=== PATIENT | male | born 1965 | race Caucasian/White ===

== ENCOUNTER → 2016-08-10 | Outpatient (CLI) | payer OTHER ==
[2016-08-10 09:57] LABS: BASO % 0.4 %; BASO ABS # 0.03 K/uL (0-0.2); COMPLETE YES; EOS % 0.5 %; HEMATOCRIT 41.9 % (42-52); IG% 0.3 %; LYMPH % 34.1 %; LYMPH ABS # 2.63 K/uL (1.2-3.4); MEAN CELL VOLUME 90.3 fL (80-100); MEAN CORPUSCULAR HEMOGLOBIN 32.5 pg (25-34); MEAN PLATELET VOLUME 8.5 fL (7.4-10.4); MONO % 6.6 %; NEUT % 58.1 %; PLATELET COUNT 180 K/uL (130-400); RED BLOOD COUNT 4.64 M/uL (4.7-6.1); WHITE BLOOD COUNT 7.72 K/uL (4.8-10.8)
[2016-08-10 10:35] LABS: ALT/SGPT 55 U/L (12-78); AST/SGOT 24 U/L (15-37); BLOOD UREA NITROGEN 14 mg/dl (7-18); BUN/CREATININE RATIO 14.7 (10-20); CALCIUM 8.6 mg/dl (8.5-10.1); CARBON DIOXIDE 30 mmol/L (21-32); CHLORIDE 104 mmol/L (98-107); CREATININE 0.95 mg/dl (0.60-1.40); GLUCOSE 89 mg/dl (70-99); SODIUM 139 mmol/L (136-145)
[2016-08-10 10:41] LABS: ALB/GLOB RATIO 1.3 (0.9-2); ALKALINE PHOSPHATASE 87 U/L (45-117); CHOLESTEROL 224 mg/dl (0-200); CHOLESTEROL/HDL RATIO 5.1; FERRITIN 184.6 ng/ml (8.0-388.0); HDL CHOLESTEROL 44 mg/dl; LDL CHOLESTEROL CALCULATED 142 mg/dl; PROSTATE SPECIFIC ANTIGEN 0.825 ng/ml (0.000-4.000); TRIGLYCERIDES 190 mg/dl (0-150); VERY LOW DENSITY LIPOPROT CALC 38 mg/dl
== END | disposition home or self-care (01) ==
LOC: C.LAB 09:30
PROVIDERS: ATTEND Family Medicine
DX: Z11.59 Encounter for screening for other viral diseases (principal); E78.00 Pure hypercholesterolemia, unspecified; Z86.2 Personal history of diseases of the blood and blood-forming organs and certain disorders involving the immune mechanism; Z12.5 Encounter for screening for malignant neoplasm of prostate

== ENCOUNTER → 2017-02-10 | Outpatient (CLI) | payer OTHER ==
[2017-02-10 10:48] LABS: BLOOD UREA NITROGEN 13 mg/dl (7-18); BUN/CREATININE RATIO 13.1 (10-20); CARBON DIOXIDE 29 mmol/L (21-32); CHLORIDE 101 mmol/L (98-107); CREATININE 0.96 mg/dl (0.60-1.40); GLUCOSE 87 mg/dl (70-99); POTASSIUM 4.2 mmol/L (3.5-5.1); SODIUM 137 mmol/L (136-145)
[2017-02-10 10:49] LABS: ALT/SGPT 143 U/L (12-78); AST/SGOT 69 U/L (15-37); CALCIUM 9.2 mg/dl (8.5-10.1); CHOLESTEROL 227 mg/dl (0-200); TRIGLYCERIDES 173 mg/dl (0-150); VERY LOW DENSITY LIPOPROT CALC 35 mg/dl
[2017-02-10 10:52] LABS: ALB/GLOB RATIO 1.1 (0.9-2); ALKALINE PHOSPHATASE 110 U/L (45-117); CHOLESTEROL/HDL RATIO 4.5; HDL CHOLESTEROL 50 mg/dl; LDL CHOLESTEROL CALCULATED 142 mg/dl
== END | disposition home or self-care (01) ==
LOC: C.LAB 09:52
PROVIDERS: ATTEND Family Medicine
DX: E78.00 Pure hypercholesterolemia, unspecified (principal)

== ENCOUNTER 2022-02-13 01:59 | Observation (INO) ==
[2022-02-13] MEDS ORDERED: OPTIRAY 350 100ml IV ONE (03:09)
[2022-02-13 03:12] LABS: Basophils # (auto) 0.03 K/uL (0-0.2); Basophils % (auto) 0.4 %; Eosinophils # (auto) 0.01 K/uL (0-0.50); Eosinophils % (auto) 0.1 %; Hematocrit (blood only) 40.8 % (40.1-51.0); Hemoglobin 14.8 g/dl (14.0-18.0); Immature Granulocytes # (auto) 0.11 K/uL (0.00-0.02); Immature Granulocytes % (auto) 1.3 %; Lymphocytes # (auto) 1.68 K/uL (1.2-3.4); Lymphocytes % (auto) 20.2 %; Mean Corpuscular Hemoglobin 32.7 pg (25.0-34.0); Mean Corpuscular Hgb Conc 36.3 g/dL (32.0-36.0); Mean Corpuscular Volume 90.3 fL (80.0-100.0); Mean Platelet Volume 8.7 fL (9.4-12.4); Monocytes # (auto) 0.33 K/uL (0.24-0.82); Neutrophils # (auto) 6.17 K/uL (1.4-6.5); Platelet Count 197 K/uL (130-400); RDW Coefficient of Variation 11.6 % (11.5-14.5); RDW Standard Deviation 38.3 fL (36.4-46.3); Red Blood Count 4.52 M/uL (4.63-6.08); White Blood Count 8.33 K/ul (4.8-10.8)
[2022-02-13 03:15] LABS: Appearance Urine Clear (Clear); Bacteria Urine Automated Negative (Negative); Bilirubin Urine Negative (Negative); Blood Urine Negative (Negative); Color Urine Yellow; Glucose Urine UA Negative (Negative); Ketones Urine Trace (Negative); Leukocyte Esterase Urine Negative (Negative); Nitrite Urine Negative (Negative); RBC Urine Automated 0-4 /hpf (0-4); Specific Gravity Urine 1.019 (1.000-1.030); Urobilinogen Urine Negative (Negative); pH Urine 7.5 (4.5-7.5)
[2022-02-13] MEDS ORDERED: SODIUM CHLORIDE 0.9% 1000ML 1,000 ML IV SCH (03:15)
[2022-02-13 03:16] LABS: Protein Urine Trace (Negative)
[2022-02-13 03:26] LABS: Albumin Globulin Ratio 1.7 (0.9-2); Albumin Level 4.8 gm/dl (3.4-5.0); Bilirubin,Total 0.8 mg/dl (0.2-1.0); Calcium 8.6 mg/dl (8.5-10.1); Creatinine Clr Calc Pharmacy 96.4 ml/min; Est GFR (African American) 109.2 ml/min; Est GFR (Non-African American) 94.3 ml/min; Globulin 2.9 gm/dl (2.5-4.0); Magnesium 1.9 mg/dl (1.7-2.4); Potassium 3.6 mmol/L (3.5-5.1); Total Protein 7.7 gm/dl (6.0-8.3)
[2022-02-13 03:28] LABS: Troponin I High Sensitivity 6.1 pg/ml (0-20)
[2022-02-13 03:30] LABS: Amphetamines+Metham, Urine Neg (Neg); Barbiturates, Urine Neg (Neg); Benzodiazepine, Urine Neg (Neg); Cocaine, Urine Neg (Neg); MDMA (Ecstacy), Urine Neg (Neg); Methadone, Urine Neg (Neg); Opiate, Urine Neg (Neg); Phencyclidine, Urine Neg (Neg)
[2022-02-13 03:31] LABS: Acetaminophen < 3 ug/ml (10-30); Salicylate < 3.0 mg/dl (3.0-30)
[2022-02-13 03:52] LABS: Lyme Ab IgG w/WB Rflx Negative (Negative); Lyme Ab IgM w/WB Rflx Negative (Negative)
[2022-02-13 03:53] LABS: Thyroid Stimulating Hormone 7.528 uIu/ml (0.300-4.500)
--- NOTE | 2022-02-13 04:00 | Emergency Department Note ---
History of Present Illness General Chief complaint: Altered Mental Status Stated complaint: ALTERED MENTAL STATUS, TOES & FINGERS TINGLING, Time Seen by Provider: 02/13/22 02:36 Source: patient and family Mode of arrival: ambulatory Limitations: patient cooperation History of Present Illness Provider complaint: Altered mental status This is a 56-year-old male who presents due to agitation and confusion with at bedside. states yesterday patient seemed hyper when he got home from work and was discussing a very busy and stressful day. She states he felt well 2 days ago in the morning before work, and seemed to feel well yesterday morning when he got up to go to work. She states when he returned home he again seemed hyperverbal, but more agitated, then seem to be spiraling and blaming her for not being empathetic enough, and then began stating bizarre things according to the and finally stated that she should take him to the emergency room as he was concerned he was having a heart attack or stroke. Patient here defers to the to speak and states he cannot speak because it will make him very anxious again. The states he has no history of any mental health disorder. He does take Celexa which she has been on for a while since experiencing increased stress from his father's . She states more than a month ago they had increased it from 20 mg to 40 mg. He had not noticed any significant improvement with this. He states he has been taking it as prescribed. No recen t fevers, chills, or URI symptoms. No recent trauma or change in activity. Home Medications Medication Instructions Recorded Confirmed Type citalopram 40 mg tablet 40 mg PO DAILY 02/13/22 02/13/22 History rosuvastatin 5 mg tablet 5 mg PO DAILY 02/13/22 02/13/22 History Allergies Allergy/AdvReac Type Severity Reaction Status Date / Time No Known Allergies Allergy Unverified 09/04/18 01:38 Past Med/Surg History Medical History (Updated 02/13/22 @ 07:53 by Eriberto Marie MD) Hx of hemorrhoids Hx of shigellosis Family History Other Family history non-contributory Social History Smoking Status: Never smoker Hx Alcohol Use: No Hx Substance Use: No Preferred Language: Malay Communication Ability: Effective 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 current occupational status: employed Other Information That Helps Us Care for You: No Feels Safe at Home: Yes Safety Concerns: Feels Safe At This Time Assistive Devices: None Review of Systems A total of 10 systems reviewed and were otherwise negative All systems reviewed & are unremarkable except as noted in HPI & below Physical Exam Vital Signs Vital Signs - 24 hr 02/13/22 06:00 02/13/22 04:24 02/13/22 04:30 Pulse Rate 76 Pulse Rate [Apical] 85 Pulse Rate from SpO2 Sensor 76 Respiratory Rate 16 25 H Blood Pressure 175/92 H Blood Pressure [Right Arm] 150/87 H Blood Pressure Mean 119 Blood Pressure Mean [Right Arm] 108 Pulse Oximetry 99 98 Oxygen Delivery Method 02/13/22 04:30 02/13/22 04:40 02/13/22 04:50 Pulse Rate 81 84 80 Pulse Rate [Apical] Pulse Rate from SpO2 Sensor Respiratory Rate 22 23 18 Blood Pressure Blood Pressure [Right Arm] Blood Pressure Mean Blood Pressure Mean [Right Arm] Pulse Oximetry Oxygen Delivery Method 02/13/22 05:00 02/13/22 05:01 02/13/22 05:01 Pulse Rate 76 82 Pulse Rate [Apical] Pulse Rate from SpO2 Sensor Respiratory Rate 16 21 Blood Pressure 170/84 H Blood Pressure [Right Arm] Blood Pressure Mean 112 Blood Pressure Mean [Right Arm] Pulse Oximetry Oxygen Delivery Method 02/13/22 05:10 02/13/22 05:20 02/13/22 05:30 Pulse Rate 83 80 Pulse Rate [Apical] Pulse Rate from SpO2 Sensor Respiratory Rate 20 Blood Pressure 169/88 H Blood Pressure [Right Arm] Blood Pressure Mean 115 Blood Pressure Mean [Right Arm] Pulse Oximetry Oxygen Delivery Method 02/13/22 05:30 02/13/22 05:40 02/13/22 05:50 Pulse Rate 79 83 79 Pulse Rate [Apical] Pulse Rate from SpO2 Sensor Respiratory Rate 22 10 L 22 Blood Pressure Blood Pressure [Right Arm] Blood Pressure Mean Blood Pressure Mean [Right Arm] Pulse Oximetry Oxygen Delivery Method 02/13/22 06:00 02/13/22 06:00 02/13/22 06:18 Pulse Rate 75 79 Pulse Rate [Apical] Pulse Rate from SpO2 Sensor Respiratory Rate 21 18 Blood Pressure 164/77 H Blood Pressure [Right Arm] Blood Pressure Mean 106 Blood Pressure Mean [Right Arm] Pulse Oximetry Oxygen Delivery Method 02/13/22 06:20 02/13/22 06:30 02/13/22 06:30 Pulse Rate 80 79 Pulse Rate [Apical] Pulse Rate from SpO2 Sensor 79 82 Respiratory Rate 22 21 Blood Pressure 150/87 H Blood Pressure [Right Arm] Blood Pressure Mean 108 Blood Pressure Mean [Right Arm] Pulse Oximetry 98 99 Oxygen Delivery Method 02/13/22 06:40 02/13/22 06:50 02/13/22 07:00 Pulse Rate 87 91 H Pulse Rate [Apical] Pulse Rate from SpO2 Sensor 89 Respiratory Rate 22 21 Blood Pressure 159/89 H Blood Pressure [Right Arm] Blood Pressure Mean 112 Blood Pressure Mean [Right Arm] Pulse Oximetry 97 Oxygen Delivery Method 02/13/22 07:00 02/13/22 07:10 02/13/22 07:20 Pulse Rate 90 83 85 Pulse Rate [Apical] Pulse Rate from SpO2 Sensor 89 83 86 Respiratory Rate 21 24 18 Blood Pressure Blood Pressure [Right Arm] Blood Pressure Mean Blood Pressure Mean [Right Arm] Pulse Oximetry 98 100 98 Oxygen Delivery Method 02/13/22 07:24 02/13/22 07:24 02/13/22 07:27 Pulse Rate 82 Pulse Rate [Apical] Pulse Rate from SpO2 Sensor 86 Respiratory Rate 24 Blood Pressure 134/80 154/87 H Blood Pressure [Right Arm] Blood Pressure Mean 98 109 Blood Pressure Mean [Right Arm] Pulse Oximetry 98 Oxygen Delivery Method Room Air 02/13/22 07:27 02/13/22 07:30 02/13/22 07:30 Pulse Rate 86 81 Pulse Rate [Apical] Pulse Rate from SpO2 Sensor 87 85 Respiratory Rate 24 22 Blood Pressure 140/76 Blood Pressure [Right Arm] Blood Pressure Mean 97 Blood Pressure Mean [Right Arm] Pulse Oximetry 98 98 Oxygen Delivery Method Room Air Room Air Room Air GENERAL: alert, agitated and anxious appearing, well nourished, no distress, non-toxic EYE EXAM: normal conjunctiva, PERRL and EOM's grossly intact OROPHARYNX: no exudate, no erythema, lips, buccal mucosa, and tongue normal and mucous membranes are moist NECK: supple, no nuchal rigidity, no adenopathy, non-tender LUNGS: Clear to auscultation. Normal chest wall mechanics, no w/r/r HEART: no murmurs, S1 normal and S2 normal ABDOMEN: abdomen soft, non-tender, normo-active bowel sounds, no masses, no rebound or guarding. BACK: Back is symmetrical on inspection and there is no deformity, no midline tenderness, no CVA tenderness. SKIN: no rashes and no bruising UPPER EXTREMITIES: upper extremities are grossly normal. FROM, nml pulses b/l. LOWER EXTREMITIES: No pitting edema. FROM, nml pulses b/l. NEURO EXAM: Agitated, oriented to place, time, and person, cranial nerves II-XII grossly intact, normal but slightly pressured speech, no facial droop, no gross weakness of arms, no gross weakness of legs. Gross sensation intact. No ataxia. Patient moving all extremities and would not otherwise cooperate for additional neuro testing. Course Administered Medications Enoxaparin Sodium (Enoxaparin Inj 40 Mg/0.4 Ml Syr) [facility]: 03/15/22 11:16 Last Admin: 02/13/22 12:59 Dose: 40 mg Documented By: [id number] Olanzapine (Olanzapine 2.5 Mg Tab) 2.5 mg PO BID [facility] Stop: 03/15/22 12:59 Last Admin: 02/13/22 20:43 Dose: 2.5 mg Documented By: Admin: 02/13/22 13:48 Dose: 2.5 mg Documented By: [id number] Rosuvastatin Calcium (Rosuvastatin Calcium 5 Mg Tab) 2.5 [facility] Stop: 03/15/22 11:29 Last Admin: 02/13/22 13:00 Dose: 2.5 mg Documented By: [id number] Discontinued Medications Citalopram Hydrobromide (Citalopram 40 Mg Tab) [facility] Stop: 03/15/22 10:59 Last Admin: 02/13/22 12:59 Dose: Not Given Documented By: [id number] Sodium Chloride (Nss 1000ml) 1,000 mls @ 250 mls/hr IV .Q4H [facility] Stop: 03/15/22 03:14 Last Infusion: 02/13/22 08:05 Dose: 0 mls/hr Documented By: Admin: 02/13/22 03:15 Dose: 250 mls/hr Documented By: ROMELIA Sodium Chloride (Nss 1000ml) 1,000 mls @ 100 mls/hr IV .Q10H ONE Stop: 02/13/22 16:39 Last Infusion: 02/13/22 14:37 Dose: 0 mls/hr Documented By: [id number] Infusion: 02/13/22 12:59 Dose: 0 mls/hr Documented By: [id number] Admin: 02/13/22 07:30 Dose: 100 mls/hr Documented By: RACHEL Ioversol (Optiray 350 100ml) 100 ml IV ONCE ONE Stop: 02/13/22 03:10 Last Admin: 02/13/22 03:10 Dose: 85 ml Documented By: DIPAK Lisinopril (Lisinopril 5 Mg Tab) 2.5 mg PO ONE STA Stop: 02/13/22 06:39 Last Admin: 02/13/22 07:30 Dose: 2.5 mg Documented By: RACHEL Lorazepam (Lorazepam 1 Mg/1 Ml Syr) 1 mg IV NOW PRN; Protocol PRN Reason: Agitation Stop: 03/15/22 04:06 Last Admin: 02/13/22 06:44 Dose: 1 mg Documented By: ROMELIA Potassium Chloride (Potassium Chloride Crtab 20 Meq Tabcr) 40 meq PO NOW STA Stop: 02/13/22 07:30 Last Admin: 02/13/22 10:03 Dose: Not Given Documented By: FREDI Potassium Chloride (Potassium Chloride 10 Meq Tabcr) Confirm Administered Dose 40 meq PO .STK-MED ONE Stop: 02/13/22 10:02 Last Admin: 02/13/22 10:02 Dose: 40 meq Documented By: FREDI Medical Decision Making Differential Diagnosis Differential diagnoses includes but is not limited to toxic, metabolic, in fectious, traumatic, cardiac, neurologic, hematologic, psychiatric and inflammatory etiologies. Medical Records Attestation: I reviewed the patient's medical records. Home Medications Current Medication List: was personally reviewed by me Laboratory Data Attestation: I reviewed the patient's lab results. Result diagrams: 02/13/22 02:39 02/13/22 02:39 Lab Results 02/13/22 02/13/22 02/13/22 Range/Units 02:39 02:39 02:39 WBC 8.33 (4.8-10.8) K/ul RBC 4.52 L (4.63-6.08) M/uL Hgb 14.8 (14.0-18.0) g/dl Hct 40.8 (40.1-51.0) % MCV 90.3 (80.0-100.0) fL MCH 32.7 (25.0-34.0) pg MCHC 36.3 H (32.0-36.0) g/dL RDW Std Deviation 38.3 (36.4-46.3) fL RDW Coeff of [place] 11.6 (11.5-14.5) % Plt Count 197 (130-400) K/uL MPV 8.7 L (9.4-12.4) fL Immature Gran % (Auto) 1.3 % Neut % (Auto) 74.0 % Lymph % (Auto) 20.2 % [place] % (Auto) 4.0 % Eos % (Auto) 0.1 % Baso % (Auto) 0.4 % Neut # (Auto) 6.17 (1.4-6.5) K/uL Lymph # (Auto) 1.68 (1.2-3.4) K/uL [place] # (Auto) 0.33 (0.24-0.82) K/uL Eos # (Auto) 0.01 (0-0.50) K/uL Baso # (Auto) 0.03 (0-0.2) K/uL Immature Gran # (Auto) 0.11 H (0.00-0.02) K/uL Sodium 133 L (136-145) mmol/L Potassium 3.6 (3.5-5.1) mmol/L Chloride 98 (98-107) mmol/L Carbon Dioxide 28 (21-32) mmol/L Anion Gap 7 (3-11) BUN 16 (6-23) mg/dl Creatinine 0.89 (0.6-1.4) mg/dl Est Cr Clr Drug Dosing 96.4 ml/min Est GFR ( Amer) 109.2 ml/min Est GFR (Non-Af Amer) 94.3 ml/min BUN/Creatinine Ratio 18.0 (10-20) Glucose 141 H (70-99(Fasting)) mg/dl Estimat Average Glucose mg/dl Hemoglobin A1c (4.5-5.6) % Calcium 8.6 (8.5-10.1) mg/dl Magnesium 1.9 (1.7-2.4) mg/dl Total Bilirubin 0.8 (0.2-1.0) mg/dl AST 24 (13-39) U/L ALT 28 (7-52) U/L Alkaline Phosphatase 83 (34-104) U/L Troponin I High Sens 6.1 (0-20) pg/ml Total Protein 7.7 (6.0-8.3) gm/dl Albumin 4.8 (3.4-5.0) gm/dl Globulin 2.9 (2.5-4.0) gm/dl Albumin/Globulin Ratio 1.7 (0.9-2) Lipase 19 (11-82) U/L TSH 7.528 H (0.300-4.500) uIu/ml Free T4 0.79 (0.61-1.60) ng/dl Urine Color Urine Appearance (Clear) Urine pH (4.5-7.5) Ur Specific [place] (1.000-1.030) Urine Protein (Negative) Urine Glucose (UA) (Negative) Urine Ketones (Negative) Urine Blood (Negative) Urine Nitrite (Negative) Urine Bilirubin (Negative) Urine Urobilinogen (Negative) Ur Leukocyte Esterase (Negative) Urine WBC (Auto) (0-5) /hpf Urine RBC (Auto) (0-4) /hpf U Hyaline Cast (Auto) (0-5) /lpf U Epithel Cells (Auto) (0-5) /lpf Urine Bacteria (Auto) (Negative) Salicylates (3.0-30) mg/dl Urine Opiates Screen (Neg) Ur Methadone, Qual (Neg) Acetaminophen (10-30) ug/ml Urine Barbiturates (Neg) Ur Phencyclidine (PCP) (Neg) U Amphetamin/Meth Scrn (Neg) MDMA (Ecstasy) Screen (Neg) U Benzodiazepines Scrn (Neg) Ur Cocaine Metabolite (Neg) U Marijuana (THC) Screen (Neg) Ethyl Alcohol mg/dL (<10.0) mg/dl Lyme Disease IgG Ab (Negative) Lyme Disease IgM Ab (Negative) 02/13/22 02/13/22 02/13/22 Range/Units 02:39 02:39 02:39 WBC (4.8-10.8) K/ul RBC (4.63-6.08) M/uL Hgb (14.0-18.0) g/dl Hct (40.1-51.0) % MCV (80.0-100.0) fL MCH (25.0-34.0) pg MCHC (32.0-36.0) g/dL RDW Std Deviation (36.4-46.3) fL RDW Coeff of [place] (11.5-14.5) % Plt Count (130-400) K/uL MPV (9.4-12.4) fL Immature Gran % (Auto) % Neut % (Auto) % Lymph % (Auto) % [place] % (Auto) % Eos % (Auto) % Baso % (Auto) % Neut # (Auto) (1.4-6.5) K/uL Lymph # (Auto) (1.2-3.4) K/uL [place] # (Auto) (0.24-0.82) K/uL Eos # (Auto) (0-0.50) K/uL Baso # (Auto) (0-0.2) K/uL Immature Gran # (Auto) (0.00-0.02) K/uL Sodium (136-145) mmol/L Potassium (3.5-5.1) mmol/L Chloride (98-107) mmol/L Carbon Dioxide (21-32) mmol/L Anion Gap (3-11) BUN (6-23) mg/dl Creatinine (0.6-1.4) mg/dl Est Cr Clr Drug Dosing ml/min Est GFR ( Amer) ml/min Est GFR (Non-Af Amer) ml/min BUN/Creatinine Ratio (10-20) Glucose (70-99(Fasting)) mg/dl Estimat Average Glucose mg/dl Hemoglobin A1c (4.5-5.6) % Calcium (8.5-10.1) mg/dl Magnesium (1.7-2.4) mg/dl Total Bilirubin (0.2-1.0) mg/dl AST (13-39) U/L ALT (7-52) U/L Alkaline Phosphatase (34-104) U/L Troponin I High Sens (0-20) pg/ml Total Protein (6.0-8.3) gm/dl Albumin (3.4-5.0) gm/dl Globulin (2.5-4.0) gm/dl Albumin/Globulin Ratio (0.9-2) Lipase (11-82) U/L TSH (0.300-4.500) uIu/ml Free T4 (0.61-1.60) ng/dl Urine Color Urine Appearance (Clear) Urine pH (4.5-7.5) Ur Specific [place] (1.000-1.030) Urine Protein (Negative) Urine Glucose (UA) (Negative) Urine Ketones (Negative) Urine Blood (Negative) Urine Nitrite (Negative) Urine Bilirubin (Negative) Urine Urobilinogen (Negative) Ur Leukocyte Esterase (Negative) Urine WBC (Auto) (0-5) /hpf Urine RBC (Auto) (0-4) /hpf U Hyaline Cast (Auto) (0-5) /lpf U Epithel Cells (Auto) (0-5) /lpf Urine Bacteria (Auto) (Negative) Salicylates < 3.0 L (3.0-30) mg/dl Urine Opiates Screen (Neg) Ur Methadone, Qual (Neg) Acetaminophen < 3 L (10-30) ug/ml Urine Barbiturates (Neg) Ur Phencyclidine (PCP) (Neg) U Amphetamin/Meth Scrn (Neg) MDMA (Ecstasy) Screen (Neg) U Benzodiazepines Scrn (Neg) Ur Cocaine Metabolite (Neg) U Marijuana (THC) Screen (Neg) Ethyl Alcohol mg/dL < 10.0 (<10.0) mg/dl Lyme Disease IgG Ab Negative (Negative) Lyme Disease IgM Ab Negative (Negative) 02/13/22 02/13/22 02/13/22 Range/Units 02:39 02:39 02:39 WBC (4.8-10.8) K/ul RBC (4.63-6.08) M/uL Hgb (14.0-18.0) g/dl Hct (40.1-51.0) % MCV (80.0-100.0) fL MCH (25.0-34.0) pg MCHC (32.0-36.0) g/dL RDW Std Deviation (36.4-46.3) fL RDW Coeff of [place] (11.5-14.5) % Plt Count (130-400) K/uL MPV (9.4-12.4) fL Immature Gran % (Auto) % Neut % (Auto) % Lymph % (Auto) % [place] % (Auto) % Eos % (Auto) % Baso % (Auto) % Neut # (Auto) (1.4-6.5) K/uL Lymph # (Auto) (1.2-3.4) K/uL [place] # (Auto) (0.24-0.82) K/uL Eos # (Auto) (0-0.50) K/uL Baso # (Auto) (0-0.2) K/uL Immature Gran # (Auto) (0.00-0.02) K/uL Sodium (136-145) mmol/L Potassium (3.5-5.1) mmol/L Chloride (98-107) mmol/L Carbon Dioxide (21-32) mmol/L Anion Gap (3-11) BUN (6-23) mg/dl Creatinine (0.6-1.4) mg/dl Est Cr Clr Drug Dosing ml/min Est GFR ( Amer) ml/min Est GFR (Non-Af Amer) ml/min BUN/Creatinine Ratio (10-20) Glucose (70-99(Fasting)) mg/dl Estimat Average Glucose 97 mg/dl Hemoglobin A1c 5.0 (4.5-5.6) % Calcium (8.5-10.1) mg/dl Magnesium (1.7-2.4) mg/dl Total Bilirubin (0.2-1.0) mg/dl AST (13-39) U/L ALT (7-52) U/L Alkaline Phosphatase (34-104) U/L Troponin I High Sens (0-20) pg/ml Total Protein (6.0-8.3) gm/dl Albumin (3.4-5.0) gm/dl Globulin (2.5-4.0) gm/dl Albumin/Globulin Ratio (0.9-2) Lipase (11-82) U/L TSH (0.300-4.500) uIu/ml Free T4 (0.61-1.60) ng/dl Urine Color Yellow Urine Appearance Clear (Clear) Urine pH 7.5 (4.5-7.5) Ur Specific [place] 1.019 (1.000-1.030) Urine Protein Trace H (Negative) Urine Glucose (UA) Negative (Negative) Urine Ketones Trace H (Negative) Urine Blood Negative (Negative) Urine Nitrite Negative (Negative) Urine Bilirubin Negative (Negative) Urine Urobilinogen Negative (Negative) Ur Leukocyte Esterase Negative (Negative) Urine WBC (Auto) 1-5 (0-5) /hpf Urine RBC (Auto) 0-4 (0-4) /hpf U Hyaline Cast (Auto) 1-5 (0-5) /lpf U Epithel Cells (Auto) 10-20 H (0-5) /lpf Urine Bacteria (Auto) Negative (Negative) Salicylates (3.0-30) mg/dl Urine Opiates Screen Neg (Neg) Ur Methadone, Qual Neg (Neg) Acetaminophen (10-30) ug/ml Urine Barbiturates Neg (Neg) Ur Phencyclidine (PCP) Neg (Neg) U Amphetamin/Meth Scrn Neg (Neg) MDMA (Ecstasy) Screen Neg (Neg) U Benzodiazepines Scrn Neg (Neg) Ur Cocaine Metabolite Neg (Neg) U Marijuana (THC) Screen Neg (Neg) Ethyl Alcohol mg/dL (<10.0) mg/dl Lyme Disease IgG Ab (Negative) Lyme Disease IgM Ab (Negative) Imaging Data My Impression: X-ray: I interpreted the following studies. Chest: A single view study of the chest was reviewed and was negative for cardiomegaly, focal infiltrate, effusion, pulmonary edema, or wide mediastinum. Radiologist's Impression: Head CT 02/13/22 03:[address] DOSE: HISTORY: Altered mental status. TECHNIQUE: Multiaxial CT images of the head were performed without the use of intravenous contrast. Automated exposure control was utilized for this study. A dose lowering technique was utilized adhering to the principles of ALARA. Comparison: None. Findings: The paranasal sinuses and mastoid air cells are clear. The calvarium and skull base are intact. The ventricles and sulci are within normal limits. There is no mass, hematoma, midline shift, or acute infarct. Impression: No acute intracranial abnormality. ACT 112: Negative or not required by law. Electronically signed by: Shimon Díaz M.D. 02/13/2022 7:[address] head: No acute intracranial abnormality. No hemorrhage. No visible infarct or mass. Osseous structures are intact. Radiologist: Singh Cobb MD CTA head: The anterior and posterior arterial circulations are patent. No stenosis or occlusion dissection or aneurysm. Dural sinuses are patent as well without evidence of thrombus. Radiologist: Singh Cobb MD CTA neck: The cervical, carotid arteries, the bifurcations, the cervical internal carotid arteries and the bilateral cervical vertebral arteries are patent without stenosis dissection aneurysm or occlusion. Radiologist: Singh Cobb MD ECG Data Attestation: I personally reviewed and interpreted this ECG as follows: Indication: + altered mental status Rate (beats per minute): 65 Rhythm: + normal sinus ECG Intervals/blocks: + Normal QRS and + Normal QT ECG [place]: + Normal ECG ST segments: + Nonspecific ST abnormalities MDM Narrative An order was placed for continuous cardiac monitoring. The monitor shows a rate of _82_ with _normal sinus_ rhythm. This is a 56-year-old male presents emergency department due to altered mentation with at bedside. Patient was afebrile and hemodynamically stable. He would not cooperate for full neuro exam but was moving all extremities spontaneously without any difficulty and had no obvious focal neurodeficits. Patient provided minimal additional history and is primary historian. No obvious cause of the confusion based on any recent events. No recent infection and no recent trauma. Labs drawn and sent, patient sent for CT/CTA and chest x-ray. Urine collected, EKG performed. These were all reassuring. No obvious evidence of infectious etiology. Bio fire added and was negative also. No evidence of obvious neurologic pathology. Case discussed with hospitalist for additional evaluation and management given unclear etiology of symptoms. No prior history of mental health disorder. Although in discussion with patient was started on Celexa for increased stress/anxiety when his father . Impression & Plan Altered mental status Discharge Plan Visit Data Chief Complaint: Altered Mental Status Stated Complaint: ALTERED MENTAL STATUS, TOES & FINGERS TINGLING, ED Provider: Nicole Archuleta Discharge Problem: Altered mental status Patient Disposition: Admitted As Inpatient Discharge Instructions Interventions: ED Discharge Assessment Last Done: 02/13/22 10:38
[2022-02-13] MEDS ORDERED: LORazepam 1 MG/1 ML SYR IV PRN (04:07)
[2022-02-13 04:27] LABS: T4 Free Thyroxine 0.79 ng/dl (0.61-1.60)
--- NOTE | 2022-02-13 06:34 | History & Physical Report ---
Date of Service February 13, 2022 Assessment & Plan (1) Encephalopathy: Plan: Acute behavioral change Multifactorial : Uncontrolled hypertension, probable chronic BP elevation given LVH on EKG Work stress with lack of sleep Mild clinical dehydration given ketonuria Anxiety disorder, stable on Celexa prior to acute episode as per patient/ Hyperlipidemia on statin Rx Hyperglycemia rule out DM OBS Medical telemetry given BP elevation Initiate lisinopril IVF Ativan as needed anxiety Psych consult re: acute behavioral change Check hemoglobin A1c DVT prophylaxis. Lovenox subcu Full code Patient requesting updates from providers. Ms. Suzi Harrell, contact #[phone]. Text document was generated using [employer] voice recognition software. It may contain grammatical or spelling errors. Kindly contact undersigned for clarification of any documentation item in question. History of Present Illness Chief Complaint: Agitation Primary Care Provider: Craig Otero History obtained from patient, family, and records. Medical history significant for anxiety disorder, hyperlipidemia, anaplasmosis status post doxycycline Rx. Patient noted to be agitated by the last 2 days. 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 Patient did not sleep well yesterday night. Patient increasingly agitated and anxious after getting home from work yesterday. Pacing [id number]. Patient denies headache, chest pain, shortness of breath. Some leg cramps. Thinks he was eating/drinking enough at work. No new medications. No exposure to new chemicals. Patient having trouble focusing and answering questions as per . Patient verbalized to sense of impending doom. Patient denies suicidality. No prior episodes as per . SBP 180s upon arrival at the ER. Patient called more with improved mentation after IV Ativan administration at the ER as per . 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 Allergies Allergy/AdvReac Type Severity Reaction Status Date / Time No Known Allergies Allergy Unverified 09/04/18 01:38 Home Medications Medication Instructions Recorded Confirmed Type citalopram 40 mg tablet 40 mg PO DAILY 02/13/22 02/13/22 History rosuvastatin 5 mg tablet 5 mg PO DAILY 02/13/22 02/13/22 History Past Med/Surg History Medical History (Updated 02/13/22 @ 07:53 by Eriberto Marie MD) Hx of hemorrhoids Hx of shigellosis Family History Other Family history non-contributory Social History Smoking Status: Never smoker Preferred Language: Austrian marital status: Current Living Situation: Spouse current occupational status: employed Feels Safe at Home: Yes Review of Systems Review of Systems: As per HPI, all other systems reviewed and negative Physical Exam Physical Exam: GENERAL: Comfortable, pleasant, no respiratory distress SKIN: Normal color, warm HEENT: [place] palpebral conjunctivae, no ptosis, dry buccal mucosa NECK : Supple, no tenderness CHEST : CTA, no tenderness HEART : RRR, no obvious murmurs ABDOMEN: Some distention, nontender EXTREMITIES : No LE swelling/tenderness, no other conspicuous deformities noted NEUROLOGIC : Coherent, no facial asymmetry, no other gross focality Results & Data Results & Data ([facility]) Vital Signs (Past 12 Hours) Vital Signs Temp Pulse Pulse Resp BP BP Pulse Ox 02/13/22 04:00 80 16 173/86 H 98 02/13/22 03:46 73 16 173/87 H 99 02/13/22 02:00 69 22 98 02/13/22 02:02 36.4 C L 71 18 180/96 H 97 O2 Del Method 02/13/22 04:00 Room Air 02/13/22 03:46 Room Air 02/13/22 02:00 Room Air 02/13/22 02:02 Room Air Laboratory Results Laboratory Results WBC 8.33 K/ul (4.8-10.8) 02/13/22 02:39 RBC 4.52 M/uL (4.63-6.08) L 02/13/22 02:39 Hgb 14.8 g/dl (14.0-18.0) 02/13/22 02:39 Hct 40.8 % (40.1-51.0) 02/13/22 02:39 MCV 90.3 fL (80.0-100.0) 02/13/22 02:39 MCH 32.7 pg (25.0-34.0) 02/13/22 02:39 MCHC 36.3 g/dL (32.0-36.0) H 02/13/22 02:39 RDW Std Deviation 38.3 fL (36.4-46.3) 02/13/22 02:39 RDW Coeff of Toño 11.6 % (11.5-14.5) 02/13/22 02:39 Plt Count 197 K/uL (130-400) 02/13/22 02:39 MPV 8.7 fL (9.4-12.4) L 02/13/22 02:39 Immature Gran % (Auto) 1.3 % 02/13/22 02:39 Neut % (Auto) 74.0 % 02/13/22 02:39 Lymph % (Auto) 20.2 % 02/13/22 02:39 [place] % (Auto) 4.0 % 02/13/22 02:39 Eos % (Auto) 0.1 % 02/13/22 02:39 Baso % (Auto) 0.4 % 02/13/22 02:39 Neut # (Auto) 6.17 K/uL (1.4-6.5) 02/13/22 02:39 Lymph # (Auto) 1.68 K/uL (1.2-3.4) 02/13/22 02:39 [place] # (Auto) 0.33 K/uL (0.24-0.82) 02/13/22 02:39 Eos # (Auto) 0.01 K/uL (0-0.50) 02/13/22 02:39 Baso # (Auto) 0.03 K/uL (0-0.2) 02/13/22 02:39 Immature Gran # (Auto) 0.11 K/uL (0.00-0.02) H 02/13/22 02:39 Sodium 133 mmol/L (136-145) L 02/13/22 02:39 Potassium 3.6 mmol/L (3.5-5.1) 02/13/22 02:39 Chloride 98 mmol/L (98-107) 02/13/22 02:39 Carbon Dioxide 28 mmol/L (21-32) 02/13/22 02:39 Anion Gap 7 (3-11) 02/13/22 02:39 BUN 16 mg/dl (6-23) 02/13/22 02:39 Creatinine 0.89 mg/dl (0.6-1.4) 02/13/22 02:39 Est Cr Clr Drug Dosing 96.4 ml/min 02/13/22 02:39 Est GFR ( Amer) 109.2 ml/min 02/13/22 02:39 Est GFR (Non-Af Amer) 94.3 ml/min 02/13/22 02:39 BUN/Creatinine Ratio 18.0 (10-20) 02/13/22 02:39 Glucose 141 mg/dl (70-99(Fasting)) H 02/13/22 02:39 Calcium 8.6 mg/dl (8.5-10.1) 02/13/22 02:39 Magnesium 1.9 mg/dl (1.7-2.4) 02/13/22 02:39 Total Bilirubin 0.8 mg/dl (0.2-1.0) 02/13/22 02:39 AST 24 U/L (13-39) 02/13/22 02:39 ALT 28 U/L (7-52) 02/13/22 02:39 Alkaline Phosphatase 83 U/L (34-104) 02/13/22 02:39 Troponin I High Sens 6.1 pg/ml (0-20) 02/13/22 02:39 Total Protein 7.7 gm/dl (6.0-8.3) 02/13/22 02:39 Albumin 4.8 gm/dl (3.4-5.0) 02/13/22 02:39 Globulin 2.9 gm/dl (2.5-4.0) 02/13/22 02:39 Albumin/Globulin Ratio 1.7 (0.9-2) 02/13/22 02:39 Lipase 19 U/L (11-82) 02/13/22 02:39 TSH 7.528 uIu/ml (0.300-4.500) H 02/13/22 02:39 Free T4 0.79 ng/dl (0.61-1.60) 02/13/22 02:39 Urine Color Yellow 02/13/22 02:39 Urine Appearance Clear (Clear) 02/13/22 02:39 Urine pH 7.5 (4.5-7.5) 02/13/22 02:39 Ur Specific [place] 1.019 (1.000-1.030) 02/13/22 02:39 Urine Protein Trace (Negative) H 02/13/22 02:39 Urine Glucose (UA) Negative (Negative) 02/13/22 02:39 Urine Ketones Trace (Negative) H 02/13/22 02:39 Urine Blood Negative (Negative) 02/13/22 02:39 Urine Nitrite Negative (Negative) 02/13/22 02:39 Urine Bilirubin Negative (Negative) 02/13/22 02:39 Urine Urobilinogen Negative (Negative) 02/13/22 02:39 Ur Leukocyte Esterase Negative (Negative) 02/13/22 02:39 Urine WBC (Auto) 1-5 /hpf (0-5) 02/13/22 02:39 Urine RBC (Auto) 0-4 /hpf (0-4) 02/13/22 02:39 U Hyaline Cast (Auto) 1-5 /lpf (0-5) 02/13/22 02:39 U Epithel Cells (Auto) 10-20 /lpf (0-5) H 02/13/22 02:39 Urine Bacteria (Auto) Negative (Negative) 02/13/22 02:39 Salicylates < 3.0 mg/dl (3.0-30) L 02/13/22 02:39 Urine Opiates Screen Neg (Neg) 02/13/22 02:39 Ur Methadone, Qual Neg (Neg) 02/13/22 02:39 Acetaminophen < 3 ug/ml (10-30) L 02/13/22 02:39 Urine Barbiturates Neg (Neg) 02/13/22 02:39 Ur Phencyclidine (PCP) Neg (Neg) 02/13/22 02:39 U Amphetamin/Meth Scrn Neg (Neg) 02/13/22 02:39 MDMA (Ecstasy) Screen Neg (Neg) 02/13/22 02:39 U Benzodiazepines Scrn Neg (Neg) 02/13/22 02:39 Ur Cocaine Metabolite Neg (Neg) 02/13/22 02:39 U Marijuana (THC) Screen Neg (Neg) 02/13/22 02:39 Ethyl Alcohol mg/dL < 10.0 mg/dl (<10.0) 02/13/22 02:39 Lyme Disease IgG Ab Negative (Negative) 02/13/22 02:39 Lyme Disease IgM Ab Negative (Negative) 02/13/22 02:[address] head initial read: No acute intracranial abnormality. No hemorrhage. No visible infarct or mass. Osseous structures are intact CT angio head initial read: The anterior and posterior arterial circulations are patent. No stenosis or occlusion dissection or aneurysm. Dural sinuses are patent aswell without evidence of thrombus. CT angio neck initial read: The cervical common carotid arteries, the bifurcations, the cervical internal carotid arteries and the bilateral cervical vertebral arteries are patent without stenosis dissection aneurysmor occlusion. Chest x-ray as per my interpretation atelectasis, no infiltrate EKG as per my interpretation : Rate 65, NSR, normal axis, LVH, no ischemia
[2022-02-13] MEDS ORDERED: lisinopril 5 MG TAB PO STA (06:38)
[2022-02-13] MEDS ORDERED: SODIUM CHLORIDE 0.9% 1000ML 1,000 ML IV ONE (06:40)
--- NOTE | 2022-02-13 07:08 | CT Scan Report ---
HEAD CT NONCONTRAST CT DOSE: HISTORY: Altered mental status. TECHNIQUE: Multiaxial CT images of the head were performed without the use of intravenous contrast. A utomated exposure control was utilized for this study. A dose lowering technique was utilized adheri ng to the principles of ALARA. Comparison: None. Findings: The paranasal sinuses and mastoid air cells are clear. The calvarium and skull base are int act. The ventricles and sulci are within normal limits. There is no mass, hematoma, midline shift, or acute infarct. Impression: No acute intracranial abnormality. ACT 112: Negative or not required by law. Electronically signed by: Shimon Díaz M.D. 02/13/2022 7:07 AM
[2022-02-13] MEDS ORDERED: POTASSIUM CHLORIDE CRTAB 20 MEQ TABCR PO STA (07:29)
--- NOTE | 2022-02-13 07:30 | CT Scan Report ---
CT angio neck with con, CT angio head w con CLINICAL HISTORY: ams TECHNIQUE: Contiguous axial CT images of the head were acquired from the base of the skull to the guille letitia without intravenous contrast administration. CT angiography of the head and neck was performed f ollowing intravenous administration of iodinated contrast. Coronal and sagittal MIPS were obtained fr om the axial data set and were submitted for review. Automated dose lowering techniques and/or adjus tment according to patient size were utilized for this examination. All measurements were calculated based on NASCET criteria. CT DOSE: 1269.55 mGy.cm Comparison: None available at the time of this dictation. FINDINGS: CT head: There is no acute intracranial hemorrhage or evidence of acute territorial infarction. No sh ift of the midline structures, mass effect, or extra-axial abnormalities are shown. Lungs and soft tissues are unremarkable. CTA Neck: A 3 vessel aortic arch is shown. There is no significant atherosclerotic plaque in the aor tic arch or the origins of the innominate, left common carotid, and left subclavian arteries. The c ommon carotid, external carotid, cervical segments of the internal carotid arteries, and the cervical segments of the vertebral arteries are patent without hemodynamically significant stenosis. The righ t vertebral artery is dominant. CTA Head: The anterior and posterior cerebral circulations are patent. No hemodynamically significan t stenosis, aneurysm, dissection, or arteriovenous malformation is shown. IMPRESSION: 1. No acute intracranial hemorrhage, evidence of acute territorial infarction, or other acute intrac ranial disease process. 2. No occlusion, hemodynamically significant stenosis, or dissection in the major cervical arteries. 3. No occlusion, hemodynamically significant stenosis, aneurysm, dissection, or arteriovenous malfor mation in the major intracranial arteries. Assessment of stenosis of the internal carotid arteries is based on NASCET criteria. ACT 112: Negative or not required by law. Electronically signed by: Solomon Lynch M.D. 02/13/2022 7:29 AM
[2022-02-13] MEDS ORDERED: LORazepam 0.5 MG in SYRINGE 0 ML IV PRN (07:34)
--- NOTE | 2022-02-13 07:40 | XRay Report ---
XR chest 1V portable CLINICAL HISTORY: ams TECHNIQUE: Single frontal radiograph of the chest was obtained. Comparison: None available at the time of this dictation. FINDINGS: No lines and tubes are seen. The cardiomediastinal silhouette is normal. The lungs are clear. No evid ence of pleural effusion or pneumothorax. IMPRESSION: No acute chest disease. ACT 112: Negative or not required by law. Electronically signed by: Solomon Lynch M.D. 02/13/2022 7:38 AM
[2022-02-13 07:51] LABS: Adenovirus PCR Not Detected (NotDetected); Bordetella parapertussis PCR Not Detected (NotDetected); Bordetella pertussis PCR Not Detected (NotDetected); Chlamydia pneumoniae PCR Not Detected (NotDetected); Coronavirus 229E PCR Not Detected (NotDetected); Coronavirus CoV-2 (COVID19)PCR Not Detected (NotDetected); Coronavirus HKU1 PCR Not Detected (NotDetected); Coronavirus NL63 PCR Not Detected (NotDetected); Coronavirus OC43PCR Not Detected (NotDetected); Human Metapneumovirus PCR Not Detected (NotDetected); Influenza A PCR Not Detected (NotDetected); Influenza B PCR Not Detected (NotDetected); Mycoplasma pneumoniae PCR Not Detected (NotDetected); Parainfluenza Virus 1 PCR Not Detected (NotDetected); Parainfluenza Virus 2 PCR Not Detected (NotDetected); Parainfluenza Virus 3 PCR Not Detected (NotDetected); Parainfluenza Virus 4 PCR Not Detected (NotDetected); Respiratory Syncytial VirusPCR Not Detected (NotDetected); Rhinovirus/Enterovirus PCR Not Detected (NotDetected)
--- NOTE | 2022-02-13 10:00 | Electrocardiogram Report ---
Test Reason : Blood Pressure : / mmHG Vent. Rate : 065 BPM Atrial Rate : 065 BPM P-R Int : 150 ms QRS Dur : 092 ms QT Int : 420 ms P-R-T Axes : 064 069 037 degrees QTc Int : 436 ms Normal sinus rhythm Left ventricular hypertrophy with repolarization abnormality Abnormal ECG When compared with ECG of 04-SEP-2018 00:37, No significant change was found Confirmed by Wagner Hoang ([id number]) on 02/13/2022 10:00:15 AM Referred By: REFERRED SELF Confirmed By:Wagner Hoang
[2022-02-13] MEDS ORDERED: POTASSIUM CHLORIDE 10 MEQ TABCR PO ONE (10:01)
[2022-02-13 10:48] LABS: Estimated Average Glucose 97 mg/dl
[2022-02-13] MEDS ORDERED: CITALOPRAM 40 MG TAB PO SCH (11:00)
[2022-02-13] MEDS ORDERED: ACETAMINOPHEN 325 MG TAB PO PRN (11:17)
[2022-02-13] MEDS ORDERED: PROMETHAZINE HCL 6.25 MG in SODIUM CHLORIDE 0.9% 50 ML IV PRN (11:17)
[2022-02-13] MEDS: ENOXAPARIN INJ 40 MG/0.4 ML SYR SQ SCH (12:59)
[2022-02-13] MEDS: ROSUVASTATIN CALCIUM 5 MG TAB PO SCH (13:00)
--- NOTE | 2022-02-13 13:16 | Psychiatric Consultation ---
Date of Consultation February 13, 2022 Impression / Recommendations Impression 56 yo man with history of situational anxiety on citalopram with dose increase about 4-6 weeks ago presenting with acute mental status changes. Differential includes hyperactive delirium particularly given hyponatremia, no personal or family history of bipolar disorder, abrupt onset, waxing/waning confusion about date/orientation, and difficultly with speech/word finding prior to admission. Hypomania/stephanie remains on differential but less likely as late onset bipolar disorder and SSRI-induced mood changes are fairly unusual at this age in men especially with such abrupt onset. (1) Encephalopathy: Plan -Discontinue celexa -Start olanzapine 2.5mg BID (can be titrated up to 5mg BID if needed for agitation/restlessness) -For behavioral emergency would use zyprexa 5mg IM x1 (DO NOT exceed 10mg per 24 hours, check EKG if IM dose required, NEVER co-administer with IM or IV benzodiazepines). -Continue medical workup to rule out and treat any underlying causes contributing to potential delirium, avoid or limit use of deliriogenic medications (benzodiazepines, opioids, anticholinergics) -Continue with delirium prevention measures: raising blinds during the day, closing at night, frequent re-orientation, contact with family/friends, explaining procedures/nursing care measures prior to physical contact, correct any hearing and visual impairments -Does not have decision making capacity to leave AMA given acute delirium Psych History Identifying Data 56 yo man with history of situational anxiety admitted medically for new onset mental status changes. Psychiatry consulted for recommendations. Chief Complaint "I just had an epiphany in the bathroom, I think I want to be a hero like who save people from buildings". History of Present Illness Oracio is accompanied at bedside by his Suzi. History is provided by both. Two days ago Oracio suddenly had an abrupt and acute change from his typical baseline becoming more energetic, waking up earlier, more positive/excited mood but otherwise no notable changes and slept that night. However, the next morning he again woke up very early, had lots of energy, was in a very good mood/almost excited and went to work. 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 He sleeps well typically but over the last 36 hours has hardly slept even though he wants to. 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 After he got home from work he started to ruminate on a concern that he was going to and started to have difficulty speaking and answering questions so she brought him to the ED. While in the ED he remained confused and once admitted medically was displaying mood lability (singing, talking to himself then anxious due to fear of dying) and confused about the date and where he was. At times also confused about need for IV, attempting to pull this out and incontinence in bed and then unable to be redirected back into bed. Today is oriented to person and place but easily overwhelmed. Endorses racing thoughts, concerns about dying, difficulty with recent memory, grandiosity, elevated mood and poor sleep. He notes "there is so much noise in my head". Both he and Suzi confirm no psychiatric history except some anxiety following the of his father two years ago and he's had some stress managing the estate and increased stress at work within the last few days (but typically this type of stress would be something he'd deal with easily per Suzi). Was started on Celexa 20mg in August 2021 and dose increased to 40mg about 4-6 weeks ago. No family history of bipolar disorder. His father and paternal aunt both had neurological manifestations from Lyme disease. History of frequent tick bites. 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 current occupational status: employed Other Information That Helps Us Care for You: No Feels Safe at Home: Yes Safety Concerns: Feels Safe At This Time Assistive Devices: None Physical Exam Psychiatric: Orientation: alert, oriented to person and oriented to place Apperance: appropriately dressed and + disheveled Eye Contact: good eye contact Motor Behavior: + psychomotor agitation Speech: + abnormal rate/rhythm/volume of speech (rapid but easy to interrupt and non pressured) Affect: + labile affect Mood: + anxious mood Thought Process: + tangential thought process and + looseness of associations Thought Content: + preoccupation and + delusions (grandiose) Suicidal Thoughts: denies suicidal thoughts Homicidal Thoughts: denies homicidal thoughts Hallucinations: no auditory hallucinations and no visual hallucinations Cognition: remote memory grossly intact and language grossly intact; + recent memory not intact and + attention not intact Estimated Intelligence: consistent with education level Insight: + impaired insight Judgement: + impaired judgement Vital Signs (Past 24 Hours): Last Vital Signs Temp 37.3 C 02/13/22 10:25 Pulse 94 H 02/13/22 10:25 Resp 19 02/13/22 10:25 BP 156/84 H 02/13/22 10:25 Pulse Ox 98 02/13/22 10:25 O2 Del Method 02/13/22 10:25 Review of Systems All systems reviewed & are unremarkable except as noted in HPI & below Results & Data ([facility]) Laboratory Results low Na+ Diagnostic Findings QTc on EKG normal Medications Administered Enoxaparin Sodium (Enoxaparin Inj 40 Mg/0.4 Ml Syr) 40 mg SQ QAM DELIO Stop: 03/15/22 11:16 Last Admin: 02/13/22 12:59 Dose: 40 mg Documented By: [id number] Sodium Chloride (Nss 1000ml) 1,000 mls @ 100 mls/hr IV .Q10H ONE Stop: 02/13/22 16:39 Last Infusion: 02/13/22 12:59 Dose: 0 mls/hr Documented By: [id number] Admin: 02/13/22 07:30 Dose: 100 mls/hr Documented By: RACHEL Rosuvastatin Calcium (Rosuvastatin Calcium 5 Mg Tab) [facility] [place] Stop: 03/15/22 11:29 Last Admin: 02/13/22 13:00 Dose: 2.5 mg Documented By: [id number] Coding Level of Care Code 97136 Inpt Consult Level 3 Diagnoses Encephalopathy G93.40
[2022-02-13] MEDS: OLANZAPINE 2.5 MG TAB PO SCH ×2 (13:48→20:43)
--- NOTE | 2022-02-13 15:12 | Communication Note ---
Date of Service: February 13, 2022 seen and examined at bedside calm, cooperative states he feels somewhat better, but still has some anxiety at bedside visiting, extensive history obtained no chest pain, dyspnea, palpitations, dizziness will repeat TFT to confirm subclinical hypothyroidism check Anaplasmosis as patient is always exposed to ticks in their area recommends by Psych noted, Zyprexa 2.5mg BID monitor BP, Lisinopril 2.5mg po daily started John Hernandez MD
[2022-02-13 15:56] LABS: Thyroid Stimulating Hormone 4.189 uIu/ml (0.300-4.500)
[2022-02-13 16:00] LABS: T4 Free Thyroxine 0.85 ng/dl (0.61-1.60)
[2022-02-14 08:07] LABS: Basophils # (auto) 0.03 K/uL (0-0.2); Basophils % (auto) 0.4 %; Eosinophils # (auto) 0.02 K/uL (0-0.50); Eosinophils % (auto) 0.3 %; Hematocrit (blood only) 39.9 % (40.1-51.0); Immature Granulocytes # (auto) 0.02 K/uL (0.00-0.02); Immature Granulocytes % (auto) 0.3 %; Lymphocytes # (auto) 2.73 K/uL (1.2-3.4); Lymphocytes % (auto) 37.7 %; Mean Corpuscular Hemoglobin 32.6 pg (25.0-34.0); Mean Corpuscular Hgb Conc 35.1 g/dL (32.0-36.0); Mean Platelet Volume 8.5 fL (9.4-12.4); Monocytes # (auto) 0.64 K/uL (0.24-0.82); Monocytes % (auto) 8.8 %; Neutrophils # (auto) 3.81 K/uL (1.4-6.5); Neutrophils % (auto) 52.5 %; Platelet Count 171 K/uL (130-400); RDW Standard Deviation 41.1 fL (36.4-46.3); Red Blood Count 4.29 M/uL (4.63-6.08); White Blood Count 7.25 K/ul (4.8-10.8)
[2022-02-14 08:33] LABS: BUN Creatinine Ratio 16.8 (10-20); Calcium 9.4 mg/dl (8.5-10.1); Creatinine Clr Calc Pharmacy 68.2 ml/min; Est GFR (African American) 73.1 ml/min; Est GFR (Non-African American) 63.1 ml/min; Potassium 4.2 mmol/L (3.5-5.1)
[2022-02-14] MEDS ORDERED: lisinopril 2.5 MG TAB PO SCH (09:00)
[2022-02-14] MEDS: ROSUVASTATIN CALCIUM 5 MG TAB PO SCH (09:00)
[2022-02-14] MEDS: OLANZAPINE 2.5 MG TAB PO SCH (09:00)
[2022-02-14] MEDS: ENOXAPARIN INJ 40 MG/0.4 ML SYR SQ SCH (09:03)
--- NOTE | 2022-02-14 14:17 | Psychiatric Progress Note ---
Date of Service February 14, 2022 Impression / Recommendations Impression 56 yo man with history of situational anxiety on citalopram with dose increase about 4-6 weeks ago presenting with acute mental status changes. Differential includes hyperactive delirium particularly given hyponatremia, no personal or family history of bipolar disorder, abrupt onset, waxing/waning confusion about date/orientation, and difficultly with speech/word finding prior to admission. Hypomania/stephanie remains on differential but less likely as late onset bipolar disorder and SSRI-induced mood changes are fairly unusual at this age in men especially with such abrupt onset. 02/14/22: Mental status improved significantly today. Seems most consistent with delirium, unclear what lead to abrupt onset of confusion. No further evidence of any hypomania. Reviewed recommendation to continue with zyprexa for one more month to ensure sleep remains stable and delirium fully resolves. Recommend absence from work for one more week to allow for full improvement and symptom resolution. (1) Encephalopathy: Plan 02/14/22: Continue zyprexa 2.5mg BID for one more month. Option to decrease to zyprexa 2.5mg qhs if causing excessive fatigue during the day. See specialist discharge instructions for further details. Interval History Identifying Information 56 yo man with history of situational anxiety admitted medically for new onset mental status changes. Psychiatry consulted for recommendations. Chief Complaint "I feel a lot more like myself". Review of Systems Notes slept well, eating well Subjective Subjective Patient was seen & assessed and interval progress reviewed. Slept yesterday and overnight. Mental status has improved significantly, thoughts are clearer and he feels more like himself again. Still some "cloudiness" regarding some of his thoughts but overall making significant improvement. Physical Exam Psychiatric Orientation: alert and oriented x 3 Apperance: appropriately dressed and appropriately groomed Eye Contact: good eye contact Motor Behavior: no abnormal motor movements Speech: normal rate/rhythm/volume of speech Affect: euthymic affect Mood: no depressed mood and no anxious mood Thought Process: linear/logical thought process Thought Content: reality based without delusions Suicidal Thoughts: denies suicidal thoughts Homicidal Thoughts: denies homicidal thoughts Hallucinations: no auditory hallucinations and no visual hallucinations Cognition: recent memory grossly intact (with exception of events from last 48 hours while confused ), remote memory grossly intact, attention grossly intact and language grossly intact Estimated Intelligence: consistent with education level Insight: good insight Judgement: good judgement Vital Signs (Past 24 Hours) Last Vital Signs Temp 36.9 C 02/14/22 07:35 Pulse 62 02/14/22 07:35 Resp 18 02/14/22 07:35 BP 103/64 02/14/22 07:35 Pulse Ox 95 02/14/22 07:35 O2 Del Method 02/14/22 07:35 Results & Data ([facility]) Laboratory Results Laboratory Results - last 24 hr 02/13/22 02/13/22 02/13/22 14:59 14:59 14:59 WBC RBC Hgb Hct MCV MCH MCHC RDW Std Deviation RDW Coeff of Toño Plt Count MPV Immature Gran % (Auto) Neut % (Auto) Lymph % (Auto) [place] % (Auto) Eos % (Auto) Baso % (Auto) Neut # (Auto) Lymph # (Auto) [place] # (Auto) Eos # (Auto) Baso # (Auto) Immature Gran # (Auto) Sodium Potassium Chloride Carbon Dioxide Anion Gap BUN Creatinine Est Cr Clr Drug Dosing Est GFR ( Amer) Est GFR (Non-Af Amer) BUN/Creatinine Ratio Glucose Calcium TSH 4.189 Free T4 0.85 Anaplasma Smear See Comment A. phagocytophilum DNA Pending 02/14/22 02/14/22 07:48 07:48 WBC 7.25 RBC 4.29 L Hgb 14.0 Hct 39.9 L MCV 93.0 MCH 32.6 MCHC 35.1 RDW Std Deviation 41.1 RDW Coeff of Toño 12.0 Plt Count 171 MPV 8.5 L Immature Gran % (Auto) 0.3 Neut % (Auto) 52.5 Lymph % (Auto) 37.7 [place] % (Auto) 8.8 Eos % (Auto) 0.3 Baso % (Auto) 0.4 Neut # (Auto) 3.81 Lymph # (Auto) 2.73 [place] # (Auto) 0.64 Eos # (Auto) 0.02 Baso # (Auto) 0.03 Immature Gran # (Auto) 0.02 Sodium 138 Potassium 4.2 Chloride 104 Carbon Dioxide 29 Anion Gap 5 BUN 21 Creatinine 1.25 D Est Cr Clr Drug Dosing 68.2 Est GFR ( Amer) 73.1 Est GFR (Non-Af Amer) 63.1 BUN/Creatinine Ratio 16.8 Glucose 89 Calcium 9.4 TSH Free T4 Anaplasma Smear A. phagocytophilum DNA Current Inpatient Medications Current Inpatient Medications: Current Inpatient Medications Acetaminophen (Acetaminophen 325 Mg Tab) 650 mg PO Q4H PRN PRN Reason: Pain or Fever Stop: 03/15/22 11:16 Enoxaparin Sodium (Enoxaparin Inj 40 Mg/0.4 Ml Syr) 40 mg SQ QAM DELIO Stop: 03/15/22 11:16 Last Admin: 02/14/22 09:03 Dose: 40 mg Lorazepam 0.5 mg/ Syringe 0.5 mls @ 2 mls/min IV Q6H PRN PRN Reason: Anxiety Stop: 03/15/22 07:33 Promethazine HCl 6.25 mg/ (Sodium Chloride) 50.25 mls @ 201 mls/hr IV Q6H PRN PRN Reason: Nausea And Vomiting Stop: 03/15/22 11:16 Olanzapine (Olanzapine 2.5 Mg Tab) 2.5 mg PO BID DELIO Stop: 03/15/22 12:59 Last Admin: 02/14/22 09:00 Dose: 2.5 mg Rosuvastatin Calcium (Rosuvastatin Calcium 5 Mg Tab) 2.5 mg PO QAM DELIO Stop: 03/15/22 11:29 Last Admin: 02/14/22 09:00 Dose: 2.5 mg
--- NOTE | 2022-02-14 14:51 | Hospitalist Progress Note ---
Date of Service February 14, 2022 Assessment & Plan (1) Encephalopathy: Plan: LIKELY ACUTE DELIRIUM SECONDARY TO CELEXA --Evaluated by psychiatry service, Dr. Byers -- Celexa discontinued, Zyprexa 2.5 mg p.o. twice daily started -- Patient significantly improved, mostly back to baseline on hospital day #2 Discharge recommendation as per psychiatry service: Discontinue Celexa, no SSRI in the future Zyprexa 2.5 mg p.o. twice daily x 1 month Follow-up with PCP next week HYPERLIPIDEMIA on statin Rx ELEVATED BLOOD PRESSURE Blood pressure improved Monitor as an outpatient plan of care discussed with patient in detail and at length all questions answered he is understanding, agreeable, comfortable with the plan of care Admission and Anticipated Discharge Date Admission Date: February 13, 2022 Subjective Follow-up for delirium, etc. Seen resting in bed, comfortable, not in distress, in good spirits States he feels much better today, mostly back to his baseline Able to recall events the past 2 days Today, denies confusion, thought racing, anxiety, depression no chest pain, dyspnea, palpitations, dizziness Ambulating in the room, to the bathroom, with no problems States he is okay for discharge today once cleared by behavioral unit service Review of Systems Review of Systems: all noted and negative except for above Physical Exam Physical Exam: General- oriented x 3, not in distress, speaks in sentences with no effort or accessory muscle use Eyes- anicteric Neck- no JVD Lungs- clear breath sounds bilaterally, no rales/wheezes Heart- normal rate, regular rhythm; no murmurs Abdomen- normal bowel sounds, nondistended, soft, nontender Extremities- no pretibial edema, no calf tenderness Neuro- alert, oriented x 3; no gross focal neurologic deficits Skin- warm & dry Psych-appropriate affect, cheerful mood, denies anxiety or depression Results & Data Results & Data ([facility]) Vital Signs (Past 12 Hours) Vital Signs Temp Pulse Pulse Resp BP BP Pulse Ox 02/14/22 07:35 36.9 C 62 18 103/64 95 02/14/22 03:37 36.7 C 60 20 100/63 96 O2 Del Method 02/14/22 07:35 Room Air 02/14/22 03:37 Room Air all noted and reviewed including below
--- NOTE | 2022-02-14 14:56 | Discharge Summary ---
Discharge Summary Date of Service February 14, 2022 Notes For Next Care Provider Celexa discontinued no SSRIs in the future Medication Changes From Visit Zyprexa 2.5 mg p.o. twice daily x1 month Admission HPI Per Admitting Provider History obtained from patient, family, and records. Medical history significant for anxiety disorder, hyperlipidemia, anaplasmosis status post doxycycline Rx. Patient noted to be agitated by the last 2 days. 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 Patient did not sleep well yesterday night. Patient increasingly agitated and anxious after getting home from work yesterday. Pacing [id number]. Patient denies headache, chest pain, shortness of breath. Some leg cramps. Thinks he was eating/drinking enough at work. No new medications. No exposure to new chemicals. Patient having trouble focusing and answering questions as per . Patient verbalized to sense of impending doom. Patient denies suicidality. No prior episodes as per . SBP 180s upon arrival at the ER. Patient called more with improved mentation after IV Ativan administration at the ER as per . 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 Admission Exam Per Admitting Provider GENERAL: Comfortable, pleasant, no respiratory distress SKIN: Normal color, warm HEENT: [place] palpebral conjunctivae, no ptosis, dry buccal mucosa NECK : Supple, no tenderness CHEST : CTA, no tenderness HEART : RRR, no obvious murmurs ABDOMEN: Some distention, nontender EXTREMITIES : No LE swelling/tenderness, no other conspicuous deformities noted NEUROLOGIC : Coherent, no facial asymmetry, no other gross focality Principal Dx & Hospital Course #1 = Principal Diagnosis (1) Encephalopathy: LIKELY ACUTE DELIRIUM SECONDARY TO CELEXA --Evaluated by psychiatry service, Dr. Byers -- Celexa discontinued, Zyprexa 2.5 mg p.o. twice daily started -- Patient significantly improved, mostly back to baseline on hospital day #2 Discharge recommendation as per psychiatry service: Discontinue Celexa, no SSRI in the future Zyprexa 2.5 mg p.o. twice daily x 1 month Follow-up with PCP next week HYPERLIPIDEMIA on statin Rx ELEVATED BLOOD PRESSURE Blood pressure improved Monitor as an outpatient plan of care discussed with patient in detail and at length all questions answered he is understanding, agreeable, comfortable with the plan of care Discharge Exam General- oriented x 3, not in distress, speaks in sentences with no effort or accessory muscle use Eyes- anicteric Neck- no JVD Lungs- clear breath sounds bilaterally, no rales/wheezes Heart- normal rate, regular rhythm; no murmurs Abdomen- normal bowel sounds, nondistended, soft, nontender Extremities- no pretibial edema, no calf tenderness Neuro- alert, oriented x 3; no gross focal neurologic deficits Skin- warm & dry Psych-appropriate affect, cheerful mood, denies anxiety or depression Updated Medication List Medication Instructions Recorded Confirmed Type citalopram 40 mg tablet 40 mg PO DAILY 02/13/22 02/13/22 History rosuvastatin 5 mg tablet 5 mg PO DAILY 02/13/22 02/13/22 History olanzapine 2.5 mg tablet 2.5 mg PO BID 30 days #60 tabs 02/14/22 Rx Hospital Stay Data Consultations 02/13/22 06:29 ED Decision to Admit Stat 02/13/22 11:17 Consult Psychiatry Routine Diagnostic Imagining Performed Chest X-Ray 02/13/22 03:01 XR chest 1V portable CLINICAL HISTORY: ams TECHNIQUE: Single frontal radiograph of the chest was obtained. Comparison: None available at the time of this dictation. FINDINGS: No lines and tubes are seen. The cardiomediastinal silhouette is normal. The lungs are clear. No evidence of pleural effusion or pneumothorax. IMPRESSION: No acute chest disease. ACT 112: Negative or not required by law. Electronically signed by: Solomon Lynch M.D. 02/13/2022 7:[address] 02/13/22 03:[address] DOSE: HISTORY: Altered mental status. TECHNIQUE: Multiaxial CT images of the head were performed without the use of intravenous contrast. Automated exposure control was utilized for this study. A dose lowering technique was utilized adhering to the principles of ALARA. Comparison: None. Findings: The paranasal sinuses and mastoid air cells are clear. The calvarium and skull base are intact. The ventricles and sulci are within normal limits. There is no mass, hematoma, midline shift, or acute infarct. Impression: No acute intracranial abnormality. ACT 112: Negative or not required by law. Electronically signed by: Shimon Díaz M.D. 02/13/2022 7:07 AM Head CTA 02/13/22 03:01 CT angio neck with con, CT angio head w con CLINICAL HISTORY: ams TECHNIQUE: Contiguous axial CT images of the head were acquired from the base of the skull to the vertex without intravenous contrast administration. CT angiography of the head and neck was performed following intravenous administration of iodinated contrast. Coronal and sagittal MIPS were obtained from the axial data set and were submitted for review. Automated dose lowering techniques and/or adjustment according to patient size were utilized for this examination. All measurements were calculated based on NASCET criteria. CT DOSE: 1269.55 mGy.cm Comparison: None available at the time of this dictation. FINDINGS: CT head: There is no acute intracranial hemorrhage or evidence of acute territorial infarction. No shift of the midline structures, mass effect, or extra-axial abnormalities are shown. Lungs and soft tissues are unremarkable. CTA Neck: A 3 vessel aortic arch is shown. There is no significant athe rosclerotic plaque in the aortic arch or the origins of the innominate, left common carotid, and left subclavian arteries. The common carotid, external carotid, cervical segments of the internal carotid arteries, and the cervical segments of the vertebral arteries are patent without hemodynamically significant stenosis. The right vertebral artery is dominant. CTA Head: The anterior and posterior cerebral circulations are patent. No hemodynamically significant stenosis, aneurysm, dissection, or arteriovenous malformation is shown. IMPRESSION: 1. No acute intracranial hemorrhage, evidence of acute territorial infarction, or other acute intracranial disease process. 2. No occlusion, hemodynamically significant stenosis, or dissection in the major cervical arteries. 3. No occlusion, hemodynamically significant stenosis, aneurysm, dissection, or arteriovenous malformation in the major intracranial arteries. Assessment of stenosis of the internal carotid arteries is based on NASCET criteria. ACT 112: Negative or not required by law. Electronically signed by: Solomon Lynch M.D. 02/13/2022 7:29 AM Neck CTA 02/13/22 03:01 CT angio neck with con, CT angio head w con CLINICAL HISTORY: ams TECHNIQUE: Contiguous axial CT images of the head were acquired from the base of the skull to the vertex without intravenous contrast administration. CT angiography of the head and neck was performed following intravenous administration of iodinated contrast. Coronal and sagittal MIPS were obtained from the axial data set and were submitted for review. Automated dose lowering techniques and/or adjustment according to patient size were utilized for this examination. All measurements were calculated based on NASCET criteria. CT DOSE: 1269.55 mGy.cm Comparison: None available at the time of this dictation. FINDINGS: CT head: There is no acute intracranial hemorrhage or evidence of acute territorial infarction. No shift of the midline structures, mass effect, or extra-axial abnormalities are shown. Lungs and soft tissues are unremarkable. CTA Neck: A 3 vessel aortic arch is shown. There is no significant atherosclerotic plaque in the aortic arch or the origins of the innominate, left common carotid, and left subclavian arteries. The common carotid, external carotid, cervical segments of the internal carotid arteries, and the cervical segments of the vertebral arteries are patent without hemodynamically significant stenosis. The right vertebral artery is dominant. CTA Head: The anterior and posterior cerebral circulations are patent. No hemodynamically significant stenosis, aneurysm, dissection, or arteriovenous malformation is shown. IMPRESSION: 1. No acute intracranial hemorrhage, evidence of acute territorial infarction, or other acute intracranial disease process. 2. No occlusion, hemodynamically significant stenosis, or dissection in the major cervical arteries. 3. No occlusion, hemodynamically significant stenosis, aneurysm, dissection, or arteriovenous malformation in the major intracranial arteries. Assessment of stenosis of the internal carotid arteries is based on NASCET crite ana. ACT 112: Negative or not required by law. Electronically signed by: Solomon Lynch M.D. 02/13/2022 7:29 AM Pending Results Patient Have Any Pending Studies at Discharge: No Discharge Instructions Given to Patient (Per Discharging Provider) PLEASE REFER TO YOUR NEW MEDICATION LIST AND FOLLOW INSTRUCTIONS CAREFULLY. YOUR NEW MEDICATION INCLUDE: Zyprexa-treatment for delirium Please stop taking Celexa. Drink plenty of fluids, 6 to 8 glasses of water per day. PLEASE CALL YOUR PRIMARY CARE PHYSICIAN OR RETURN TO THE ER IF WITH WORSENING OF SYMPTOMS, INCLUDING Confusion, increasing anxiety, etc. FOLLOW UP WITH PRIMARY CARE PHYSICIAN in 1 week. Total Time Total Time Spent Total Time Spent (In Minutes): >30 minutes
== END 2022-02-14 16:34 | disposition home or self-care (01) ==
LOC: 2N 01:59 → ED 01:59 → 2N 10:38

== ENCOUNTER 2022-02-21 05:59 | Inpatient (IN) ==
[2022-02-21] MEDS ORDERED: OLANZapine ZYDIS 5 MG ORALLY DIS. TAB PO STA ×2 (06:41→07:16)
[2022-02-21 07:02] LABS: Basophils # (auto) 0.04 K/uL (0-0.2); Basophils % (auto) 0.7 %; Eosinophils # (auto) 0.01 K/uL (0-0.50); Eosinophils % (auto) 0.2 %; Hematocrit (blood only) 41.9 % (40.1-51.0); Hemoglobin 15.4 g/dl (14.0-18.0); Immature Granulocytes # (auto) 0.02 K/uL (0.00-0.02); Immature Granulocytes % (auto) 0.3 %; Lymphocytes # (auto) 1.43 K/uL (1.2-3.4); Lymphocytes % (auto) 23.4 %; Mean Corpuscular Hemoglobin 32.8 pg (25.0-34.0); Mean Corpuscular Hgb Conc 36.8 g/dL (32.0-36.0); Mean Corpuscular Volume 89.1 fL (80.0-100.0); Monocytes # (auto) 0.31 K/uL (0.24-0.82); Monocytes % (auto) 5.1 %; Neutrophils % (auto) 70.3 %; Platelet Count 231 K/uL (130-400); RDW Coefficient of Variation 11.5 % (11.5-14.5); RDW Standard Deviation 36.8 fL (36.4-46.3); White Blood Count 6.11 K/ul (4.8-10.8)
[2022-02-21] MEDS ORDERED: LORazepam 1 MG TAB SL STA ×2 (07:16→08:02)
[2022-02-21 07:24] LABS: Acetaminophen < 3 ug/ml (10-30); Salicylate < 3.0 mg/dl (3.0-30)
[2022-02-21 07:25] LABS: Alanine Aminotransferase 40 U/L (7-52); Albumin Globulin Ratio 1.7 (0.9-2); Albumin Level 4.8 gm/dl (3.4-5.0); Alkaline Phosphatase 89 U/L (34-104); Anion Gap 8 (3-11); Aspartate Aminotransferase 25 U/L (13-39); BUN Creatinine Ratio 11.8 (10-20); Bilirubin,Total 0.6 mg/dl (0.2-1.0); Blood Urea Nitrogen 11 mg/dl (6-23); Calcium 9.5 mg/dl (8.5-10.1); Carbon Dioxide 26 mmol/L (21-32); Chloride 102 mmol/L (98-107); Est GFR (African American) 104.5 ml/min; Est GFR (Non-African American) 90.2 ml/min; Globulin 2.9 gm/dl (2.5-4.0); Glucose 157 mg/dl (70-99(Fasting)); Potassium 3.5 mmol/L (3.5-5.1); Sodium 136 mmol/L (136-145); Total Protein 7.7 gm/dl (6.0-8.3)
[2022-02-21 07:35] LABS: Thyroid Stimulating Hormone 6.506 uIu/ml (0.300-4.500)
[2022-02-21] MEDS ORDERED: diphenhydrAMINE Capsule 25 MG CAP PO ONE (08:03)
[2022-02-21 08:08] LABS: T4 Free Thyroxine 0.73 ng/dl (0.61-1.60)
--- NOTE | 2022-02-21 10:44 | Emergency Department Note ---
Impression & Plan [facility] Provider Note CHIEF COMPLAINT: [employer] HISTORY OF PRESENT ILLNESS: This 56 yo patient presents to the emergency department with complaints of altered mental status. Patient's states over the last 48 hours the patient has escalated in a manic type fashion. He began pacing the hallways with hyperverbal behavior. He has slept only about 4 hours over this duration. He did have this same type of presentation last week and was worked up medically, admitted and seen by psychiatry patient has been taking olanzapine 2.5 mg twice a day. His states initially she felt that he had had some improvement but has had a significant decline recently. REVIEW OF SYSTEMS: A review of systems was performed with positives and pertinent negatives listed in the history of present illness. 10 systems were reviewed and are otherwise negative. ALLERGIES: see below MEDICATIONS: see below PMH: see below SOCIAL HISTORY: see below DDx: Mood disorder, infection, hypoglycemia, electrolyte abnormalities, cardiac sources, intracerebral event, toxicologic, trauma, neurologic, as well as other pathologies. PHYSICAL EXAM: Vital signs reviewed. General: Well-appearing 56-year-old male, spitting at the morrison, agitated and pacing. HEENT: No scleral icterus, PERRLA, neck supple. Atraumatic. Cardiovascular: Regular rate and rhythm, no extra sounds. Pulmonary: Clear to auscultation bilaterally, normal work of breathing. Abdomen: Soft, nontender, nondistended, positive bowel sounds. Musculoskeletal: Atraumatic, no peripheral edema. Neurologic: Patient awake alert and but unable to answer questions regarding place, year and current events. Psych: Uncooperative with exam, pressured speech, tangential. Repeats same words and phrases multiple times. Skin: Warm, dry, no rash EMERGENCY DEPARTMENT COURSE/MDM: This patient was evaluated and appeared to be significantly anxious. He was pacing and unable to be redirected verbally. Patient was given 5 mg of Zyprexa which he took voluntarily. Patient did walk to the bathroom but through the urine cup, was a loud unusual cackle laugh. His verbal communication does seem to be internal we will have a conversation with ameya hawley that do not seem to exist. Patient will comment on my physical appearance but does not seem to acknowledge my verbal communication. The patient remained escalated and needed security after the 5 mg of Zyprexa. He was given an additional 5 mg of Zyprexa ODT with Ativan 0.5 mg p.o. Patient had very minimal improvement in his agitation and nursing staff requested Benadryl to encourage the patient to sleep. He was given 50 mg of p.o. Benadryl. His was at the bedside. I did check on the patient and he was in a quiet, dark room and resting at that time. MRI of the brain was ordered and is negative for acute pathology. Case was discussed with Dr. Carr who had reviewed the chart and feels the patient requires inpatient psychiatric evaluation. Case has been signed out to Dr. Renee at the change of shift awaiting psychiatric bed search. RADIOLOGY: See below DISPOSITION: Home Past Med/Surg History Medical History (Updated 02/21/22 @ 14:39 by Lilliana Nathan MD) Hx of hemorrhoids Hx of shigellosis Family History Other Family history non-contributory Social History Smoking Status: Never smoker Hx Alcohol Use: No Hx Substance Use: No Preferred Language: Scottish Communication Ability: Effective Insurance Coder Required: No Beliefs That Will Affect Care: None marital status: Current Living Situation: Spouse Current Living Situation Comment: home with spouse. current occupational status: employed Feels Safe at Home: Yes Assistive Devices: None Allergies Allergies Allergy/AdvReac Type Severity Reaction Status Date / Time No Known Allergies Allergy Unverified 09/04/18 01:38 Home Meds Home Medications Medication Instructions Recorded Confirmed rosuvastatin 5 mg tablet 5 mg PO DAILY 02/13/22 02/13/22 Previous Rx's Medication Instructions Recorded olanzapine 5 mg tablet 5 mg PO DAILY #30 tabs 02/14/22 Results & Data (ED) Vital Signs Vital Signs - 24 hr 02/21/22 05:59 Pulse Rate 100 H Respiratory Rate 24 Blood Pressure 188/95 H Blood Pressure Mean 126 Pulse Oximetry 96 Oxygen Delivery Method Room Air Sepsis Recent Fever Within 48 Hours No Sepsis New/Unexplained Change in Mental Status N/A Sepsis Action Taken by Nursing No Action Required Home Medications Current Medication List: was personally reviewed by me Laboratory Data Attestation: I reviewed the patient's lab results. Result diagrams: 02/21/22 06:40 02/21/22 06:40 Lab Results 02/21/22 02/21/22 02/21/22 Range/Units 06:40 06:40 06:40 WBC 6.11 (4.8-10.8) K/ul RBC 4.70 (4.63-6.08) M/uL Hgb 15.4 (14.0-18.0) g/dl Hct 41.9 (40.1-51.0) % MCV 89.1 (80.0-100.0) fL MCH 32.8 (25.0-34.0) pg MCHC 36.8 H (32.0-36.0) g/dL RDW Std Deviation 36.8 (36.4-46.3) fL RDW Coeff of Toño 11.5 (11.5-14.5) % Plt Count 231 (130-400) K/uL MPV 9.0 L (9.4-12.4) fL Immature Gran % (Auto) 0.3 % Neut % (Auto) 70.3 % Lymph % (Auto) 23.4 % [place] % (Auto) 5.1 % Eos % (Auto) 0.2 % Baso % (Auto) 0.7 % Neut # (Auto) 4.30 (1.4-6.5) K/uL Lymph # (Auto) 1.43 (1.2-3.4) K/uL [place] # (Auto) 0.31 (0.24-0.82) K/uL Eos # (Auto) 0.01 (0-0.50) K/uL Baso # (Auto) 0.04 (0-0.2) K/uL Immature Gran # (Auto) 0.02 (0.00-0.02) K/uL Sodium 136 (136-145) mmol/L Potassium 3.5 (3.5-5.1) mmol/L Chloride 102 (98-107) mmol/L Carbon Dioxide 26 (21-32) mmol/L Anion Gap 8 (3-11) BUN 11 (6-23) mg/dl Creatinine 0.93 (0.6-1.4) mg/dl Est Cr Clr Drug Dosing Not Reportable Est GFR ( Amer) 104.5 ml/min Est GFR (Non-Af Amer) 90.2 ml/min BUN/Creatinine Ratio 11.8 (10-20) Glucose 157 H (70-99(Fasting)) mg/dl Calcium 9.5 (8.5-10.1) mg/dl Total Bilirubin 0.6 (0.2-1.0) mg/dl AST 25 (13-39) U/L ALT 40 (7-52) U/L Alkaline Phosphatase 89 (34-104) U/L Total Protein 7.7 (6.0-8.3) gm/dl Albumin 4.8 (3.4-5.0) gm/dl Globulin 2.9 (2.5-4.0) gm/dl Albumin/Globulin Ratio 1.7 (0.9-2) TSH 6.506 H (0.300-4.500) uIu/ml Free T4 0.73 (0.61-1.60) ng/dl Urine Color Urine Appearance (Clear) Urine pH (4.5-7.5) Ur Specific [place] (1.000-1.030) Urine Protein (Negative) Urine Glucose (UA) (Negative) Urine Ketones (Negative) Urine Blood (Negative) Urine Nitrite (Negative) Urine Bilirubin (Negative) Urine Urobilinogen (Negative) Ur Leukocyte Esterase (Negative) Urine WBC (Auto) (0-5) /hpf Urine RBC (Auto) (0-4) /hpf U Hyaline Cast (Auto) (0-5) /lpf U Epithel Cells (Auto) (0-5) /lpf Urine Bacteria (Auto) (Negative) Ur Butalbital Confirm Salicylates (3.0-30) mg/dl Urine Opiates Screen U Codeine Confrm GC/MS Ur Morphine (GC/MS) Ur Hydrocodone (GC/MS) U Norhydrocodone Conf Ur Oxycodone Screen U Noroxycodone Confirm Ur Oxycodone GC/MS U Oxymorphone GC/MS EDDP Confirm Ur Methadone, Qual Ur Methadone Ur Hydromorphone (GC/MS) Acetaminophen (10-30) ug/ml Urine Barbiturates Ur Phencyclidine Scrn Ur Phencyclidine (PCP) (Neg) Urine PCP Confirm Ur Amphetamines Screen U Amphetamines Confirm U Amphetamin/Meth Scrn (Neg) Methamphetamine GC/MS MDMA (Ecstasy) Screen (Neg) Ur Amobarbital GC/MS U Pentobarbital GC/MS U Phenobarbital GC/MS U Secobarbital GC/MS U [id number] GC/MS U Benzodiazepines Scrn U 7-Aminoclonazepam Screen Ur Nordiazepam GC/MS U OH-ethylfluraz GC/MS U Lorazepam Cnf GC/MS U Oxazepam Confm GC/MS Ur Temazepam Cnf GC/MS U a-Hydroxytriaz GC/MS U [id number] Urine Cocaine Ur Cocaine Metabolite (Neg) U Cocaine Metab Confirm Tetrahydrocannabinol U Marijuana (THC) Screen Drug Screen Comment Ethyl Alcohol mg/dL (<10.0) mg/dl SARS-CoV-2, RNA, NAAT (NEGATIVE) Reference Lab 02/21/22 02/21/22 02/21/22 Range/Units 06:40 06:40 12:45 WBC (4.8-10.8) K/ul RBC (4.63-6.08) M/uL Hgb (14.0-18.0) g/dl Hct (40.1-51.0) % MCV (80.0-100.0) fL MCH (25.0-34.0) pg MCHC (32.0-36.0) g/dL RDW Std Deviation (36.4-46.3) fL RDW Coeff of Toño (11.5-14.5) % Plt Count (130-400) K/uL MPV (9.4-12.4) fL Immature Gran % (Auto) % Neut % (Auto) % Lymph % (Auto) % [place] % (Auto) % Eos % (Auto) % Baso % (Auto) % Neut # (Auto) (1.4-6.5) K/uL Lymph # (Auto) (1.2-3.4) K/uL [place] # (Auto) (0.24-0.82) K/uL Eos # (Auto) (0-0.50) K/uL Baso # (Auto) (0-0.2) K/uL Immature Gran # (Auto) (0.00-0.02) K/uL Sodium (136-145) mmol/L Potassium (3.5-5.1) mmol/L Chloride (98-107) mmol/L Carbon Dioxide (21-32) mmol/L Anion Gap (3-11) BUN (6-23) mg/dl Creatinine (0.6-1.4) mg/dl Est Cr Clr Drug Dosing Est GFR ( Amer) ml/min Est GFR (Non-Af Amer) ml/min BUN/Creatinine Ratio (10-20) Glucose (70-99(Fasting)) mg/dl Calcium (8.5-10.1) mg/dl Total Bilirubin (0.2-1.0) mg/dl AST (13-39) U/L ALT (7-52) U/L Alkaline Phosphatase (34-104) U/L Total Protein (6.0-8.3) gm/dl Albumin (3.4-5.0) gm/dl Globulin (2.5-4.0) gm/dl Albumin/Globulin Ratio (0.9-2) TSH (0.300-4.500) uIu/ml Free T4 (0.61-1.60) ng/dl Urine Color Urine Appearance (Clear) Urine pH (4.5-7.5) Ur Specific [place] (1.000-1.030) Urine Protein (Negative) Urine Glucose (UA) (Negative) Urine Ketones (Negative) Urine Blood (Negative) Urine Nitrite (Negative) Urine Bilirubin (Negative) Urine Urobilinogen (Negative) Ur Leukocyte Esterase (Negative) Urine WBC (Auto) (0-5) /hpf Urine RBC (Auto) (0-4) /hpf U Hyaline Cast (Auto) (0-5) /lpf U Epithel Cells (Auto) (0-5) /lpf Urine Bacteria (Auto) (Negative) Ur Butalbital Confirm Cancelled Salicylates < 3.0 L (3.0-30) mg/dl Urine Opiates Screen Cancelled U Codeine Confrm GC/MS Cancelled Ur Morphine (GC/MS) Cancelled Ur Hydrocodone (GC/MS) Cancelled U Norhydrocodone Conf Cancelled Ur Oxycodone Screen Cancelled U Noroxycodone Confirm Cancelled Ur Oxycodone GC/MS Cancelled U Oxymorphone GC/MS Cancelled EDDP Confirm Cancelled Ur Methadone, Qual Cancelled Ur Methadone Cancelled Ur Hydromorphone (GC/MS) Cancelled Acetaminophen < 3 L (10-30) ug/ml Urine Barbiturates Cancelled Ur Phencyclidine Scrn Cancelled Ur Phencyclidine (PCP) (Neg) Urine PCP Confirm Cancelled Ur Amphetamines Screen Cancelled U Amphetamines Confirm Cancelled U Amphetamin/Meth Scrn (Neg) Methamphetamine GC/MS Cancelled MDMA (Ecstasy) Screen (Neg) Ur Amobarbital GC/MS Cancelled U Pentobarbital GC/MS Cancelled U Phenobarbital GC/MS Cancelled U Secobarbital GC/MS Cancelled U [id number] GC/MS Cancelled U Benzodiazepines Scrn Cancelled U 7-Aminoclonazepam Screen Cancelled Ur Nordiazepam GC/MS Cancelled U OH-ethylfluraz GC/MS Cancelled U Lorazepam Cnf GC/MS Cancelled U Oxazepam Confm GC/MS Cancelled Ur Temazepam Cnf GC/MS Cancelled U a-Hydroxytriaz GC/MS Cancelled U z-HZ-Qnbrwuryl Cancelled Urine Cocaine Cancelled Ur Cocaine Metabolite (Neg) U Cocaine Metab Confirm Cancelled Tetrahydrocannabinol Cancelled U Marijuana (THC) Screen Cancelled Drug Screen Comment Cancelled Ethyl Alcohol mg/dL < 10.0 (<10.0) mg/dl SARS-CoV-2, RNA, NAAT (NEGATIVE) Reference Lab Cancelled 02/21/22 02/21/22 02/21/22 Range/Units 12:45 12:45 12:45 WBC (4.8-10.8) K/ul RBC (4.63-6.08) M/uL Hgb (14.0-18.0) g/dl Hct (40.1-51.0) % MCV (80.0-100.0) fL MCH (25.0-34.0) pg MCHC (32.0-36.0) g/dL RDW Std Deviation (36.4-46.3) fL RDW Coeff of Toño (11.5-14.5) % Plt Count (130-400) K/uL MPV (9.4-12.4) fL Immature Gran % (Auto) % Neut % (Auto) % Lymph % (Auto) % [place] % (Auto) % Eos % (Auto) % Baso % (Auto) % Neut # (Auto) (1.4-6.5) K/uL Lymph # (Auto) (1.2-3.4) K/uL [place] # (Auto) (0.24-0.82) K/uL Eos # (Auto) (0-0.50) K/uL Baso # (Auto) (0-0.2) K/uL Immature Gran # (Auto) (0.00-0.02) K/uL Sodium (136-145) mmol/L Potassium (3.5-5.1) mmol/L Chloride (98-107) mmol/L Carbon Dioxide (21-32) mmol/L Anion Gap (3-11) BUN (6-23) mg/dl Creatinine (0.6-1.4) mg/dl Est Cr Clr Drug Dosing Est GFR ( Amer) ml/min Est GFR (Non-Af Amer) ml/min BUN/Creatinine Ratio (10-20) Glucose (70-99(Fasting)) mg/dl Calcium (8.5-10.1) mg/dl Total Bilirubin (0.2-1.0) mg/dl AST (13-39) U/L ALT (7-52) U/L Alkaline Phosphatase (34-104) U/L Total Protein (6.0-8.3) gm/dl Albumin (3.4-5.0) gm/dl Globulin (2.5-4.0) gm/dl Albumin/Globulin Ratio (0.9-2) TSH (0.300-4.500) uIu/ml Free T4 (0.61-1.60) ng/dl Urine Color Yellow Urine Appearance Clear (Clear) Urine pH 7.0 (4.5-7.5) Ur Specific [place] 1.013 (1.000-1.030) Urine Protein 1+ H (Negative) Urine Glucose (UA) Negative (Negative) Urine Ketones Negative (Negative) Urine Blood Negative (Negative) Urine Nitrite Negative (Negative) Urine Bilirubin Negative (Negative) Urine Urobilinogen Negative (Negative) Ur Leukocyte Esterase Negative (Negative) Urine WBC (Auto) 1-5 (0-5) /hpf Urine RBC (Auto) 0-4 (0-4) /hpf U Hyaline Cast (Auto) 10-30 H (0-5) /lpf U Epithel Cells (Auto) 10-20 H (0-5) /lpf Urine Bacteria (Auto) Negative (Negative) Ur Butalbital Confirm Salicylates (3.0-30) mg/dl Urine Opiates Screen Neg U Codeine Confrm GC/MS Ur Morphine (GC/MS) Ur Hydrocodone (GC/MS) U Norhydrocodone Conf Ur Oxycodone Screen U Noroxycodone Confirm Ur Oxycodone GC/MS U Oxymorphone GC/MS EDDP Confirm Ur Methadone, Qual Neg Ur Methadone Ur Hydromorphone (GC/MS) Acetaminophen (10-30) ug/ml Urine Barbiturates Neg Ur Phencyclidine Scrn Ur Phencyclidine (PCP) Neg (Neg) Urine PCP Confirm Ur Amphetamines Screen U Amphetamines Confirm U Amphetamin/Meth Scrn Neg (Neg) Methamphetamine GC/MS MDMA (Ecstasy) Screen Neg (Neg) Ur Amobarbital GC/MS U Pentobarbital GC/MS U Phenobarbital GC/MS U Secobarbital GC/MS U [id number] GC/MS U Benzodiazepines Scrn Neg U 7-Aminoclonazepam Screen Ur Nordiazepam GC/MS U OH-ethylfluraz GC/MS U Lorazepam Cnf GC/MS U Oxazepam Confm GC/MS Ur Temazepam Cnf GC/MS U a-Hydroxytriaz GC/MS U [id number] Urine Cocaine Ur Cocaine Metabolite Neg (Neg) U Cocaine Metab Confirm Tetrahydrocannabinol U Marijuana (THC) Screen Neg Drug Screen Comment Ethyl Alcohol mg/dL (<10.0) mg/dl SARS-CoV-2, RNA, NAAT NEGATIVE (NEGATIVE) Reference Lab Administered Medications Discontinued Medications Diphenhydramine HCl (Diphenhydramine Capsule 25 Mg Cap) 50 mg PO NOW ONE Stop: 02/21/22 08:04 Last Admin: 02/21/22 08:24 Dose: 50 mg Documented By: OL Lorazepam (Lorazepam 1 Mg Tab) 0.5 mg SL NOW STA Stop: 02/21/22 07:17 Last Admin: 02/21/22 07:23 Dose: 0.5 mg Documented By: MT Lorazepam (Lorazepam 1 Mg Tab) 1 mg SL NOW STA Stop: 02/21/22 08:03 Last Admin: 02/21/22 10:43 Dose: Not Given Documented By: OL Olanzapine (Olanzapine Zydis 5 Mg Orally Dis. Tab) 5 mg PO NOW STA Stop: 02/21/22 06:42 Last Admin: 02/21/22 06:51 Dose: 5 mg Documented By: THAO Olanzapine (Olanzapine Zydis 5 Mg Orally Dis. Tab) 5 mg PO NOW STA Stop: 02/21/22 07:17 Last Admin: 02/21/22 07:23 Dose: 5 mg Documented By: MT Imaging Data Radiologist's Impression: Brain MRI 02/21/22 06:42 MRI OF THE BRAIN WITHOUT IV CONTRAST CLINICAL HISTORY: Change in mental status. Hallucinations. Psychosis. COMPARISON STUDY: CT of the brain dated 02/13/2022. TECHNIQUE: MRI of the brain was performed utilizing various T1 and T2-weighted sequences in the axial, sagittal, and coronal planes. IV contrast was not administered for this examination. FINDINGS: Brain parenchyma: There is minimal microangiopathic change. There is no hemorrhage or mass effect. There is no restricted diffusion to suggest acute ischemia. Sofia-white matter differentiation is preserved. No extra-axial fluid collection is seen. The cerebellar tonsils are normal in configuration. Ventricles, sulci, and cisterns: Normal in configuration. Pituitary and sella: Unremarkable. Intracranial vasculature: Normal flow voids are maintained at the skull base. Orbits: The bony orbits are grossly intact. Orbital contents are normal in appearance. Sinuses and mastoids: Clear. Calvarium: Unremarkable. Cervical cord: Partially visualized cervical spinal cord is normal in morphology and signal intensity. IMPRESSION: No acute intracranial abnormality. ACT 112: Negative or not required by law. Electronically signed by: Israel Leavitt M.D. 02/21/2022 2:10 PM Blood Pressure Blood Pressure Findings: Elevated blood pressure Blood Pressure Disposition: elevated BP felt to be situational Discharge Plan Visit Data Chief Complaint: Mental Health Evaluation Stated Complaint: ALTERED MENTAL STATUS ED Provider: Lilliana Nathan Discharge Problem: [facility] Patient Disposition: Still a Patient Forms Stand Alone Forms: Suicide Prevention Resources Prescriptions Prescriptions: No Action rosuvastatin 5 mg tablet 5 mg PO DAILY olanzapine 5 mg tablet 5 mg PO DAILY Qty: 30 0RF Referrals Referrals: Craig Otero [Primary Care Provider] -
[2022-02-21 13:05] LABS: Appearance Urine Clear (Clear); Bacteria Urine Automated Negative (Negative); Bilirubin Urine Negative (Negative); Blood Urine Negative (Negative); Color Urine Yellow; Glucose Urine UA Negative (Negative); Ketones Urine Negative (Negative); Leukocyte Esterase Urine Negative (Negative); Nitrite Urine Negative (Negative); Protein Urine 1+ (Negative); RBC Urine Automated 0-4 /hpf (0-4); Specific Gravity Urine 1.013 (1.000-1.030); Urobilinogen Urine Negative (Negative)
[2022-02-21 13:23] LABS: Amphetamines+Metham, Urine Neg (Neg); Barbiturates, Urine Neg (Neg); Benzodiazepine, Urine Neg (Neg); Cocaine, Urine Neg (Neg); MDMA (Ecstacy), Urine Neg (Neg); Methadone, Urine Neg (Neg); Opiate, Urine Neg (Neg); Phencyclidine, Urine Neg (Neg)
--- NOTE | 2022-02-21 14:12 | Magnetic Resonance Report ---
MRI OF THE BRAIN WITHOUT IV CONTRAST CLINICAL HISTORY: Change in mental status. Hallucinations. Psychosis. COMPARISON STUDY: CT of the brain dated 02/13/2022. TECHNIQUE: MRI of the brain was performed utilizing various T1 and T2-weighted sequences in the axial , sagittal, and coronal planes. IV contrast was not administered for this examination. FINDINGS: Brain parenchyma: There is minimal microangiopathic change. There is no hemorrhage or mass effect. Th ere is no restricted diffusion to suggest acute ischemia. Sofia-white matter differentiation is preser belkis. No extra-axial fluid collection is seen. The cerebellar tonsils are normal in configuration. Ventricles, sulci, and cisterns: Normal in configuration. Pituitary and sella: Unremarkable. Intracranial vasculature: Normal flow voids are maintained at the skull base. Orbits: The bony orbits are grossly intact. Orbital contents are normal in appearance. Sinuses and mastoids: Clear. Calvarium: Unremarkable. Cervical cord: Partially visualized cervical spinal cord is normal in morphology and signal intensity . IMPRESSION: No acute intracranial abnormality. ACT 112: Negative or not required by law. Electronically signed by: Israel Leavitt M.D. 02/21/2022 2:10 PM
[2022-02-21] MEDS ORDERED: OLANZapine 5 MG TABLET PO PRN (17:40)
[2022-02-21] MEDS: OLANZapine 10 MG TAB PO SCH (20:55)
[2022-02-22] MEDS: LORazepam 1 MG TAB PO SCH ×2 (11:09→17:27)
--- NOTE | 2022-02-22 13:56 | History & Physical ---
Date of Service February 22, 2022 Impression / Recommendations Impression 56 yo male with minimal psych hx presenting with AMS since 02/11/22 consistent with stephanie. Started Celexa to "deal with" father's and subsequent stressors, dose increased in approximately October 2021. Initial presentation on the medical floor likely appeared more delirious given sleep deprivation, currently classic stephanie with some mixed features given the depressive component. (1) Bipolar I disorder with mixed features: (2) TSH elevation: Plan The patient was admitted to the [facility] ([facility] mental health unit) on q15 min checks (behavioral with suicide precautions) for safety. The patient will participate in group, recreational, and milieu therapies and will be offered additional individual and family sessions as clinically appropriate. Risks/benefits/alternatives reviewed diagnosis and continuing trial of Zyprexa with consideration for lithium. Fasting labs in am. Patient currently quite distractible so will need review of longer term risks if stays on Zyprexa. Ativan 1 mg prn restlessness due to stephanie, low risk for misuse/diversion. Will need repeat thyroid panel on discharge. Inventory Assets Strengths: intelligent, employed Needs: outpatient resources, family involvement Suicide Risk Level Suicide Risk Level: Low (q15 min observation checks) Risk Factors Assessment Male: Yes : Yes Do You Have Access To A Gun?: No Mental Health Diagnoses: Yes Previous Attempt: No Previous Psychiatric Hospitalization: No Protective Factors Assessment : Yes Employed: Yes ([employer]) Supportive Family: Yes Psychiatric History Identifying Data DK GARLAND is a 56-year-old M from [place], recent [facility] medical admission for AMS (02/13-02/14/2022), was admitted on 02/21/22 16:37 on a 201 voluntary commitment for disorganized behavior. Chief Complaint "I'm sort of embarrassed but also recognize that this isn't me but I though I could make everything right by doing things a certain way". History of Present Illness Patient represented to the emergency department on 02/21/22 after 48 hr escalation in manic behaviors. He was pacing and hyperverbal and had only slept 4 hours during that time. During his inpatient hospitalization he was transitioned off of Celexa in favor of Zyprexa 2.5 mg PO BID which was initially helpful. In the emergency department he spit on a wall and exposed himself to a nurse. He received Haldol, Ativan, and Benadryl and ultimately slept briefly and was cooperative with an MRI. 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 He has excessive guilt and became tearful discussing the decision to put his father into a half-way. This has created some animosity with brother but "typically we all do OK". Patient became preoccupied with some rituals, including the idea that if he turned his dog around 3 times things would be "ok". During inpatient consultation by Dr. Byers during medical stay, he and his noted an abrupt change in mood 02/11/22 with increased energy, waking up early, and elevated mood. He is very perfectionistic and detail oriented at baseline but became more distracted at work and was talking alot. He admitted to more racing thoughts and then more confused. On the medical floor he was initially disoriented, attempted to pull out IV and was incontinent in bed. He confirms as started on Celexa 20mg in August 2021 and dose increased to 40mg about 4-6 weeks ago. He tested negative for Lyme. Patient was accepting of PO Zyprexa last pm and slept well. Past Psychiatric History Current Psychiatric Diagnosis: manic episode Previous Psych Admissions: no Do You Have Access To A Gun?: No History of Previous Suicide Attempt: No Past Medication Trials: Celexa Allergies Allergy/AdvReac Type Severity Reaction Status Date / Time No Known Allergies Allergy Unverified 09/04/18 01:38 Home Medications Medication Instructions Recorded Confirmed Type rosuvastatin 5 mg tablet 5 mg PO DAILY 02/13/22 02/13/22 History olanzapine 5 mg tablet 5 mg PO DAILY #30 tabs 02/14/22 Rx Family History Family History of: None Family Mental Health History Comment: son struggles with depression Alcohol History Hx of Alcohol Use Over the Past 12 Months: No AUDIT Total Score: 0 Smoking Use Have You Smoked or Used Tobacco Products in the Last 30 Days: No Smoking Status: Never smoker Substance History Hx of Prescription Med Misuse Over the Past 12 Months: No Hx of Over the Counter Med Misuse Over the Past 12 Months: No Hx of Inhalent Misuse Over the Past 12 Months: No Hx of Organic Substance Use Over the Past 12 Months: No Hx of Illegal Substances/Street Drug Use Over Past 12 Months: No Problems as a Result of Past Substance Use: None Identified Personal History Living Arrangements: Home Childhood: 1 bro, 1 sis. 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[employer]) Marital Status: Number Of Children: 1 (son in [facility]) Beliefs That Will Affect Care: None Current Legal Problems: No Hx Traumatic Life Events: No Patient History Medical History (Updated 02/22/22 @ 14:13 by Isabel Carr MD) Hx of hemorrhoids Hx of shigellosis Family History Other Family history non-contributory Social History Smoking Status: Never smoker Hx Alcohol Use: No Hx Substance Use: No Preferred Language: Omani Communication Ability: Effective Wood [employer] Required: No Beliefs That Will Affect Care: None marital status: Current Living Situation: Spouse Current Living Situation Comment: home with spouse. current occupational status: employed Feels Safe at Home: Yes Assistive Devices: Glasses Review of Systems Review of Systems: All systems reviewed & are unremarkable except as noted in HPI & below Physical Exam Psychiatric: Orientation: alert and oriented x 3 Apperance: appropriately dressed and appropriately groomed Eye Contact: good eye contact Motor Behavior: no abnormal motor movements Speech: + pressured speech Affect: euthymic affect Mood: + depressed mood (but labile) Thought Process: + tangential thought process Thought Content: reality based without delusions and + compulsions (due to FOI) Suicidal Thoughts: denies suicidal thoughts Homicidal Thoughts: denies homicidal thoughts Hallucinations: no auditory hallucinations and no visual hallucinations Cognition: language grossly intact; + attention not intact Estimated Intelligence: consistent with education level Insight: + limited insight Judgement: + limited judgement Vital Signs (Past 24 Hours): Last Vital Signs Temp 37.0 C 02/22/22 06:00 Pulse 83 02/22/22 06:53 Resp 16 02/22/22 06:00 BP 113/76 02/22/22 06:53 Pulse Ox 96 02/22/22 06:00 O2 Del Method 02/22/22 06:00 Exam Statement: A physical exam was performed in the ED by Dr. Nathan for the purposes of medical clearance. I accept that physical as correct and adequate for the purposes of the inpatient physical exam. Results & Data ([facility]) Laboratory Results Labs 02/21/22 02/21/22 02/21/22 06:40 06:40 06:40 WBC 6.11 RBC 4.70 Hgb 15.4 Hct 41.9 MCV 89.1 MCH 32.8 MCHC 36.8 H RDW Std Deviation 36.8 RDW Coeff of Toño 11.5 Plt Count 231 MPV 9.0 L Immature Gran % (Auto) 0.3 Neut % (Auto) 70.3 Lymph % (Auto) 23.4 [place] % (Auto) 5.1 Eos % (Auto) 0.2 Baso % (Auto) 0.7 Neut # (Auto) 4.30 Lymph # (Auto) 1.43 [place] # (Auto) 0.31 Eos # (Auto) 0.01 Baso # (Auto) 0.04 Immature Gran # (Auto) 0.02 Sodium 136 Potassium 3.5 Chloride 102 Carbon Dioxide 26 Anion Gap 8 BUN 11 Creatinine 0.93 Est Cr Clr Drug Dosing Not Reportable Est GFR ( Amer) 104.5 Est GFR (Non-Af Amer) 90.2 BUN/Creatinine Ratio 11.8 Glucose 157 H Calcium 9.5 Total Bilirubin 0.6 AST 25 ALT 40 Alkaline Phosphatase 89 Total Protein 7.7 Albumin 4.8 Globulin 2.9 Albumin/Globulin Ratio 1.7 TSH 6.506 H Free T4 0.73 Urine Color Urine Appearance Urine pH Ur Specific [place] Urine Protein Urine Glucose (UA) Urine Ketones Urine Blood Urine Nitrite Urine Bilirubin Urine Urobilinogen Ur Leukocyte Esterase Urine WBC (Auto) Urine RBC (Auto) U Hyaline Cast (Auto) U Epithel Cells (Auto) Urine Bacteria (Auto) Ur Butalbital Confirm Salicylates Urine Opiates Screen U Codeine Confrm GC/MS Ur Morphine (GC/MS) Ur Hydrocodone (GC/MS) U Norhydrocodone Conf Ur Oxycodone Screen U Noroxycodone Confirm Ur Oxycodone GC/MS U Oxymorphone GC/MS EDDP Confirm Ur Methadone, Qual Ur Methadone Ur Hydromorphone (GC/MS) Acetaminophen Urine Barbiturates Ur Phencyclidine Scrn Ur Phencyclidine (PCP) Urine PCP Confirm Ur Amphetamines Screen U Amphetamines Confirm U Amphetamin/Meth Scrn Methamphetamine GC/MS MDMA (Ecstasy) Screen Ur Amobarbital GC/MS U Pentobarbital GC/MS U Phenobarbital GC/MS U Secobarbital GC/MS U [id number] GC/MS U Benzodiazepines Scrn U 7-Aminoclonazepam Screen Ur Nordiazepam GC/MS U OH-ethylfluraz GC/MS U Lorazepam Cnf GC/MS U Oxazepam Confm GC/MS Ur Temazepam Cnf GC/MS U a-Hydroxytriaz GC/MS U [id number]-[id number] Urine Cocaine Ur Cocaine Metabolite U Cocaine Metab Confirm Tetrahydrocannabinol U Marijuana (THC) Screen Drug Screen Comment Ethyl Alcohol mg/dL SARS-CoV-2, RNA, NAAT Reference Lab 02/21/22 02/21/22 02/21/22 06:40 06:40 12:45 WBC RBC Hgb Hct MCV MCH MCHC RDW Std Deviation RDW Coeff of Toño Plt Count MPV Immature Gran % (Auto) Neut % (Auto) Lymph % (Auto) [place] % (Auto) Eos % (Auto) Baso % (Auto) Neut # (Auto) Lymph # (Auto) [place] # (Auto) Eos # (Auto) Baso # (Auto) Immature Gran # (Auto) Sodium Potassium Chloride Carbon Dioxide Anion Gap BUN Creatinine Est Cr Clr Drug Dosing Est GFR ( Amer) Est GFR (Non-Af Amer) BUN/Creatinine Ratio Glucose Calcium Total Bilirubin AST ALT Alkaline Phosphatase Total Protein Albumin Globulin Albumin/Globulin Ratio TSH Free T4 Urine Color Urine Appearance Urine pH Ur Specific [place] Urine Protein Urine Glucose (UA) Urine Ketones Urine Blood Urine Nitrite Urine Bilirubin Urine Urobilinogen Ur Leukocyte Esterase Urine WBC (Auto) Urine RBC (Auto) U Hyaline Cast (Auto) U Epithel Cells (Auto) Urine Bacteria (Auto) Ur Butalbital Confirm Cancelled Salicylates < 3.0 L Urine Opiates Screen Cancelled U Codeine Confrm GC/MS Cancelled Ur Morphine (GC/MS) Cancelled Ur Hydrocodone (GC/MS) Cancelled U Norhydrocodone Conf Cancelled Ur Oxycodone Screen Cancelled U Noroxycodone Confirm Cancelled Ur Oxycodone GC/MS Cancelled U Oxymorphone GC/MS Cancelled EDDP Confirm Cancelled Ur Methadone, Qual Cancelled Ur Methadone Cancelled Ur Hydromorphone (GC/MS) Cancelled Acetaminophen < 3 L Urine Barbiturates Cancelled Ur Phencyclidine Scrn Cancelled Ur Phencyclidine (PCP) Urine PCP Confirm Cancelled Ur Amphetamines Screen Cancelled U Amphetamines Confirm Cancelled U Amphetamin/Meth Scrn Methamphetamine GC/MS Cancelled MDMA (Ecstasy) Screen Ur Amobarbital GC/MS Cancelled U Pentobarbital GC/MS Cancelled U Phenobarbital GC/MS Cancelled U Secobarbital GC/MS Cancelled U q-HP-Vvssyhqsh GC/MS Cancelled U Benzodiazepines Scrn Cancelled U 7-Aminoclonazepam Screen Cancelled Ur Nordiazepam GC/MS Cancelled U OH-ethylfluraz GC/MS Cancelled U Lorazepam Cnf GC/MS Cancelled U Oxazepam Confm GC/MS Cancelled Ur Temazepam Cnf GC/MS Cancelled U a-Hydroxytriaz GC/MS Cancelled U [id number] Cancelled Urine Cocaine Cancelled Ur Cocaine Metabolite U Cocaine Metab Confirm Cancelled Tetrahydrocannabinol Cancelled U Marijuana (THC) Screen Cancelled Drug Screen Comment Cancelled Ethyl Alcohol mg/dL < 10.0 SARS-CoV-2, RNA, NAAT Reference Lab Cancelled 02/21/22 02/21/22 02/21/22 12:45 12:45 12:45 WBC RBC Hgb Hct MCV MCH MCHC RDW Std Deviation RDW Coeff of Toño Plt Count MPV Immature Gran % (Auto) Neut % (Auto) Lymph % (Auto) [place] % (Auto) Eos % (Auto) Baso % (Auto) Neut # (Auto) Lymph # (Auto) [place] # (Auto) Eos # (Auto) Baso # (Auto) Immature Gran # (Auto) Sodium Potassium Chloride Carbon Dioxide Anion Gap BUN Creatinine Est Cr Clr Drug Dosing Est GFR ( Amer) Est GFR (Non-Af Amer) BUN/Creatinine Ratio Glucose Calcium Total Bilirubin AST ALT Alkaline Phosphatase Total Protein Albumin Globulin Albumin/Globulin Ratio TSH Free T4 Urine Color Yellow Urine Appearance Clear Urine pH 7.0 Ur Specific [place] 1.013 Urine Protein 1+ H Urine Glucose (UA) Negative Urine Ketones Negative Urine Blood Negative Urine Nitrite Negative Urine Bilirubin Negative Urine Urobilinogen Negative Ur Leukocyte Esterase Negative Urine WBC (Auto) 1-5 Urine RBC (Auto) 0-4 U Hyaline Cast (Auto) 10-30 H U Epithel Cells (Auto) 10-20 H Urine Bacteria (Auto) Negative Ur Butalbital Confirm Salicylates Urine Opiates Screen Neg U Codeine Confrm GC/MS Ur Morphine (GC/MS) Ur Hydrocodone (GC/MS) U Norhydrocodone Conf Ur Oxycodone Screen U Noroxycodone Confirm Ur Oxycodone GC/MS U Oxymorphone GC/MS EDDP Confirm Ur Methadone, Qual Neg Ur Methadone Ur Hydromorphone (GC/MS) Acetaminophen Urine Barbiturates Neg Ur Phencyclidine Scrn Ur Phencyclidine (PCP) Neg Urine PCP Confirm Ur Amphetamines Screen U Amphetamines Confirm U Amphetamin/Meth Scrn Neg Methamphetamine GC/MS MDMA (Ecstasy) Screen Neg Ur Amobarbital GC/MS U Pentobarbital GC/MS U Phenobarbital GC/MS U Secobarbital GC/MS U [id number] GC/MS U Benzodiazepines Scrn Neg U 7-Aminoclonazepam Screen Ur Nordiazepam GC/MS U OH-ethylfluraz GC/MS U Lorazepam Cnf GC/MS U Oxazepam Confm GC/MS Ur Temazepam Cnf GC/MS U a-Hydroxytriaz GC/MS U y-CH-Ceagcucpe Urine Cocaine Ur Cocaine Metabolite Neg U Cocaine Metab Confirm Tetrahydrocannabinol U Marijuana (THC) Screen Neg Drug Screen Comment Ethyl Alcohol mg/dL SARS-CoV-2, RNA, NAAT NEGATIVE Reference Lab Diagnostic Findings Brain MRI 02/21/22 06:42 MRI OF THE BRAIN WITHOUT IV CONTRAST CLINICAL HISTORY: Change in mental status. Hallucinations. Psychosis. COMPARISON STUDY: CT of the brain dated 02/13/2022. TECHNIQUE: MRI of the brain was performed utilizing various T1 and T2-weighted sequences in the axial, sagittal, and coronal planes. IV contrast was not administered for this examination. FINDINGS: Brain parenchyma: There is minimal microangiopathic change. There is no hemorrhage or mass effect. There is no restricted diffusion to suggest acute ischemia. Sofia-white matter differentiation is preserved. No extra-axial fluid collection is seen. The cerebellar tonsils are normal in configuration. Ventricles, sulci, and cisterns: Normal in configuration. Pituitary and sella: Unremarkable. Intracranial vasculature: Normal flow voids are maintained at the skull base. Orbits: The bony orbits are grossly intact. Orbital contents are normal in appearance. Sinuses and mastoids: Clear. Calvarium: Unremarkable. Cervical cord: Partially visualized cervical spinal cord is normal in morphology and signal intensity. IMPRESSION: No acute intracranial abnormality. ACT 112: Negative or not required by law. Electronically signed by: Israel Leavitt M.D. 02/21/2022 2:10 PM Current Inpatient Medications Current Inpatient Medications: Current Inpatient Medications Lorazepam (Lorazepam 1 Mg Tab) 1 mg PO BIDM DELIO Stop: 03/24/22 10:39 Last Admin: 02/22/22 11:09 Dose: 1 mg Olanzapine (Olanzapine 10 Mg Tab) 10 mg PO HS DELIO Stop: 03/23/22 21:59 Last Admin: 02/21/22 20:55 Dose: 10 mg Olanzapine (Olanzapine 5 Mg Tablet) 5 mg PO Q6 PRN PRN Reason: agitation Stop: 03/23/22 17:59
[2022-02-22] MEDS: OLANZapine 10 MG TAB PO SCH (21:27)
[2022-02-23] MEDS: LORazepam 1 MG TAB PO SCH ×2 (08:51→17:26)
--- NOTE | 2022-02-23 16:17 | Psychiatric Progress Note ---
Date of Service February 23, 2022 Impression / Recommendations Impression 56 yo male with minimal psych hx presenting with AMS since 02/11/22. Diagnostically consistent with suspected stephanie though unusual presentation given his age and no family history of bipolar disorder. Notably his father and aunt both developed neuropsychic symptoms from Lyme disease. Head MRI reassuring and normal. TSH elevated but free T4 normal. 02/23/22: Continues to present with stephanie though sleep is improving. Tolerating zyprexa and ativan well. Reviewed interim progress per Dr. Carr. (1) Bipolar I disorder with mixed features: (2) TSH elevation: Plan 02/23/22: Continue current medications and tx plan. Lab unable to draw fasting labs till mid-day so rescheduled for tomorrow morning to assess fasting lipid panel and glucose. 02/22/22: The patient was admitted to the [facility] ([facility]) on q15 min checks (behavioral with suicide precautions) for safety. The patient will participate in group, recreational, and milieu therapies and will be offered additional individual and family sessions as clinically appropriate. Risks/benefits/alternatives reviewed diagnosis and continuing trial of Zyprexa with consideration for lithium. Fasting labs in am. Patient currently quite distractible so will need review of longer term risks if stays on Zyprexa. Ativan 1 mg prn restlessness due to stephanie, low risk for misuse/diversion. Will need repeat thyroid panel on discharge. Inventory Assets Strengths: intelligent, employed Needs: outpatient resources, family involvement Suicide Risk Level Suicide Risk Level: Low (q15 min observation checks) (denies SI ) Risk Factors Assessment Male: Yes : Yes Do You Have Access To A Gun?: No Mental Health Diagnoses: Yes Previous Attempt: No Previous Psychiatric Hospitalization: No Protective Factors Assessment : Yes Employed: Yes ([employer]) Supportive Family: Yes Interval History Identifying Information DK GARLAND is a 56-year-old M from [place], recent [facility] medical admission for AMS (02/13-02/14/2022), was admitted on 02/21/22 16:37 on a 201 voluntary commitment for disorganized behavior. Chief Complaint "My thoughts were really weird, I keep thinking the paperwork has typos as a test for me to catch them". Review of Systems Sleep Information Total Hours of Sleep: 10 Meal Information Percent Meal Consumed - Breakfast: 100 Percent Meal Consumed - Lunch: 100 Percent Meal Consumed - Dinner: 100 Subjective Subjective Patient was seen & assessed and interval progress reviewed with treatment team nursing and social work. Slept well last night. Less pressured but still with flight of ideas, easily loses train of thought. Denies medication side effects. Feels bad about some of the comments and behaviors in the ED but felt unable to stop impulses. Describes difficulty sleeping at home and fixation on needing to carry his dog around and do things in a ritualized way. Feels a need to check and fix things here in the hospital but states he is trying to avoid acting on these impulses. Elevated mood. Physical Exam Psychiatric Orientation: alert and oriented x 3 Apperance: appropriately dressed and appropriately groomed Eye Contact: good eye contact Motor Behavior: no abnormal motor movements Speech: + pressured speech Affect: euthymic affect Mood: + anxious mood; no depressed mood Thought Process: + tangential thought process and + flight of ideas Thought Content: reality based without delusions and + compulsions Suicidal Thoughts: denies suicidal thoughts Homicidal Thoughts: denies homicidal thoughts Hallucinations: no auditory hallucinations and no visual hallucinations Cognition: language grossly intact; + attention not intact Estimated Intelligence: consistent with education level Insight: + fair insight Judgement: + limited judgement Vital Signs (Past 24 Hours) Last Vital Signs Temp 36.5 C 02/23/22 06:50 Pulse 73 02/23/22 06:51 Resp 16 02/23/22 06:50 BP 113/78 02/23/22 06:51 Pulse Ox 96 02/22/22 06:00 O2 Del Method 02/22/22 06:00 Results & Data ([facility]) Current Inpatient Medications Current Inpatient Medications: Current Inpatient Medications Lorazepam (Lorazepam 1 Mg Tab) 1 mg PO BIDM DELIO Stop: 03/24/22 10:39 Last Admin: 02/23/22 08:51 Dose: 1 mg Olanzapine (Olanzapine 10 Mg Tab) 10 mg PO HS DELIO Stop: 03/23/22 21:59 Last Admin: 02/22/22 21:27 Dose: 10 mg Olanzapine (Olanzapine 5 Mg Tablet) 5 mg PO Q6 PRN PRN Reason: agitation Stop: 03/23/22 17:59 Mental Health & Subst Abuse Tx Therapist Name of Therapist: None Merchandise Team Manager Name of Merchandise Team Manager: None Post Discharge Appointments Primary Care Physician Name Of Family Doctor: MD Kamille Pardo
[2022-02-23] MEDS ORDERED: SODIUM CHLORIDE 0.65% NA SOLN 45 ML (OCEAN) PRN (20:41)
[2022-02-23] MEDS: OLANZapine 10 MG TAB PO SCH (21:23)
[2022-02-24] MEDS ORDERED: ALUMINUM/MAGNESIUM SUSP 30 ML UDC PO PRN (08:43)
[2022-02-24] MEDS ORDERED: BISMUTH SUBSALICYLATE LIQD 236 ML PO PRN (08:43)
[2022-02-24] MEDS ORDERED: MAGNESIUM HYDROXIDE SUSP 30 ML UDC PO PRN (08:43)
[2022-02-24] MEDS ORDERED: ACETAMINOPHEN 325 MG TAB PO PRN (08:43)
[2022-02-24] MEDS ORDERED: hydrOXYzine HCl 25 MG TAB PO PRN ×2 (08:43)
[2022-02-24] MEDS ORDERED: SODIUM CHLORIDE 0.65% NA SOLN 45 ML (OCEAN) PRN (08:43)
[2022-02-24] MEDS: LORazepam 1 MG TAB PO SCH ×2 (09:09→17:19)
[2022-02-24 09:24] LABS: Chol HDL Ratio 3.9 (0-5)
--- NOTE | 2022-02-24 17:32 | Psychiatric Progress Note ---
Date of Service February 24, 2022 Impression / Recommendations Impression 56 yo male with minimal psych hx presenting with AMS since 02/11/22. Diagnostically consistent with suspected stephanie though unusual presentation given his age and no family history of bipolar disorder. Notably his father and aunt both developed neuropsychic symptoms from Lyme disease. Head MRI reassuring and normal. TSH elevated but free T4 normal. 02/24/22: Ongoing stephanie. Tolerating olanzapine and ativan. Given some tiredness may reduce ativan dose tomorrow if this persists. Reviewed fasting glucose and lipid panel which are all within normal range. (1) Bipolar I disorder with mixed features: (2) TSH elevation: Plan 02/24/22: Continue current medications and tx plan. 02/23/22: Continue current medications and tx plan. Lab unable to draw fasting labs till mid-day so rescheduled for tomorrow morning to assess fasting lipid panel and glucose. 02/22/22: The patient was admitted to the [facility] ([facility]) on q15 min checks (behavioral with suicide precautions) for safety. The patient will participate in group, recreational, and milieu therapies and will be offered additional individual and family sessions as clinically appropriate. Risks/benefits/alternatives reviewed diagnosis and continuing trial of Zyprexa with consideration for lithium. Fasting labs in am. Patient currently quite distractible so will need review of longer term risks if stays on Zyprexa. Ativan 1 mg prn restlessness due to stephanie, low risk for misuse/diversion. Will need repeat thyroid panel on discharge. Inventory Assets Strengths: intelligent, employed Needs: outpatient resources, family involvement Suicide Risk Level Suicide Risk Level: Low (q15 min observation checks) (denies SI ) Risk Factors Assessment Male: Yes : Yes Do You Have Access To A Gun?: No Mental Health Diagnoses: Yes Previous Attempt: No Previous Psychiatric Hospitalization: No Protective Factors Assessment : Yes Employed: Yes ([employer] [facility]) Supportive Family: Yes Interval History Identifying Information DK GARLAND is a 56-year-old M from [place], recent [facility] medical admission for AMS (02/13-02/14/2022), was admitted on 02/21/22 16:37 on a 201 voluntary commitment for disorganized behavior. Chief Complaint "It's the weirdest thing". Review of Systems Sleep Information Total Hours of Sleep: 6.5 Meal Information Percent Meal Consumed - Breakfast: 100 Percent Meal Consumed - Lunch: 100 Percent Meal Consumed - Dinner: 100 Subjective Subjective Patient was seen & assessed and interval progress reviewed with treatment team n judy and social work. Sleeping well. Reports ongoing racing thoughts and decreased inhibition and struggles not to interrupt due to distractability. Attending groups and supportive of peers. Feels more tired today but is glad to be able to sleep again. Discussed option of alternative mood stabilizers such as lithium or depakote, he prefers to continue with olanzapine for now. Physical Exam Psychiatric Orientation: alert and oriented x 3 Apperance: appropriately dressed and appropriately groomed Eye Contact: good eye contact Motor Behavior: no abnormal motor movements Speech: + pressured speech Affect: euthymic affect Mood: + anxious mood Thought Process: + tangential thought process and + flight of ideas Thought Content: reality based without delusions Suicidal Thoughts: denies suicidal thoughts Homicidal Thoughts: denies homicidal thoughts Hallucinations: no auditory hallucinations and no visual hallucinations Cognition: language grossly intact; + attention not intact Estimated Intelligence: consistent with education level Insight: + fair insight Judgement: + limited judgement Vital Signs (Past 24 Hours) Last Vital Signs Temp 36.8 C 02/24/22 06:47 Pulse 82 02/24/22 06:48 Resp 16 02/24/22 06:47 BP 121/84 02/24/22 06:48 Pulse Ox 96 02/22/22 06:00 O2 Del Method 02/22/22 06:00 Results & Data ([facility]) Laboratory Results Laboratory Results - last 24 hr 02/24/22 08:38 Fasting Glucose 86 Triglycerides 124 Cholesterol 172 LDL Cholesterol, Calc 103 VLDL Cholesterol, Calc 25 HDL Cholesterol 44 Cholesterol/HDL Ratio 3.9 Current Inpatient Medications Current Inpatient Medications: Current Inpatient Medications Acetaminophen (Acetaminophen 325 Mg Tab) 650 mg PO Q4H PRN PRN Reason: Headache or Minor Fever Stop: 03/26/22 08:42 Al Hydrox/Mg Hydrox/Simethicone (Aluminum/Magnesium Susp 30 Ml Udc) 30 ml PO Q4H PRN PRN Reason: GI Upset Stop: 03/26/22 08:42 Bismuth Subsalicylate (Bismuth Subsalicylate Liqd 236 Ml) 15 ml PO PRN PRN PRN Reason: Loose Stool Stop: 03/26/22 08:42 Hydroxyzine HCl (Hydroxyzine Hcl 25 Mg Tab) 50 mg PO HSZ PRN PRN Reason: Insomnia Stop: 03/26/22 08:42 Hydroxyzine HCl (Hydroxyzine Hcl 25 Mg Tab) 25 mg PO Q4H PRN PRN Reason: Anxiety Stop: 03/26/22 08:42 Lorazepam (Lorazepam 1 Mg Tab) 1 mg PO BIDM DELIO Stop: 03/24/22 10:39 Last Admin: 02/24/22 17:19 Dose: 1 mg Magnesium Hydroxide (Magnesium Hydroxide Susp 30 Ml Udc) 30 ml PO DAILY PRN PRN Reason: Constipation Stop: 03/26/22 08:42 Olanzapine (Olanzapine 10 Mg Tab) 10 mg PO HS DELIO Stop: 03/23/22 21:59 Last Admin: 02/23/22 21:23 Dose: 10 mg Olanzapine (Olanzapine 5 Mg Tablet) 5 mg PO Q6 PRN PRN Reason: agitation Stop: 03/23/22 17:59 Sodium Chloride (Sodium Chloride 0.65% Na Soln 45 Ml ([place])) 1 - 2 sprays NA PRN PRN PRN Reason: Nasal Dryness/Congestion Stop: 03/25/22 20:40 Last Admin: 02/23/22 21:23 Dose: 1 sprays Mental Health & Subst Abuse Tx Psychiatrist Name of Psychiatrist: Douglas Giang Psychiatrist's Date of Appointment with Psychiatrist: 03/10/22 Time of Appointment with Psychiatrist: 1:15p Psychiatric Appointment Comment: [address] [place] [address] Therapist Name of Therapist: Marika Bustillos Therapist's Date of Therapist Appointment: 03/09/22 Time of Therapist Appointment: 4:30p Therapy Appointment Comment: [address], [place] [address] Edi Manager Name of Edi Manager: None Post Discharge Appointments Primary Care Physician Name Of Family Doctor: [facility] [facility] Date of Appointment with PCP: 03/09/22 Time of Appointment with PCP: 11am Provider Appointment Comment: [address], [place] [address] Neurologist Name of Neurologist: TERRENCE Elias Neurologist's Date of Appointment with Neurologist: 09/03/22 Time of Appointment with Neurologist: 8am Neurology Appointment Comment: [address], [place] [address] Contact Information Discharge Discharge Address: [address] [place] [address] , [place] [address]
[2022-02-24] MEDS: OLANZapine 10 MG TAB PO SCH (20:55)
[2022-02-25] MEDS: LORazepam 1 MG TAB PO SCH ×2 (08:38→21:48)
--- NOTE | 2022-02-25 16:54 | Psychiatric Progress Note ---
Date of Service February 25, 2022 Impression / Recommendations Impression 56 yo male with minimal psych hx presenting with AMS since 02/11/22. Diagnostically consistent with suspected stephanie though unusual presentation given his age and no family history of bipolar disorder. Notably his father and aunt both developed neuropsychic symptoms from Lyme disease. Head MRI reassuring and normal. TSH elevated but free T4 normal. 02/25/22: Ongoing stephanie, more tired during the day so will attempt reducing ativan dose. Tolerating olanzapine. (1) Bipolar I disorder with mixed features: (2) TSH elevation: Plan 02/25/22: Reduce ativan to 1mg qhs and 1mg daily prn. 02/24/22: Continue current medications and tx plan. 02/23/22: Continue current medications and tx plan. Lab unable to draw fasting labs till mid-day so rescheduled for tomorrow morning to assess fasting lipid panel and glucose. 02/22/22: The patient was admitted to the [facility] ([facility]) on q15 min checks (behavioral with suicide precautions) for safety. The patient will participate in group, recreational, and milieu therapies and will be offered additional individual and family sessions as clinically appropriate. Risks/benefits/alternatives reviewed diagnosis and continuing trial of Zyprexa with consideration for lithium. Fasting labs in am. Patient currently quite distractible so will need review of longer term risks if stays on Zyprexa. Ativan 1 mg prn restlessness due to stephanie, low risk for misuse/diversion. Will need repeat thyroid panel on discharge. Inventory Assets Strengths: intelligent, employed Needs: outpatient resources, family involvement Suicide Risk Level Suicide Risk Level: Low (q15 min observation checks) (denies SI ) Risk Factors Assessment Male: Yes : Yes Do You Have Access To A Gun?: No Mental Health Diagnoses: Yes Previous Attempt: No Previous Psychiatric Hospitalization: No Protective Factors Assessment : Yes Employed: Yes ([employer] [facility]) Supportive Family: Yes Interval History Identifying Information DK GARLAND is a 56-year-old M from [place], recent [facility] medical admission for AMS (02/13-02/14/2022), was admitted on 02/21/22 16:37 on a 201 voluntary commitment for disorganized behavior. Chief Complaint "I'm still talking really fast". Review of Systems Sleep Information Total Hours of Sleep: 7 Meal Information Percent Meal Consumed - Breakfast: 95 Percent Meal Consumed - Lunch: 95 Percent Meal Consumed - Dinner: 100 Subjective Subjective Patient was seen & assessed and interval progress reviewed with treatment team nursing and social work. Dk feels his thoughts aren't racing as much but still feels "obsessions" to fix things/clean things/noticing things he could work on around the unit. Also still noticing he is more likely to make sexual innuendo comments than normal noting he made a joke to a peer this morning. Feels more tired during the day, reviewed option to remove scheduled qAM ativan dose which he would like to do. Still wonders at times if some of the spelling errors he notices on unit paperwork is a "test". Had family meeting. Physical Exam Psychiatric Orientation: alert and oriented x 3 Apperance: appropriately dressed and appropriately groomed Eye Contact: good eye contact Motor Behavior: no abnormal motor movements Speech: + abnormal rate/rhythm/volume of speech (rapid but interruptable ) Affect: euthymic affect Mood: + anxious mood; no depressed mood Thought Process: + tangential thought process and + flight of ideas Thought Content: + preoccupation, reality based without delusions and + compulsions Suicidal Thoughts: denies suicidal thoughts Homicidal Thoughts: denies homicidal thoughts Hallucinations: no auditory hallucinations and no visual hallucinations Cognition: language grossly intact; + attention not intact Estimated Intelligence: consistent with education level Insight: + fair insight Judgement: + limited judgement Vital Signs (Past 24 Hours) Last Vital Signs Temp 36.9 C 02/25/22 06:54 Pulse 81 02/25/22 06:55 Resp 16 02/25/22 06:54 BP 110/72 02/25/22 06:55 Pulse Ox 96 02/22/22 06:00 O2 Del Method 02/22/22 06:00 Results & Data ([facility]) Current Inpatient Medications Current Inpatient Medications: Current Inpatient Medications Acetaminophen (Acetaminophen 325 Mg Tab) 650 mg PO Q4H PRN PRN Reason: Headache or Minor Fever Stop: 03/26/22 08:42 Al Hydrox/Mg Hydrox/Simethicone (Aluminum/Magnesium Susp 30 Ml Udc) 30 ml PO Q4H PRN PRN Reason: GI Upset Stop: 03/26/22 08:42 Bismuth Subsalicylate (Bismuth Subsalicylate Liqd 236 Ml) 15 ml PO PRN PRN PRN Reason: Loose Stool Stop: 03/26/22 08:42 Hydroxyzine HCl (Hydroxyzine Hcl 25 Mg Tab) 50 mg PO HSZ PRN PRN Reason: Insomnia Stop: 03/26/22 08:42 Hydroxyzine HCl (Hydroxyzine Hcl 25 Mg Tab) 25 mg PO Q4H PRN PRN Reason: Anxiety Stop: 03/26/22 08:42 Lorazepam (Lorazepam 1 Mg Tab) 1 mg PO BIDM DELIO Stop: 03/24/22 10:39 Last Admin: 02/25/22 08:38 Dose: 1 mg Magnesium Hydroxide (Magnesium Hydroxide Susp 30 Ml Udc) 30 ml PO DAILY PRN PRN Reason: Constipation Stop: 03/26/22 08:42 Olanzapine (Olanzapine 10 Mg Tab) 10 mg PO HS DELIO Stop: 03/23/22 21:59 Last Admin: 02/24/22 20:55 Dose: 10 mg Olanzapine (Olanzapine 5 Mg Tablet) 5 mg PO Q6 PRN PRN Reason: agitation Stop: 03/23/22 17:59 Sodium Chloride (Sodium Chloride 0.65% Na Soln 45 Ml ([place])) 1 - 2 sprays NA PRN PRN PRN Reason: Nasal Dryness/Congestion Stop: 03/25/22 20:40 Last Admin: 02/23/22 21:23 Dose: 1 sprays Mental Health & Subst Abuse Tx Psychiatrist Name of Psychiatrist: Douglas Giang Psychiatrist's Date of Appointment with Psychiatrist: 03/10/22 Time of Appointment with Psychiatrist: 1:15p Psychiatric Appointment Comment: [address] [place] [address] Therapist Name of Therapist: Marika Guerrero- Tressa Therapist's Date of Therapist Appointment: 03/09/22 Time of Therapist Appointment: 4:30p Therapy Appointment Comment: [address], [address], [place] [address] Loss Mitigation Specialist Name of Loss Mitigation Specialist: None Post Discharge Appointments Primary Care Physician Name Of Family Doctor: [facility] Date of Appointment with PCP: 03/09/22 Time of Appointment with PCP: 11am Provider Appointment Comment: [address] , [place] [address] Neurologist Name of Neurologist: TERRENCE Elias Neurologist's Date of Appointment with Neurologist: 09/03/22 Time of Appointment with Neurologist: 8am Neurology Appointment Comment: [address] [place] [address] Contact Information Discharge Discharge Address: [address] [place] [address] [address], [place] [address]
[2022-02-25] MEDS ORDERED: LORazepam 1 MG TAB PO PRN (17:05)
[2022-02-25] MEDS: OLANZapine 10 MG TAB PO SCH (21:48)
--- NOTE | 2022-02-26 11:19 | Psychiatric Progress Note ---
Date of Service February 26, 2022 Impression / Recommendations Impression 56 yo male with minimal psych hx presenting with AMS since 02/11/22. Diagnostically consistent with suspected stephanie though unusual presentation given his age and no family history of bipolar disorder. Notably his father and aunt both developed neuropsychic symptoms from Lyme disease. Head MRI reassuring and normal. TSH elevated but free T4 normal. MNPR due to stephanie with disinhibition and poor interpersonal boundaries 02/26/22: Ongoing stephanie, didn't sleep as well last night, agrees to dose increase of olanzapine. (1) Bipolar I disorder with mixed features: (2) TSH elevation: Plan 02/26/22: Increase zyprexa to 15mg qhs. 02/25/22: Reduce ativan to 1mg qhs and 1mg daily prn. 02/24/22: Continue current medications and tx plan. 02/23/22: Continue current medications and tx plan. Lab unable to draw fasting labs till mid-day so rescheduled for tomorrow morning to assess fasting lipid panel and glucose. 02/22/22: The patient was admitted to the [facility]) on q15 min checks (behavioral with suicide precautions) for safety. The patient will participate in group, recreational, and milieu therapies and will be offered additional individual and family sessions as clinically appropriate. Risks/benefits/alternatives reviewed diagnosis and continuing trial of Zyprexa with consideration for lithium. Fasting labs in am. Patient currently quite distractible so will need review of longer term risks if stays on Zyprexa. Ativan 1 mg prn restlessness due to stephanie, low risk for misuse/diversion. Will need repeat thyroid panel on discharge. Inventory Assets Strengths: intelligent, employed Needs: outpatient resources, family involvement Suicide Risk Level Suicide Risk Level: Low (q15 min observation checks) (denies SI ) Risk Factors Assessment Male: Yes : Yes Do You Have Access To A Gun?: No Mental Health Diagnoses: Yes Previous Attempt: No Previous Psychiatric Hospitalization: No Protective Factors Assessment : Yes Employed: Yes ([employer] [facility]) Supportive Family: Yes Interval History Identifying Information DK GARLAND is a 56-year-old M from [place], recent [facility] medical admission for AMS (02/13-02/14/2022), was admitted on 02/21/22 16:37 on a 201 voluntary commitment for disorganized behavior. Chief Complaint "I'm good I think". Review of Systems Sleep Information Total Hours of Sleep: 6.5 Meal Information Percent Meal Consumed - Breakfast: 100 Percent Meal Consumed - Lunch: 95 Percent Meal Consumed - Dinner: 100 Subjective Subjective Patient was seen & assessed and interval progress reviewed with treatment team nursing and social work. Difficulty with interpersonal boundaries at times but very supportive of peers. Writing continuously in a note pad to help remember given his rapid thought process. Continues to have racing thoughts and feeling a need to fix things/work on projects. Consents to me completing FMLA paperwork on his behalf once his drops this off. Agrees with increasing dose of zyprexa as he had more difficulty sleeping last night. Less daytime fatigue with reduction in morning dose of ativan. Physical Exam Psychiatric Orientation: alert and oriented x 3 Apperance: appropriately dressed and appropriately groomed Eye Contact: good eye contact Motor Behavior: no abnormal motor movements Speech: + abnormal rate/rhythm/volume of speech (rapid but interruptable ) Affect: euthymic affect Mood: + anxious mood; no depressed mood Thought Process: + tangential thought process and + flight of ideas Thought Content: + preoccupation, reality based without delusions and + compulsions Suicidal Thoughts: denies suicidal thoughts Homicidal Thoughts: denies homicidal thoughts Hallucinations: no auditory hallucinations and no visual hallucinations Cognition: language grossly intact; + attention not intact Estimated Intelligence: consistent with education level Insight: + fair insight Judgement: + limited judgement Vital Signs (Past 24 Hours) Last Vital Signs Temp 37 C 02/26/22 06:39 Pulse 82 02/26/22 06:40 Resp 16 02/26/22 06:39 BP 110/74 02/26/22 06:40 Pulse Ox 96 02/22/22 06:00 O2 Del Method 02/22/22 06:00 Results & Data ([facility]) Current Inpatient Medications Current Inpatient Medications: Current Inpatient Medications Acetaminophen (Acetaminophen 325 Mg Tab) 650 mg PO Q4H PRN PRN Reason: Headache or Minor Fever Stop: 03/26/22 08:42 Al Hydrox/Mg Hydrox/Simethicone (Aluminum/Magnesium Susp 30 Ml Udc) 30 ml PO Q4H PRN PRN Reason: GI Upset Stop: 03/26/22 08:42 Bismuth Subsalicylate (Bismuth Subsalicylate Liqd 236 Ml) 15 ml PO PRN PRN PRN Reason: Loose Stool Stop: 03/26/22 08:42 Hydroxyzine HCl (Hydroxyzine Hcl 25 Mg Tab) 50 mg PO HSZ PRN PRN Reason: Insomnia Stop: 03/26/22 08:42 Hydroxyzine HCl (Hydroxyzine Hcl 25 Mg Tab) 25 mg PO Q4H PRN PRN Reason: Anxiety Stop: 03/26/22 08:42 Lorazepam (Lorazepam 1 Mg Tab) 1 mg PO HS DELIO Stop: 03/27/22 21:59 Last Admin: 02/25/22 21:48 Dose: 1 mg Lorazepam (Lorazepam 1 Mg Tab) 1 mg PO DAILY PRN PRN Reason: Anxiety/Agitation Stop: 03/27/22 17:04 Magnesium Hydroxide (Magnesium Hydroxide Susp 30 Ml Udc) 30 ml PO DAILY PRN PRN Reason: Constipation Stop: 03/26/22 08:42 Olanzapine (Olanzapine 10 Mg Tab) 10 mg PO HS DELIO Stop: 03/23/22 21:59 Last Admin: 02/25/22 21:48 Dose: 10 mg Olanzapine (Olanzapine 5 Mg Tablet) 5 mg PO Q6 PRN PRN Reason: agitation Stop: 03/23/22 17:59 Sodium Chloride (Sodium Chloride 0.65% Na Soln 45 Ml ([place])) 1 - 2 sprays NA PRN PRN PRN Reason: Nasal Dryness/Congestion Stop: 03/25/22 20:40 Last Admin: 02/23/22 21:23 Dose: 1 sprays Mental Health & Subst Abuse Tx Psychiatrist Name of Psychiatrist: Douglas Giang Psychiatrist's Date of Appointment with Psychiatrist: 03/10/22 Time of Appointment with Psychiatrist: 1:15p Psychiatric Appointment Comment: [address] [place] [address] Therapist Name of Therapist: Marika Guerrero- Tressa Therapist's Date of Therapist Appointment: 03/09/22 Time of Therapist Appointment: 4:30p Therapy Appointment Comment: [address], [address], [place] [address] Building Code Inspector Name of Building Code Inspector: None Post Discharge Appointments Primary Care Physician Name Of Family Doctor: [facility] Date of Appointment with PCP: 03/09/22 Time of Appointment with PCP: 11am Provider Appointment Comment: [id number] [place] [address] Neurologist Name of Neurologist: TERRENCE Elias Neurologist's Date of Appointment with Neurologist: 09/03/22 Time of Appointment with Neurologist: 8am Neurology Appointment Comment: [address] [facility] [address], [place] [address] Contact Information Discharge Discharge Address: [address] [place] [address] [address], [place], [place] [address]
[2022-02-26] MEDS: LORazepam 1 MG TAB PO SCH (21:03)
[2022-02-26] MEDS: OLANZapine 10 MG TAB PO SCH (21:12)
[2022-02-26] MEDS: OLANZapine 5 MG TABLET PO SCH (21:12)
[2022-02-26] MEDS ORDERED: OLANZapine 5 MG TABLET PO SCH (22:00)
[2022-02-27 06:48] VITALS: O2SAT 97
--- NOTE | 2022-02-27 16:23 | Psychiatric Progress Note ---
Date of Service February 27, 2022 Impression / Recommendations Impression 56 yo male with minimal psych hx presenting with AMS since 02/11/22. Diagnostically consistent with suspected stephanie though unusual presentation given his age and no family history of bipolar disorder. Notably his father and aunt both developed neuropsychic symptoms from Lyme disease. Head MRI reassuring and normal. TSH elevated but free T4 normal. 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 Spent 20 minutes completing FMLA paperwork. (1) Bipolar I disorder with mixed features: (2) TSH elevation: Plan 02/27/22: Continue current medications and tx plan. 02/26/22: Increase zyprexa to 15mg qhs. 02/25/22: Reduce ativan to 1mg qhs and 1mg daily prn. 02/24/22: Continue current medications and tx plan. 02/23/22: Continue current medications and tx plan. Lab unable to draw fasting labs till mid-day so rescheduled for tomorrow morning to assess fasting lipid panel and glucose. 02/22/22: The patient was admitted to the [facility] ([facility]) on q15 min checks (behavioral with suicide precautions) for safety. The patient will participate in group, recreational, and milieu therapies and will be offered additional individual and family sessions as clinically appropriate. Risks/benefits/alternatives reviewed diagnosis and continuing trial of Zyprexa with consideration for lithium. Fasting labs in am. Patient currently quite distractible so will need review of longer term risks if stays on Zyprexa. Ativan 1 mg prn restlessness due to stephanie, low risk for misuse/diversion. Will need repeat thyroid panel on discharge. Inventory Assets Strengths: intelligent, employed Needs: outpatient resources, family involvement Suicide Risk Level Suicide Risk Level: Low (q15 min observation checks) (denies SI ) Risk Factors Assessment Male: Yes : Yes Do You Have Access To A Gun?: No Mental Health Diagnoses: Yes Previous Attempt: No Previous Psychiatric Hospitalization: No Protective Factors Assessment : Yes Employed: Yes ([employer] [facility]) Supportive Family: Yes Interval History Identifying Information DK GARLAND is a 56-year-old M from [place], recent [facility] medical admission for AMS (02/13-02/14/2022), was admitted on 02/21/22 16:37 on a 201 voluntary commitment for disorganized behavior. Chief Complaint "I'm excitable". Review of Systems Sleep Information Total Hours of Sleep: 8 Meal Information Percent Meal Consumed - Breakfast: 100 Percent Meal Consumed - Lunch: 100 Percent Meal Consumed - Dinner: 100 Subjective Subjective Patient was seen & assessed and interval progress reviewed with treatment team nursing and social work. Remains concerned at times about if the medications will continue to work. Continues to feel his mind is racing and notes he has a sense of "urgency" that everything needs to be done "right away" in part because he worries he will forget his train of thought. Writing in a small booklet to help keep track of all his thoughts and what happens during the day. Slept better last night. Denies any side effects from the olanzapine. Continues to feel a need to fix things and help others even though he recognizes this can feel excessive at times but struggles to stop this impulse. Enjoys groups and b eing around peers. Physical Exam Psychiatric Orientation: alert and oriented x 3 Apperance: appropriately dressed and appropriately groomed Eye Contact: good eye contact Motor Behavior: no abnormal motor movements Speech: + abnormal rate/rhythm/volume of speech (rapid but interruptable ) Affect: euthymic affect Mood: + anxious mood; no depressed mood Thought Process: + tangential thought process and + flight of ideas Thought Content: + preoccupation, reality based without delusions and + compulsions Suicidal Thoughts: denies suicidal thoughts Homicidal Thoughts: denies homicidal thoughts Hallucinations: no auditory hallucinations and no visual hallucinations Cognition: language grossly intact; + attention not intact Estimated Intelligence: consistent with education level Insight: + fair insight Judgement: + limited judgement Vital Signs (Past 24 Hours) Last Vital Signs Temp 36.4 C 02/27/22 06:00 Pulse 80 02/27/22 06:46 Resp 16 02/27/22 06:00 BP 124/79 02/27/22 06:46 Pulse Ox 97 02/27/22 06:00 O2 Del Method 02/27/22 06:00 Results & Data ([facility]) Current Inpatient Medications Current Inpatient Medications: Current Inpatient Medications Acetaminophen (Acetaminophen 325 Mg Tab) 650 mg PO Q4H PRN PRN Reason: Headache or Minor Fever Stop: 03/26/22 08:42 Al Hydrox/Mg Hydrox/Simethicone (Aluminum/Magnesium Susp 30 Ml Udc) 30 ml PO Q4H PRN PRN Reason: GI Upset Stop: 03/26/22 08:42 Bismuth Subsalicylate (Bismuth Subsalicylate Liqd 236 Ml) 15 ml PO PRN PRN PRN Reason: Loose Stool Stop: 03/26/22 08:42 Hydroxyzine HCl (Hydroxyzine Hcl 25 Mg Tab) 50 mg PO HSZ PRN PRN Reason: Insomnia Stop: 03/26/22 08:42 Hydroxyzine HCl (Hydroxyzine Hcl 25 Mg Tab) 25 mg PO Q4H PRN PRN Reason: Anxiety Stop: 03/26/22 08:42 Lorazepam (Lorazepam 1 Mg Tab) 1 mg PO HS DELIO Stop: 03/27/22 21:59 Last Admin: 02/26/22 21:03 Dose: 1 mg Lorazepam (Lorazepam 1 Mg Tab) 1 mg PO DAILY PRN PRN Reason: Anxiety/Agitation Stop: 03/27/22 17:04 Magnesium Hydroxide (Magnesium Hydroxide Susp 30 Ml Udc) 30 ml PO DAILY PRN PRN Reason: Constipation Stop: 03/26/22 08:42 Olanzapine (Olanzapine 5 Mg Tablet) 5 mg PO Q6 PRN PRN Reason: agitation Stop: 03/23/22 17:59 Olanzapine (Olanzapine 10 Mg Tab) 10 mg PO HS DELIO Stop: 03/28/22 21:59 Last Admin: 02/26/22 21:12 Dose: Not Given Olanzapine (Olanzapine 5 Mg Tablet) 5 mg PO HS DELIO Stop: 03/28/22 21:59 Last Admin: 02/26/22 21:12 Dose: Not Given Sodium Chloride (Sodium Chloride 0.65% Na Soln 45 Ml ([place])) 1 - 2 sprays NA PRN PRN PRN Reason: Nasal Dryness/Congestion Stop: 03/25/22 20:40 Last Admin: 02/23/22 21:23 Dose: 1 sprays Mental Health & Subst Abuse Tx Psychiatrist Name of Psychiatrist: Douglas Giang Psychiatrist's Date of Appointment with Psychiatrist: 03/10/22 Time of Appointment with Psychiatrist: 1:15p Psychiatric Appointment Comment: [address] [place], [place] [address] Therapist Name of Therapist: Marika Guerrero- Tressa Therapist's Date of Therapist Appointment: 03/09/22 Time of Therapist Appointment: 4:30p Therapy Appointment Comment: [address], [address], [place] [address] Plan Checker Name of Plan Checker: None Post Discharge Appointments Primary Care Physician Name Of Family Doctor: Anson [facility] [facility] Date of Appointment with PCP: 03/11/22 Time of Appointment with PCP: 11am Provider Appointment Comment: [id number], [place] [address] Neurologist Name of Neurologist: TERRENCE Elias Neurologist's Date of Appointment with Neurologist: 09/03/22 Time of Appointment with Neurologist: 8am Neurology Appointment Comment: [address] [place] [address] Contact Information Discharge Discharge Address: [address] [place] [address] , [place] [address]
[2022-02-27] MEDS: OLANZapine 10 MG TAB PO SCH (22:00)
[2022-02-27] MEDS: OLANZapine 5 MG TABLET PO SCH (22:00)
[2022-02-27] MEDS: LORazepam 1 MG TAB PO SCH (22:00)
[2022-02-28] MEDS: OLANZapine 5 MG TABLET PO SCH ×2 (12:23→22:03)
--- NOTE | 2022-02-28 13:54 | Psychiatric Progress Note ---
Date of Service February 28, 2022 Impression / Recommendations Impression 56 yo male with minimal psych hx presenting with AMS since 02/11/22. Diagnostically consistent with suspected stephanie though unusual presentation given his age and no family history of bipolar disorder. Notably his father and aunt both developed neuropsychic symptoms from Lyme disease. Head MRI reassuring and normal. TSH elevated but free T4 normal. 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 Consider adjunctive mood stabilizer. 02/27/22: Continue current medications and tx plan. 02/26/22: Increase zyprexa to 15mg qhs. 02/25/22: Reduce ativan to 1mg qhs and 1mg daily prn. 02/24/22: Continue current medications and tx plan. 02/23/22: Continue current medications and tx plan. Lab unable to draw fasting labs till mid-day so rescheduled for tomorrow morning to assess fasting lipid panel and glucose. 02/22/22: The patient was admitted to the [facility] ([facility] mental health unit) on q15 min checks (behavioral with suicide precautions) for safety. The patient will participate in group, recreational, and milieu therapies and will be offered additional individual and family sessions as clinically appropriate. Risks/benefits/alternatives reviewed diagnosis and continuing trial of Zyprexa with consideration for lithium. Fasting labs in am. Patient currently quite distractible so will need review of longer term risks if stays on Zyprexa. Ativan 1 mg prn restlessness due to stephanie, low risk for misuse/diversion. Will need repeat thyroid panel on discharge. Inventory Assets Strengths: intelligent, employed Needs: outpatient resources, family involvement Suicide Risk Level Suicide Risk Level: Low (q15 min observation checks) (denies SI ) Risk Factors Assessment Male: Yes : Yes Do You Have Access To A Gun?: No Mental Health Diagnoses: Yes Previous Attempt: No Previous Psychiatric Hospitalization: No Protective Factors Assessment : Yes Employed: Yes ([employer] [facility]) Supportive Family: Yes Interval History Identifying Information DK GARLAND is a 56-year-old M from [place], recent [facility] medical admission for AMS (02/13-02/14/2022), was admitted on 02/21/22 16:37 on a 201 voluntary commitment for disorganized behavior. Chief Complaint "I feel like I had a spell yesterday afternoon". Review of Systems Sleep Information Total Hours of Sleep: 6.5 Meal Information Percent Meal Consumed - Breakfast: 100 Percent Meal Consumed - Lunch: 100 Percent Meal Consumed - Dinner: 100 Subjective Subjective Patient was seen & assessed and interval progress reviewed with nursing and social work. Patient had some breakthrough anxiety and restlessness yesterday afternoon. was given an update, reports he had bought an SAD lamp but hadn't started using it. Reviewed that can induce stephanie and should not use any time soon and only under the direction of psychiatrist. Patient will be off work through later in Apr. Remains hyperverbal in interactions but sleeping, pleasant. Physical Exam Psychiatric Orientation: alert and oriented x 3 Apperance: appropriately dressed and appropriately groomed Eye Contact: good eye contact Motor Behavior: no abnormal motor movements Speech: + abnormal rate/rhythm/volume of speech (rapid but interruptable ) Affect: euthymic affect Mood: no depressed mood Thought Content: + preoccupation and reality based without delusions Suicidal Thoughts: denies suicidal thoughts Homicidal Thoughts: denies homicidal thoughts Hallucinations: no auditory hallucinations and no visual hallucinations Cognition: language grossly intact Estimated Intelligence: consistent with education level Insight: + fair insight Vital Signs (Past 24 Hours) Last Vital Signs Temp 36.6 C 02/28/22 06:00 Pulse 81 02/28/22 06:46 Resp 16 02/28/22 06:00 BP 124/86 02/28/22 06:46 Pulse Ox 97 02/28/22 06:00 O2 Del Method 02/28/22 06:00 Results & Data ([facility]) Current Inpatient Medications Current Inpatient Medications: Current Inpatient Medications Acetaminophen (Acetaminophen 325 Mg Tab) 650 mg PO Q4H PRN PRN Reason: Headache or Minor Fever Stop: 03/26/22 08:42 Al Hydrox/Mg Hydrox/Simethicone (Aluminum/Magnesium Susp 30 Ml Udc) 30 ml PO Q4H PRN PRN Reason: GI Upset Stop: 03/26/22 08:42 Bismuth Subsalicylate (Bismuth Subsalicylate Liqd 236 Ml) 15 ml PO PRN PRN PRN Reason: Loose Stool Stop: 12/29/22 08:42 Hydroxyzine HCl (Hydroxyzine Hcl 25 Mg Tab) 50 mg PO HSZ PRN PRN Reason: Insomnia Stop: 03/26/22 08:42 Hydroxyzine HCl (Hydroxyzine Hcl 25 Mg Tab) 25 mg PO Q4H PRN PRN Reason: Anxiety Stop: 03/26/22 08:42 Lorazepam (Lorazepam 1 Mg Tab) 1 mg PO HS DELIO Stop: 03/27/22 21:59 Last Admin: 02/27/22 22:00 Dose: 1 mg Lorazepam (Lorazepam 1 Mg Tab) 1 mg PO DAILY PRN PRN Reason: Anxiety/Agitation Stop: 03/27/22 17:04 Magnesium Hydroxide (Magnesium Hydroxide Susp 30 Ml Udc) 30 ml PO DAILY PRN PRN Reason: Constipation Stop: 03/26/22 08:42 Olanzapine (Olanzapine 5 Mg Tablet) 5 mg PO Q6 PRN PRN Reason: agitation Stop: 03/23/22 17:59 Olanzapine (Olanzapine 10 Mg Tab) 10 mg PO HS DELIO Stop: 03/28/22 21:59 Last Admin: 02/27/22 22:00 Dose: 10 mg Olanzapine (Olanzapine 5 Mg Tablet) 5 mg PO HS DELIO Stop: 03/28/22 21:59 Last Admin: 02/27/22 22:00 Dose: 5 mg Olanzapine (Olanzapine 5 Mg Tablet) 5 mg PO QAM DELIO Stop: 03/30/22 10:59 Last Admin: 02/28/22 12:23 Dose: 5 mg Sodium Chloride (Sodium Chloride 0.65% Na Soln 45 Ml ([place])) 1 - 2 sprays NA PRN PRN PRN Reason: Nasal Dryness/Congestion Stop: 03/25/22 20:40 Last Admin: 02/23/22 21:23 Dose: 1 sprays Mental Health & Subst Abuse Tx Psychiatrist Name of Psychiatrist: Douglas Giang Psychiatrist's Date of Appointment with Psychiatrist: 03/10/22 Time of Appointment with Psychiatrist: 1:15p Psychiatric Appointment Comment: [address] [place] [address] Therapist Name of Therapist: Marika Bustillos Therapist's Date of Therapist Appointment: 03/09/22 Time of Therapist Appointment: 4:30p Therapy Appointment Comment: [address], [address], [place] [address] Manager Contracting Name of Manager Contracting: None Post Discharge Appointments Primary Care Physician Name Of Family Doctor: Anson [facility] [facility] Date of Appointment with PCP: 03/11/22 Time of Appointment with PCP: 11am Provider Appointment Comment: [address], [place] [address] Neurologist Name of Neurologist: TERRENCE Elias Neurologist's Date of Appointment with Neurologist: 09/03/22 Time of Appointment with Neurologist: 8am Neurology Appointment Comment: [address] [place] [address] Contact Information Discharge Discharge Address: [address] [place] [address] [place], [place] [address]
[2022-02-28] MEDS: OLANZapine 10 MG TAB PO SCH (22:03)
[2022-02-28] MEDS: LORazepam 1 MG TAB PO SCH (22:04)
[2022-03-01] MEDS: OLANZapine 5 MG TABLET PO SCH ×2 (09:39→21:04)
--- NOTE | 2022-03-01 13:25 | Psychiatric Progress Note ---
Date of Service March 01, 2022 Impression / Recommendations Impression 56 yo male with minimal psych hx presenting with AMS since 02/11/22. Diagnostically consistent with suspected stephanie though unusual presentation given his age and no family history of bipolar disorder. Notably his father and aunt both developed neuropsychic symptoms from Lyme disease. Head MRI reassuring and normal. TSH elevated but free T4 normal. 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 02/28/22: Add Zyprexa 5 mg po qam for now for 20 mg total daily dose. Consider adjunctive mood stabilizer. 02/27/22: Continue current medications and tx plan. 02/26/22: Increase zyprexa to 15mg qhs. 02/25/22: Reduce ativan to 1mg qhs and 1mg daily prn. 02/24/22: Continue current medications and tx plan. 02/23/22: Continue current medications and tx plan. Lab unable to draw fasting labs till mid-day so rescheduled for tomorrow morning to assess fasting lipid panel and glucose. 02/22/22: The patient was admitted to the [facility] ([facility] inpatient mental health unit) on q15 min checks (behavioral with suicide precautions) for safety. The patient will participate in group, recreational, and milieu therapies and will be offered additional individual and family sessions as clinically appropriate. Risks/benefits/alternatives reviewed diagnosis and continuing trial of Zyprexa with consideration for lithium. Fasting labs in am. Patient currently quite distractible so will need review of longer term risks if stays on Zyprexa. Ativan 1 mg prn restlessness due to stephanie, low risk for misuse/diversion. Will need repeat thyroid panel on discharge. Inventory Assets Strengths: intelligent, employed Needs: outpatient resources, family involvement Suicide Risk Level Suicide Risk Level: Low (q15 min observation checks) (denies SI ) Risk Factors Assessment Male: Yes : Yes Do You Have Access To A Gun?: No Mental Health Diagnoses: Yes Previous Attempt: No Previous Psychiatric Hospitalization: No Protective Factors Assessment : Yes Employed: Yes ([employer] [facility]) Supportive Family: Yes Interval History Identifying Information DK GARLAND is a 56-year-old M from [place], recent [facility] medical admission for AMS (02/13-02/14/2022), was admitted on 02/21/22 16:37 on a 201 voluntary commitment for disorganized behavior. Chief Complaint "yeah, I was tired but couldn't sleep. thoughts but not really racing. ". Review of Systems Sleep Information Total Hours of Sleep: 4.25 Meal Information Percent Meal Consumed - Breakfast: 100 Percent Meal Consumed - Lunch: 0 Percent Meal Consumed - Dinner: 100 Subjective Subjective Patient was seen & assessed and interval progress reviewed with nursing and social work. He agrees he sometimes gets overly focussed on other patients. Reviewed my discussion with /updated. He agrees not to use light box. He doesn't want additional sleep medication. He is tolerating Zyprexa. Physical Exam Psychiatric Orientation: alert and oriented x 3 Apperance: appropriately dressed and appropriately groomed Eye Contact: good eye contact Motor Behavior: no abnormal motor movements Speech: + abnormal rate/rhythm/volume of speech (rapid but interruptable ) Affect: euthymic affect Mood: + anxious mood; no depressed mood Thought Content: + preoccupation and reality based without delusions Suicidal Thoughts: denies suicidal thoughts Homicidal Thoughts: denies homicidal thoughts Hallucinations: no auditory hallucinations and no visual hallucinations Cognition: language grossly intact Vital Signs (Past 24 Hours) Last Vital Signs Temp 36.9 C 03/01/22 06:33 Pulse 87 03/01/22 06:33 Resp 16 03/01/22 06:33 BP 106/67 03/01/22 06:33 Pulse Ox 97 02/28/22 06:00 O2 Del Method 02/28/22 06:00 Results & Data ([facility]) Current Inpatient Medications Current Inpatient Medications: Current Inpatient Medications Acetaminophen (Acetaminophen 325 Mg Tab) 650 mg PO Q4H PRN PRN Reason: Headache or Minor Fever Stop: 03/26/22 08:42 Al Hydrox/Mg Hydrox/Simethicone (Aluminum/Magnesium Susp 30 Ml Udc) 30 ml PO Q4H PRN PRN Reason: GI Upset Stop: 03/26/22 08:42 Bismuth Subsalicylate (Bismuth Subsalicylate Liqd 236 Ml) 15 ml PO PRN PRN PRN Reason: Loose Stool Stop: 03/26/22 08:42 Hydroxyzine HCl (Hydroxyzine Hcl 25 Mg Tab) 50 mg PO HSZ PRN PRN Reason: Insomnia Stop: 03/26/22 08:42 Hydroxyzine HCl (Hydroxyzine Hcl 25 Mg Tab) 25 mg PO Q4H PRN PRN Reason: Anxiety Stop: 03/26/22 08:42 Lorazepam (Lorazepam 1 Mg Tab) 1 mg PO HS DELIO Stop: 03/27/22 21:59 Last Admin: 02/28/22 22:04 Dose: 1 mg Lorazepam (Lorazepam 1 Mg Tab) 1 mg PO DAILY PRN PRN Reason: Anxiety/Agitation Stop: 03/27/22 17:04 Magnesium Hydroxide (Magnesium Hydroxide Susp 30 Ml Udc) 30 ml PO DAILY PRN PRN Reason: Constipation Stop: 03/26/22 08:42 Olanzapine (Olanzapine 5 Mg Tablet) 5 mg PO Q6 PRN PRN Reason: agitation Stop: 03/23/22 17:59 Olanzapine (Olanzapine 10 Mg Tab) 10 mg PO HS DELIO Stop: 03/28/22 21:59 Last Admin: 02/28/22 22:03 Dose: 10 mg Olanzapine (Olanzapine 5 Mg Tablet) 5 mg PO HS DELIO Stop: 03/28/22 21:59 Last Admin: 02/28/22 22:03 Dose: 5 mg Olanzapine (Olanzapine 5 Mg Tablet) 5 mg PO QAM DELIO Stop: 03/30/22 10:59 Last Admin: 03/01/22 09:39 Dose: 5 mg Sodium Chloride (Sodium Chloride 0.65% Na Soln 45 Ml ([place])) 1 - 2 sprays NA PRN PRN PRN Reason: Nasal Dryness/Congestion Stop: 03/25/22 20:40 Last Admin: 02/23/22 21:23 Dose: 1 sprays Mental Health & Subst Abuse Tx Psychiatrist Name of Psychiatrist: Douglas Giang Psychiatrist's Date of Appointment with Psychiatrist: 03/10/22 Time of Appointment with Psychiatrist: 1:15p Psychiatric Appointment Comment: [address] [place] [address] Therapist Name of Therapist: Marika Bustillos Therapist's Date of Therapist Appointment: 03/09/22 Time of Therapist Appointment: 4:30p Therapy Appointment Comment: [address], [address], [place] [address] Graphic Arts Technician Name of Graphic Arts Technician: None Post Discharge Appointments Primary Care Physician Name Of Family Doctor: [facility] [facility] Date of Appointment with PCP: 03/11/22 Time of Appointment with PCP: 11am Provider Appointment Comment: [address] [facility] , [place] [address] Neurologist Name of Neurologist: TERRENCE Elias Neurologist's Date of Appointment with Neurologist: 09/03/22 Time of Appointment with Neurologist: 8am Neurology Appointment Comment: [address] [place] [address] Contact Information Discharge Discharge Address: [address] [place] [address] [address], [place] [address]
[2022-03-01] MEDS: OLANZapine 10 MG TAB PO SCH (21:04)
[2022-03-01] MEDS: LORazepam 1 MG TAB PO SCH (21:04)
[2022-03-02] MEDS: OLANZapine 5 MG TABLET PO SCH ×2 (08:59→21:38)
--- NOTE | 2022-03-02 12:08 | Psychiatric Progress Note ---
Date of Service March 02, 2022 Impression / Recommendations Impression 56 yo male with minimal psych hx presenting with AMS since 02/11/22. Diagnostically consistent with suspected stephanie though unusual presentation given his age and no family history of bipolar disorder. Notably his father and aunt both developed neuropsychic symptoms from Lyme disease. Head MRI reassuring and normal. TSH elevated but free T4 normal. 03/01/22: improving (1) Bipolar I disorder with mixed features: (2) TSH elevation: Plan 03/02/22: safety planning 03/01/22: continue current meds and tx plan. 02/28/22: Add Zyprexa 5 mg po qam for now for 20 mg total daily dose. Consider adjunctive mood stabilizer. 02/27/22: Continue current medications and tx plan. 02/26/22: Increase zyprexa to 15mg qhs. 02/25/22: Reduce ativan to 1mg qhs and 1mg daily prn. 02/24/22: Continue current medications and tx plan. 02/23/22: Continue current medications and tx plan. Lab unable to draw fasting labs till mid-day so rescheduled for tomorrow morning to assess fasting lipid panel and glucose. 02/22/22: The patient was admitted to the [facility] ([facility] unit) on q15 min checks (behavioral with suicide precautions) for safety. The patient will participate in group, recreational, and milieu therapies and will be offered additional individual and family sessions as clinically appropriate. Risks/benefits/alternatives reviewed diagnosis and continuing trial of Zyprexa with consideration for lithium. Fasting labs in am. Patient currently quite distractible so will need review of longer term risks if stays on Zyprexa. Ativan 1 mg prn restlessness due to stephanie, low risk for misuse/diversion. Will need repeat thyroid panel on discharge. Inventory Assets Strengths: intelligent, employed Needs: outpatient resources, family involvement Suicide Risk Level Suicide Risk Level: Low (q15 min observation checks) (denies SI ) Risk Factors Assessment Male: Yes : Yes Do You Have Access To A Gun?: No Mental Health Diagnoses: Yes Previous Attempt: No Previous Psychiatric Hospitalization: No Protective Factors Assessment : Yes Employed: Yes ([employer] [facility]) Supportive Family: Yes Interval History Identifying Information DK GARLAND is a 56-year-old M from [place], recent [facility] medical admission for AMS (02/13-02/14/2022), was admitted on 02/21/22 16:37 on a 201 voluntary commitment for disorganized behavior. Chief Complaint "I have alot of thoughts but not manic". Review of Systems Sleep Information Total Hours of Sleep: 5.5 Meal Information Percent Meal Consumed - Breakfast: 100 Percent Meal Consumed - Lunch: 100 Percent Meal Consumed - Dinner: 100 Subjective Subjective Patient was seen & assessed and interval progress reviewed with treatment team. Patient rated mood as 9 and hopeful last pm. sleep number is not accurate as up late but still sleeping this am. Anxiety about how he will redirect self at home. is retired and encouraged him to come up with some structured activities for his time off. Physical Exam Psychiatric Orientation: alert and oriented x 3 Apperance: appropriately dressed and appropriately groomed Eye Contact: good eye contact Motor Behavior: no abnormal motor movements Speech: normal rate/rhythm/volume of speech Affect: euthymic affect Mood: + anxious mood Thought Process: goal directed thought process Thought Content: reality based without delusions Suicidal Thoughts: denies suicidal thoughts Homicidal Thoughts: denies homicidal thoughts Hallucinations: no auditory hallucinations and no visual hallucinations Cognition: attention grossly intact and language grossly intact Estimated Intelligence: consistent with education level Insight: good insight Vital Signs (Past 24 Hours) Last Vital Signs Temp 36.8 C 03/02/22 06:38 Pulse 91 H 03/02/22 06:39 Resp 16 03/02/22 06:38 BP 144/70 H 03/02/22 06:39 Pulse Ox 97 02/28/22 06:00 O2 Del Method 02/28/22 06:00 Results & Data ([facility]) Current Inpatient Medications Current Inpatient Medications: Current Inpatient Medications Acetaminophen (Acetaminophen 325 Mg Tab) 650 mg PO Q4H PRN PRN Reason: Headache or Minor Fever Stop: 03/26/22 08:42 Al Hydrox/Mg Hydrox/Simethicone (Aluminum/Magnesium Susp 30 Ml Udc) 30 ml PO Q4H PRN PRN Reason: GI Upset Stop: 03/26/22 08:42 Bismuth Subsalicylate (Bismuth Subsalicylate Liqd 236 Ml) 15 ml PO PRN PRN PRN Reason: Loose Stool Stop: 03/26/22 08:42 Hydroxyzine HCl (Hydroxyzine Hcl 25 Mg Tab) 50 mg PO HSZ PRN PRN Reason: Insomnia Stop: 03/26/22 08:42 Hydroxyzine HCl (Hydroxyzine Hcl 25 Mg Tab) 25 mg PO Q4H PRN PRN Reason: Anxiety Stop: 03/26/22 08:42 Lorazepam (Lorazepam 1 Mg Tab) 1 mg PO HS DELIO Stop: 03/27/22 21:59 Last Admin: 03/01/22 21:04 Dose: 1 mg Lorazepam (Lorazepam 1 Mg Tab) 1 mg PO DAILY PRN PRN Reason: Anxiety/Agitation Stop: 03/27/22 17:04 Magnesium Hydroxide (Magnesium Hydroxide Susp 30 Ml Udc) 30 ml PO DAILY PRN PRN Reason: Constipation Stop: 03/26/22 08:42 Last Admin: 03/01/22 19:16 Dose: 30 ml Olanzapine (Olanzapine 5 Mg Tablet) 5 mg PO Q6 PRN PRN Reason: agitation Stop: 03/23/22 17:59 Olanzapine (Olanzapine 10 Mg Tab) 10 mg PO HS DELIO Stop: 03/28/22 21:59 Last Admin: 03/01/22 21:04 Dose: 10 mg Olanzapine (Olanzapine 5 Mg Tablet) 5 mg PO HS DELIO Stop: 03/28/22 21:59 Last Admin: 03/01/22 21:04 Dose: 5 mg Olanzapine (Olanzapine 5 Mg Tablet) 5 mg PO QAM DELIO Stop: 03/30/22 10:59 Last Admin: 03/02/22 08:59 Dose: 5 mg Sodium Chloride (Sodium Chloride 0.65% Na Soln 45 Ml (Knott)) 1 - 2 sprays NA PRN PRN PRN Reason: Nasal Dryness/Congestion Stop: 03/25/22 20:40 Last Admin: 02/23/22 21:23 Dose: 1 sprays Mental Health & Subst Abuse Tx Psychiatrist Name of Psychiatrist: Douglas Giang Psychiatrist's Date of Appointment with Psychiatrist: 03/10/22 Time of Appointment with Psychiatrist: 1:15p Psychiatric Appointment Comment: [address] [place] [address] Therapist Name of Therapist: Marika Bustillos Therapist's Date of Therapist Appointment: 03/09/22 Time of Therapist Appointment: 4:30p Therapy Appointment Comment: [address], [address], [place] [address] [employer] 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 Post Discharge Appointments Primary Care Physician Name Of Family Doctor: [facility] Date of Appointment with PCP: 03/11/22 Time of Appointment with PCP: 11am Provider Appointment Comment: [id number], [place] [id number] Neurologist Name of Neurologist: TERRENCE Elias Neurologist's Date of Appointment with Neurologist: 09/03/22 Time of Appointment with Neurologist: 8am Neurology Appointment Comment: [address] [place] [address] Contact Information Discharge Discharge Address: [address] [place] [address] [address], [place] [address]
[2022-03-02] MEDS: OLANZapine 10 MG TAB PO SCH (21:38)
[2022-03-02] MEDS: LORazepam 1 MG TAB PO SCH (21:38)
[2022-03-03 06:46] VITALS: TEMP 97.9
[2022-03-03] MEDS: OLANZapine 5 MG TABLET PO SCH (09:31)
--- NOTE | 2022-03-03 09:56 | Discharge Summary ---
Date of Service March 03, 2022 History of Present Illness Patient represented to the emergency department on 02/21/22 after 48 hr escalation in manic behaviors. He was pacing and hyperverbal and had only slept 4 hours during that time. During his inpatient hospitalization he was transitioned off of Celexa in favor of Zyprexa 2.5 mg PO BID which was initially helpful. In the emergency department he spit on a wall and exposed himself to a nurse. He received Haldol, Ativan, and Benadryl and ultimately slept briefly and was cooperative with an MRI. 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 He has excessive guilt and became tearful discussing the decision to put his father into a usp. This has created some animosity with brother but "typically we all do OK". Patient became preoccupied with some rituals, including the idea that if he turned his dog around 3 times things would be "ok". During inpatient consultation by Dr. Byers during medical stay, he and his noted an abrupt change in mood 02/11/22 with increased energy, waking up early, and elevated mood. He is very perfectionistic and detail oriented at baseline but became more distracted at work and was talking alot. He admitted to more racing thoughts and then more confused. On the medical floor he was initially disoriented, attempted to pull out IV and was incontinent in bed. He confirms as started on Celexa 20mg in August 2021 and dose increased to 40mg about 4-6 weeks ago. He tested negative for Lyme. Patient was accepting of PO Zyprexa last pm and slept well. Physical Exam Psychiatric See admission H&P and DOD assessment. Vital Signs (Past 24 Hours) Last Vital Signs Temp 36.6 C 03/03/22 06:44 Pulse 77 03/03/22 06:45 Resp 16 03/03/22 06:44 BP 114/80 03/03/22 06:45 Pulse Ox 97 02/28/22 06:00 O2 Del Method 02/28/22 06:00 Principal Diagnosis bipolar I disorder Psychiatric Data See daily stay summary. In short, safety was maintained and the patient was cooperative with care. Medication changes included titration of Zyprexa with addition of Ativan for restlessness, decreased reliance as stephanie resolved. He tolerated this well and his thoughts became more organized, slowed to a normal rate, and he was not as hyperverbal. He responded well to the therapeutic milieu and was supportive of co-patients. He was appreciative of his care. A family session was held with his and safety plan was completed prior to discharge. He will remain off work on FMLA with return to work at discretion of outpatient providers. Patient is low risk for misuse/diversion of Ativan, he has been using consistently at bedtime but will work to taper/use prn on an outpatient basis with his providers. He contracts not to drive, operate machinery, or combine with sedating substances. Reconsent was obtained for Zyprexa given need for longer term monitoring based on risks of TD and metabolic abnormalities. Reviewed that Zyprexa was chosen given severe sleep disturbance and need for acute stabilization, his outpatient prescriber can work with him on best longer term option. Insurance would only pay for 10 mg of Zyprexa at this time as he has a script for 5 mg tabs at home. Staff confirmed with family that has enough to get to his appointments next week. We also reviewed that his TSH was mildly elevated and felt unrelated to his acute psychiatric condition. A repeat thyroid panel is recommended at discretion of PCP. Day of Discharge Assessment Today the patient voices readiness for discharge. They note improvement in mood and deny thoughts to harm self or others. Thoughts remain organized and they are improved from admission. There is no evidence of psychosis. They agree to take mediations as prescribed and keep follow-up appointments. They are stable for discharge to outpatient level of care. Transition of Care Transition Of Care Record: was reviewed with the patient Advance Directives Advance Directives Information Provided: Yes Advance Directives: No Mental Health Advance Directive: No Advance Directives on File: No Living Will: No Power of Straddle Truck Driver: No Advance Directives Reason:: Declines as Mental Health Visit. Suicide Risk Level Suicide Risk Level Comments: Suicide risk at discharge is deemed low as the patient is no longer requiring 24-hr monitoring, has a safety plan, and is free of suicidal ideation at discharge. Risk Factors Assessment Male: Yes : Yes Do You Have Access To A Gun?: No Mental Health Diagnoses: Yes Previous Attempt: No Previous Psychiatric Hospitalization: No Protective Factors Assessment : Yes Employed: Yes ([employer]) Supportive Family: Yes Tobacco Cessation at Discharge Tobacco Cessation Medication Prescribed at Discharge: Not Applicable/Non-Smoker Total Time Total Time Spent: Greater Than 30 Minutes Total Time Includes: Examination of the patient, Discharge Planning and Medication Reconciliation Discharge Data Lab Results 02/21/22 02/21/22 02/21/22 06:40 06:40 06:40 WBC 6.11 RBC 4.70 Hgb 15.4 Hct 41.9 MCV 89.1 MCH 32.8 MCHC 36.8 H RDW Std Deviation 36.8 RDW Coeff of Toño 11.5 Plt Count 231 MPV 9.0 L Immature Gran % (Auto) 0.3 Neut % (Auto) 70.3 Lymph % (Auto) 23.4 O'Brien % (Auto) 5.1 Eos % (Auto) 0.2 Baso % (Auto) 0.7 Neut # (Auto) 4.30 Lymph # (Auto) 1.43 O'Brien # (Auto) 0.31 Eos # (Auto) 0.01 Baso # (Auto) 0.04 Immature Gran # (Auto) 0.02 Sodium 136 Potassium 3.5 Chloride 102 Carbon Dioxide 26 Anion Gap 8 BUN 11 Creatinine 0.93 Est Cr Clr Drug Dosing Not Reportable Est GFR ( Amer) 104.5 Est GFR (Non-Af Amer) 90.2 BUN/Creatinine Ratio 11.8 Glucose 157 H Fasting Glucose Calcium 9.5 Total Bilirubin 0.6 AST 25 ALT 40 Alkaline Phosphatase 89 Total Protein 7.7 Albumin 4.8 Globulin 2.9 Albumin/Globulin Ratio 1.7 Triglycerides Cholesterol LDL Cholesterol, Calc VLDL Cholesterol, Calc HDL Cholesterol Cholesterol/HDL Ratio TSH 6.506 H Free T4 0.73 Urine Color Urine Appearance Urine pH Ur Specific Rincon Urine Protein Urine Glucose (UA) Urine Ketones Urine Blood Urine Nitrite Urine Bilirubin Urine Urobilinogen Ur Leukocyte Esterase Urine WBC (Auto) Urine RBC (Auto) U Hyaline Cast (Auto) U Epithel Cells (Auto) Urine Bacteria (Auto) Ur Butalbital Confirm Salicylates Urine Opiates Screen U Codeine Confrm GC/MS Ur Morphine (GC/MS) Ur Hydrocodone (GC/MS) U Norhydrocodone Conf Ur Oxycodone Screen U Noroxycodone Confirm Ur Oxycodone GC/MS U Oxymorphone GC/MS EDDP Confirm Ur Methadone, Qual Ur Methadone Ur Hydromorphone (GC/MS) Acetaminophen Urine Barbiturates Ur Phencyclidine Scrn Ur Phencyclidine (PCP) Urine PCP Confirm Ur Amphetamines Screen U Amphetamines Confirm U Amphetamin/Meth Scrn Methamphetamine GC/MS MDMA (Ecstasy) Screen Ur Amobarbital GC/MS U Pentobarbital GC/MS U Phenobarbital GC/MS U Secobarbital GC/MS U [id number] GC/MS U Benzodiazepines Scrn U 7-Aminoclonazepam Screen Ur Nordiazepam GC/MS U OH-ethylfluraz GC/MS U Lorazepam Cnf GC/MS U Oxazepam Confm GC/MS Ur Temazepam Cnf GC/MS U a-Hydroxytriaz GC/MS U [id number] Urine Cocaine Ur Cocaine Metabolite U Cocaine Metab Confirm Tetrahydrocannabinol U Marijuana (THC) Screen Drug Screen Comment Ethyl Alcohol mg/dL SARS-CoV-2, RNA, NAAT Reference Lab 02/21/22 02/21/22 02/21/22 06:40 06:40 12:45 WBC RBC Hgb Hct MCV MCH MCHC RDW Std Deviation RDW Coeff of Toño Plt Count MPV Immature Gran % (Auto) Neut % (Auto) Lymph % (Auto) O'Brien % (Auto) Eos % (Auto) Baso % (Auto) Neut # (Auto) Lymph # (Auto) O'Brien # (Auto) Eos # (Auto) Baso # (Auto) Immature Gran # (Auto) Sodium Potassium Chloride Carbon Dioxide Anion Gap BUN Creatinine Est Cr Clr Drug Dosing Est GFR ( Amer) Est GFR (Non-Af Amer) BUN/Creatinine Ratio Glucose Fasting Glucose Calcium Total Bilirubin AST ALT Alkaline Phosphatase Total Protein Albumin Globulin Albumin/Globulin Ratio Triglycerides Cholesterol LDL Cholesterol, Calc VLDL Cholesterol, Calc HDL Cholesterol Cholesterol/HDL Ratio TSH Free T4 Urine Color Urine Appearance Urine pH Ur Specific Rincon Urine Protein Urine Glucose (UA) Urine Ketones Urine Blood Urine Nitrite Urine Bilirubin Urine Urobilinogen Ur Leukocyte Esterase Urine WBC (Auto) Urine RBC (Auto) U Hyaline Cast (Auto) U Epithel Cells (Auto) Urine Bacteria (Auto) Ur Butalbital Confirm Cancelled Salicylates < 3.0 L Urine Opiates Screen Cancelled U Codeine Confrm GC/MS Cancelled Ur Morphine (GC/MS) Cancelled Ur Hydrocodone (GC/MS) Cancelled U Norhydrocodone Conf Cancelled Ur Oxycodone Screen Cancelled U Noroxycodone Confirm Cancelled Ur Oxycodone GC/MS Cancelled U Oxymorphone GC/MS Cancelled EDDP Confirm Cancelled Ur Methadone, Qual Cancelled Ur Methadone Cancelled Ur Hydromorphone (GC/MS) Cancelled Acetaminophen < 3 L Urine Barbiturates Cancelled Ur Phencyclidine Scrn Cancelled Ur Phencyclidine (PCP) Urine PCP Confirm Cancelled Ur Amphetamines Screen Cancelled U Amphetamines Confirm Cancelled U Amphetamin/Meth Scrn Methamphetamine GC/MS Cancelled MDMA (Ecstasy) Screen Ur Amobarbital GC/MS Cancelled U Pentobarbital GC/MS Cancelled U Phenobarbital GC/MS Cancelled U Secobarbital GC/MS Cancelled U p-XW-Actenwhnv GC/MS Cancelled U Benzodiazepines Scrn Cancelled U 7-Aminoclonazepam Screen Cancelled Ur Nordiazepam GC/MS Cancelled U OH-ethylfluraz GC/MS Cancelled U Lorazepam Cnf GC/MS Cancelled U Oxazepam Confm GC/MS Cancelled Ur Temazepam Cnf GC/MS Cancelled U a-Hydroxytriaz GC/MS Cancelled U v-PF-[id number] Cancelled Urine Cocaine Cancelled Ur Cocaine Metabolite U Cocaine Metab Confirm Cancelled Tetrahydrocannabinol Cancelled U Marijuana (THC) Screen Cancelled Drug Screen Comment Cancelled Ethyl Alcohol mg/dL < 10.0 SARS-CoV-2, RNA, NAAT Reference Lab Cancelled 02/21/22 02/21/22 02/21/22 12:45 12:45 12:45 WBC RBC Hgb Hct MCV MCH MCHC RDW Std Deviation RDW Coeff of Toño Plt Count MPV Immature Gran % (Auto) Neut % (Auto) Lymph % (Auto) O'Brien % (Auto) Eos % (Auto) Baso % (Auto) Neut # (Auto) Lymph # (Auto) O'Brien # (Auto) Eos # (Auto) Baso # (Auto) Immature Gran # (Auto) Sodium Potassium Chloride Carbon Dioxide Anion Gap BUN Creatinine Est Cr Clr Drug Dosing Est GFR ( Amer) Est GFR (Non-Af Amer) BUN/Creatinine Ratio Glucose Fasting Glucose Calcium Total Bilirubin AST ALT Alkaline Phosphatase Total Protein Albumin Globulin Albumin/Globulin Ratio Triglycerides Cholesterol LDL Cholesterol, Calc VLDL Cholesterol, Calc HDL Cholesterol Cholesterol/HDL Ratio TSH Free T4 Urine Color Yellow Urine Appearance Clear Urine pH 7.0 Ur Specific Rincon 1.013 Urine Protein 1+ H Urine Glucose (UA) Negative Urine Ketones Negative Urine Blood Negative Urine Nitrite Negative Urine Bilirubin Negative Urine Urobilinogen Negative Ur Leukocyte Esterase Negative Urine WBC (Auto) 1-5 Urine RBC (Auto) 0-4 U Hyaline Cast (Auto) 10-30 H U Epithel Cells (Auto) 10-20 H Urine Bacteria (Auto) Negative Ur Butalbital Confirm Salicylates Urine Opiates Screen Neg U Codeine Confrm GC/MS Ur Morphine (GC/MS) Ur Hydrocodone (GC/MS) U Norhydrocodone Conf Ur Oxycodone Screen U Noroxycodone Confirm Ur Oxycodone GC/MS U Oxymorphone GC/MS EDDP Confirm Ur Methadone, Qual Neg Ur Methadone Ur Hydromorphone (GC/MS) Acetaminophen Urine Barbiturates Neg Ur Phencyclidine Scrn Ur Phencyclidine (PCP) Neg Urine PCP Confirm Ur Amphetamines Screen U Amphetamines Confirm U Amphetamin/Meth Scrn Neg Methamphetamine GC/MS MDMA (Ecstasy) Screen Neg Ur Amobarbital GC/MS U Pentobarbital GC/MS U Phenobarbital GC/MS U Secobarbital GC/MS U [id number] GC/MS U Benzodiazepines Scrn Neg U 7-Aminoclonazepam Screen Ur Nordiazepam GC/MS U OH-ethylfluraz GC/MS U Lorazepam Cnf GC/MS U Oxazepam Confm GC/MS Ur Temazepam Cnf GC/MS U a-Hydroxytriaz GC/MS U [id number]-Nipgsypji Urine Cocaine Ur Cocaine Metabolite Neg U Cocaine Metab Confirm Tetrahydrocannabinol U Marijuana (THC) Screen Neg Drug Screen Comment Ethyl Alcohol mg/dL SARS-CoV-2, RNA, NAAT NEGATIVE Reference Lab 02/24/22 08:38 WBC RBC Hgb Hct MCV MCH MCHC RDW Std Deviation RDW Coeff of Toño Plt Count MPV Immature Gran % (Auto) Neut % (Auto) Lymph % (Auto) O'Brien % (Auto) Eos % (Auto) Baso % (Auto) Neut # (Auto) Lymph # (Auto) O'Brien # (Auto) Eos # (Auto) Baso # (Auto) Immature Gran # (Auto) Sodium Potassium Chloride Carbon Dioxide Anion Gap BUN Creatinine Est Cr Clr Drug Dosing Est GFR ( Amer) Est GFR (Non-Af Amer) BUN/Creatinine Ratio Glucose Fasting Glucose 86 Calcium Total Bilirubin AST ALT Alkaline Phosphatase Total Protein Albumin Globulin Albumin/Globulin Ratio Triglycerides 124 Cholesterol 172 LDL Cholesterol, Calc 103 VLDL Cholesterol, Calc 25 HDL Cholesterol 44 Cholesterol/HDL Ratio 3.9 TSH Free T4 Urine Color Urine Appearance Urine pH Ur Specific Rincon Urine Protein Urine Glucose (UA) Urine Ketones Urine Blood Urine Nitrite Urine Bilirubin Urine Urobilinogen Ur Leukocyte Esterase Urine WBC (Auto) Urine RBC (Auto) U Hyaline Cast (Auto) U Epithel Cells (Auto) Urine Bacteria (Auto) Ur Butalbital Confirm Salicylates Urine Opiates Screen U Codeine Confrm GC/MS Ur Morphine (GC/MS) Ur Hydrocodone (GC/MS) U Norhydrocodone Conf Ur Oxycodone Screen U Noroxycodone Confirm Ur Oxycodone GC/MS U Oxymorphone GC/MS EDDP Confirm Ur Methadone, Qual Ur Methadone Ur Hydromorphone (GC/MS) Acetaminophen Urine Barbiturates Ur Phencyclidine Scrn Ur Phencyclidine (PCP) Urine PCP Confirm Ur Amphetamines Screen U Amphetamines Confirm U Amphetamin/Meth Scrn Methamphetamine GC/MS MDMA (Ecstasy) Screen Ur Amobarbital GC/MS U Pentobarbital GC/MS U Phenobarbital GC/MS U Secobarbital GC/MS U [id number]-Ehpgoenep GC/MS U Benzodiazepines Scrn U 7-Aminoclonazepam Screen Ur Nordiazepam GC/MS U OH-ethylfluraz GC/MS U Lorazepam Cnf GC/MS U Oxazepam Confm GC/MS Ur Temazepam Cnf GC/MS U a-Hydroxytriaz GC/MS U [id number]-Qyshsknml Urine Cocaine Ur Cocaine Metabolite U Cocaine Metab Confirm Tetrahydrocannabinol U Marijuana (THC) Screen Drug Screen Comment Ethyl Alcohol mg/dL SARS-CoV-2, RNA, NAAT Reference Lab Hospital Course (1) Bipolar I disorder with mixed features: (2) TSH elevation: Plan 03/02/22: safety planning 03/01/22: continue current meds and tx plan. 02/28/22: Add Zyprexa 5 mg po qam for now for 20 mg total daily dose. Consider adjunctive mood stabilizer. 02/27/22: Continue current medications and tx plan. 02/26/22: Increase zyprexa to 15mg qhs. 02/25/22: Reduce ativan to 1mg qhs and 1mg daily prn. 02/24/22: Continue current medications and tx plan. 02/23/22: Continue current medications and tx plan. Lab unable to draw fasting labs till mid-day so rescheduled for tomorrow morning to assess fasting lipid panel and glucose. 02/22/22: The patient was admitted to the [facility] ([facility]) on q15 min checks (behavioral with suicide precautions) for safety. The patient will participate in group, recreational, and milieu therapies and will be offered additional individual and family sessions as clinically appropriate. Risks/benefits/alternatives reviewed diagnosis and continuing trial of Zyprexa with consideration for lithium. Fasting labs in am. Patient currently quite distractible so will need review of longer term risks if stays on Zyprexa. Ativan 1 mg prn restlessness due to stephanie, low risk for misuse/diversion. Will need repeat thyroid panel on discharge. Mental Health & Subst Abuse Tx Psychiatrist Name of Psychiatrist: Douglas Giang Psychiatrist's Date of Appointment with Psychiatrist: 03/10/22 Time of Appointment with Psychiatrist: 1:15p Psychiatric Appointment Comment: [address] [place] [address] Therapist Name of Therapist: Marika Bustillos Therapist's Date of Therapist Appointment: 03/09/22 Time of Therapist Appointment: 4:30p Therapy Appointment Comment: [address], [address], [place] [address] Drum Attendant Name of Drum Attendant: None Post Discharge Appointments Primary Care Physician Name Of Family Doctor: [facility] Date of Appointment with PCP: 03/11/22 Time of Appointment with PCP: 11am Provider Appointment Comment: [address] [place] [address] Neurologist Name of Neurologist: TERRENCE Elias Neurologist's Date of Appointment with Neurologist: 09/03/22 Time of Appointment with Neurologist: 8am Neurology Appointment Comment: [address] [place] [address] Smoking Cessation Counseling Tobacco Cessation Medication Prescribed at Discharge: Not Applicable/Non-Smoker Contact Information Discharge Discharge Address: [address] [place] [address] Rd[address] [facility] [place] [address] Discharge Plan Discharge Items Patient Disposition: Home - Self-Care Reason For Visit: BIPOLAR DISORDER Discharge Diagnosis: bipolar disorder Activity: Resume your previous activity Non-emergency contact: Primary Care Provider, Psychiatrist and Therapist Call non-emergency contact if: you have any medication questions and your symptoms worsen Follow-up/Referrals: Craig Otero [Primary Care Provider] - Diet: Regular Addtl Attending Provider Instructions: SPECIAL CARE INSTRUCTIONS: 1. Follow through with your scheduled aftercare appointments. If unable to keep an appointment, please call to reschedule. 2. Take your medication only as prescribed. Medication should not be changed or stopped without the approval of your doctor. In the event of worsening symptoms or concerns about side effects, contact your doctor immediately. 3. Utilize new healthy coping skills, anger management skills, and stress management skills learned during your hospitalization. Journal feelings and process them with a support person. Identify stressors or situations that may result in relapse, deterioration or inappropriate behaviors and develop a plan to deal with those issues. 4. If your coping skills are ineffective and you are in crisis, contact your outpatient providers for direction. If unable to reach your providers, please call the [facility] CRISIS LINE AT , go to the [facility] walk-in center at [address] [place] [address], [address], [place], or go to the closest Emergency Room. 5. Avoid alcohol and un-prescribed drugs. 6. You have been provided with the Mental Health Advance Directives Pamphlet for your review. 7. Your condition is stable for discharge to outpatient level of care, but recovery is an ongoing process. Ifthoughts to harm yourself or others return, follow the safety plan developed during your stay. Planning for a safe return home includes securing weapons. Our treatment team recommends weaponsbe removed from the home until your outpatient provider reassesses your progress. In rare cases where the items themselvescannot be removed, guns and ammunitionshould be secured separatelyand keys stored by a reliable personoutside of the home. If you were admitted on an involuntary commitment, the police or other legal authorities may be involved in this process. AFTERCARE APPOINTMENTS: * Please call your insurance company prior to your scheduled appointment to confirm your aftercare providers are covered. Take your insurance information to your appointments. WHO TO CALL AND WHEN: Medical Emergencies: For questions or emergencies related to your hospital stay, please contact the Inpatient Behavioral Health Unit at [phone]. A office clinician is on-call 19/10 for the Behavioral Health Unit for emergencies At any time you feel your situation is an emergency, you may also call 911 immediately. Pending Studies at Discharge: No Stand-Alone Forms: My [facility] [employer], Smoking Cessation Medications and DC Order Prescriptions: New olanzapine 5 mg Tablet 5 mg PO BID Qty: 60 0RF olanzapine 10 mg Tablet 10 mg PO HS Qty: 30 0RF Rx Instructions: take with 5 mg = 15 mg lorazepam 1 mg Tablet 1 mg PO BID PRN (Reason: Anxiety) Qty: 30 1RF Continued rosuvastatin 5 mg tablet 2.5 mg PO DAILY Discontinued citalopram 40 mg tablet 40 mg PO DAILY Discharge Orders: Discharge Order (Routine); Ordered 03/03/22 Ordered By: Isabel Carr Admission Data Admit Date/Time: 02/21/22 16:37 Attending Provider: Isabel Carr Admit Provider: Isabel Carr Primary Care Provider: Craig Otero Other Interventions: Discharge Summary Assessment (RN) Last Done: 03/03/22 10:54 PSY Interdisciplinary Discharge Planning Last Done: 03/03/22 10:54 Coding Level of Care Code 54858 D/C day mgmt > 30 min Diagnoses Bipolar I disorder with mixed features F31.9 TSH elevation R79.89
[2022-03-03 10:58] VITALS: BP 113/76; PULSE 83
== END 2022-03-03 11:19 | disposition home or self-care (01) | DRG 885 ==
LOC: ED 05:59 → SUATTDRO 16:37 → 3S 16:37

== ENCOUNTER 2022-06-05 13:24 | Inpatient (IN) ==
--- NOTE | 2022-06-05 14:00 | Emergency Department Note ---
History of Present Illness General Chief complaint: Mental Health Evaluation Stated complaint: MENTAL HEALTH EVAL,BPD,HYPERMANIC THOUGHTS Time Seen by Provider: 06/05/22 13:30 Source: patient, family (I talked to his who is at the bedside), RN notes reviewed and old records reviewed (I reviewed his old records from a previous admission for stephanie) Mode of arrival: ambulatory Limitations: no limitations History of Present Illness This patient is a 56-year-old male who comes in after a complaint of racing thoughts. He does have a history of bipolar/stephanie. He was here twice in January and was admitted the second time for about 10 days with 3 S. 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 Is been off Celexa since then. He says starting today feels like his mind is racing and he cannot get it to shut down he has no suicidal plan but he has racing thoughts that he would like to stop. He is currently between therapist he is taking lithium 150 mg in the evening he has not missed any doses or take any extra doses. No overdose aspirin or Tylenol use his sleep has been okay he has been somewhat nervous and anxious no physical complaints. He has no fever or headache, recent illness, chest pain, shortness of breath, numbness or weakness or nausea or vomiting. 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 current occupational status: employed Feels Safe at Home: Yes Gender Identity: Male Assistive Devices: Glasses Immunizations: Past medical historymaniapossibly related to SSRI. Anxiety. Denies diabetes, thyroid disease, cardiac disease Social history does not smoke drink or use drugs or marijuana. 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 Review of Systems A total of 10 systems reviewed and were otherwise negative Physical Exam Vital Signs Vital Signs - 24 hr 06/05/22 13:27 06/05/22 14:16 Temperature 36.4 C L 36.9 C Temperature Source Temporal Artery Scan Oral Pulse Rate 76 Pulse Rate [Right Finger] 70 Respiratory Rate 18 18 Respiratory Effort / Characteristics Non-Labored Spontaneous Respiratory Depth Normal Normal Respiratory Pattern Regular Blood Pressure 158/97 H Blood Pressure [Right Arm] 156/104 H Blood Pressure Mean 117 Blood Pressure Mean [Right Arm] 121 Blood Pressure Position [Right Arm] Lying Pulse Oximetry 97 98 Oxygen Delivery Method Room Air Room Air Sepsis Recent Fever Within 48 Hours No Sepsis New/Unexplained Change in Mental Status N/A Sepsis Action Taken by Nursing No Action Required General: Well developed well nourished [id number] middle-age male who is cooperative and appears in no acute distress, breathing comfortably on room air. Normal speech HEENT: Normal cephalic atraumatic. Pupils are equal round and reactive to light. Extraocular movements are intact. Oropharynx is pink with moist mucous membranes. No swelling of the mouth lips or tongue. Neck: Supple with a midline trachea. No meningeal signs or stiffness, no JVD or bruits. No Stridor. Chest: Clear to auscultation bilaterally. No wheezes or rhonchi. No increased work of breathing. Heart: Regular rate and rhythm without murmurs or gallops. Abdomen: Soft nontender, nondistended without rebound guarding or rigidity. Extremities: No cyanosis clubbing or edema. No calf tenderness or assymetry Spine/Back. Non tender to palpation. No CVA tenderness Skin: Good turgor without rashes. Neurologic exam: Cranial nerves two through 12 are intact. Motor and sensation are intact and symmetrical throughout. Psych: Denies homicidal ideations. 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 Home Medications Current Medication List: was personally reviewed by me Laboratory Data Attestation: I reviewed the patient's lab results. 06/05/22 14:06 06/05/22 14:06 Lab Results 06/05/22 06/05/22 06/05/22 Range/Units 14:06 14:06 14:06 WBC 6.91 (4.8-10.8) K/ul RBC 4.46 L (4.70-6.10) M/uL Hgb 14.5 (14.0-18.0) g/dl Hct 39.9 L (42.0-52.0) % MCV 89.5 (80.0-100.0) fL MCH 32.5 (25.0-34.0) pg MCHC 36.3 H (32.0-36.0) g/dL RDW Std Deviation 37.4 (36.4-46.3) fL RDW Coeff of Toño 11.4 L (11.5-14.5) % Plt Count 192 (130-400) K/uL MPV 8.7 L (9.4-12.4) fL Immature Gran % (Auto) 0.1 % Neut % (Auto) 69.3 % Lymph % (Auto) 24.7 % Mercer % (Auto) 4.9 % Eos % (Auto) 0.3 % Baso % (Auto) 0.7 % Neut # (Auto) 4.78 (1.40-6.50) K/uL Lymph # (Auto) 1.71 (1.2-3.4) K/uL Mercer # (Auto) 0.34 (0.11-0.59) K/uL Eos # (Auto) 0.02 (0-0.50) K/uL Baso # (Auto) 0.05 (0-0.2) K/uL Immature Gran # (Auto) 0.01 (0.01-0.20) K/uL Sodium 137 (136-145) mmol/L Potassium 4.0 (3.5-5.1) mmol/L Chloride 101 (98-107) mmol/L Carbon Dioxide 29 (21-32) mmol/L Anion Gap 7 (3-11) BUN 12 (6-23) mg/dl Creatinine 0.94 (0.6-1.4) mg/dl Est Cr Clr Drug Dosing 88.4 ml/min Est GFR ( Amer) 103.2 ml/min Est GFR (Non-Af Amer) 89.0 ml/min BUN/Creatinine Ratio 12.8 (10-20) Glucose 91 (70-99(Fasting)) mg/dl Calcium 9.7 (8.5-10.1) mg/dl Total Bilirubin 1.1 H (0.2-1.0) mg/dl AST 24 (13-39) U/L ALT 31 (7-52) U/L Alkaline Phosphatase 69 (34-104) U/L Total Protein 7.8 (6.0-8.3) gm/dl Albumin 5.0 (3.4-5.0) gm/dl Globulin 2.8 (2.5-4.0) gm/dl Albumin/Globulin Ratio 1.8 (0.9-2) TSH 2.849 (0.300-4.500) uIu/ml Urine Color Urine Appearance (Clear) Urine pH (4.5-7.5) Ur Specific Banks (1.000-1.030) Urine Protein (Negative) Urine Glucose (UA) (Negative) Urine Ketones (Negative) Urine Blood (Negative) Urine Nitrite (Negative) Urine Bilirubin (Negative) Urine Urobilinogen (Negative) Ur Leukocyte Esterase (Negative) Urine WBC (Auto) (0-5) /hpf Urine RBC (Auto) (0-4) /hpf U Hyaline Cast (Auto) (0-5) /lpf U Epithel Cells (Auto) (0-5) /lpf Urine Bacteria (Auto) (Negative) Salicylates (3.0-30) mg/dl Urine Opiates Screen (Neg) Ur Methadone, Qual (Neg) Acetaminophen (10-30) ug/ml Urine Barbiturates (Neg) Ur Phencyclidine (PCP) (Neg) U Amphetamin/Meth Scrn (Neg) MDMA (Ecstasy) Screen (Neg) U Benzodiazepines Scrn (Neg) [place] (0.6-1.2) mmol/L Ur Cocaine Metabolite (Neg) U Marijuana (THC) Screen (Neg) Ethyl Alcohol mg/dL (<10.0) mg/dl SARS-CoV-2, RNA, NAAT (NEGATIVE) 06/05/22 06/05/22 06/05/22 Range/Units 14:06 14:06 14:06 WBC (4.8-10.8) K/ul RBC (4.70-6.10) M/uL Hgb (14.0-18.0) g/dl Hct (42.0-52.0) % MCV (80.0-100.0) fL MCH (25.0-34.0) pg MCHC (32.0-36.0) g/dL RDW Std Deviation (36.4-46.3) fL RDW Coeff of Toño (11.5-14.5) % Plt Count (130-400) K/uL MPV (9.4-12.4) fL Immature Gran % (Auto) % Neut % (Auto) % Lymph % (Auto) % Mercer % (Auto) % Eos % (Auto) % Baso % (Auto) % Neut # (Auto) (1.40-6.50) K/uL Lymph # (Auto) (1.2-3.4) K/uL Mercer # (Auto) (0.11-0.59) K/uL Eos # (Auto) (0-0.50) K/uL Baso # (Auto) (0-0.2) K/uL Immature Gran # (Auto) (0.01-0.20) K/uL Sodium (136-145) mmol/L Potassium (3.5-5.1) mmol/L Chloride (98-107) mmol/L Carbon Dioxide (21-32) mmol/L Anion Gap (3-11) BUN (6-23) mg/dl Creatinine (0.6-1.4) mg/dl Est Cr Clr Drug Dosing ml/min Est GFR ( Amer) ml/min Est GFR (Non-Af Amer) ml/min BUN/Creatinine Ratio (10-20) Glucose (70-99(Fasting)) mg/dl Calcium (8.5-10.1) mg/dl Total Bilirubin (0.2-1.0) mg/dl AST (13-39) U/L ALT (7-52) U/L Alkaline Phosphatase (34-104) U/L Total Protein (6.0-8.3) gm/dl Albumin (3.4-5.0) gm/dl Globulin (2.5-4.0) gm/dl Albumin/Globulin Ratio (0.9-2) TSH (0.300-4.500) uIu/ml Urine Color Yellow Urine Appearance Clear (Clear) Urine pH 6.5 (4.5-7.5) Ur Specific Banks 1.010 (1.000-1.030) Urine Protein Negative (Negative) Urine Glucose (UA) Negative (Negative) Urine Ketones Negative (Negative) Urine Blood Negative (Negative) Urine Nitrite Negative (Negative) Urine Bilirubin Negative (Negative) Urine Urobilinogen Negative (Negative) Ur Leukocyte Esterase Trace H (Negative) Urine WBC (Auto) 0 (0-5) /hpf Urine RBC (Auto) 0-4 (0-4) /hpf U Hyaline Cast (Auto) 0 (0-5) /lpf U Epithel Cells (Auto) 0-5 (0-5) /lpf Urine Bacteria (Auto) Negative (Negative) Salicylates (3.0-30) mg/dl Urine Opiates Screen Neg (Neg) Ur Methadone, Qual Neg (Neg) Acetaminophen (10-30) ug/ml Urine Barbiturates Neg (Neg) Ur Phencyclidine (PCP) Neg (Neg) U Amphetamin/Meth Scrn Neg (Neg) MDMA (Ecstasy) Screen Neg (Neg) U Benzodiazepines Scrn Neg (Neg) [place] (0.6-1.2) mmol/L Ur Cocaine Metabolite Neg (Neg) U Marijuana (THC) Screen Neg (Neg) Ethyl Alcohol mg/dL < 10.0 (<10.0) mg/dl SARS-CoV-2, RNA, NAAT (NEGATIVE) 06/05/22 06/05/22 Range/Units 14:14 14:15 WBC (4.8-10.8) K/ul RBC (4.70-6.10) M/uL Hgb (14.0-18.0) g/dl Hct (42.0-52.0) % MCV (80.0-100.0) fL MCH (25.0-34.0) pg MCHC (32.0-36.0) g/dL RDW Std Deviation (36.4-46.3) fL RDW Coeff of Toño (11.5-14.5) % Plt Count (130-400) K/uL MPV (9.4-12.4) fL Immature Gran % (Auto) % Neut % (Auto) % Lymph % (Auto) % Mercer % (Auto) % Eos % (Auto) % Baso % (Auto) % Neut # (Auto) (1.40-6.50) K/uL Lymph # (Auto) (1.2-3.4) K/uL Mercer # (Auto) (0.11-0.59) K/uL Eos # (Auto) (0-0.50) K/uL Baso # (Auto) (0-0.2) K/uL Immature Gran # (Auto) (0.01-0.20) K/uL Sodium (136-145) mmol/L Potassium (3.5-5.1) mmol/L Chloride (98-107) mmol/L Carbon Dioxide (21-32) mmol/L Anion Gap (3-11) BUN (6-23) mg/dl Creatinine (0.6-1.4) mg/dl Est Cr Clr Drug Dosing ml/min Est GFR ( Amer) ml/min Est GFR (Non-Af Amer) ml/min BUN/Creatinine Ratio (10-20) Glucose (70-99(Fasting)) mg/dl Calcium (8.5-10.1) mg/dl Total Bilirubin (0.2-1.0) mg/dl AST (13-39) U/L ALT (7-52) U/L Alkaline Phosphatase (34-104) U/L Total Protein (6.0-8.3) gm/dl Albumin (3.4-5.0) gm/dl Globulin (2.5-4.0) gm/dl Albumin/Globulin Ratio (0.9-2) TSH (0.300-4.500) uIu/ml Urine Color Urine Appearance (Clear) Urine pH (4.5-7.5) Ur Specific Banks (1.000-1.030) Urine Protein (Negative) Urine Glucose (UA) (Negative) Urine Ketones (Negative) Urine Blood (Negative) Urine Nitrite (Negative) Urine Bilirubin (Negative) Urine Urobilinogen (Negative) Ur Leukocyte Esterase (Negative) Urine WBC (Auto) (0-5) /hpf Urine RBC (Auto) (0-4) /hpf U Hyaline Cast (Auto) (0-5) /lpf U Epithel Cells (Auto) (0-5) /lpf Urine Bacteria (Auto) (Negative) Salicylates < 3.0 L (3.0-30) mg/dl Urine Opiates Screen (Neg) Ur Methadone, Qual (Neg) Acetaminophen < 3 L (10-30) ug/ml Urine Barbiturates (Neg) Ur Phencyclidine (PCP) (Neg) U Amphetamin/Meth Scrn (Neg) MDMA (Ecstasy) Screen (Neg) U Benzodiazepines Scrn (Neg) [place] 0.1 L (0.6-1.2) mmol/L Ur Cocaine Metabolite (Neg) U Marijuana (THC) Screen (Neg) Ethyl Alcohol mg/dL (<10.0) mg/dl SARS-CoV-2, RNA, NAAT NEGATIVE (NEGATIVE) MDM Narrative This patient comes in as described above. He was placed in room 88. He does have a history of stephanie. He has been having racing thoughts today. He had obtained multiple blood testing, urine and COVID testing. He was reassessed. His blood work was unremarkable. His lithium level is actually on the low side. There is nothing to suggest that he has an acute toxicologic, metabolic, infectious, or other organic etiology causing his symptoms at this point. COVID testing was negative. He has been medically cleared and was further evaluated by 3 S. The patient did asked for something for anxiety and I gave him a milligram of Ativan sublingual. He was further evaluated by 3 S. and will be admitted voluntarily for further inpatient treatment and evaluation. The patient and his are happy with the plan Impression & Plan Bipolar I disorder with mixed features, Anxiety, Bizarre thoughts, Lab test negative for COVID-19 virus Discharge Plan Visit Data Chief Complaint: Mental Health Evaluation Stated Complaint: MENTAL HEALTH EVAL,BPD,HYPERMANIC THOUGHTS ED Provider: Tony Barragan Discharge Problem: Bipolar I disorder with mixed features, Anxiety, Bizarre thoughts, Lab test negative for COVID-19 virus Patient Disposition: Admitted As Inpatient Discharge Instructions Interventions: ED Discharge Assessment Last Done: 06/05/22 17:05
[2022-06-05 14:41] LABS: Appearance Urine Clear (Clear); Bacteria Urine Automated Negative (Negative); Bilirubin Urine Negative (Negative); Blood Urine Negative (Negative); Cast Urine Automated 0 /lpf (0-5); Color Urine Yellow; Epithelial Cell Urine Auto 0-5 /lpf (0-5); Glucose Urine UA Negative (Negative); Ketones Urine Negative (Negative); Leukocyte Esterase Urine Trace (Negative); Nitrite Urine Negative (Negative); Protein Urine Negative (Negative); RBC Urine Automated 0-4 /hpf (0-4); Urobilinogen Urine Negative (Negative); WBC Urine Automated 0 /hpf (0-5); pH Urine 6.5 (4.5-7.5)
[2022-06-05 14:45] LABS: Basophils # (auto) 0.05 K/uL (0-0.2); Basophils % (auto) 0.7 %; Eosinophils # (auto) 0.02 K/uL (0-0.50); Eosinophils % (auto) 0.3 %; Hematocrit (blood only) 39.9 % (42.0-52.0); Hemoglobin 14.5 g/dl (14.0-18.0); Immature Granulocytes # (auto) 0.01 K/uL (0.01-0.20); Immature Granulocytes % (auto) 0.1 %; Lymphocytes # (auto) 1.71 K/uL (1.2-3.4); Lymphocytes % (auto) 24.7 %; Mean Corpuscular Hemoglobin 32.5 pg (25.0-34.0); Mean Corpuscular Hgb Conc 36.3 g/dL (32.0-36.0); Mean Corpuscular Volume 89.5 fL (80.0-100.0); Mean Platelet Volume 8.7 fL (9.4-12.4); Monocytes # (auto) 0.34 K/uL (0.11-0.59); Monocytes % (auto) 4.9 %; Neutrophils # (auto) 4.78 K/uL (1.40-6.50); Neutrophils % (auto) 69.3 %; Platelet Count 192 K/uL (130-400); RDW Coefficient of Variation 11.4 % (11.5-14.5); RDW Standard Deviation 37.4 fL (36.4-46.3); Red Blood Count 4.46 M/uL (4.70-6.10); White Blood Count 6.91 K/ul (4.8-10.8)
[2022-06-05 15:02] LABS: Albumin Globulin Ratio 1.8 (0.9-2); BUN Creatinine Ratio 12.8 (10-20); Bilirubin,Total 1.1 mg/dl (0.2-1.0); Calcium 9.7 mg/dl (8.5-10.1); Creatinine Clr Calc Pharmacy 88.4 ml/min; Est GFR (African American) 103.2 ml/min; Globulin 2.8 gm/dl (2.5-4.0); Total Protein 7.8 gm/dl (6.0-8.3)
[2022-06-05 15:04] LABS: Lithium 0.1 mmol/L (0.6-1.2)
[2022-06-05 15:09] LABS: Acetaminophen < 3 ug/ml (10-30); Salicylate < 3.0 mg/dl (3.0-30)
[2022-06-05] MEDS ORDERED: LORazepam 1 MG TAB SL STA (15:19)
[2022-06-05 15:40] LABS: Amphetamines+Metham, Urine Neg (Neg); Barbiturates, Urine Neg (Neg); Benzodiazepine, Urine Neg (Neg); Cocaine, Urine Neg (Neg); MDMA (Ecstacy), Urine Neg (Neg); Methadone, Urine Neg (Neg); Opiate, Urine Neg (Neg); Phencyclidine, Urine Neg (Neg)
[2022-06-05] MEDS ORDERED: SODIUM CHLORIDE 0.65% NA SOLN 45 ML (OCEAN) PRN ×2 (16:40→17:27)
[2022-06-05] MEDS ORDERED: ALUMINUM/MAGNESIUM SUSP 30 ML UDC PO PRN (16:40)
[2022-06-05] MEDS ORDERED: MAGNESIUM HYDROXIDE SUSP 30 ML UDC PO PRN ×2 (16:40→17:27)
[2022-06-05] MEDS ORDERED: BISMUTH SUBSALICYLATE LIQD 236 ML PO PRN ×2 (16:40→17:27)
[2022-06-05] MEDS ORDERED: hydrOXYzine HCl 25 MG TAB PO PRN ×4 (16:40→17:27)
[2022-06-05] MEDS ORDERED: ACETAMINOPHEN 325 MG TAB PO PRN ×2 (16:40→17:27)
[2022-06-05] MEDS ORDERED: OLANZapine 5 MG TABLET PO PRN (17:29)
[2022-06-05] MEDS: LITHIUM CARBONATE 300 MG TAB PO SCH ×2 (21:12→21:23)
--- NOTE | 2022-06-06 10:02 | History & Physical ---
Date of Service June 06, 2022 Impression / Recommendations Impression 56 y/o man with apparent late-onset bipolar d/o, possibly triggered by citalopram trial last year. He was by all accounts very manic and highly interpersonally inappropriate during his admission in February, though that is not seen at this time. At present he reports primarily depressive symptoms of fatigue, anhedonia, and hopelessness but with some racing thoughts. He denies suicidal thoughts at present. By multiple reports he was unable to tolerate even low-dose lithium. His symptoms responded well to olanzapine, but with subjectively intolerable side effects. Discussed with pt that in my opinion he appears to have a bipolar condition and that bipolar depression responds best to "mood stabilizers" and not to "antidepressants". He's already failed a trial of the unquestionably most effective mood stabilizer, lithium. Discussed divalproex as an effective mood stabilizer for which the effective range of blood level is well-established. Since this would take some time to titrate to an effective dose and to have an effect, discussed aripiprazole as a short-term intervention likely to have rapid effects. He appears to have benefited from olanzapine, and aripiprazole is likely to have a favorable side effect profile in comparison (and, unlike during his previous stay, there is no pressing need to manage manic behavior). (1) Bipolar I disorder with mixed features: Present on Admission?: Yes Inventory Assets Strengths: supportive relationships, willing to get treatment Needs: safety and stabilization, medication adjustment, additional coping skills, increased outpatient services Suicide Risk Level Suicide Risk Level: Moderate (q15 min suicide checks) Suicide Risk Level Comments: does not voice suicidal thoughts but is having mixed bipolar symptoms, which are associated with higher risk Risk Factors Assessment Male: Yes : Yes Do You Have Access To A Gun?: No Mental Health Diagnoses: Yes Substance Use Disorders: No Previous Attempt: No Protective Factors Assessment Responsible for Young Children: Yes Employed: Yes Stable Relationships: Yes Supportive Family: Yes Psychiatric History Identifying Data DK GARLAND is a 56-year-old M who currently lives in [place], [place] with his , has a history of 2 previous admissions for stephanie, and was admitted on 06/05/22 16:40 on a 201 voluntary commitment for Depressed mood. Chief Complaint "I'm just not doing too well". History of Present Illness As part of a thorough review of the medical record, I have reviewed and confirmed the following note by the ED psychiatric manager case management: ED psychiatric manager case management: "Met with pt and his to complete mental health evaluation. Pt states he has been struggling more and more since mid-April. He has started having some issues with his sleep that he considered to be "fine" since he was still getting more sleep than he was when he was manic. His reports he has been waking almost daily around 4am and not going back to sleep. This is not normal for him. She also reports he has been having more depression symptoms in which he is lethargic and doesn't want to do anything. He doesn't want to do the things he use to enjoy and has been having increased anxiety about daily things. He had been seeing a therapist at [facility] but felt this was unhelpful as the therapist kept telling him she didn't know what to do with him as she usually treats addiction. She sent him to addiction group therapy and continually cancelled appointments before quitting. The pt is scheduled on 06/16/22 with another therapist at [facility] and is also scheduled for 06/26/22 with a therapist tangela Rushing as they were not overly impressed with the care given at [facility] the first time. He has been seeing Rachelle at [facility] for medication management and has an appointment on 06/11/22. He reports he was on 300mg of lithium split morning and night but this was reduced to 150mg at night due to the pt feeling lethargic. Pt's expressed concerns for pt safety due to him making several statements to her about not knowing what he will do if he doesn't get better. Pt stated he has not directly thought about killing himself but has had the thought that if he were to kill himself, he would be at peace and his brain wouldn't be constantly running. Pt also stated to [facility] that he worries about his safety at home due to feeling like he isn't in control of his brain right now. He describes this feeling as "buzzy", which his states in the same description he used shortly before entering the manic state he was in last January. They would like inpatient treatment at this time. Met with pt with Dr. Barragan. Pt reports he is not in as bad of shape as what he was the last time he was in the ED, but he has been having non-stop racing thoughts which scared him into coming to get an evaluation. He stated he has two prior episodes of intense stephanie in which he cannot even recall most of the events. When asked if he is suicidal the pt states "I like to think I'm not, like I'm smart enough not to do that but anything to make this stop." Pt does not answer directly if he is thinking about suicide, but does state that he does not have any plans for suicide or to harm himself. Denies HI/Hallucinations at this time. Pt is prescribed 150mg [place] and reports he is compliant with taking it. He has been sleeping well, but has been eating less. He states he is eating less due to anxiety/nerves and fear he will get sick. Pt denies drug and alcohol use." Since pt's discharge from this unit on 03 March 2022, he was started on LiCO3 300 mg daily (on which a level was only 0.3 mmol/L). Due to a complaint of sedation, it was reduced to 150 mg daily (which explains the level in the ED of 0.1 mmol/L). Olanzapine at discharge was 5 mg QAM & 15 mg QHS but he "felt like my brain was mush" so it was reduced. It appears that as the dose was reduced, his mood symptoms (in this case primarily depressive) worsened. He attempted to go back to work and did well when he was doing 3 4-hour days but felt overwhelmed when that was changed to 3 8-hour days. I spoke with pt's for over an hour to try to sort out the detailed time course of medication changes and symptoms. Unfortunately, there appears to be a degree of mismatch between how things are presented now as compared to the previous 2 admissons. What is consistent is the report of no mood symptoms previous to last fall, when he began to sleep less and have racing thoughts, reported his "body buzzing", and was distracted and somewhat confused. Medications tried seem to have been promising at first but, eventually, it was eventually decided they weren't working or tolerated and were changed. When medications weren't tolerated, it was always due to "fatigue". The only psychiatric medications tried have been citalopram, olanzapine, and lithium. On exam, pt is pleasant and strives to cooperate but presents as bewildered and distracted. He reports racing thoughts. Speech is vague and circuitous but not pressured. Pt does not present any psychomotor agitation nor much psychomotor retardation. He is oriented but displays scant insight into his symptoms or how problematic they've been. Past Psychiatric History Previous Psych History: 2 previous admissions here starting in January 2022. Reportedly had no symptoms prior to then Current Psychiatric Diagnosis: manic episode Previous Psych Admissions: 01/2022, 02/2022 Do You Have Access To A Gun?: No History of Previous Suicide Attempt: No Past Medication Trials: olanzapine Allergies Allergy/AdvReac Type Severity Reaction Status Date / Time No Known Allergies Allergy Unverified 05/19/22 13:56 Home Medications Medication Instructions Recorded Confirmed Type rosuvastatin 5 mg tablet 2.5 mg PO DAILY 03/01/22 06/05/22 History cyclobenzaprine 10 mg tablet 10 mg PO TID PRN muscle spasms 05/19/22 06/05/22 History lithium carbonate 150 mg capsule 150 mg PO DAILY 05/19/22 06/05/22 History Family History Family History of: Doesn't Know Family Mental Health History Comment: son struggles with depression Alcohol History Hx of Alcohol Use Over the Past 12 Months: No Smoking Use Have You Smoked or Used Tobacco Products in the Last 30 Days: No Smoking Status: Never smoker Substance History Hx of Prescription Med Misuse Over the Past 12 Months: No Hx of Over the Counter Med Misuse Over the Past 12 Months: No Hx of Inhalent Misuse Over the Past 12 Months: No Hx of Organic Substance Use Over the Past 12 Months: No Hx of Illegal Substances/Street Drug Use Over Past 12 Months: No Problems as a Result of Past Substance Use: None Identified Personal History Living Arrangements: Home Highest Grade Completed: College Marital Status: Number Of Children: 1 Beliefs That Will Affect Care: None Hx Traumatic Life Events: No Patient History Medical History (Updated 06/05/22 @ 18:52 by Tony Barragan MD) Hx of hemorrhoids 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 current occupational status: employed Feels Safe at Home: Yes Gender Identity: Male Assistive Devices: Glasses Review of Systems Psychiatric: as per Subjective / HPI, + depression, + anhedonia, + abnormal sleep pattern and + anxiety Physical Exam Psychiatric: Orientation: alert, oriented to person, oriented to place, oriented to time and cooperative Apperance: appropriately dressed and appropriately groomed Eye Contact: good eye contact Motor Behavior: steady gait and station and no abnormal motor movements Speech: no pressured speech and no loud speech vague, circuitous Affect: + constricted affect Mood: + depressed mood and + anxious mood Thought Process: + circumstantial thought process, + tangential thought process and + flight of ideas Thought Content: reality based without delusions Suicidal Thoughts: denies suicidal thoughts, denies suicidal plan and denies suicidal intent Homicidal Thoughts: denies homicidal thoughts Hallucinations: no auditory hallucinations and no visual hallucinations Cognition: recent memory grossly intact and remote memory grossly intact; + attention not intact Estimated Intelligence: average estimated intelligence Insight: + fair insight Judgment: + fair judgement Vital Signs (Past 24 Hours): Last Vital Signs Temp 37 C 06/06/22 06:42 Pulse 74 06/06/22 06:43 Resp 16 06/06/22 06:42 BP 105/70 06/06/22 06:43 Pulse Ox 99 06/05/22 17:32 O2 Del Method Room Air 06/05/22 17:32 Exam Statement: A physical exam was performed in the ED by Dr. Barragan for the purposes of medical clearance. I accept that physical as correct and adequate for the purposes of the inpatient physical exam. Results & Data ([facility]) Laboratory Results Laboratory Results - last 24 hr 06/05/22 06/05/22 06/05/22 14:06 14:06 14:06 WBC 6.91 RBC 4.46 L Hgb 14.5 Hct 39.9 L MCV 89.5 MCH 32.5 MCHC 36.3 H RDW Std Deviation 37.4 RDW Coeff of Toño 11.4 L Plt Count 192 MPV 8.7 L Immature Gran % (Auto) 0.1 Neut % (Auto) 69.3 Lymph % (Auto) 24.7 Mckean % (Auto) 4.9 Eos % (Auto) 0.3 Baso % (Auto) 0.7 Neut # (Auto) 4.78 Lymph # (Auto) 1.71 Mckean # (Auto) 0.34 Eos # (Auto) 0.02 Baso # (Auto) 0.05 Immature Gran # (Auto) 0.01 Sodium 137 Potassium 4.0 Chloride 101 Carbon Dioxide 29 Anion Gap 7 BUN 12 Creatinine 0.94 Est Cr Clr Drug Dosing 88.4 Est GFR ( Amer) 103.2 Est GFR (Non-Af Amer) 89.0 BUN/Creatinine Ratio 12.8 Glucose 91 Calcium 9.7 Total Bilirubin 1.1 H AST 24 ALT 31 Alkaline Phosphatase 69 Total Protein 7.8 Albumin 5.0 Globulin 2.8 Albumin/Globulin Ratio 1.8 TSH 2.849 Urine Color Urine Appearance Urine pH Ur Specific [place] Urine Protein Urine Glucose (UA) Urine Ketones Urine Blood Urine Nitrite Urine Bilirubin Urine Urobilinogen Ur Leukocyte Esterase Urine WBC (Auto) Urine RBC (Auto) U Hyaline Cast (Auto) U Epithel Cells (Auto) Urine Bacteria (Auto) Salicylates Urine Opiates Screen Ur Methadone, Qual Acetaminophen Urine Barbiturates Ur Phencyclidine (PCP) U Amphetamin/Meth Scrn MDMA (Ecstasy) Screen U Benzodiazepines Scrn [place] Ur Cocaine Metabolite U Marijuana (THC) Screen Ethyl Alcohol mg/dL SARS-CoV-2, RNA, NAAT 06/05/22 06/05/22 06/05/22 14:06 14:06 14:06 WBC RBC Hgb Hct MCV MCH MCHC RDW Std Deviation RDW Coeff of Toño Plt Count MPV Immature Gran % (Auto) Neut % (Auto) Lymph % (Auto) Mckean % (Auto) Eos % (Auto) Baso % (Auto) Neut # (Auto) Lymph # (Auto) Mckean # (Auto) Eos # (Auto) Baso # (Auto) Immature Gran # (Auto) Sodium Potassium Chloride Carbon Dioxide Anion Gap BUN Creatinine Est Cr Clr Drug Dosing Est GFR ( Amer) Est GFR (Non-Af Amer) BUN/Creatinine Ratio Glucose Calcium Total Bilirubin AST ALT Alkaline Phosphatase Total Protein Albumin Globulin Albumin/Globulin Ratio TSH Urine Color Yellow Urine Appearance Clear Urine pH 6.5 Ur Specific Rye 1.010 Urine Protein Negative Urine Glucose (UA) Negative Urine Ketones Negative Urine Blood Negative Urine Nitrite Negative Urine Bilirubin Negative Urine Urobilinogen Negative Ur Leukocyte Esterase Trace H Urine WBC (Auto) 0 Urine RBC (Auto) 0-4 U Hyaline Cast (Auto) 0 U Epithel Cells (Auto) 0-5 Urine Bacteria (Auto) Negative Salicylates Urine Opiates Screen Neg Ur Methadone, Qual Neg Acetaminophen Urine Barbiturates Neg Ur Phencyclidine (PCP) Neg U Amphetamin/Meth Scrn Neg MDMA (Ecstasy) Screen Neg U Benzodiazepines Scrn Neg [place] Ur Cocaine Metabolite Neg U Marijuana (THC) Screen Neg Ethyl Alcohol mg/dL < 10.0 SARS-CoV-2, RNA, NAAT 06/05/22 06/05/22 14:14 14:15 WBC RBC Hgb Hct MCV MCH MCHC RDW Std Deviation RDW Coeff of Toño Plt Count MPV Immature Gran % (Auto) Neut % (Auto) Lymph % (Auto) Mckean % (Auto) Eos % (Auto) Baso % (Auto) Neut # (Auto) Lymph # (Auto) Mckean # (Auto) Eos # (Auto) Baso # (Auto) Immature Gran # (Auto) Sodium Potassium Chloride Carbon Dioxide Anion Gap BUN Creatinine Est Cr Clr Drug Dosing Est GFR ( Amer) Est GFR (Non-Af Amer) BUN/Creatinine Ratio Glucose Calcium Total Bilirubin AST ALT Alkaline Phosphatase Total Protein Albumin Globulin Albumin/Globulin Ratio TSH Urine Color Urine Appearance Urine pH Ur Specific Rye Urine Protein Urine Glucose (UA) Urine Ketones Urine Blood Urine Nitrite Urine Bilirubin Urine Urobilinogen Ur Leukocyte Esterase Urine WBC (Auto) Urine RBC (Auto) U Hyaline Cast (Auto) U Epithel Cells (Auto) Urine Bacteria (Auto) Salicylates < 3.0 L Urine Opiates Screen Ur Methadone, Qual Acetaminophen < 3 L Urine Barbiturates Ur Phencyclidine (PCP) U Amphetamin/Meth Scrn MDMA (Ecstasy) Screen U Benzodiazepines Scrn [place] 0.1 L Ur Cocaine Metabolite U Marijuana (THC) Screen Ethyl Alcohol mg/dL SARS-CoV-2, RNA, NAAT NEGATIVE Current Inpatient Medications Current Inpatient Medications: Current Inpatient Medications Acetaminophen (Acetaminophen 325 Mg Tab) 650 mg PO Q4H PRN PRN Reason: Headache or Minor Fever Stop: 07/05/22 17:26 Al Hydrox/Mg Hydrox/Simethicone (Aluminum/Magnesium Susp 30 Ml Udc) 30 ml PO Q4H PRN PRN Reason: GI Upset Stop: 07/05/22 17:26 Bismuth Subsalicylate (Bismuth Subsalicylate Liqd 236 Ml) 15 ml PO PRN PRN PRN Reason: Loose Stool Stop: 07/05/22 17:26 Hydroxyzine HCl (Hydroxyzine Hcl 25 Mg Tab) 25 mg PO Q4H PRN PRN Reason: Anxiety Stop: 07/05/22 17:26 Hydroxyzine HCl (Hydroxyzine Hcl 25 Mg Tab) 50 mg PO HSZ PRN PRN Reason: Insomnia Stop: 07/05/22 17:26 [place] Carbonate ([place] Carbonate 300 Mg Tab) 150 mg PO HS DELIO Stop: 07/05/22 21:59 Last Admin: 06/05/22 21:23 Dose: 150 mg Magnesium Hydroxide (Magnesium Hydroxide Susp 30 Ml Udc) 30 ml PO DAILY PRN PRN Reason: Constipation Stop: 07/05/22 17:26 Olanzapine (Olanzapine 5 Mg Tablet) 5 mg PO BID PRN PRN Reason: Anxiety/Agitation Stop: 07/05/22 17:28 Sodium Chloride (Sodium Chloride 0.65% Na Soln 45 Ml ([place])) 1 - 2 sprays NA PRN PRN PRN Reason: Nasal Dryness/Congestion Stop: 07/05/22 17:26
[2022-06-06] MEDS: LITHIUM CARBONATE 300 MG TAB PO SCH (21:34)
--- NOTE | 2022-06-07 07:57 | Psychiatric Progress Note ---
Date of Service June 07, 2022 Impression / Recommendations Impression 56 y/o man with apparent late-onset bipolar d/o, possibly triggered by citalopram trial last year. He was by all accounts very manic and highly interpersonally inappropriate during his admission in February, though that is not seen at this time. At present he reports primarily depressive symptoms of fatigue, anhedonia, and hopelessness but with some racing thoughts. He denies suicidal thoughts at present. By multiple reports he was unable to tolerate even low-dose lithium. His symptoms responded well to olanzapine, but with subjectively intolerable side effects. 06/07/2022: Pt appears better today - less psychomotor retardation, broader range of affect. However, he is guarded about acknowledging any improvement. Remains anxious about the medication trials discussed at length yesterday. He brought up the discussion about tardive dyskinesia; I reminded him that this is a known risk with every antipsychotic but that aripiprazole is seen as having a low relative risk and that any medication likely to have any degree of rapid response would have a risk of TD as well. He eventually agrees to begin planned trials of aripiprazole and divalproex. 06/06/2022: Discussed with pt that in my opinion he appears to have a bipolar condition and that bipolar depression responds best to "mood stabilizers" and not to "antidepressants". He's already failed a trial of the unquestionably most effective mood stabilizer, lithium. Discussed divalproex as an effective mood stabilizer for which the effective range of blood level is well-established. Since this would take some time to titrate to an effective dose and to have an effect, discussed aripiprazole as a short-term intervention likely to have rapid effects. He appears to have benefited from olanzapine, and aripiprazole is likely to have a favorable side effect profile in comparison (and, unlike during his previous stay, there is no pressing need to manage manic behavior). (1) Bipolar I disorder with mixed features: Plan 06/07/2022: * start aripiprazole 5 mg daily * start divalproex 500 mg once today then BID starting tomorrow * The patient was admitted to the [facility] ([facility] mental [facility] unit) on q15 min checks (behavioral with suicide precautions) for safety. The patient will participate in group, recreational, and milieu therapies and will be offered additional individual and family sessions as clinically appropriate. Inventory Assets Strengths: supportive relationships, willing to get treatment Needs: safety and stabilization, medication adjustment, additional coping skills, increased outpatient services Suicide Risk Level Suicide Risk Level: Moderate (q15 min suicide checks) Suicide Risk Level Comments: does not voice suicidal thoughts but is having mixed bipolar symptoms, which are associated with higher risk Risk Factors Assessment Male: Yes : Yes Do You Have Access To A Gun?: No Mental Health Diagnoses: Yes Substance Use Disorders: No Previous Attempt: No Protective Factors Assessment Responsible for Young Children: Yes Employed: Yes Stable Relationships: Yes Supportive Family: Yes Interval History Identifying Information PILLO GARLAND is a 56-year-old M who currently lives in [place], [place] with his , has a history of 2 previous admissions for stephanie, and was admitted on 06/05/22 16:40 on a 201 voluntary commitment for depressed mood. Chief Complaint "I might have slept a little". Review of Systems Sleep Information Total Hours of Sleep: 6.25 Meal Information Percent Meal Consumed - Breakfast: 100 Percent Meal Consumed - Lunch: 100 Percent Meal Consumed - Dinner: 90 Subjective Subjective Patient was seen & assessed and interval progress reviewed with treatment team (nursing and social work) Physical Exam Psychiatric Orientation: alert, oriented to person, oriented to place, oriented to time and cooperative Apperance: appropriately dressed and appropriately groomed Eye Contact: good eye contact Motor Behavior: steady gait and station and no abnormal motor movements Speech: no pressured speech and no loud speech Affect: + anxious affect Mood: + depressed mood and + anxious mood Thought Process: + circumstantial thought process and + tangential thought process Thought Content: reality based without delusions Suicidal Thoughts: denies suicidal thoughts, denies suicidal plan and denies suicidal intent Homicidal Thoughts: denies homicidal thoughts Hallucinations: no auditory hallucinations and no visual hallucinations Cognition: recent memory grossly intact and remote memory grossly intact; + attention not intact Estimated Intelligence: average estimated intelligence Insight: + fair insight Judgment: + fair judgement Vital Signs (Past 24 Hours) Last Vital Signs Temp 37 C 06/07/22 06:37 Pulse 81 06/07/22 06:38 Resp 16 06/07/22 06:37 BP 130/82 06/07/22 06:38 Pulse Ox 99 06/05/22 17:32 O2 Del Method Room Air 06/05/22 17:32 Results & Data ([facility]) Current Inpatient Medications Current Inpatient Medications: Current Inpatient Medications Acetaminophen (Acetaminophen 325 Mg Tab) 650 mg PO Q4H PRN PRN Reason: Headache or Minor Fever Stop: 07/05/22 17:26 Al Hydrox/Mg Hydrox/Simethicone (Aluminum/Magnesium Susp 30 Ml Udc) 30 ml PO Q4H PRN PRN Reason: GI Upset Stop: 07/05/22 17:26 Bismuth Subsalicylate (Bismuth Subsalicylate Liqd 236 Ml) 15 ml PO PRN PRN PRN Reason: Loose Stool Stop: 07/05/22 17:26 Hydroxyzine HCl (Hydroxyzine Hcl 25 Mg Tab) 25 mg PO Q4H PRN PRN Reason: Anxiety Stop: 07/05/22 17:26 Hydroxyzine HCl (Hydroxyzine Hcl 25 Mg Tab) 50 mg PO HSZ PRN PRN Reason: Insomnia Stop: 07/05/22 17:26 [place] Carbonate ([place] Carbonate 300 Mg Tab) 150 mg PO HS DELIO Stop: 07/05/22 21:59 Last Admin: 06/06/22 21:34 Dose: 150 mg Magnesium Hydroxide (Magnesium Hydroxide Susp 30 Ml Udc) 30 ml PO DAILY PRN PRN Reason: Constipation Stop: 07/05/22 17:26 Olanzapine (Olanzapine 5 Mg Tablet) 5 mg PO BID PRN PRN Reason: Anxiety/Agitation Stop: 07/05/22 17:28 Sodium Chloride (Sodium Chloride 0.65% Na Soln 45 Ml ([place])) 1 - 2 sprays NA PRN PRN PRN Reason: Nasal Dryness/Congestion Stop: 07/05/22 17:26 Mental Health & Subst Abuse Tx Therapist Name of Therapist: Marika
[2022-06-07] MEDS ORDERED: DIVALPROEX DELAY RELEASE 500 MG TAB PO ONE (11:28)
[2022-06-07] MEDS ORDERED: QUEtiapine FUMARATE 25 MG TABLET PO PRN (11:47)
[2022-06-07] MEDS: ARIPiprazole 5 MG TAB PO SCH (12:27)
[2022-06-07] MEDS: ALUMINUM/MAGNESIUM SUSP 30 ML UDC PO PRN ×2 (17:48→22:08)
[2022-06-08] MEDS: DIVALPROEX DELAY RELEASE 500 MG TAB PO SCH ×2 (08:20→20:54)
[2022-06-08] MEDS: ARIPiprazole 5 MG TAB PO SCH (08:20)
--- NOTE | 2022-06-08 13:28 | Psychiatric Progress Note ---
Date of Service June 08, 2022 Impression / Recommendations Impression 56 y/o man with apparent late-onset bipolar d/o, possibly triggered by citalopram trial last year. He was by all accounts very manic and highly interpersonally inappropriate during his admission in February, though that is not seen at this time. At present he reports primarily depressive symptoms of fatigue, anhedonia, and hopelessness but with some racing thoughts. He denies suicidal thoughts at present. By multiple reports he was unable to tolerate even low-dose lithium. His symptoms responded well to olanzapine, but with subjectively intolerable side effects. 06/08/2022: Has, somewhat tentatively, started taking aripiprazole and divalproex. Dose of the latter was started at 500 mg/day yesterday and has been increased to 500 mg BID today. Thus far, he attributes no adverse effects to this regimen. He does, however, worry about the potential for sedation, especially with regard to sedentary work activities "like using the 'scope". We discussed the lack of any evidence thus far that this is an issue - e.g., he was working on a "pretty boring" and sedentary safety plan on approach without any feeling of sedation. Addressed this prediction of failure as a cognitive distortion. Says "I'm a little better - I feel more calm". Specifically, he's "having fewer racing thoughts". 06/07/2022: Pt appears better today - less psychomotor retardation, broader range of affect. However, he is guarded about acknowledging any improvement. Remains anxious about the medication trials discussed at length yesterday. He brought up the discussion about tardive dyskinesia; I reminded him that this is a known risk with every antipsychotic but that aripiprazole is seen as having a low relative risk and that any medication likely to have any degree of rapid response would have a risk of TD as well. He eventually agrees to begin planned trials of aripiprazole and divalproex. 06/06/2022: Discussed with pt that in my opinion he appears to have a bipolar condition and that bipolar depression responds best to "mood stabilizers" and not to "antidepressants". He's already failed a trial of the unquestionably most effective mood stabilizer, lithium. Discussed divalproex as an effective mood stabilizer for which the effective range of blood level is well-established. Since this would take some time to titrate to an effective dose and to have an effect, discussed aripiprazole as a short-term intervention likely to have rapid effects. He appears to have benefited from olanzapine, and aripiprazole is likely to have a favorable side effect profile in comparison (and, unlike during his previous stay, there is no pressing need to manage manic behavior). (1) Bipolar I disorder with mixed features: Plan 06/08/2022: * continue aripiprazole 5 mg daily * continue divalproex 500 mg BID, anticipate increase to TID starting tomorrow * The patient was admitted to the [facility] ([facility] mental health unit) on q15 min checks (behavioral with suicide precautions) for safety. The patient will participate in group, recreational, and milieu therapies and will be offered additional individual and family sessions as clinically appropriate. * 06/07/2022: * start aripiprazole 5 mg daily * start divalproex 500 mg once today then BID starting tomorrow * The patient was admitted to the [facility] ([facility] health unit) on q15 min checks (behavioral with suicide precautions) for safety. The patient will participate in group, recreational, and milieu therapies and will be offered additional individual and family sessions as clinically appropriat e. Inventory Assets Strengths: supportive relationships, willing to get treatment Needs: safety and stabilization, medication adjustment, additional coping skills, increased outpatient services Suicide Risk Level Suicide Risk Level: Moderate (q15 min suicide checks) Suicide Risk Level Comments: does not voice suicidal thoughts but is having mixed bipolar symptoms, which are associated with higher risk Risk Factors Assessment Male: Yes : Yes Do You Have Access To A Gun?: No Mental Health Diagnoses: Yes Substance Use Disorders: No Previous Attempt: No Protective Factors Assessment Responsible for Young Children: Yes Employed: Yes Stable Relationships: Yes Supportive Family: Yes Interval History Identifying Information DK GARLAND is a 56-year-old M who currently lives in [place], [place] with his , has a history of 2 previous admissions for stephanie, and was admitted on 06/05/22 16:40 on a 201 voluntary commitment for depressed mood. Chief Complaint "I'm a little better!". Review of Systems Sleep Information Total Hours of Sleep: 6.5 Meal Information Percent Meal Consumed - Breakfast: 100 Percent Meal Consumed - Lunch: 80 Percent Meal Consumed - Dinner: 75 Subjective Subjective Patient was seen & assessed and interval progress reviewed with treatment team (nursing and social work) Physical Exam Psychiatric Orientation: alert, oriented to person, oriented to place, oriented to time and cooperative Apperance: appropriately dressed and appropriately groomed Eye Contact: good eye contact Motor Behavior: steady gait and station and no abnormal motor movements Speech: no pressured speech and no loud speech Affect: + anxious affect and + constricted affect Mood: + depressed mood and + anxious mood Thought Process: + circumstantial thought process and + tangential thought process Thought Content: reality based without delusions Suicidal Thoughts: denies suicidal thoughts, denies suicidal plan and denies suicidal intent Homicidal Thoughts: denies homicidal thoughts Hallucinations: no auditory hallucinations and no visual hallucinations Cognition: recent memory grossly intact and remote memory grossly intact; + attention not intact Estimated Intelligence: average estimated intelligence Insight: + fair insight Judgment: + fair judgement Vital Signs (Past 24 Hours) Last Vital Signs Temp 37.1 C 06/08/22 06:43 Pulse 83 06/08/22 06:44 Resp 16 06/08/22 06:43 BP 122/76 06/08/22 06:44 Pulse Ox 99 06/05/22 17:32 O2 Del Method Room Air 06/05/22 17:32 Results & Data ([facility]) Current Inpatient Medications Current Inpatient Medications: Current Inpatient Medications Acetaminophen (Acetaminophen 325 Mg Tab) 650 mg PO Q4H PRN PRN Reason: Headache or Minor Fever Stop: 07/05/22 17:26 Al Hydrox/Mg Hydrox/Simethicone (Aluminum/Magnesium Susp 30 Ml Udc) 30 ml PO Q4H PRN PRN Reason: GI Upset Stop: 07/05/22 17:26 Last Admin: 06/07/22 22:08 Dose: 30 ml Aripiprazole (Aripiprazole 5 Mg Tab) 5 mg PO QAM DELIO Stop: 07/07/22 11:29 Last Admin: 06/08/22 08:20 Dose: 5 mg Bismuth Subsalicylate (Bismuth Subsalicylate Liqd 236 Ml) 15 ml PO PRN PRN PRN Reason: Loose Stool Stop: 07/05/22 17:26 Divalproex Sodium (Divalproex Delay Release 500 Mg Tab) 500 mg PO BID [facility] Stop: 07/08/22 08:59 Last Admin: 06/08/22 08:20 Dose: 500 mg Hydroxyzine HCl (Hydroxyzine Hcl 25 Mg Tab) 25 mg PO Q4H PRN PRN Reason: Anxiety Stop: 07/05/22 17:26 Magnesium Hydroxide (Magnesium Hydroxide Susp 30 Ml Udc) 30 ml PO DAILY PRN PRN Reason: Constipation Stop: 07/05/22 17:26 Olanzapine (Olanzapine 5 Mg Tablet) 5 mg PO BID PRN PRN Reason: Anxiety/Agitation Stop: 07/05/22 17:28 Quetiapine Fumarate (Quetiapine Fumarate 25 Mg Tablet) 50 mg PO HS PRN PRN Reason: insomnia Stop: 07/07/22 21:59 Sodium Chloride (Sodium Chloride 0.65% Na Soln 45 Ml ([place])) 1 - 2 sprays NA PRN PRN PRN Reason: Nasal Dryness/Congestion Stop: 07/05/22 17:26 Mental Health & Subst Abuse Tx Therapist Name of Therapist: Marika E&M Selection based on Time Time Spent Minutes Spent on Pre-Visit Items: 8 Minutes Spent During Visit: 26 Minutes Spent Post-Visit: 14 Total Minutes Spent: 48
[2022-06-09] MEDS: ARIPiprazole 5 MG TAB PO SCH (08:23)
[2022-06-09] MEDS: DIVALPROEX DELAY RELEASE 500 MG TAB PO SCH ×3 (08:58→20:51)
--- NOTE | 2022-06-09 10:48 | Psychiatric Progress Note ---
Date of Service June 09, 2022 Impression / Recommendations Impression 56 y/o man with apparent late-onset bipolar d/o, possibly triggered by citalopram trial last year. He was by all accounts very manic and highly interpersonally inappropriate during his admission in February, though that is not seen at this time. At present he reports primarily depressive symptoms of fatigue, anhedonia, and hopelessness but with some racing thoughts. He denies suicidal thoughts at present. By multiple reports he was unable to tolerate even low-dose lithium. His symptoms responded well to olanzapine, but with subjectively intolerable side effects. 06/09/2022: Pt says he's "definitely feeling better". He is no longer having any racing thoughts. Reports no new or worse problems. Tolerating divalproex well during rapid titration. Notes no adverse effects, including sedation or GI upset. Discussed therapeutic trough level range of 80- 120 g/mL as well as that by any measure of half-life (terminal, "functional", "effective", etc.) it would take several days to reach steady-state. However, also discussed a premature blood level as a "sanity check" on dosing. 06/08/2022: Has, somewhat tentatively, started taking aripiprazole and divalproex. Dose of the latter was started at 500 mg/day yesterday and has been increased to 500 mg BID today. Thus far, he attributes no adverse effects to this regimen. He does, however, worry about the potential for sedation, especially with regard to sedentary work activities "like using the 'scope". We discussed the lack of any evidence thus far that this is an issue - e.g., he was working on a "pretty boring" and sedentary safety plan on approach without any feeling of sedation. Addressed this prediction of failure as a cognitive distortion. Says "I'm a little better - I feel more calm". Specifically, he's "having fewer racing thoughts". 06/07/2022: Pt appears better today - less psychomotor retardation, broader range of affect. However, he is guarded about acknowledging any improvement. Remains anxious about the medication trials discussed at length yesterday. He brought up the discussion about tardive dyskinesia; I reminded him that this is a known risk with every antipsychotic but that aripiprazole is seen as having a low relative risk and that any medication likely to have any degree of rapid response would have a risk of TD as well. He eventually agrees to begin planned trials of aripiprazole and divalproex. 06/06/2022: Discussed with pt that in my opinion he appears to have a bipolar condition and that bipolar depression responds best to "mood stabilizers" and not to "antidepressants". He's already failed a trial of the unquestionably most effective mood stabilizer, lithium. Discussed divalproex as an effective mood stabilizer for which the effective range of blood level is well-established. Since this would take some time to titrate to an effective dose and to have an effect, discussed aripiprazole as a short-term intervention likely to have rapid effects. He appears to have benefited from olanzapine, and aripiprazole is likely to have a favorable side effect profile in comparison (and, unlike during his previous stay, there is no pressing need to manage manic behavior). (1) Bipolar I disorder with mixed features: Plan 06/09/2022: 2022: * continue aripiprazole 5 mg daily * continue divalproex 500 mg TID * valproate level in AM (recognizing this as premature in terms of pharmacokinetics) * The patient was admitted to the [facility] ([facility] mental health unit) on q15 min checks (behavioral with suicide precautions) for safety. The patient will participate in group, recreational, and milieu therapies and will be offered additional individual and family sessions as clinically appropriate. 06/08/2022: * continue aripiprazole 5 mg daily * continue divalproex 500 mg BID, anticipate increase to TID starting tomorrow * The patient was admitted to the [facility] ([facility] mental health unit) on q15 min checks (behavioral with suicide precautions) for safety. The patient will participate in group, recreational, and milieu therapies and will be offered additional individual and family sessions as clinically appropri ate. * 06/07/2022: * start aripiprazole 5 mg daily * start divalproex 500 mg once today then BID starting tomorrow * The patient was admitted to the [facility] ([facility]) on q15 min checks (behavioral with suicide precautions) for safety. The patient will participate in group, recreational, and milieu therapies and will be offered additional individual and family sessions as clinically appropriate. Inventory Assets Strengths: supportive relationships, willing to get treatment Needs: safety and stabilization, medication adjustment, additional coping skills, increased outpatient services Suicide Risk Level Suicide Risk Level: Moderate (q15 min suicide checks) Suicide Risk Level Comments: does not voice suicidal thoughts but is very anxious Risk Factors Assessment Male: Yes : Yes Do You Have Access To A Gun?: No Mental Health Diagnoses: Yes Substance Use Disorders: No Previous Attempt: No Protective Factors Assessment Responsible for Young Children: Yes Employed: Yes Stable Relationships: Yes Supportive Family: Yes Interval History Identifying Information DK GARLAND is a 56-year-old M who currently lives in [place], [place] with his , has a history of 2 previous admissions for stephanie, and was admitted on 06/05/22 16:40 on a 201 voluntary commitment for depressed mood. Chief Complaint "Definitely feeling better today". Review of Systems Sleep Information Total Hours of Sleep: 7.5 Meal Information Percent Meal Consumed - Breakfast: 100 Percent Meal Consumed - Lunch: 80 Percent Meal Consumed - Dinner: 90 Subjective Subjective Patient was seen & assessed and interval progress reviewed with treatment team (nursing and social work) Physical Exam Psychiatric Orientation: alert, oriented to person, oriented to place, oriented to time and cooperative Apperance: appropriately dressed and appropriately groomed Eye Contact: good eye contact Motor Behavior: steady gait and station and no abnormal motor movements Speech: normal rate/rhythm/volume of speech; no pressured speech and no loud speech Affect: + anxious affect Mood: + depressed mood and + anxious mood Thought Process: goal directed thought process, linear/logical thought process and clear/coherent thought process Thought Content: reality based without delusions Suicidal Thoughts: denies suicidal thoughts, denies suicidal plan and denies suicidal intent Homicidal Thoughts: denies homicidal thoughts Hallucinations: no auditory hallucinations and no visual hallucinations Cognition: recent memory grossly intact and remote memory grossly intact; + attention not intact Estimated Intelligence: average estimated intelligence Insight: + fair insight Judgment: + fair judgement Vital Signs (Past 24 Hours) Last Vital Signs Temp 37.1 C 06/09/22 06:49 Pulse 89 06/09/22 06:49 Resp 16 06/09/22 06:49 BP 124/79 06/09/22 06:49 Pulse Ox 99 06/05/22 17:32 O2 Del Method Room Air 06/05/22 17:32 Results & Data ([facility]) Current Inpatient Medications Current Inpatient Medications: Current Inpatient Medications Acetaminophen (Acetaminophen 325 Mg Tab) 650 mg PO Q4H PRN PRN Reason: Headache or Minor Fever Stop: 07/05/22 17:26 Al Hydrox/Mg Hydrox/Simethicone (Aluminum/Magnesium Susp 30 Ml Udc) 30 ml PO Q4H PRN PRN Reason: GI Upset Stop: 07/05/22 17:26 Last Admin: 06/07/22 22:08 Dose: 30 ml Aripiprazole (Aripiprazole 5 Mg Tab) 5 mg PO QAM DELIO Stop: 07/07/22 11:29 Last Admin: 06/09/22 08:23 Dose: 5 mg Bismuth Subsalicylate (Bismuth Subsalicylate Liqd 236 Ml) 15 ml PO PRN PRN PRN Reason: Loose Stool Stop: 07/05/22 17:26 Divalproex Sodium (Divalproex Delay Release 500 Mg Tab) 500 mg PO TID [facility] Stop: 07/09/22 08:59 Last Admin: 06/09/22 08:58 Dose: 500 mg Hydroxyzine HCl (Hydroxyzine Hcl 25 Mg Tab) 25 mg PO Q4H PRN PRN Reason: Anxiety Stop: 07/05/22 17:26 Magnesium Hydroxide (Magnesium Hydroxide Susp 30 Ml Udc) 30 ml PO DAILY PRN PRN Reason: Constipation Stop: 07/05/22 17:26 Olanzapine (Olanzapine 5 Mg Tablet) 5 mg PO BID PRN PRN Reason: Anxiety/Agitation Stop: 07/05/22 17:28 Quetiapine Fumarate (Quetiapine Fumarate 25 Mg Tablet) 50 mg PO HS PRN PRN Reason: insomnia Stop: 07/07/22 21:59 Sodium Chloride (Sodium Chloride 0.65% Na Soln 45 Ml ([place])) 1 - 2 sprays NA PRN PRN PRN Reason: Nasal Dryness/Congestion Stop: 07/05/22 17:26 Mental Health & Subst Abuse Tx Therapist Name of Therapist: Marika E&M Selection based on Time Time Spent Minutes Spent on Pre-Visit Items: 12 (multidisciplinary treatment team meeting, review of record, including reading nursing and social work notes) Minutes Spent During Visit: 23 (interview, medication education, supportive psychotherapy using cognitive-behavioral tools including addressing cognitive distortions) Minutes Spent Post-Visit: 9 (documentation, communication with relevant members of the treatment team) Total Minutes Spent: 44
[2022-06-10] MEDS: DIVALPROEX DELAY RELEASE 500 MG TAB PO SCH (09:53)
[2022-06-10] MEDS: ARIPiprazole 5 MG TAB PO SCH (09:53)
--- NOTE | 2022-06-10 11:06 | Discharge Summary ---
Date of Service June 10, 2022 History of Present Illness As part of a thorough review of the medical record, I have reviewed and confirmed the following note by the ED psychiatric case operator: ED psychiatric case operator: "Met with pt and his to complete mental health evaluation. Pt states he has been struggling more and more since mid-April. He has started having some issues with his sleep that he considered to be "fine" since he was still getting more sleep than he was when he was manic. His reports he has been waking almost daily around 4am and not going back to sleep. This is not normal for him. She also reports he has been having more depression symptoms in which he is lethargic and doesn't want to do anything. He doesn't want to do the things he use to enjoy and has been having increased anxiety about daily things. He had been seeing a therapist at [facility] but felt this was unhelpful as the therapist kept telling him she didn't know what to do with him as she usually treats addiction. She sent him to addiction group therapy and continually cancelled appointments before quitting. The pt is scheduled on 06/16/22 with another therapist at [facility] and is also scheduled for 06/26/22 with a [facility] as they were not overly impressed with the care given at [facility] the first time. He has been seeing Rachelle at [facility] for medication management and has an appointment on 06/11/22. He reports he was on 300mg of lithium split morning and night but this was reduced to 150mg at night due to the pt feeling lethargic. Pt's expressed concerns for pt safety due to him making several statements to her about not knowing what he will do if he doesn't get better. Pt stated he has not directly thought about killing himself but has had the thought that if he were to kill himself, he would be at peace and his brain wouldn't be constantly running. Pt also stated to [facility] that he worries about his safety at home due to feeling like he isn't in control of his brain right now. He describes this feeling as "buzzy", which his states in the same description he used shortly before entering the manic state he was in last January. They would like inpatient treatment at this time. Met with pt with Dr. Barragan. Pt reports he is not in as bad of shape as what he was the last time he was in the ED, but he has been having non-stop racing thoughts which scared him into coming to get an evaluation. He stated he has two prior episodes of intense stephanie in which he cannot even recall most of the events. When asked if he is suicidal the pt states "I like to think I'm not, like I'm smart enough not to do that but anything to make this stop." Pt does not answer directly if he is thinking about suicide, but does state that he does not have any plans for suicide or to harm himself. Denies HI/Hallucinations at this time. Pt is prescribed 150mg Alpine [place] and reports he is compliant with taking it. He has been sleeping well, but has been eating less. He states he is eating less due to anxiety/nerves and fear he will get sick. Pt denies drug and alcohol use." Since pt's discharge from this unit on 03 March 2022, he was started on LiCO3 300 mg daily (on which a level was only 0.3 mmol/L). Due to a complaint of sedation, it was reduced to 150 mg daily (which explains the level in the ED of 0.1 mmol/L). Olanzapine at discharge was 5 mg QAM & 15 mg QHS but he "felt like my brain was mush" so it was reduced. It appears that as the dose was reduced, his mood symptoms (in this case primarily depressive) worsened. He attempted to go back to work and did well when he was doing 3 4-hour days but felt overwhelmed when that was changed to 3 8-hour days. I spoke with pt's for over an hour to try to sort out the detailed time course of medication changes and symptoms. Unfortunately, there appears to be a degree of mismatch between how things are presented now as compared to the previous 2 admissons. What is consistent is the report of no mood symptoms previous to last fall, when he began to sleep less and have racing thoughts, reported his "body buzzing", and was distracted and somewhat confused. Medications tried seem to have been promising at first but, eventually, it was eventually decided they weren't working or tolerated and were changed. When medications weren't tolerated, it was always due to "fatigue". The only psychiatric medications tried have been citalopram, olanzapine, and lithium. On exam, pt is pleasant and strives to cooperate but presents as bewildered and distracted. He reports racing thoughts. Speech is vague and circuitous but not pressured. Pt does not present any psychomotor agitation nor much psychomotor retardation. He is oriented but displays scant insight into his symptoms or how problematic they've been. Physical Exam Psychiatric Orientation: alert, oriented to person, oriented to place, oriented to time and cooperative Apperance: appropriately dressed and appropriately groomed Eye Contact: good eye contact Motor Behavior: steady gait and station and no abnormal motor movements Speech: normal rate/rhythm/volume of speech; no pressured speech and no loud speech Affect: + anxious affect and + constricted affect Mood: + depressed mood and + anxious mood Thought Process: goal directed thought process, linear/logical thought process and clear/coherent thought process Thought Content: reality based without delusions Suicidal Thoughts: denies suicidal thoughts, denies suicidal plan and denies suicidal intent Homicidal Thoughts: denies homicidal thoughts Hallucinations: no auditory hallucinations and no visual hallucinations Cognition: recent memory grossly intact and remote memory grossly intact; + attention not intact Estimated Intelligence: average estimated intelligence Insight: + fair insight Judgment: + fair judgement Vital Signs (Past 24 Hours) Last Vital Signs Temp 37 C 06/10/22 06:39 Pulse 81 06/10/22 06:39 Resp 16 06/10/22 06:39 BP 117/78 06/10/22 06:39 Pulse Ox 99 06/05/22 17:32 O2 Del Method Room Air 06/05/22 17:32 See admission H&P and DOD assessment. Principal Diagnosis Bipolar I Disorder, Mixed Psychiatric Data See daily stay summary. In short, safety was maintained and the patient was cooperative with care. Medication changes included discontinuation of lithium and addition of aripiprazolea and divalproex and they tolerated this well. A family session was [held] and safety plan was completed prior to discharge. 56 y/o man with apparent late-onset bipolar d/o, possibly triggered by citalopram trial last year. He was by all accounts very manic and highly interpersonally inappropriate during his admission in February, though that is not seen at this time. At present he reports primarily depressive symptoms of fatigue, anhedonia, and hopelessness but with some racing thoughts. He denies suicidal thoughts at present. By multiple reports he was unable to tolerate even low-dose lithium. His symptoms responded well to olanzapine, but with subjectively intolerable side effects. 06/09/2022: Pt says he's "definitely feeling better". He is no longer having any racing thoughts. Reports no new or worse problems. Tolerating divalproex well during rapid titration. Notes no adverse effects, including sedation or GI upset. Discussed therapeutic trough level range of 80- 120g/mL as well as that by any measure of half-life (terminal, "functional", "effective", etc.) it would take several days to reach steady-state. However, also discussed a premature blood level as a "sanity check" on dosing. 06/08/2022: Has, somewhat tentatively, started taking aripiprazole and divalproex. Dose of the latter was started at 500 mg/day yesterday and has been increased to 500 mg BID today. Thus far, he attributes no adverse effects to this regimen. He does, however, worry about the potential for sedation, especially with regard to sedentary work activities "like using the '[employer] [employer]". We discussed the lack of any evidence thus far that this is an issue - e.g., he was working on a "pretty boring" and sedentary safety plan on approach without any feeling of sedation. Addressed this prediction of failure as a cognitive distortion. Says "I'm a little better - I feel more calm". Specifically, he's "having fewer racing thoughts". 06/07/2022: Pt appears better today - less psychomotor retardation, broader range of affect. However, he is guarded about acknowledging any improvement. Remains anxious about the medication trials discussed at length yesterday. He brought up the discussion about tardive dyskinesia; I reminded him that this is a known risk with every antipsychotic but that aripiprazole is seen as having a low relative risk and that any medication likely to have any degree of rapid response would have a risk of TD as well. He eventually agrees to begin planned trials of aripiprazole and divalproex. 06/06/2022: Discussed with pt that in my opinion he appears to have a bipolar condition and that bipolar depression responds best to "mood stabilizers" and not to "antidepressants". He's already failed a trial of the unquestionably most effective mood stabilizer, lithium. Discussed divalproex as an effective mood stabilizer for which the effective range of blood level is well-established. Since this would take some time to titrate to an effective dose and to have an effect, discussed aripiprazole as a short-term intervention likely to have rapid effects. He appears to have benefited from olanzapine, and aripiprazole is likely to have a favorable side effect profile in comparison (and, unlike during his previous stay, there is no pressing need to manage manic behavior). Day of Discharge Assessment Today the patient voices readiness for discharge. They note improvement in mood and deny thoughts to harm self or others. Thoughts remain organized and they are improved from admission. There is no evidence of psychosis. They agree to take mediations as prescribed and keep follow-up appointments. They are stable for discharge to outpatient level of care. Advance Directives Advance Directives Information Provided: Yes Advance Directives: No Mental Health Advance Directive: No Advance Directives on File: No Living Will: No Power of Ux Lead: No Advance Directives Reason:: Declines as Mental Health Visit. Suicide Risk Level Suicide Risk Level Comments: does not voice suicidal thoughts but is very anxious Risk Factors Assessment Male: Yes : Yes Do You Have Access To A Gun?: No Mental Health Diagnoses: Yes Substance Use Disorders: No Previous Attempt: No Protective Factors Assessment Responsible for Young Children: Yes Employed: Yes Stable Relationships: Yes Supportive Family: Yes Total Time Total Time Spent: Greater Than 30 Minutes Total Time Includes: Examination of the patient, Discharge Planning, Medication Reconciliation, Communication with other providers and As well as (documentat ion) Discharge Data Lab Results 06/05/22 06/05/22 06/05/22 14:06 14:06 14:06 WBC 6.91 RBC 4.46 L Hgb 14.5 Hct 39.9 L MCV 89.5 MCH 32.5 MCHC 36.3 H RDW Std Deviation 37.4 RDW Coeff of Toño 11.4 L Plt Count 192 MPV 8.7 L Immature Gran % (Auto) 0.1 Neut % (Auto) 69.3 Lymph % (Auto) 24.7 [place] % (Auto) 4.9 Eos % (Auto) 0.3 Baso % (Auto) 0.7 Neut # (Auto) 4.78 Lymph # (Auto) 1.71 [place] # (Auto) 0.34 Eos # (Auto) 0.02 Baso # (Auto) 0.05 Immature Gran # (Auto) 0.01 Sodium 137 Potassium 4.0 Chloride 101 Carbon Dioxide 29 Anion Gap 7 BUN 12 Creatinine 0.94 Est Cr Clr Drug Dosing 88.4 Est GFR ( Amer) 103.2 Est GFR (Non-Af Amer) 89.0 BUN/Creatinine Ratio 12.8 Glucose 91 Calcium 9.7 Total Bilirubin 1.1 H AST 24 ALT 31 Alkaline Phosphatase 69 Total Protein 7.8 Albumin 5.0 Globulin 2.8 Albumin/Globulin Ratio 1.8 TSH 2.849 Urine Color Urine Appearance Urine pH Ur Specific [place] Urine Protein Urine Glucose (UA) Urine Ketones Urine Blood Urine Nitrite Urine Bilirubin Urine Urobilinogen Ur Leukocyte Esterase Urine WBC (Auto) Urine RBC (Auto) U Hyaline Cast (Auto) U Epithel Cells (Auto) Urine Bacteria (Auto) Salicylates Urine Opiates Screen Ur Methadone, Qual Acetaminophen Urine Barbiturates Ur Phencyclidine (PCP) U Amphetamin/Meth Scrn MDMA (Ecstasy) Screen U Benzodiazepines Scrn [place] Ur Cocaine Metabolite U Marijuana (THC) Screen Ethyl Alcohol mg/dL SARS-CoV-2, RNA, NAAT 06/05/22 06/05/22 06/05/22 14:06 14:06 14:06 WBC RBC Hgb Hct MCV MCH MCHC RDW Std Deviation RDW Coeff of Toño Plt Count MPV Immature Gran % (Auto) Neut % (Auto) Lymph % (Auto) [place] % (Auto) Eos % (Auto) Baso % (Auto) Neut # (Auto) Lymph # (Auto) [place] # (Auto) Eos # (Auto) Baso # (Auto) Immature Gran # (Auto) Sodium Potassium Chloride Carbon Dioxide Anion Gap BUN Creatinine Est Cr Clr Drug Dosing Est GFR ( Amer) Est GFR (Non-Af Amer) BUN/Creatinine Ratio Glucose Calcium Total Bilirubin AST ALT Alkaline Phosphatase Total Protein Albumin Globulin Albumin/Globulin Ratio TSH Urine Color Yellow Urine Appearance Clear Urine pH 6.5 Ur Specific [place] 1.010 Urine Protein Negative Urine Glucose (UA) Negative Urine Ketones Negative Urine Blood Negative Urine Nitrite Negative Urine Bilirubin Negative Urine Urobilinogen Negative Ur Leukocyte Esterase Trace H Urine WBC (Auto) 0 Urine RBC (Auto) 0-4 U Hyaline Cast (Auto) 0 U Epithel Cells (Auto) 0-5 Urine Bacteria (Auto) Negative Salicylates Urine Opiates Screen Neg Ur Methadone, Qual Neg Acetaminophen Urine Barbiturates Neg Ur Phencyclidine (PCP) Neg U Amphetamin/Meth Scrn Neg MDMA (Ecstasy) Screen Neg U Benzodiazepines Scrn Neg [place] Ur Cocaine Metabolite Neg U Marijuana (THC) Screen Neg Ethyl Alcohol mg/dL < 10.0 SARS-CoV-2, RNA, NAAT 06/05/22 06/05/22 14:14 14:15 WBC RBC Hgb Hct MCV MCH MCHC RDW Std Deviation RDW Coeff of Toño Plt Count MPV Immature Gran % (Auto) Neut % (Auto) Lymph % (Auto) [place] % (Auto) Eos % (Auto) Baso % (Auto) Neut # (Auto) Lymph # (Auto) [place] # (Auto) Eos # (Auto) Baso # (Auto) Immature Gran # (Auto) Sodium Potassium Chloride Carbon Dioxide Anion Gap BUN Creatinine Est Cr Clr Drug Dosing Est GFR ( Amer) Est GFR (Non-Af Amer) BUN/Creatinine Ratio Glucose Calcium Total Bilirubin AST ALT Alkaline Phosphatase Total Protein Albumin Globulin Albumin/Globulin Ratio TSH Urine Color Urine Appearance Urine pH Ur Specific [place] Urine Protein Urine Glucose (UA) Urine Ketones Urine Blood Urine Nitrite Urine Bilirubin Urine Urobilinogen Ur Leukocyte Esterase Urine WBC (Auto) Urine RBC (Auto) U Hyaline Cast (Auto) U Epithel Cells (Auto) Urine Bacteria (Auto) Salicylates < 3.0 L Urine Opiates Screen Ur Methadone, Qual Acetaminophen < 3 L Urine Barbiturates Ur Phencyclidine (PCP) U Amphetamin/Meth Scrn MDMA (Ecstasy) Screen U Benzodiazepines Scrn [place] 0.1 L Ur Cocaine Metabolite U Marijuana (THC) Screen Ethyl Alcohol mg/dL SARS-CoV-2, RNA, NAAT NEGATIVE Hospital Course (1) Bipolar I disorder with mixed features: Plan 06/09/2022: * continue aripiprazole 5 mg daily * continue divalproex 500 mg TID * valproate level in AM (recognizing this as premature in terms of pharmacokinetics) * The patient was admitted to the [facility] on q15 min checks (behavioral with suicide precautions) for safety. The patient will participate in group, recreational, and milieu therapies and will be offered additional individual and family sessions as clinically appropriate. 06/08/2022: * continue aripiprazole 5 mg daily * continue divalproex 500 mg BID, anticipate increase to TID starting tomorrow * The patient was [facility] to the [facility] on q15 min checks (behavioral with suicide precautions) for safety. The patient will participate in group, recreational, and milieu therapies and will be offered additional individual and family sessions as clinically appropriate. * 06/07/2022: * start aripiprazole 5 mg daily * start divalproex 500 mg once today then BID starting tomorrow * The patient was admitted to the [facility] on q15 min checks (behavioral with suicide precautions) for safety. The patient will participate in group, recreational, and milieu therapies and will be offered additional individual and family sessions as clinically appropriate. Mental Health & Subst Abuse Tx Psychiatrist Name of Psychiatrist: [facility]rist's Date Of Appointment With Psychiatric Provider: 06/11/2022 Time of Appointment with Psychiatrist: 2:45pm Psychiatric Appointment Comment: [address] [place] [address] Therapist Name of Therapist: [facility]'s Date of Therapist Appointment: 06/16/2022 Time of Therapist Appointment: 4pm Therapy Appointment Comment: [address], [address], [place] [address] Post Discharge Appointments Primary Care Physician Name Of Family Doctor/PCP: [facility] Time of Appointment with PCP: please follow up as needed Provider Appointment Comment: [address] [place] [address] Other #1: Name of Aftercare Appointment: [facility] Phone Number of Aftercare Appointment: [phone] Date of Aftercare Appointment: 06/26/22 Aftercare Appointment Comment: [address] [place] [address] Contact Information Discharge //[phone] Discharge [address]: [address] [place] [address] , [place] [address] Discharge Plan Discharge Items Patient Disposition: Home - Self-Care Reason For Visit: UNSPECIFIED MOOD D/O Discharge Diagnosis: Bipolar I Disorder, Mixed Activity: Resume your previous activity Non-emergency contact: Primary Care Provider and Psychiatrist Call non-emergency contact if: you have any medication questions and your symptoms worsen Follow-up/Referrals: Craig Otero [Primary Care Provider] - Diet: Regular Addtl Attending Provider Instructions: SPECIAL CARE INSTRUCTIONS: 1. Follow through with your scheduled aftercare appointments. If unable to keep an appointment, please call to reschedule. 2. Take your medication only as prescribed. Medication should not be changed or stopped without the approval of your doctor. In the event of worsening symptoms or concerns about side effects, contact your doctor immediately. 3. Utilize new healthy coping skills, anger management skills, and stress management skills learned during your hospitalization. Journal feelings and process them with a support person. Identify stressors or situations that may result in relapse, deterioration or inappropriate behaviors and develop a plan to deal with those issues. 4. If your coping skills are ineffective and you are in crisis, contact your outpatient providers for direction. If unable to reach your providers, please call the [facility] CRISIS LINE AT , go to the [facility] walk-in center at [address] [place] [address] [facility], or go to the closest Emergency Room. 5. Avoid alcohol and un-prescribed drugs. 6. You have been provided with the Mental Health Advance Directives Pamphlet for your review. 7. Your condition is stable for discharge to outpatient level of care, but recovery is an ongoing process. Ifthoughts to harm yourself or others return, follow the safety plan developed during your stay. Planning for a safe return home includes securing weapons. Our treatment team recommends weaponsbe removed from the home until your outpatient provider reassesses your progress. In rare cases where the items themselvescannot be removed, guns and ammunitionshould be secured separatelyand keys stored by a reliable personoutside of the home. If you were admitted on an involuntary commitment, the police or other legal authorities may be involved in this process. AFTERCARE APPOINTMENTS: * Please call your insurance company prior to your scheduled appointment to confirm your aftercare providers are covered. Take your insurance information to your appointments. WHO TO CALL AND WHEN: Medical Emergencies: For questions or emergencies related to your hospital stay, please contact the Inpatient Behavioral Health Unit at [phone]. A care clinician is on-call 19/10 for the Behavioral Health Unit for emergencies At any time you feel your situation is an emergency, you may also call 911 immediately. RETURN TO WORK: I recommend a gradual return, starting with a few half-days per week and increasing the number of half-days prior to increasing to any full days. Pending Studies at Discharge: Yes Studies:: valproate level ([id number]) Stand-Alone Forms: My [facility], Smoking Cessation Medications and DC Order Prescriptions: New aripiprazole [Abilify] 5 mg Tablet 5 mg PO QAM 30 Days Qty: 30 0RF divalproex 500 mg Tablet,Delayed Release (Dr/Ec) 1,000 mg PO QPM 30 Days Qty: 60 0RF divalproex 500 mg Tablet,Delayed Release (Dr/Ec) 500 mg PO QAM 30 Days Qty: 30 0RF Continued cyclobenzaprine 10 mg tablet 10 mg PO TID PRN (Reason: muscle spasms) rosuvastatin 5 mg tablet 2.5 mg PO DAILY Discontinued lithium carbonate 150 mg capsule 150 mg PO DAILY Discharge Orders: Discharge Order (Routine); Ordered 06/10/22 Ordered By: Keyshawn Stanley Admission Data Admit Date/Time: 06/05/22 16:40 Attending Provider: Keyshawn Stanley Admit Provider: Surekha Byers Primary Care Provider: Craig Otero Other Interventions: PSY Interdisciplinary Discharge Planning Last Done: 06/10/22 09:29 Coding Level of Care Code 04417 D/C day mgmt > 30 min Diagnoses Bipolar I disorder with mixed features F31.9 Time Spent (min) 36
[2022-06-10] MEDS ORDERED: DIVALPROEX DELAY RELEASE 500 MG TAB PO SCH (21:00)
[2022-06-11] MEDS ORDERED: DIVALPROEX DELAY RELEASE 500 MG TAB PO SCH (09:00)
== END 2022-06-10 16:22 | disposition home or self-care (01) | DRG 885 ==
LOC: ED 13:24 → 3S 16:40

== ENCOUNTER 2024-01-16 15:25 | Inpatient (IN) ==
--- NOTE | 2024-01-16 16:11 | Emergency Department Note ---
Impression & Plan Depression with suicidal ideation ED Provider Note Provider: Yandel Nolasco MD DATE OF SERVICE: 01/16/2024 CHIEF COMPLAINT: Depressed and suicidal HISTORY OF PRESENT ILLNESS: Patient is a 58-year-old gentleman with history of bipolar 2 prior inpatient hospitalizations presenting today with . Has been following closely outpatient setting with psychiatry at some point and Dr. Ghotra. Patient has had multiple medication changes over the last 2 years since his initial hospitalization and diagnosis. Has had a lot of depression issues send over the last 3 weeks or so has had increased anxiety and depression and is feeling hopeless and having suicidal thoughts. States he started to think about plan and is concerned he may try to harm himself. No history of suicide attempts in the past. Patient without reported drug or alcohol issues. Has had recent medication changes including increased Vraylar dosing and just starting Wellbutrin but no improvement. Sleep a night and he using his Ativan for anxiety regularly. Some decreased appetite. No hallucinations or HI reported PAST MEDICAL HISTORY: As noted above MEDICATIONS: Reviewed home medication SOCIAL HISTORY: PHYSICAL EXAM: GENERAL: alert and oriented in no acute distress on stretcher Head: normocephalic and atraumatic EYES: No injection, discharge or icterus. EOMI. NECK: Trachea midline. ENT: Mucous membranes pink and moist. LUNGS: Airway patent. No retractions. Breath sounds clear with good air entry bilaterally. HEART: Regular rate and rhythm. No chest wall tenderness SKIN: Acyanotic, warm, dry, without rashes EXTREMITIES: Without swelling, tenderness or deformity NEUROLOGICAL: No focal deficits. No aphasia. No facial droop or slurred speech. Normal strength and tone in the extremities. Sensation to gross touch normal. Ambulatory. Psych: Flat affect. Not the best eye contact. Reports depression hopelessness and some suicidal thoughts. States has thought of some plans but does not elaborate. Not responding to stimuli denies hallucinations. No HI reported. Patient's laboratory studies reviewed. Differential includes Mood disorder, infection, hypoglycemia, electrolyte abnormalities, cardiac sources, intracerebral event, toxicologic, trauma, neurologic, as well as other pathologies. IMPRESSION/MEDICAL DECISION MAKING: Patient psychiatric history and reported ongoing issues with depression worsening now with worsening anxiety and decreased appetite. Suicidal thoughts have evolved. Here for further care. Has outpatient treatment and has had medication changes not helping. Seen with case management. Blood work obtained. No significant abnormalities notable with a little bit of borderline elevated LFTs; he has had similar in the past and no other significant hepatitis symptoms related. No significant physical complaints reported and no drug and alcohol issues reported. Seeking voluntary inpatient treatment given the severity of his depression and suicidal thoughts believe this is reasonable. Referrals will be made. Evaluated by and accepted to 3 S. further inpatient care on voluntary basis. DIAGNOSIS: Depression and suicidal ideation DISPOSITION: 3 S. further psychiatric treatment. Past Med/Surg History Problem List (Updated 01/16/24 @ 23:39 by Yandel Nolasco M.D.) Depression with suicidal ideation (Acute) Tight posterior capsule of shoulder Memory changes Cognitive and neurobehavioral dysfunction LVH (left ventricular hypertrophy) Family history of coronary artery disease Hypercholesterolemia Bipolar I disorder with mixed features (Acute) Medical History (Updated 01/16/24 @ 23:39 by Yandel Nolasco M.D.) Lab test negative for COVID-19 virus Anxiety TSH elevation Hillary Encephalopathy Altered mental status Hx of hemorrhoids Hx of shigellosis Sinusitis Family History Other Family history non-contributory Social History Smoking Status: Never smoker Hx Alcohol Use: No Hx Substance Use: No Preferred Language: Togolese Communication Ability: Effective College Teacher Required: No Beliefs That Will Affect Care: None marital status: Current Living Situation: Spouse Current Living Situation Comment: home with spouse. current occupational status: employed Feels Safe at Home: Yes Gender Identity: Male Assistive Devices: Glasses Allergies Allergies Allergy/AdvReac Type Severity Reaction Status Date / Time citalopram [From Celexa] AdvReac Unknown Unknown Verified 01/16/24 17:41 SNRIs AdvReac Unknown Uncoded 01/16/24 17:41 SSRIs AdvReac Unknown Uncoded 01/16/24 17:41 Home Meds Home Medications Medication Instructions Recorded Confirmed rosuvastatin 5 mg tablet 2.5 mg PO QPM 03/01/22 01/16/24 buspirone 30 mg tablet 20 mg PO BID 06/01/23 01/16/24 multivitamin (Multiple Vitamins 1 tab PO 4XWK 06/01/23 01/16/24 tablet) bupropion HCl 100 mg tablet,12 hr 100 mg PO QAM 01/16/24 01/16/24 sustained-release (Wellbutrin SR) cariprazine 3 mg capsule (Vraylar) 3 mg PO QAM 01/16/24 01/16/24 cholecalciferol (vitamin D3) 50 2,000 unit PO 4XWK 01/16/24 01/16/24 mcg (2,000 unit) capsule (Vitamin D3) lamotrigine 150 mg tablet 150 mg PO HS 01/16/24 01/16/24 (Lamictal) lorazepam 0.5 mg tablet (Ativan) 0.5 mg PO TID PRN Anxiety 01/16/24 01/16/24 vitamin B complex (Vitamins B 1 cap PO 3XWK 01/16/24 01/16/24 Complex capsule) Results & Data (ED) Vital Signs Vital Signs - 24 hr 01/16/24 15:31 Pulse Rate 94 H Respiratory Rate 16 Respiratory Effort / Characteristics Non-Labored Spontaneous Respiratory Depth Normal Blood Pressure 163/96 H Blood Pressure Mean 118 Pulse Oximetry 97 Oxygen Delivery Method Room Air Sepsis Recent Fever Within 48 Hours No Sepsis New/Unexplained Change in Mental Status No Sepsis Action Taken by Nursing No Action Required Laboratory Data 01/16/24 15:50 01/16/24 15:50 Lab Results 01/16/24 01/16/24 Range/Units 15:49 15:50 WBC 7.26 (4.8-10.8) K/ul RBC 4.87 (4.70-6.10) M/uL Hgb 15.6 (14.0-18.0) g/dl Hct 44.0 (42.0-52.0) % MCV 90.3 (80.0-100.0) fL MCH 32.0 (25.0-34.0) pg MCHC 35.5 (32.0-36.0) g/dL RDW Std Deviation 38.5 (36.4-46.3) fL RDW Coeff of Toño 11.7 (11.5-14.5) % Plt Count 220 (130-400) K/uL MPV 8.3 L (9.4-12.4) fL Immature Gran % (Auto) 0.3 % Neut % (Auto) 66.2 % Lymph % (Auto) 27.0 % Dougherty % (Auto) 5.5 % Eos % (Auto) 0.6 % Baso % (Auto) 0.4 % Neut # (Auto) 4.81 (1.40-6.50) K/uL Lymph # (Auto) 1.96 (1.20-3.40) K/uL Dougherty # (Auto) 0.40 (0.11-0.59) K/uL Eos # (Auto) 0.04 (0.00-0.50) K/uL Baso # (Auto) 0.03 (0.00-0.20) K/uL Immature Gran # (Auto) 0.02 (0.01-0.20) K/uL Sodium 141 (136-145) mmol/L Potassium 3.4 L (3.5-5.1) mmol/L Chloride 102 (98-107) mmol/L Carbon Dioxide 32 (21-32) mmol/L Anion Gap 7 (3-11) BUN 13 (6-23) mg/dl Creatinine 0.98 (0.6-1.4) mg/dl Est Cr Clr Drug Dosing 82.8 ml/min eGFR 88.28 BUN/Creatinine Ratio 13.3 (10-20) Glucose 94 (70-99(Fasting)) mg/dl Calcium 10.2 (8.6-10.3) mg/dl Total Bilirubin 0.6 (0.2-1.0) mg/dl AST 45 H (13-39) U/L ALT 120 H (7-52) U/L Alkaline Phosphatase 115 H (34-104) U/L Total Protein 8.7 H (6.0-8.3) gm/dl Albumin 5.6 H (3.4-5.0) gm/dl Globulin 3.1 (2.5-4.0) gm/dl Albumin/Globulin Ratio 1.8 (0.9-2) TSH 4.225 (0.300-4.500) uIu/ml Urine Color Yellow Urine Appearance Clear (Clear) Urine pH 6.0 (4.5-7.5) Ur Specific [place] 1.023 (1.000-1.030) Urine Protein Negative (Negative) Urine Glucose (UA) Negative (Negative) Urine Ketones Trace H (Negative) Urine Blood Negative (Negative) Urine Nitrite Negative (Negative) Urine Bilirubin Negative (Negative) Urine Urobilinogen Negative (Negative) Ur Leukocyte Esterase Negative (Negative) Salicylates < 3.0 L (3.0-30) mg/dl Urine Opiates Screen Neg (Neg) Ur Methadone, Qual Neg (Neg) Urine Fentanyl Screen Neg (Neg) Acetaminophen < 3 L (10-30) ug/ml Urine Barbiturates Neg (Neg) Ur Phencyclidine (PCP) Neg (Neg) U Amphetamin/Meth Scrn Neg (Neg) MDMA (Ecstasy) Screen Pos H (Neg) U Benzodiazepines Scrn Neg (Neg) Ur Cocaine Metabolite Neg (Neg) U Marijuana (THC) Screen Neg (Neg) Ethyl Alcohol mg/dL < 10.0 (<10.0) mg/dl SARS-CoV-2, RNA, NAAT NEGATIVE (NEGATIVE) Administered Medications Buspirone HCl (Buspirone 5 Mg Tab) 20 mg PO BID [facility] Stop: 02/15/24 20:59 Last Admin: 01/16/24 21:08 Dose: 20 mg Documented By: AMY Lamotrigine (Lamotrigine 25 Mg Tab) 150 mg PO [facility]; Protocol Stop: 02/15/24 21:59 Last Admin: 01/16/24 21:09 Dose: 150 mg Documented By: AMY Discharge Plan Visit Data Chief Complaint: Mental Health Evaluation Stated Complaint: MENTAL HEALTH ISSUES ED Provider: Yandel Nolasco Discharge Problem: Depression with suicidal ideation Patient Disposition: Admitted As Inpatient Discharge Instructions Interventions: ED Discharge Assessment Last Done: 01/16/24 19:09
[2024-01-16 16:12] LABS: Appearance Urine Clear (Clear); Bilirubin Urine Negative (Negative); Blood Urine Negative (Negative); Color Urine Yellow; Glucose Urine UA Negative (Negative); Ketones Urine Trace (Negative); Leukocyte Esterase Urine Negative (Negative); Nitrite Urine Negative (Negative); Protein Urine Negative (Negative); Specific Gravity Urine 1.023 (1.000-1.030); Urobilinogen Urine Negative (Negative)
[2024-01-16 16:16] LABS: Basophils # (auto) 0.03 K/uL (0.00-0.20); Basophils % (auto) 0.4 %; Eosinophils # (auto) 0.04 K/uL (0.00-0.50); Eosinophils % (auto) 0.6 %; Hemoglobin 15.6 g/dl (14.0-18.0); Immature Granulocytes # (auto) 0.02 K/uL (0.01-0.20); Immature Granulocytes % (auto) 0.3 %; Lymphocytes # (auto) 1.96 K/uL (1.20-3.40); Mean Corpuscular Hgb Conc 35.5 g/dL (32.0-36.0); Mean Corpuscular Volume 90.3 fL (80.0-100.0); Mean Platelet Volume 8.3 fL (9.4-12.4); Monocytes % (auto) 5.5 %; Neutrophils # (auto) 4.81 K/uL (1.40-6.50); Neutrophils % (auto) 66.2 %; Platelet Count 220 K/uL (130-400); RDW Coefficient of Variation 11.7 % (11.5-14.5); RDW Standard Deviation 38.5 fL (36.4-46.3); Red Blood Count 4.87 M/uL (4.70-6.10); White Blood Count 7.26 K/ul (4.8-10.8)
[2024-01-16 16:25] LABS: Acetaminophen < 3 ug/ml (10-30); Salicylate < 3.0 mg/dl (3.0-30)
[2024-01-16 16:31] LABS: Albumin Globulin Ratio 1.8 (0.9-2); Albumin Level 5.6 gm/dl (3.4-5.0); BUN Creatinine Ratio 13.3 (10-20); Bilirubin,Total 0.6 mg/dl (0.2-1.0); Calcium 10.2 mg/dl (8.6-10.3); Creatinine Clr Calc Pharmacy 82.8 ml/min; Globulin 3.1 gm/dl (2.5-4.0); Potassium 3.4 mmol/L (3.5-5.1); Total Protein 8.7 gm/dl (6.0-8.3)
[2024-01-16 16:42] LABS: Thyroid Stimulating Hormone 4.225 uIu/ml (0.300-4.500)
[2024-01-16 17:02] LABS: Amphetamines+Metham, Urine Neg (Neg); Barbiturates, Urine Neg (Neg); Benzodiazepine, Urine Neg (Neg); Cocaine, Urine Neg (Neg); Fentanyl, Urine Neg (Neg); MDMA (Ecstacy), Urine Pos (Neg); Marijuana, Urine Neg (Neg); Methadone, Urine Neg (Neg); Opiate, Urine Neg (Neg); Phencyclidine, Urine Neg (Neg)
[2024-01-16] MEDS ORDERED: BISMUTH SUBSALICYLATE 262 MG CHEW PO PRN (19:34)
[2024-01-16] MEDS ORDERED: SODIUM CHLORIDE 0.65% NA SOLN 45 ML (OCEAN) PRN (19:34)
[2024-01-16] MEDS ORDERED: ALUMINUM/MAGNESIUM SUSP 30 ML UDC PO PRN (19:34)
[2024-01-16] MEDS ORDERED: hydrOXYzine HCl 25 MG TAB PO PRN (19:34)
[2024-01-16] MEDS: busPIRone 5 MG TAB PO SCH (21:08)
[2024-01-16] MEDS: lamoTRIgine 25 MG TAB PO SCH (21:09)
[2024-01-17] MEDS: CARIPRAZINE HCL 3 MG CAP PO SCH (08:41)
[2024-01-17] MEDS ORDERED: LURASIDONE HCL 20 MG TAB PO ONE (12:15)
[2024-01-17] MEDS: lamoTRIgine 25 MG TAB PO SCH (13:11)
[2024-01-17] MEDS: LURASIDONE HCL 20 MG TAB PO ONE (13:22)
--- NOTE | 2024-01-17 14:30 | History & Physical ---
Date of Service January 17, 2024 Impression / Recommendations Impression DK GARLAND is 58-year-old M who currently lives with , employed as [employer] , has a history of bipolar 1 disorder, and was BIB and admitted on 01/16/24 18:56 on a 201 voluntary commitment for suicidal ideation with plan to shoot self with hunting rifle. Presentation consistent with bipolar disorder with major depressive episode. He presents worsening hopelessness, suicidal ideation, daily crying spells, excess guilt, sleep and appetite disturbances, Anhedonia. associated anxious distress with catastrophic and self-critical thinking. no evidence of psychosis. Patient presents mood episodes in late life with no behavioral health concerns in earlier years; will continue to clarify. Lab work reviewed: CBC within expected limits; elevated liver enzymes which are new presentation since November labs; TSH within expected limits; UDS positive for MDMA likely false positive due to Wellbutrin use; blood alcohol nondetectable. Medication history reviewed at length with the patient and chart review. Possible that elevated liver enzymes are due to cariprazine or lamotrigine since recent initiation. Discussed plan to cross taper Cariprazine to Lurasidone for bipolar depression and to optimize lamotrigine dose; medication side effects and adverse effects discussed with patient and agreeable. We will draw labs for reversible causes of depression and hormone levels given patient concerns. Overall, I spent a total of 70 minutes with this case including review of chart records, nursing report, review of lab work, direct evaluation of the patient at bedside, counseling the patient, multidisciplinary team meeting, orders, and documentation in the electronic health record. (1) Suicidal ideation: (2) Bipolar 1 disorder, depressed: (3) Hopelessness: (4) Elevated liver enzymes: Plan 01/17/24: The patient was admitted to the [facility]) on q15 min checks (behavioral with suicide precautions) for safety. The patient will participate in group, recreational, and milieu therapies and will be offered additional individual and family sessions as clinically appropriate. -Decrease Cariprazine to 1.5mg daily -Start Luradisone 20mg daily with breakfast -Continue home Lamotrigine 150mg HS -Start Lamotrigine 50mg QAM -Hold home bupropion -Continue home Buspirone 20mg BID -Continue home Lorazepam 1mg HS PRN and 0.5mg daily PRN -Lab work: Vit D, Vit B12, HbA1C, Free/Total/Bioavailable Testosterone Inventory Assets Strengths: family support, fair insight Needs: medication management, improved self esteem Suicide Risk Level Suicide Risk Level: High-Moderate (q15 min suicide checks) Risk Factors Assessment Male: Yes : Yes Do You Have Access To A Gun?: No Health Problems: Yes Mental Health Diagnoses: Yes Substance Use Disorders: No Previous Attempt: No Family History of Suicide: No Previous Psychiatric Hospitalization: Yes Hopelessness: Yes Protective Factors Assessment [employer] Beliefs: Yes : Yes Responsible for Young Children: No 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 Chief Complaint "thoughts of suicide" History of Present Illness the patient reports worsening depression over the past few months but notable decline over the past 4 to 5 days. Complains of hopelessness, daily crying spells, poor appetite, trouble staying asleep, fearful thoughts, anxious ruminations about the future. Complains of catastrophic and self-critical thinking. Feels guilty and responsible for her current situation. Previously enjoyed playing board games and photography however derives less interest from that now. reviewed medication history at length with the patient and reports recent medications of cariprazine and lamotrigine. Reports initial improvement with initiation of cariprazine however when dose was increased no notable improvement. Reports mental health problems began in 2021 after of father and patient became depressed. Initial trigger to get help was that he was falling asleep on his way home from work. He was started on Celexa and then presented in an agitated and manic state requiring hospitalization. He has poor recall of memories from that time. Reports past Hospital sleep study and did not meet criteria for obstructive sleep apnea or narcolepsy. Reports history of "melancholy" and being a worrier since childhood however did not require mental health treatment until recently. Denies having distressing dreams or hypervigilance symptoms. Reports growing up in [facility]. Had both parents and were supportive. Denies physical, sexual, emotional abuse. Completed a bachelor's of science in [employer]. Chart review: 02/13/2022atient presented agitated delirium and stephanie secondary to Celexa and was started on olanzapine 2.5 mg twice daily. Was subsequently hospitalized in inpatient [facility] on 02/22/2022 and diagnosed with bipolar 1 disorder mixed episode and discharged with olanzapine 20 mg at bedtime. Hospitalized in 06/06/2022 for depression and was started on Abilify 5 mg daily and Depakote 500 mg 3 times daily. Depakote level of 109 and therapeutic 2-1/2 weeks later. Patient provided timeline of psychiatric medications and were reviewed with patient. Past psychiatric medications: Citalopram (treatment emergent stephanie), bupropion (only used for 2 days and currently held in hospital), cariprazine (initially helpful and increased to 3 mg with no notable improvement in symptoms), olanzapi ne (helpful for depression symptoms however patient did not tolerate due to sedation), aripiprazole (initially helpful however patient did not tolerate due to excess sedation), divalproex (initially helpful once titrated however patient did not tolerate due to excess sedation), lithium (increased to 150 mg twice daily and then decrease to 150 mg daily, was not tolerated due to patient feeling like a "zombie"), lamotrigine (some improvement, continuing titration), buspirone (currently prescribed, no notable improvement), lorazepam (uses 1 mg at night as needed and 0.5 mg daily as needed and assist with sleep and anxiety). has not tried lurasidone for bipolar depression. Social history: Third psychiatric admission. Works at [employer]. Outpatient psychiatry at some point health with Dr. Muller. Has a 26-year-old son who lives separately. Lives with . Mother passed in 2006. Father passed in 2021. No access to firearms. . Lives with . reports is supportive. Mother passed in 2006. Father passed in 2021. No access to firearms. Past Psychiatric History Current Psychiatric Diagnosis: Bipolar I disorder with mixed features Do You Have Access To A Gun?: No History of Previous Suicide Attempt: No Allergies Allergy/AdvReac Type Severity Reaction Status Date / Time citalopram [From Celexa] AdvReac Unknown Unknown Verified 01/16/24 17:41 SNRIs AdvReac Unknown Uncoded 01/16/24 17:41 SSRIs AdvReac Unknown Uncoded 01/16/24 17:41 Home Medications Medication Instructions Recorded Confirmed Type rosuvastatin 5 mg tablet 2.5 mg PO QPM 03/01/22 01/16/24 History buspirone 30 mg tablet 20 mg PO BID 06/01/23 01/16/24 History multivitamin (Multiple Vitamins 1 tab PO 4XWK 06/01/23 01/16/24 History tablet) bupropion HCl 100 mg tablet,12 hr 100 mg PO QAM 01/16/24 01/16/24 History sustained-release (Wellbutrin SR) cariprazine 3 mg capsule (Vraylar) 3 mg PO QAM 01/16/24 01/16/24 History cholecalciferol (vitamin D3) 50 2,000 unit PO 4XWK 01/16/24 01/16/24 History mcg (2,000 unit) capsule (Vitamin D3) lamotrigine 150 mg tablet 150 mg PO HS 01/16/24 01/16/24 History (Lamictal) lorazepam 0.5 mg tablet (Ativan) 0.5 mg PO TID PRN Anxiety 01/16/24 01/16/24 History vitamin B complex (Vitamins B 1 cap PO 3XWK 01/16/24 01/16/24 History Complex capsule) Family History Family History of: Other-List under Comment Family Mental Health History Comment: Uncle committed to psychiatric facility in past "not sure why." Mother-possible depression Alcohol History Hx of Alcohol Use Over the Past 12 Months: No AUDIT Total Score: 0 Smoking Use Have You Smoked or Used Tobacco Products in the Last 30 Days: No Smoking Status: Never smoker Substance History Hx of Prescription Med Misuse Over the Past 12 Months: No Hx of Over the Counter Med Misuse Over the Past 12 Months: No Hx of Inhalent Misuse Over the Past 12 Months: No Hx of Organic Substance Use Over the Past 12 Months: No Hx of Illegal Substances/Street Drug Use Over Past 12 Months: No Problems as a Result of Past Substance Use: None Identified Personal History Living Arrangements: Home Beliefs That Will Affect Care: None Hx Traumatic Life Events: No Patient History Medical History (Updated 01/17/24 @ 15:54 by Joaquin Angeles MD) Lab test negative for COVID-19 virus Anxiety TSH elevation Stephanie Encephalopathy Altered mental status Hx of hemorrhoids Hx of shigellosis Sinusitis Family History Other Family history non-contributory Social History Smoking Status: Never smoker Hx Alcohol Use: No Hx Substance Use: No Preferred Language: Lebanese Communication Ability: Effective Care Management Coordinator Required: No Beliefs That Will Affect Care: None marital status: Current Living Situation: Spouse Current Living Situation Comment: home with spouse. current occupational status: employed Feels Safe at Home: Yes Gender Identity: Male Assistive Devices: Glasses Physical Exam Mental Examination: Appearance: Well Groomed Eye Contact: Maintains Eye Contact Motor Behavior: Unremarkable Speech: Soft Mood: Euthymic, Calm, Anxious and Sad Affect: Congruent and Constricted Thought Process: Intact and Linear Thought Content: Intact Hallucinations: None Insight: Fair Judgement: Fair Vital Signs (Past 24 Hours): Last Vital Signs Temp 36.7 C 01/17/24 06:40 Pulse 77 01/17/24 06:41 Resp 16 01/17/24 06:40 BP 123/80 01/17/24 06:41 Pulse Ox 97 01/16/24 19:09 O2 Del Method Room Air 01/16/24 19:09 Exam Statement: A physical exam was performed in the ED for the purposes of medical clearance. I accept that physical as correct and adequate for the purposes of the inpatient physical exam. Results & Data ([facility]) Laboratory Results Laboratory Results - last 24 hr 01/16/24 01/16/24 15:49 15:50 WBC 7.26 RBC 4.87 Hgb 15.6 Hct 44.0 MCV 90.3 MCH 32.0 MCHC 35.5 RDW Std Deviation 38.5 RDW Coeff of Toño 11.7 Plt Count 220 MPV 8.3 L Immature Gran % (Auto) 0.3 Neut % (Auto) 66.2 Lymph % (Auto) 27.0 Emery % (Auto) 5.5 Eos % (Auto) 0.6 Baso % (Auto) 0.4 Neut # (Auto) 4.81 Lymph # (Auto) 1.96 Emery # (Auto) 0.40 Eos # (Auto) 0.04 Baso # (Auto) 0.03 Immature Gran # (Auto) 0.02 Sodium 141 Potassium 3.4 L Chloride 102 Carbon Dioxide 32 Anion Gap 7 BUN 13 Creatinine 0.98 Est Cr Clr Drug Dosing 82.8 eGFR 88.28 BUN/Creatinine Ratio 13.3 Glucose 94 Calcium 10.2 Total Bilirubin 0.6 AST 45 H ALT 120 H Alkaline Phosphatase 115 H Total Protein 8.7 H Albumin 5.6 H Globulin 3.1 Albumin/Globulin Ratio 1.8 TSH 4.225 Urine Color Yellow Urine Appearance Clear Urine pH 6.0 Ur Specific [place] 1.023 Urine Protein Negative Urine Glucose (UA) Negative Urine Ketones Trace H Urine Blood Negative Urine Nitrite Negative Urine Bilirubin Negative Urine Urobilinogen Negative Ur Leukocyte Esterase Negative Salicylates < 3.0 L Urine Opiates Screen Neg Ur Methadone, Qual Neg Urine Fentanyl Screen Neg Acetaminophen < 3 L Urine Barbiturates Neg Lamotrigine Pending Ur Phencyclidine (PCP) Neg U Amphetamin/Meth Scrn Neg Urine MDEA Pending MDMA (Ecstasy) Screen Pos H MDMA Pending Urine MDMA Pending U Benzodiazepines Scrn Neg Ur Cocaine Metabolite Neg U Marijuana (THC) Screen Neg Ethyl Alcohol mg/dL < 10.0 SARS-CoV-2, RNA, NAAT NEGATIVE Current Inpatient Medications Current Inpatient Medications: Current Inpatient Medications Acetaminophen (Acetaminophen 325 Mg Tab) 650 mg PO Q4H PRN PRN Reason: Headache or Minor Fever Stop: 02/15/24 19:33 Al Hydrox/Mg Hydrox/Simethicone (Aluminum/Magnesium Susp 30 Ml Udc) 30 ml PO Q4H PRN PRN Reason: GI Upset Stop: 02/15/24 19:33 Bismuth Subsalicylate (Bismuth Subsalicylate 262 Mg Chew) 2 tab PO Q30M PRN PRN Reason: Loose Stool/Diarrhea Stop: 02/15/24 19:33 Buspirone HCl (Buspirone 5 Mg Tab) 20 mg PO BID DELIO Stop: 02/15/24 20:59 Last Admin: 01/17/24 08:41 Dose: 20 mg Cariprazine (Cariprazine Hcl 1.5 Mg Cap) 1.5 mg PO DAILY DELIO Stop: 02/17/24 08:59 Hydroxyzine HCl (Hydroxyzine Hcl 25 Mg Tab) 50 mg PO HSZ PRN PRN Reason: Insomnia Stop: 02/15/24 19:33 Hydroxyzine HCl (Hydroxyzine Hcl 25 Mg Tab) 25 mg PO Q4H PRN PRN Reason: Anxiety Stop: 02/15/24 19:33 Lamotrigine (Lamotrigine 25 Mg Tab) 150 mg PO HS [facility]; Protocol Stop: 02/15/24 21:59 Last Admin: 01/16/24 21:09 Dose: 150 mg Lamotrigine (Lamotrigine 25 Mg Tab) 50 mg PO QAM [facility]; Protocol Stop: 02/16/24 12:14 Last Admin: 01/17/24 13:11 Dose: 50 mg Lorazepam (Lorazepam 0.5 Mg Tab) 0.5 mg PO DAILY PRN PRN Reason: Anxiety Stop: 02/15/24 19:44 Lorazepam (Lorazepam 1 Mg Tab) 1 mg PO HS PRN PRN Reason: Anxiety Stop: 02/15/24 19:46 Lurasidone HCl (Lurasidone Hcl 20 Mg Tab) 20 mg PO DAILY@0900 [facility] Stop: 02/17/24 08:59 Magnesium Hydroxide (Magnesium Hydroxide Susp 30 Ml Udc) 30 ml PO DAILY PRN PRN Reason: Constipation Stop: 02/15/24 19:33 Sodium Chloride (Sodium Chloride 0.65% Na Soln 45 Ml ([place])) 1 - 2 sprays NA PRN PRN PRN Reason: Nasal Dryness/Congestion Stop: 02/15/24 19:33
[2024-01-17] MEDS: LORazepam 1 MG TAB PO PRN (21:45)
[2024-01-18 07:53] LABS: Estimated Average Glucose 100 mg/dl; Hemoglobin A1C 5.1 % (4.5-5.6)
[2024-01-18] MEDS: CARIPRAZINE HCL 1.5 MG CAP PO SCH (08:46)
[2024-01-18] MEDS: LURASIDONE HCL 20 MG TAB PO SCH (08:48)
--- NOTE | 2024-01-18 15:11 | Psychiatric Progress Note ---
Date of Service January 18, 2024 Impression / Recommendations Impression DK GARLAND is 58-year-old M who currently lives with , employed as [employer] , has a history of bipolar 1 disorder, and was BIB and admitted on 01/16/24 18:56 on a 201 voluntary commitment for suicidal ideation with plan to shoot self with hunting rifle. Presentation consistent with bipolar disorder with major depressive episode. Patient presents mood episodes in late life with no behavioral health concerns in earlier years; late life bipolar is rare and continuing to r/o underlying causes. Today denies preceding head trauma, infection, inciting medications, medical problems, memory or concentration changes which preceded mood episodes. Past neuropsychological testing, MRI, EEG reported to be normal. No strong family history of psychiatric conditions. Patient is tolerating lurasidone well and we will plan to continue. Patient continues to complain of anxious ruminations. He was counseled on mindfulness meditation and breathing exercises. Patient was educated about electroconvulsive therapy and transcranial magnetic stimulation as alternative treatment options. Overall, I spent a total of 40 minutes with this case including review of chart records, nursing report, review of lab work, direct evaluation of the patient at bedside, counseling the patient, multidisciplinary team meeting, orders, and documentation in the electronic health record. (1) Suicidal ideation: (2) Bipolar 1 disorder, depressed: (3) Hopelessness: (4) Elevated liver enzymes: Plan 01/18/24: Continue medications and treatment plan 01/17/24: The patient was admitted to the [facility] ([facility] mental health unit) on q15 min checks (behavioral with suicide precautions) for safety. The patient will participate in group, recreational, and milieu therapies and will be offered additional individual and family sessions as clinically appropriate. -Decrease Cariprazine to 1.5mg daily -Start Luradisone 20mg daily with breakfast -Continue home Lamotrigine 150mg HS -Start Lamotrigine 50mg QAM -Hold home bupropion -Continue home Buspirone 20mg BID -Continue home Lorazepam 1mg HS PRN and 0.5mg daily PRN -Lab work: Vit D, Vit B12, HbA1C, Free/Total/Bioavailable Testosterone Inventory Assets Strengths: family support, fair insight Needs: medication management, improved self esteem Suicide Risk Level Suicide Risk Level: High-Moderate (q15 min suicide checks) Risk Factors Assessment Male: Yes : Yes Do You Have Access To A Gun?: No Health Problems: Yes Mental Health Diagnoses: Yes Substance Use Disorders: No Previous Attempt: No Family History of Suicide: No Previous Psychiatric Hospitalization: Yes Hopelessness: Yes Protective Factors Assessment Worship Beliefs: Yes : Yes Responsible for Young Children: No 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 Chief Complaint "Good night." Review of Systems Sleep Information Total Hours of Sleep: 7.25 Meal Information Percent Meal Consumed - Breakfast: 100 Percent Meal Consumed - Lunch: 100 Percent Meal Consumed - Dinner: 100 Subjective Subjective Patient was seen & assessed and interval progress reviewed with treatment team nursing and social work Patient reports sleeping well last night got 7 hours of undisrupted sleep. Feels rested. Rates mood out of 3/10. complains of anxious ruminations and that his "mind does not shut off". Has trouble redirecting his thoughts. Reports excess emotionality. We review his medical history. He denies history of head trauma proceeding mood episodes. Reports past neuropsych testing was normal. Denies history of preceding infections or medications. Denies changes to memory or concentration issues proceeding with episodes. Reports past brain MRI and EEG were within expected limits. states mother had emotional swings but was never diagnosed with mental health condition. maternal uncle was committed to psychiatric facility however details are unknown. Physical Exam Mental Examination Appearance: Well Groomed Eye Contact: Maintains Eye Contact Motor Behavior: Unremarkable Speech: Soft Mood: Euthymic, Calm, Anxious and Sad Affect: Congruent and Constricted Thought Process: Intact and Linear Thought Content: Intact Hallucinations: None Insight: Fair Judgement: Fair Vital Signs (Past 24 Hours) Last Vital Signs Temp 36.7 C 01/18/24 06:34 Pulse 76 01/18/24 06:34 Resp 16 01/18/24 06:34 BP 120/75 01/18/24 06:34 Pulse Ox 97 01/16/24 19:09 O2 Del Method Room Air 01/16/24 19:09 Results & Data ([facility]) Laboratory Results Laboratory Results - last 24 hr 01/18/24 06:54 Estimat Average Glucose 100 Hemoglobin A1c 5.1 Albumin Pending Vitamin B12 425 25-OH Vitamin D Total 32.9 Total Testosterone Pending Bioavail Testosterone Pending Bioav Free Testosterone Pending Sex Hormone Bind Glob Pending Current Inpatient Medications Current Inpatient Medications: Current Inpatient Medications Acetaminophen (Acetaminophen 325 Mg Tab) 650 mg PO Q4H PRN PRN Reason: Headache or Minor Fever Stop: 02/15/24 19:33 Al Hydrox/Mg Hydrox/Simethicone (Aluminum/Magnesium Susp 30 Ml Udc) 30 ml PO Q 4H PRN PRN Reason: GI Upset Stop: 02/15/24 19:33 Bismuth Subsalicylate (Bismuth Subsalicylate 262 Mg Chew) 2 tab PO Q30M PRN PRN Reason: Loose Stool/Diarrhea Stop: 02/15/24 19:33 Buspirone HCl (Buspirone 5 Mg Tab) 20 mg PO BID DELIO Stop: 02/15/24 20:59 Last Admin: 01/18/24 08:45 Dose: 20 mg Cariprazine (Cariprazine Hcl 1.5 Mg Cap) 1.5 mg PO DAILY DELIO Stop: 02/17/24 08:59 Last Admin: 01/18/24 08:46 Dose: 1.5 mg Hydroxyzine HCl (Hydroxyzine Hcl 25 Mg Tab) 50 mg PO HSZ PRN PRN Reason: Insomnia Stop: 02/15/24 19:33 Hydroxyzine HCl (Hydroxyzine Hcl 25 Mg Tab) 25 mg PO Q4H PRN PRN Reason: Anxiety Stop: 02/15/24 19:33 Lamotrigine (Lamotrigine 25 Mg Tab) 150 mg PO HS DELIO; Protocol Stop: 02/15/24 21:59 Last Admin: 01/17/24 21:01 Dose: 150 mg Lamotrigine (Lamotrigine 25 Mg Tab) 50 mg PO QAM DELIO; Protocol Stop: 02/16/24 12:14 Last Admin: 01/18/24 08:46 Dose: 50 mg Lorazepam (Lorazepam 0.5 Mg Tab) 0.5 mg PO DAILY PRN PRN Reason: Anxiety Stop: 02/15/24 19:44 Lorazepam (Lorazepam 1 Mg Tab) 1 mg PO HS PRN PRN Reason: Anxiety Stop: 02/15/24 19:46 Last Admin: 01/17/24 21:45 Dose: 1 mg Lurasidone HCl (Lurasidone Hcl 20 Mg Tab) 20 mg PO DAILY@0900 DELIO Stop: 02/17/24 08:59 Last Admin: 01/18/24 08:48 Dose: 20 mg Magnesium Hydroxide (Magnesium Hydroxide Susp 30 Ml Udc) 30 ml PO DAILY PRN PRN Reason: Constipation Stop: 02/15/24 19:33 Sodium Chloride (Sodium Chloride 0.65% Na Soln 45 Ml ([place])) 1 - 2 sprays NA PRN PRN PRN Reason: Nasal Dryness/Congestion Stop: 02/15/24 19:33 Mental Health & Subst Abuse Tx Psychiatrist Name of Psychiatrist: Dr. Izquierdo Psychiatrist's Date Of Appointment With Psychiatric Provider: 01/26/24 Time of Appointment with Psychiatrist: 2:40 PM Therapist Name of Therapist: Dr. Betito Beck Therapist's Date of Therapist Appointment: 02/01/24 Time of Therapist Appointment: 4:00 PM Post Discharge Appointments Primary Care Physician Name Of Family Doctor/PCP: Dr. Otero Date of Future Appointment with PCP: every six months-next one June 2024
[2024-01-18] MEDS: LORazepam 0.5 MG TAB PO PRN (17:07)
[2024-01-19] MEDS: CHOLECALCIFEROL 25 MCG (1000 UNITS) TAB PO SCH (08:50)
[2024-01-19] MEDS: LITHIUM CARBONATE 300 MG TAB PO SCH (13:08)
--- NOTE | 2024-01-19 13:56 | Psychiatric Progress Note ---
Date of Service January 19, 2024 Impression / Recommendations Impression DK GARLAND is 58-year-old M who currently lives with , employed as [email or web address] , has a history of bipolar 1 disorder, and was BIB and admitted on 01/16/24 18:56 on a 201 voluntary commitment for suicidal ideation with plan to shoot self with hunting rifle. Presentation consistent with bipolar disorder with major depressive episode. Patient presents mood episodes in late life with no behavioral health concerns in earlier years; late life bipolar is rare and continuing to r/o underlying causes. A: Continues to present depressed mood with suicidal ideation. Continued anxious ruminations. Tolerating Lurasidone well and will plan to continue. Would benefit from distractions and activities. Patient was educated about electroconvulsive therapy and transcranial magnetic stimulation as alternative treatment options. Collateral gathering from patient's . Plan to start [place] 150mg for suicidality, and Clonidine 0.1mg HS for sleep, anxiety. Lab work reviewed and vitamin levels and A1c within expected limits. Overall, I spent a total of 40 minutes with this case including review of chart records, nursing report, review of lab work, direct evaluation of the patient at bedside, counseling the patient, multidisciplinary team meeting, orders, and documentation in the electronic health record. (1) Suicidal ideation: (2) Bipolar 1 disorder, depressed: (3) Hopelessness: (4) Elevated liver enzymes: Plan 01/19/24: [place] 150mg daily, Clonidine 0.1mg HS. 01/18/24: Continue medications and treatment plan 01/17/24: The patient was admitted to the [facility] ([facility] mental health unit) on q15 min checks (behavioral with suicide precautions) for safety. The patient will participate in group, recreational, and milieu therapies and will be offered additional individual and family sessions as clinically appropriate. -Decrease Cariprazine to 1.5mg daily -Start Luradisone 20mg daily with breakfast -Continue home Lamotrigine 150mg HS -Start Lamotrigine 50mg QAM -Hold home bupropion -Continue home Buspirone 20mg BID -Continue home Lorazepam 1mg HS PRN and 0.5mg daily PRN -Lab work: Vit D, Vit B12, HbA1C, Free/Total/Bioavailable Testosterone Inventory Assets Strengths: family support, fair insight Needs: medication management, improved self esteem Suicide Risk Level Suicide Risk Level: High-Moderate (q15 min suicide checks) Risk Factors Assessment Male: Yes : Yes Do You Have Access To A Gun?: No Health Problems: Yes Mental Health Diagnoses: Yes Substance Use Disorders: No Previous Attempt: No Family History of Suicide: No Previous Psychiatric Hospitalization: Yes Hopelessness: Yes Protective Factors Assessment Oriental Orthodox Beliefs: Yes : Yes Responsible for Young Children: No 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 Chief Complaint "Not good" Review of Systems Sleep Information Total Hours of Sleep: 6 Sleep Comments: PRN Ativan at HS Meal Information Percent Meal Consumed - Breakfast: 100 Percent Meal Consumed - Lunch: 90 Percent Meal Consumed - Dinner: 60 Subjective Subjective Patient was seen & assessed and interval progress reviewed with treatment team nursing and social work On interview patient is tearful and complains of suicidal ideation. Reports recent plan to shoot self. Says this is the worst he has ever felt. Appears hopeless. Complains of poor self-esteem and often anxious. Reports he is unlikely to go through with an attempt because he has a lot to live for. Rep orts that distractions are helpful for him for anxiety. Said that he slept well with Ativan and has been eating his meals. We discussed various treatment strategies and I showed him videos about TMS and ECT. Physical Exam Mental Examination Appearance: Well Groomed Eye Contact: Maintains Eye Contact Motor Behavior: Unremarkable Speech: Soft Mood: Calm, Anxious and Sad Affect: Constricted and Sad (tearful) Thought Process: Intact, Linear and Racing Thought Content: Intact Hallucinations: None Insight: Fair Judgement: Fair Vital Signs (Past 24 Hours) Last Vital Signs Temp 36.7 C 01/19/24 06:35 Pulse 85 01/19/24 06:35 Resp 16 01/19/24 06:35 BP 125/83 01/19/24 06:35 Pulse Ox 97 01/16/24 19:09 O2 Del Method Room Air 01/16/24 19:09 Results & Data ([facility]) Current Inpatient Medications Current Inpatient Medications: Current Inpatient Medications Acetaminophen (Acetaminophen 325 Mg Tab) 650 mg PO Q4H PRN PRN Reason: Headache or Minor Fever Stop: 02/15/24 19:33 Al Hydrox/Mg Hydrox/Simethicone (Aluminum/Magnesium Susp 30 Ml Udc) 30 ml PO Q4H PRN PRN Reason: GI Upset Stop: 02/15/24 19:33 Bismuth Subsalicylate (Bismuth Subsalicylate 262 Mg Chew) 2 tab PO Q30M PRN PRN Reason: Loose Stool/Diarrhea Stop: 02/15/24 19:33 Buspirone HCl (Buspirone 5 Mg Tab) 20 mg PO BID DELIO Stop: 02/15/24 20:59 Last Admin: 01/19/24 08:49 Dose: 20 mg Cariprazine (Cariprazine Hcl 1.5 Mg Cap) 1.5 mg PO DAILY DELIO Stop: 02/17/24 08:59 Last Admin: 01/19/24 08:49 Dose: 1.5 mg Clonidine HCl (Clonidine Hcl 0.1 Mg Tab) 0.1 mg PO HS DELIO Stop: 02/18/24 21:59 Hydroxyzine HCl (Hydroxyzine Hcl 25 Mg Tab) 50 mg PO HSZ PRN PRN Reason: Insomnia Stop: 02/15/24 19:33 Hydroxyzine HCl (Hydroxyzine Hcl 25 Mg Tab) 25 mg PO Q4H PRN PRN Reason: Anxiety Stop: 02/15/24 19:33 Lamotrigine (Lamotrigine 25 Mg Tab) 150 mg PO HS DELIO; Protocol Stop: 02/15/24 21:59 Last Admin: 01/18/24 22:08 Dose: 150 mg Lamotrigine (Lamotrigine 25 Mg Tab) 50 mg PO QAM DELIO; Protocol Stop: 02/16/24 12:14 Last Admin: 01/19/24 08:49 Dose: 50 mg [place] Carbonate ([place] Carbonate 300 Mg Tab) 150 mg PO DAILY DELIO Stop: 02/18/24 11:59 Last Admin: 01/19/24 13:08 Dose: 150 mg Lorazepam (Lorazepam 0.5 Mg Tab) 0.5 mg PO DAILY PRN PRN Reason: Anxiety Stop: 02/15/24 19:44 Last Admin: 01/18/24 17:07 Dose: 0.5 mg Lorazepam (Lorazepam 1 Mg Tab) 1 mg PO HS PRN PRN Reason: Anxiety Stop: 02/15/24 19:46 Last Admin: 01/18/24 22:12 Dose: 1 mg Lurasidone HCl (Lurasidone Hcl 20 Mg Tab) 20 mg PO DAILY@0900 DELIO Stop: 02/17/24 08:59 Last Admin: 01/19/24 08:49 Dose: 20 mg Magnesium Hydroxide (Magnesium Hydroxide Susp 30 Ml Udc) 30 ml PO DAILY PRN PRN Reason: Constipation Stop: 02/15/24 19:33 Sodium Chloride (Sodium Chloride 0.65% Na Soln 45 Ml ([place])) 1 - 2 sprays NA PRN PRN PRN Reason: Nasal Dryness/Congestion Stop: 02/15/24 19:33 Vitamin D (Cholecalciferol 25 Mcg (1000 Units) Tab) 25 mcg PO QAM DELIO Stop: 02/18/24 08:59 Last Admin: 01/19/24 08:50 Dose: 25 mcg Mental Health & Subst Abuse Tx Psychiatrist Name of Psychiatrist: Dr. Izquierdo Psychiatrist's Date Of Appointment With Psychiatric Provider: 01/26/24 Time of Appointment with Psychiatrist: 2:40 PM Therapist Name of Therapist: Dr. Betito Beck Therapist's Date of Therapist Appointment: 02/01/24 Time of Therapist Appointment: 4:00 PM Post Discharge Appointments Primary Care Physician Name Of Family Doctor/PCP: Dr. Otero Date of Future Appointment with PCP: every six months-next one June 2024
[2024-01-19] MEDS: cloNIDine HCL 0.1 MG TAB PO SCH (21:04)
--- NOTE | 2024-01-20 12:00 | Psychiatric Progress Note ---
Date of Service January 20, 2024 Impression / Recommendations Impression DK GARLAND is 58-year-old M who currently lives with , employed as [employer] , has a history of bipolar 1 disorder, and was BIB and admitted on 01/16/24 18:56 on a 201 voluntary commitment for suicidal ideation with plan to shoot self with hunting rifle. Presentation consistent with bipolar disorder with major depressive episode. Patient presents mood episodes in late life with no behavioral health concerns in earlier years; late life bipolar is rare and continuing to r/o underlying causes. A: Patient continues to endorse suicidal ideation and hopelessness. Concern for depression related irritability and agitation and physical symptoms of nausea. Plan to optimize clonidine by starting morning dose and to continue other medications. Patient was educated about ECT. Overall, I spent a total of 40 minutes with this case including review of chart records, nursing report, review of lab work, direct evaluation of the patient at bedside, counseling the patient, multidisciplinary team meeting, orders, and documentation in the electronic health record. (1) Suicidal ideation: (2) Bipolar 1 disorder, depressed: (3) Hopelessness: (4) Elevated liver enzymes: Plan 01/20/24: Start clonidine 0.05 mg every morning. 01/19/24: [place] 150mg daily, Clonidine 0.1mg HS. 01/18/24: Continue medications and treatment plan 01/17/24: The patient was admitted to the [facility] ([facility]) on q15 min checks (behavioral with suicide precautions) for safety. The patient will participate in group, recreational, and milieu therapies and will be offered additional individual and family sessions as clinically appropriate. -Decrease Cariprazine to 1.5mg daily -Start Luradisone 20mg daily with breakfast -Continue home Lamotrigine 150mg HS -Start Lamotrigine 50mg QAM -Hold home bupropion -Continue home Buspirone 20mg BID -Continue home Lorazepam 1mg HS PRN and 0.5mg daily PRN -Lab work: Vit D, Vit B12, HbA1C, Free/Total/Bioavailable Testosterone Inventory Assets Strengths: family support, fair insight Needs: medication management, improved self esteem Suicide Risk Level Suicide Risk Level: High-Moderate (q15 min suicide checks) Risk Factors Assessment Male: Yes : Yes Do You Have Access To A Gun?: No Health Problems: Yes Mental Health Diagnoses: Yes Substance Use Disorders: No Previous Attempt: No Family History of Suicide: No Previous Psychiatric Hospitalization: Yes Hopelessness: Yes Protective Factors Assessment Methodist Beliefs: Yes : Yes Responsible for Young Children: No 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 Chief Complaint "Not so good" Review of Systems Sleep Information Total Hours of Sleep: 6 Sleep Comments: PRN Ativan at HS Meal Information Percent Meal Consumed - Breakfast: 100 Percent Meal Consumed - Lunch: 90 Percent Meal Consumed - Dinner: 75 Subjective Subjective Patient was seen & assessed and interval progress reviewed with treatment team nursing and social work Patient reports feeling numb. Slept for 7 hours with 1 disruption. Feels less suicidal today. Complains of deep sadness. Continues to be tearful. Did not notice sedation from clonidine. Said that he was slightly less anxious this morning. Complains of nausea after he eats food and a gag reflex. Reports increased anger and irritability. We reviewed his past medications and he reports feeling the best on cariprazine. Reports he is able to sit still and does not feel restless. Continues to feel hopeless. Physical Exam Mental Examination Appearance: Well Groomed Eye Contact: Maintains Eye Contact Motor Behavior: Unremarkable Speech: Soft Mood: Calm, Anxious and Sad Affect: Constricted and Sad (tearful) Thought Process: Intact, Linear and Racing Thought Content: Intact Hallucinations: None Insight: Fair Judgement: Fair Vital Signs (Past 24 Hours) Last Vital Signs Temp 36.8 C 01/20/24 06:39 Pulse 78 01/20/24 06:39 Resp 16 01/20/24 06:39 BP 120/74 01/20/24 06:39 Pulse Ox 97 01/16/24 19:09 O2 Del Method Room Air 01/16/24 19:09 [facility] & [facility] Current Inpatient Medications Current Inpatient Medications: Current Inpatient Medications Acetaminophen (Acetaminophen 325 Mg Tab) 650 mg PO Q4H PRN PRN Reason: Headache or Minor Fever Stop: 02/15/24 19:33 Al Hydrox/Mg Hydrox/Simethicone (Aluminum/Magnesium Susp 30 Ml Udc) 30 ml PO Q4H PRN PRN Reason: GI Upset Stop: 02/15/24 19:33 Bismuth Subsalicylate (Bismuth Subsalicylate 262 Mg Chew) 2 tab PO Q30M PRN PRN Reason: Loose Stool/Diarrhea Stop: 02/15/24 19:33 Buspirone HCl (Buspirone 5 Mg Tab) 20 mg PO BID DELIO Stop: 02/15/24 20:59 Last Admin: 01/20/24 08:54 Dose: 20 mg Cariprazine (Cariprazine Hcl 1.5 Mg Cap) 1.5 mg PO DAILY DELIO Stop: 02/17/24 08:59 Last Admin: 01/20/24 08:54 Dose: 1.5 mg Clonidine HCl (Clonidine Hcl 0.1 Mg Tab) 0.1 mg PO HS DELIO Stop: 02/18/24 21:59 Last Admin: 01/19/24 21:04 Dose: 0.1 mg Clonidine HCl (Clonidine Hcl 0.1 Mg Tab) 0.05 mg PO QAM DELIO Stop: 02/19/24 11:14 Hydroxyzine HCl (Hydroxyzine Hcl 25 Mg Tab) 50 mg PO HSZ PRN PRN Reason: Insomnia Stop: 02/15/24 19:33 Hydroxyzine HCl (Hydroxyzine Hcl 25 Mg Tab) 25 mg PO Q4H PRN PRN Reason: Anxiety Stop: 02/15/24 19:33 Lamotrigine (Lamotrigine 25 Mg Tab) 150 mg PO HS DELIO; Protocol Stop: 02/15/24 21:59 Last Admin: 01/19/24 21:04 Dose: 150 mg Lamotrigine (Lamotrigine 25 Mg Tab) 50 mg PO QAM DELIO; Protocol Stop: 02/16/24 12:14 Last Admin: 01/20/24 08:54 Dose: 50 mg [place] Carbonate ([place] Carbonate 300 Mg Tab) 150 mg PO DAILY DELIO Stop: 02/18/24 11:59 Last Admin: 01/20/24 08:53 Dose: 150 mg Lorazepam (Lorazepam 0.5 Mg Tab) 0.5 mg PO DAILY PRN PRN Reason: Anxiety Stop: 02/15/24 19:44 Last Admin: 01/18/24 17:07 Dose: 0.5 mg Lorazepam (Lorazepam 1 Mg Tab) 1 mg PO HS PRN PRN Reason: Anxiety Stop: 02/15/24 19:46 Last Admin: 01/18/24 22:12 Dose: 1 mg Lurasidone HCl (Lurasidone Hcl 20 Mg Tab) 20 mg PO DAILY@0900 DELIO Stop: 02/17/24 08:59 Last Admin: 01/20/24 08:54 Dose: 20 mg Magnesium Hydroxide (Magnesium Hydroxide Susp 30 Ml Udc) 30 ml PO DAILY PRN PRN Reason: Constipation Stop: 02/15/24 19:33 Sodium Chloride (Sodium Chloride 0.65% Na Soln 45 Ml ([place])) 1 - 2 sprays NA PRN PRN PRN Reason: Nasal Dryness/Congestion Stop: 02/15/24 19:33 Vitamin D (Cholecalciferol 25 Mcg (1000 Units) Tab) 25 mcg PO QAM DELIO Stop: 02/18/24 08:59 Last Admin: 01/20/24 08:54 Dose: 25 mcg Mental Health & Subst Abuse Tx Psychiatrist Name of Psychiatrist: Dr. Izquierdo Psychiatrist's Date Of Appointment With Psychiatric Provider: 01/26/24 Time of Appointment with Psychiatrist: 2:40 PM Therapist Name of Therapist: Dr. Betito Beck Therapist's Date of Therapist Appointment: 02/01/24 Time of Therapist Appointment: 4:00 PM Post Discharge Appointments Primary Care Physician Name Of Family Doctor/PCP: Dr. Otero Date of Future Appointment with PCP: every six months-next one June 2024
[2024-01-20] MEDS: cloNIDine HCL 0.1 MG TAB PO SCH (13:00)
[2024-01-20 16:13] LABS: MDA negative; MDEA negative; MDMA (Ecstasy) Urine, Confirm negative
[2024-01-21] MEDS ORDERED: ONDANSETRON 4 MG OD TAB PO PRN (10:41)
[2024-01-21] MEDS: LURASIDONE HCL 20 MG TAB PO SCH (12:50)
--- NOTE | 2024-01-21 13:39 | Psychiatric Progress Note ---
Date of Service January 21, 2024 Impression / Recommendations Impression DK GARLAND is 58-year-old M who currently lives with , employed as [employer] , has a history of bipolar 1 disorder, and was BIB and admitted on 01/16/24 18:56 on a 201 voluntary commitment for suicidal ideation with plan to shoot self with hunting rifle. Presentation consistent with bipolar disorder with major depressive episode. Patient presents mood episodes in late life with no behavioral health concerns in earlier years; late life bipolar is rare and continuing to r/o underlying causes. A: Patient continues to present in a depressed state with hopelessness and suicidal ideation. Appears to have less physical anxiety today and is able to tolerate his meals. Plan to continue titration of lurasidone and will stop cariprazine. Zofran ODT to be started for nausea. Given ongoing suicidality we will optimize lithium dose. Overall, I spent a total of 40 minutes with this case including review of chart records, nursing report, review of lab work, direct evaluation of the patient at bedside, counseling the patient, multidisciplinary team meeting, orders, and documentation in the electronic health record. (1) Suicidal ideation: (2) Bipolar 1 disorder, depressed: (3) Hopelessness: (4) Elevated liver enzymes: Plan 01/21/2024: Increase lurasidone to 40 mg daily. Stop cariprazine tomorrow morning. Increase lithium to 150 mg twice daily. Zofran ODT as needed started 01/20/24: Start clonidine 0.05 mg every morning. 01/19/24: [place] 150mg daily, Clonidine 0.1mg HS. 01/18/24: Continue medications and treatment plan 01/17/24: The patient was admitted to the [facility] ([facility]) on q15 min checks (behavioral with suicide precautions) for safety. The patient will participate in group, recreational, and milieu therapies and will be offered additional individual and family sessions as clinically appropriate. -Decrease Cariprazine to 1.5mg daily -Start Luradisone 20mg daily with breakfast -Continue home Lamotrigine 150mg HS -Start Lamotrigine 50mg QAM -Hold home bupropion -Continue home Buspirone 20mg BID -Continue home Lorazepam 1mg HS PRN and 0.5mg daily PRN -Lab work: Vit D, Vit B12, HbA1C, Free/Total/Bioavailable Testosterone Inventory Assets Strengths: family support, fair insight Needs: medication management, improved self esteem Suicide Risk Level Suicide Risk Level: High-Moderate (q15 min suicide checks) Risk Factors Assessment Male: Yes : Yes Do You Have Access To A Gun?: No Health Problems: Yes Mental Health Diagnoses: Yes Substance Use Disorders: No Previous Attempt: No Family History of Suicide: No Previous Psychiatric Hospitalization: Yes Hopelessness: Yes Protective Factors Assessment Sabianist Beliefs: Yes : Yes Responsible for Young Children: No 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 Chief Complaint "Negative thoughts". Review of Systems Sleep Information Total Hours of Sleep: 5.5 Sleep Comments: PRN Ativan at HS Meal Information Percent Meal Consumed - Breakfast: 80 Percent Meal Consumed - Lunch: 50 Percent Meal Consumed - Dinner: 80 Subjective Subjective Patient was seen & assessed and interval progress reviewed with treatment team nursing and social work Nursing reports patient slept 5.5 hours. Patient continues to be hopeless and complaining of suicidal ideation. Received as needed Vistaril overnight for sleep and somewhat effective. On interview patient reports not feeling a difference on the clonidine. He says that he he did not have a gag reflex after eating this morning. Says that he continues to feel "worse". Complaining of negative thoughts. Complains of memory impairments. Physical Exam Mental Examination Appearance: Well Groomed Eye Contact: Maintains Eye Contact Motor Behavior: Unremarkable Speech: Soft Mood: Calm, Anxious and Sad Affect: Constricted and Sad (tearful) Thought Process: Intact, Linear and Racing Thought Content: Intact Hallucinations: None Insight: Fair Judgement: Fair Vital Signs (Past 24 Hours) Last Vital Signs Temp 36.6 C 01/21/24 05:38 Pulse 75 01/21/24 05:41 Resp 16 01/21/24 05:41 BP 149/92 H 01/21/24 05:41 Pulse Ox 98 01/21/24 05:38 O2 Del Method Room Air 01/21/24 05:38 Results & Data ([facility]) Laboratory Results Laboratory Results - last 24 hr 01/16/24 01/16/24 15:49 15:50 Lamotrigine 10.1 Urine MDEA negative MDMA negative Urine MDMA negative Current Inpatient Medications Current Inpatient Medications: Current Inpatient Medications Acetaminophen (Acetaminophen 325 Mg Tab) 650 mg PO Q4H PRN PRN Reason: Headache or Minor Fever Stop: 02/15/24 19:33 Al Hydrox/Mg Hydrox/Simethicone (Aluminum/Magnesium Susp 30 Ml Udc) 30 ml PO Q4H PRN PRN Reason: GI Upset Stop: 02/15/24 19:33 Bismuth Subsalicylate (Bismuth Subsalicylate 262 Mg Chew) 2 tab PO Q30M PRN PRN Reason: Loose Stool/Diarrhea Stop: 02/15/24 19:33 Buspirone HCl (Buspirone 5 Mg Tab) 20 mg PO BID DELIO Stop: 02/15/24 20:59 Last Admin: 01/21/24 08:48 Dose: 20 mg Clonidine HCl (Clonidine Hcl 0.1 Mg Tab) 0.1 mg PO HS DELIO Stop: 02/18/24 21:59 Last Admin: 01/20/24 21:24 Dose: 0.1 mg Clonidine HCl (Clonidine Hcl 0.1 Mg Tab) 0.05 mg PO QAM DELIO Stop: 02/19/24 11:14 Last Admin: 01/21/24 08:49 Dose: 0.05 mg Hydroxyzine HCl (Hydroxyzine Hcl 25 Mg Tab) 50 mg PO HSZ PRN PRN Reason: Insomnia Stop: 02/15/24 19:33 Hydroxyzine HCl (Hydroxyzine Hcl 25 Mg Tab) 25 mg PO Q4H PRN PRN Reason: Anxiety Stop: 02/15/24 19:33 Lamotrigine (Lamotrigine 25 Mg Tab) 150 mg PO HS DELIO; Protocol Stop: 02/15/24 21:59 Last Admin: 01/20/24 21:26 Dose: 150 mg Lamotrigine (Lamotrigine 25 Mg Tab) 50 mg PO QAM DELIO; Protocol Stop: 02/16/24 12:14 Last Admin: 01/21/24 08:49 Dose: 50 mg [place] Carbonate ([place] Carbonate 300 Mg Tab) 150 mg PO BID DELIO Stop: 02/20/24 20:59 Lorazepam (Lorazepam 0.5 Mg Tab) 0.5 mg PO DAILY PRN PRN Reason: Anxiety Stop: 02/15/24 19:44 Last Admin: 01/18/24 17:07 Dose: 0.5 mg Lorazepam (Lorazepam 1 Mg Tab) 1 mg PO HS PRN PRN Reason: Anxiety Stop: 02/15/24 19:46 Last Admin: 01/18/24 22:12 Dose: 1 mg Lurasidone HCl (Lurasidone Hcl 20 Mg Tab) 40 mg PO DAILY@0900 DELIO Stop: 02/20/24 08:59 Last Admin: 01/21/24 12:50 Dose: 40 mg Magnesium Hydroxide (Magnesium Hydroxide Susp 30 Ml Udc) 30 ml PO DAILY PRN PRN Reason: Constipation Stop: 02/15/24 19:33 Ondansetron HCl (Ondansetron 4 Mg Od Tab) 4 mg PO Q6H PRN PRN Reason: Nausea Stop: 02/20/24 10:40 Sodium Chloride (Sodium Chloride 0.65% Na Soln 45 Ml ([place])) 1 - 2 sprays NA PRN PRN PRN Reason: Nasal Dryness/Congestion Stop: 02/15/24 19:33 Vitamin D (Cholecalciferol 25 Mcg (1000 Units) Tab) 25 mcg PO QAM DELIO Stop: 02/18/24 08:59 Last Admin: 01/21/24 08:48 Dose: 25 mcg Mental Health & Subst Abuse Tx Psychiatrist Name of Psychiatrist: Dr. Izquierdo Psychiatrist's Date Of Appointment With Psychiatric Provider: 01/26/24 Time of Appointment with Psychiatrist: 2:40 PM Therapist Name of Therapist: Dr. Betito Beck Therapist's Date of Therapist Appointment: 02/01/24 Time of Therapist Appointment: 4:00 PM Post Discharge Appointments Primary Care Physician Name Of Family Doctor/PCP: Dr. Otero Date of Future Appointment with PCP: every six months-next one June 2024
[2024-01-21] MEDS: LITHIUM CARBONATE 300 MG TAB PO SCH (21:47)
--- NOTE | 2024-01-22 09:14 | Psychiatric Progress Note ---
Date of Service January 22, 2024 Impression / Recommendations Impression DK GARLAND is 58-year-old man with a history of bipolar 1 disorder admitted on 01/16/24 18:56 on a 201 voluntary commitment for suicidal ideation with plan to shoot self with hunting rifle. Presentation consistent with bipolar disorder with major depressive episode. Patient presents mood episodes in late life with no behavioral health concerns in earlier years; late life bipolar is rare and continuing to r/o underlying causes, had outpatient neurology workup in the past after initial inpatient psychiatric admission without evidence for any cognitive changes. A: Ongoing severe depression with tearfulness, anhedonia and prominent hopelessness and ongoing SI. Ongoing anxiety with some somatic components. Tolerating medication changes so far, will likely need further [place] optimizing but he prefers to not increase the dose too rapidly given past side effects. Testosterone levels pending. Overall, I spent a total of 55 minutes with this case including review of chart records, nursing report, review of lab work, direct evaluation of the patient at bedside, counseling the patient, multidisciplinary team meeting, orders, and documentation in the electronic health record. (1) Suicidal ideation: (2) Bipolar 1 disorder, depressed: (3) Hopelessness: (4) Elevated liver enzymes: Plan 01/22/2024: Continue current medications and tx plan. Will need [place] level in 4-6 days. 01/21/2024: Increase lurasidone to 40 mg daily. Stop cariprazine tomorrow morning. Increase lithium to 150 mg twice daily. Zofran ODT as needed started 01/20/24: Start clonidine 0.05 mg every morning. 01/19/24: [place] 150mg daily, Clonidine 0.1mg HS. 01/18/24: Continue medications and treatment plan 01/17/24: The patient was admitted to the [facility] on q15 min checks (behavioral with suicide precautions) for safety. The patient will participate in group, recreational, and milieu therapies and will be offered additional individual and family sessions as clinically appropriate. -Decrease Cariprazine to 1.5mg daily -Start Luradisone 20mg daily with breakfast -Continue home Lamotrigine 150mg HS -Start Lamotrigine 50mg QAM -Hold home bupropion -Continue home Buspirone 20mg BID -Continue home Lorazepam 1mg HS PRN and 0.5mg daily PRN -Lab work: Vit D, Vit B12, HbA1C, Free/Total/Bioavailable Testosterone Inventory Assets Strengths: family support, fair insight Needs: medication management, improved self esteem Suicide Risk Level Suicide Risk Level: High-Moderate (q15 min suicide checks) (SI and severe depression but feels safe in the hospital, no plan for SI in the hospital, feels able to ask for support if SI changed to plan or intent in the hospital) Risk Factors Assessment Male: Yes : Yes Do You Have Access To A Gun?: No Health Problems: Yes Mental Health Diagnoses: Yes Substance Use Disorders: No Previous Attempt: No Family History of Suicide: No Previous Psychiatric Hospitalization: Yes Hopelessness: Yes Protective Factors Assessment Voodoo Beliefs: Yes : Yes Responsible for Young Children: No 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 Chief Complaint "My mind can't shut off". Review of Systems Sleep Information Total Hours of Sleep: 7 Sleep Comments: PRN Ativan at HS Meal Information Percent Meal Consumed - Breakfast: 80 Percent Meal Consumed - Lunch: 80 Percent Meal Consumed - Dinner: 100 Subjective Subjective Patient was seen & assessed and interval progress reviewed with treatment team nursing and social work. Remains very tearful, very depressed. Attending all groups. Continues to have SI and feels that outside of the hospital he would attempt suicide. Yesterday endorsed feeling like he was going to gag on his food, found zofran helpful. Ongoing depression, feels his mind "can't shut off". Having worries about "wasting away" or that "I'll start vomiting and will rot my teeth". Describes intense hopelessness in sense that he doesn't think he'll live much longer due to the depression, thinks by suicide will be inevitable. Worrying a lot about his and son. Does think his anxiety is a little bit less since coming to the hospital. Tearful in discussing his fears about not getting better or "how I'll cope". Tolerating medications so far, denies side effects except sense of gagging yesterday which he thinks may have been due to anxiety. Notes that he is a "hypochondriac". Recalls feeling like he lost his personality in the past with Solvay but feels "that would be better than feeling so depressed like this". Physical Exam Psychiatric Orientation: alert and oriented x 3 Apperance: appropriately dressed and appropriately groomed Eye Contact: good eye contact Motor Behavior: steady gait and station and no abnormal motor movements Speech: + abnormal rate/rhythm/volume of speech (soft, slightly latent ) Affect: + depressed affect and + flat affect Mood: + depressed mood and + anxious mood Thought Process: + circumstantial thought process Thought Content: reality based without delusions, + hopelessness and + guilt Suicidal Thoughts: denies suicidal plan (none for hospital); + reports suicidal thoughts Homicidal Thoughts: denies homicidal thoughts Hallucinations: no auditory hallucinations and no visual hallucinations Cognition: recent memory grossly intact, remote memory grossly intact, attention grossly intact and language grossly intact Estimated Intelligence: consistent with education level Insight: + fair insight Judgment: + fair judgement Vital Signs (Past 24 Hours) Last Vital Signs Temp 36.4 C L 01/22/24 06:33 Pulse 77 01/22/24 06:35 Resp 16 01/22/24 06:33 BP 99/62 L 01/22/24 06:35 Pulse Ox 96 01/22/24 06:33 O2 Del Method Room Air 01/22/24 06:33 Results & Data ([facility]) Current Inpatient Medications Current Inpatient Medications: Current Inpatient Medications Acetaminophen (Acetaminophen 325 Mg Tab) 650 mg PO Q4H PRN PRN Reason: Headache or Minor Fever Stop: 02/15/24 19:33 Al Hydrox/Mg Hydrox/Simethicone (Aluminum/Magnesium Susp 30 Ml Udc) 30 ml PO Q4 H PRN PRN Reason: GI Upset Stop: 02/15/24 19:33 Bismuth Subsalicylate (Bismuth Subsalicylate 262 Mg Chew) 2 tab PO Q30M PRN PRN Reason: Loose Stool/Diarrhea Stop: 02/15/24 19:33 Buspirone HCl (Buspirone 5 Mg Tab) 20 mg PO BID DELIO Stop: 02/15/24 20:59 Last Admin: 01/22/24 08:57 Dose: 20 mg Clonidine HCl (Clonidine Hcl 0.1 Mg Tab) 0.1 mg PO HS DELIO Stop: 02/18/24 21:59 Last Admin: 01/21/24 21:46 Dose: 0.1 mg Clonidine HCl (Clonidine Hcl 0.1 Mg Tab) 0.05 mg PO QAM DELIO Stop: 02/19/24 11:14 Last Admin: 01/22/24 08:57 Dose: 0.05 mg Hydroxyzine HCl (Hydroxyzine Hcl 25 Mg Tab) 50 mg PO HSZ PRN PRN Reason: Insomnia Stop: 02/15/24 19:33 Hydroxyzine HCl (Hydroxyzine Hcl 25 Mg Tab) 25 mg PO Q4H PRN PRN Reason: Anxiety Stop: 02/15/24 19:33 Lamotrigine (Lamotrigine 25 Mg Tab) 150 mg PO HS DELIO; Protocol Stop: 02/15/24 21:59 Last Admin: 01/21/24 21:45 Dose: 150 mg Lamotrigine (Lamotrigine 25 Mg Tab) [facility] Protocol Stop: 02/16/24 12:14 Last Admin: 01/22/24 08:58 Dose: 50 mg [place] Carbonate ([place] Carbonate 300 Mg Tab) 150 mg PO BID DELIO Stop: 02/20/24 20:59 Last Admin: 01/22/24 08:59 Dose: 150 mg Lorazepam (Lorazepam 0.5 Mg Tab) 0.5 mg PO DAILY PRN PRN Reason: Anxiety Stop: 02/15/24 19:44 Last Admin: 01/18/24 17:07 Dose: 0.5 mg Lorazepam (Lorazepam 1 Mg Tab) 1 mg PO HS PRN PRN Reason: Anxiety Stop: 02/15/24 19:46 Last Admin: 01/18/24 22:12 Dose: 1 mg Lurasidone HCl (Lurasidone Hcl 20 Mg Tab) 40 mg PO DAILY@0900 DELIO Stop: 02/20/24 08:59 Last Admin: 01/22/24 08:59 Dose: 40 mg Magnesium Hydroxide (Magnesium Hydroxide Susp 30 Ml Udc) 30 ml PO DAILY PRN PRN Reason: Constipation Stop: 02/15/24 19:33 Ondansetron HCl (Ondansetron 4 Mg Od Tab) 4 mg PO Q6H PRN PRN Reason: Nausea Stop: 02/20/24 10:40 Sodium Chloride (Sodium Chloride 0.65% Na Soln 45 Ml ([place])) 1 - 2 sprays NA PRN PRN PRN Reason: Nasal Dryness/Congestion Stop: 02/15/24 19:33 Vitamin D (Cholecalciferol 25 Mcg (1000 Units) Tab) 25 mcg PO QAM DELIO Stop: 02/18/24 08:59 Last Admin: 01/22/24 08:57 Dose: 25 mcg Mental Health & Subst Abuse Tx Psychiatrist Name of Psychiatrist: Dr. Izquierdo Psychiatrist's Date Of Appointment With Psychiatric Provider: 01/26/24 Time of Appointment with Psychiatrist: 2:40 PM Therapist Name of Therapist: Dr. Betito Beck Therapist's Date of Therapist Appointment: 02/01/24 Time of Therapist Appointment: 4:00 PM Post Discharge Appointments Primary Care Physician Name Of Family Doctor/PCP: Dr. Otero Date of Future Appointment with PCP: every six months-next one June 2024
[2024-01-23 05:58] LABS: Albumin 4.3 g/dL (3.6-5.1); Testosterone, Bioavailable 141.6 ng/dL (110.0-575.0); Testosterone, Free 71.9 pg/mL (46.0-224.0)
--- NOTE | 2024-01-23 09:45 | Psychiatric Progress Note ---
Date of Service January 23, 2024 Impression / Recommendations Impression DK GARLAND is 58-year-old man with a history of bipolar 1 disorder admitted on 01/16/24 18:56 on a 201 voluntary commitment for suicidal ideation with plan to shoot self with hunting rifle. Presentation consistent with bipolar disorder with major depressive episode. Patient presents mood episodes in late life with no behavioral health concerns in earlier years; late life bipolar is rare and continuing to r/o underlying causes, had outpatient neurology workup in the past after initial inpatient psychiatric admission without evidence for any cognitive changes. A: Ongoing severe depression with tearfulness, anhedonia and prominent hopelessness and ongoing SI. Anxiety remains problematic and poor sleep last night even with prn ativan. Testosterone levels were normal. Reviewed prior medication trials, timeline of symptoms over the past two years and spoke with his on the phone. Discussed medication treatment options in detail with Dk and his for bipolar depression. Discussed risks, benefits and alternatives. He consented to venlafaxine ER for depression and anxiety. Reviewed side effects including but not limited to: GI, MARADIAGA, sexual side effects. Will continue [place] for now but with likely plan to taper this or discontinue based on eventual effect from venlafaxine. Will begin to taper clonidine given limited effect and his concerns about his low BP (he's had no symptoms but is anxious that it has been low at times). Switching Latuda to qdinner due to history of medication sensitivity and lethargy with mood stabilizers. Overall, I spent a total of 65 minutes with this case including review of chart records, nursing report, review of lab work, direct evaluation of the patient at bedside, counseling the patient, multidisciplinary team meeting, orders, and documentation in the electronic health record and phone call with his for 30 minutes. (1) Suicidal ideation: (2) Bipolar disorder with severe depression: (3) Bipolar 1 disorder, depressed: (4) Hopelessness: (5) Elevated liver enzymes: Plan 01/23/2024: -Start venlafaxine ER 37.5mg qAM -Decrease clonidine to 0.1 mg HS -Move Latuda to 40mg qdinner -Stop ativan at HS prn in favor of Klonopin HS prn for longer duration of action to help with sleep promotion -Continue ativan daily prn 01/22/2024: Continue current medications and tx plan. Will need [place] level in 4-6 days. 01/21/2024: Increase lurasidone to 40 mg daily. Stop cariprazine tomorrow morning. Increase lithium to 150 mg twice daily. Zofran ODT as needed started 01/20/24: Start clonidine 0.05 mg every morning. 01/19/24: [place] 150mg daily, Clonidine 0.1mg HS. 01/18/24: Continue medications and treatment plan 01/17/24: The patient was admitted to the [facility] ([facility] mental health unit) on q15 min checks (behavioral with suicide precautions) for safety. The patient will participate in group, recreational, and milieu therapies and will be offered additional individual and family sessions as clinically appropriate. -Decrease Cariprazine to 1.5mg daily -Start Luradisone 20mg daily with breakfast -Continue home Lamotrigine 150mg HS -Start Lamotrigine 50mg QAM -Hold home bupropion -Continue home Buspirone 20mg BID -Continue home Lorazepam 1mg HS PRN and 0.5mg daily PRN -Lab work: Vit D, Vit B12, HbA1C, Free/Total/Bioavailable Testosterone Inventory Assets Strengths: family support, fair insight Needs: medication management, improved self esteem Suicide Risk Level Suicide Risk Level: High-Moderate (q15 min suicide checks) (SI and severe depression with prominent hopelessness but feels safe in the hospital, no plan for SI in the hospital, feels able to ask for support if SI changed to plan or intent in the hospital) Risk Factors Assessment Male: Yes : Yes Do You Have Access To A Gun?: No Health Problems: Yes Mental Health Diagnoses: Yes Substance Use Disorders: No Previous Attempt: No Family History of Suicide: No Previous Psychiatric Hospitalization: Yes Hopelessness: Yes Protective Factors Assessment Christian Beliefs: Yes : Yes Responsible for Young Children: No 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 Chief Complaint "I was doing a little better, talking about medications makes me really anxious". Review of Systems Sleep Information Total Hours of Sleep: 5.25 Sleep Comments: PRN Ativan at HS Meal Information Percent Meal Consumed - Breakfast: 100 Percent Meal Consumed - Lunch: 100 Percent Meal Consumed - Dinner: 100 Subjective Subjective Patient was seen & assessed and interval progress reviewed with treatment team nursing. Rated his mood from 2-4 yesterday. Didn't sleep well, woke up around 1:50am and required prn ativan but then was able to fall back asleep. Slept for about 5 hours. -Feels he slept ok, despite reported poor sleep -Reports mood today as "I think a little bit better, not quite as manay negative thoughts" but still having SI and feels very hopeless -Tearful at times especially when discussing that he feels hopeless when people recently have told him they rooting for him or praying for him and he's not sure why this feels so overwhelming and upsetting -Review of past medications and outpatient notes and collateral from his notable for many medication trials with very limited benefit; significant periods of lethargy, lack of motivational, tearfulness, and constant anxiety. -Multiple mood stabilizer trials without benefit -Recently ativan was the only medication that offered a tiny bit of relief -Per his in past he was "almost catatonic" on [place] -Maybe had some stability on Depakote and abilify combo but more flat, never with improved mood Physical Exam Psychiatric Orientation: alert and oriented x 3 Apperance: appropriately dressed and appropriately groomed Eye Contact: + fair eye contact Motor Behavior: steady gait and station and no abnormal motor movements Speech: + abnormal rate/rhythm/volume of speech (soft, latent ) Affect: + depressed affect, + flat affect and + tearful affect Mood: + depressed mood and + anxious mood Thought Process: + circumstantial thought process Thought Content: reality based without delusions, + hopelessness and + guilt Suicidal Thoughts: denies suicidal plan (none for hospital); + reports suicidal thoughts Homicidal Thoughts: denies homicidal thoughts Hallucinations: no auditory hallucinations and no visual hallucinations Cognition: remote memory grossly intact, attention grossly intact and language grossly intact; + recent memory not intact (forgets some of the conversations and questions we discussed yesterday) Estimated Intelligence: consistent with education level Insight: + limited insight Judgment: + limited judgement Vital Signs (Past 24 Hours) Last Vital Signs Temp 36.8 C 01/23/24 06:56 Pulse 94 H 01/23/24 06:57 Resp 16 01/23/24 06:56 BP 123/74 01/23/24 06:57 Pulse Ox 98 01/22/24 21:38 O2 Del Method Room Air 01/22/24 21:38 Results & Data ([facility]) Laboratory Results Laboratory Results - last 24 hr 01/18/24 06:54 Albumin 4.3 Total Testosterone 533 Bioavail Testosterone 141.6 Bioav Free Testosterone 71.9 Sex Hormone Bind Glob 34 Current Inpatient Medications Current Inpatient Medications: Current Inpatient Medications Acetaminophen (Acetaminophen 325 Mg Tab) 650 mg PO Q4H PRN PRN Reason: Headache or Minor Fever Stop: 02/15/24 19:33 Al Hydrox/Mg Hydrox/Simethicone (Aluminum/Magnesium Susp 30 Ml Udc) 30 ml PO Q4H PRN PRN Reason: GI Upset Stop: 02/15/24 19:33 Bismuth Subsalicylate (Bismuth Subsalicylate 262 Mg Chew) 2 tab PO Q30M PRN PRN Reason: Loose Stool/Diarrhea Stop: 02/15/24 19:33 Buspirone HCl (Buspirone 5 Mg Tab) 20 mg PO BID DELIO Stop: 02/15/24 20:59 Last Admin: 01/23/24 09:34 Dose: 20 mg Clonidine HCl (Clonidine Hcl 0.1 Mg Tab) 0.1 mg PO HS DELIO Stop: 02/18/24 21:59 Last Admin: 01/22/24 21:46 Dose: 0.1 mg Clonidine HCl (Clonidine Hcl 0.1 Mg Tab) 0.05 mg PO QAM DELIO Stop: 02/19/24 11:14 Last Admin: 01/23/24 09:34 Dose: 0.05 mg Hydroxyzine HCl (Hydroxyzine Hcl 25 Mg Tab) 50 mg PO HSZ PRN PRN Reason: Insomnia Stop: 02/15/24 19:33 Hydroxyzine HCl (Hydroxyzine Hcl 25 Mg Tab) 25 mg PO Q4H PRN PRN Reason: Anxiety Stop: 02/15/24 19:33 Lamotrigine (Lamotrigine 25 Mg Tab) 150 mg PO HS DELIO; Protocol Stop: 02/15/24 21:59 Last Admin: 01/22/24 21:46 Dose: 150 mg Lamotrigine (Lamotrigine 25 Mg Tab) 50 mg PO QAM [facility]; Protocol Stop: 02/16/24 12:14 Last Admin: 01/23/24 09:35 Dose: 50 mg [place] Carbonate ([place] Carbonate 300 Mg Tab) 150 mg PO BID DELIO Stop: 02/20/24 20:59 Last Admin: 01/23/24 09:35 Dose: 150 mg Lorazepam (Lorazepam 0.5 Mg Tab) 0.5 mg PO DAILY PRN PRN Reason: Anxiety Stop: 02/15/24 19:44 Last Admin: 01/18/24 17:07 Dose: 0.5 mg Lorazepam (Lorazepam 1 Mg Tab) 1 mg PO HS PRN PRN Reason: Anxiety Stop: 02/15/24 19:46 Last Admin: 01/23/24 01:49 Dose: 1 mg Lurasidone HCl (Lurasidone Hcl 20 Mg Tab) 40 mg PO DAILY@0900 [facility] Stop: 02/20/24 08:59 Last Admin: 01/23/24 09:35 Dose: 40 mg Magnesium Hydroxide (Magnesium Hydroxide Susp 30 Ml Udc) 30 ml PO DAILY PRN PRN Reason: Constipation Stop: 02/15/24 19:33 Ondansetron HCl (Ondansetron 4 Mg Od Tab) 4 mg PO Q6H PRN PRN Reason: Nausea Stop: 02/20/24 10:40 Sodium Chloride (Sodium Chloride 0.65% Na Soln 45 Ml ([place])) 1 - 2 sprays NA PRN PRN PRN Reason: Nasal Dryness/Congestion Stop: 02/15/24 19:33 Vitamin D (Cholecalciferol 25 Mcg (1000 Units) Tab) 25 mcg PO QAM DELIO Stop: 02/18/24 08:59 Last Admin: 01/23/24 09:34 Dose: 25 mcg Mental Health & Subst Abuse Tx Psychiatrist Name of Psychiatrist: Dr. Izquierdo Psychiatrist's Date Of Appointment With Psychiatric Provider: 01/26/24 Time of Appointment with Psychiatrist: 2:40 PM Therapist Name of Therapist: Dr. Betito Beck Therapist's Date of Therapist Appointment: 02/01/24 Time of Therapist Appointment: 4:00 PM Post Discharge Appointments Primary Care Physician Name Of Family Doctor/PCP: Dr. Otero Date of Future Appointment with PCP: every six months-next one June 2024
[2024-01-24] MEDS: VENLAFAXINE HCL XR 37.5 MG CAPXR PO SCH (08:49)
--- NOTE | 2024-01-24 08:51 | Psychiatric Progress Note ---
Date of Service January 24, 2024 Impression / Recommendations Impression DK GARLAND is 58-year-old man with a history of bipolar 1 disorder admitted on 01/16/24 18:56 on a 201 voluntary commitment for suicidal ideation with plan to shoot self with hunting rifle. Presentation consistent with bipolar disorder with major depressive episode. Patient presents mood episodes in late life with no behavioral health concerns in earlier years; late life bipolar is rare and continuing to r/o underlying causes, had outpatient neurology workup in the past after initial inpatient psychiatric admission without evidence for any cognitive changes. A: Ongoing severe depression with tearfulness, anhedonia and prominent hopelessness and ongoing SI. Tolerating initiation of Effexor so far. Still with poor sleep. Overall, I spent a total of 45 minutes with this case including review of chart records, nursing report, review of lab work, direct evaluation of the patient at bedside, counseling the patient, multidisciplinary team meeting, orders, and documentation in the electronic health record. (1) Suicidal ideation: (2) Bipolar disorder with severe depression: (3) Bipolar 1 disorder, depressed: (4) Hopelessness: (5) Elevated liver enzymes: Plan 01/24/2024: Continue current meds and tx plan. 01/23/2024: -Start venlafaxine ER 37.5mg qAM -Decrease clonidine to 0.1 mg HS -Move Latuda to 40mg qdinner -Stop ativan at HS prn in favor of Klonopin HS prn for longer duration of action to help with sleep promotion -Continue ativan daily prn 01/22/2024: Continue current medications and tx plan. Will need [place] level in 4-6 days. 01/21/2024: Increase lurasidone to 40 mg daily. Stop cariprazine tomorrow morning. Increase lithium to 150 mg twice daily. Zofran ODT as needed started 01/20/24: Start clonidine 0.05 mg every morning. 01/19/24: [place] 150mg daily, Clonidine 0.1mg HS. 01/18/24: Continue medications and treatment plan 01/17/24: The patient was admitted to the [facility] ([facility] mental [facility] unit) on q15 min checks (behavioral with suicide precautions) for safety. The patient will participate in group, recreational, and milieu therapies and will be offered additional individual and family sessions as clinically appropriate. -Decrease Cariprazine to 1.5mg daily -Start Luradisone 20mg daily with breakfast -Continue home Lamotrigine 150mg HS -Start Lamotrigine 50mg QAM -Hold home bupropion -Continue home Buspirone 20mg BID -Continue home Lorazepam 1mg HS PRN and 0.5mg daily PRN -Lab work: Vit D, Vit B12, HbA1C, Free/Total/Bioavailable Testosterone Inventory Assets Strengths: family support, fair insight Needs: medication management, improved self esteem Suicide Risk Level Suicide Risk Level: High-Moderate (q15 min suicide checks) (SI and severe depression with prominent hopelessness but feels safe in the hospital, no plan for SI in the hospital, feels able to ask for support if SI changed to plan or intent in the hospital) Risk Factors Assessment Male: Yes : Yes Do You Have Access To A Gun?: No Health Problems: Yes Mental Health Diagnoses: Yes Substance Use Disorders: No Previous Attempt: No Family History of Suicide: No Previous Psychiatric Hospitalization: Yes Hopelessness: Yes Protective Factors Assessment Latter Day Beliefs: Yes : Yes Responsible for Young Children: No 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 Chief Complaint "I'm back to [facility]". Review of Systems Sleep Information Total Hours of Sleep: 6.30 Sleep Comments: meds Meal Information Percent Meal Consumed - Breakfast: 100 Percent Meal Consumed - Lunch: 100 Percent Meal Consumed - Dinner: 100 Subjective Subjective Patient was seen & assessed and interval progress reviewed with treatment team nursing and social work. Yesterday evening reported some slight hopefulness and rated his mood slightly better after visit with his but still having a lot of depression and suicidal ideation. He didn't utilize any prns overnight but then only slept 6 hours so plans to try to the Klonopin tonight as sleep was broken and disrupted. Today reports mood was "alright" this morning then back "to more negative thoughts" this afternoon. Tearful in discussing that he agrees his length stay likely may be longer as he refkects that it's for the best as if he went home like this he thinks he would "decide to end it". He whispers this and is tearful acknowledging the hopelessness and intensity of his SI. Feels worse when he thinks of the good things in his life like his family because of how much he knows suicide would hurt them and wishing he could feel better due to the good things in his life. Notes "life is just so hard". Physical Exam Psychiatric Orientation: alert and oriented x 3 Apperance: appropriately dressed and appropriately groomed Eye Contact: + fair eye contact Motor Behavior: steady gait and station and no abnormal motor movements Speech: + abnormal rate/rhythm/volume of speech (soft, latent ) Affect: + depressed affect, + flat affect and + tearful affect Mood: + depressed mood and + anxious mood Thought Process: + circumstantial thought process Thought Content: reality based without delusions, + hopelessness and + guilt Suicidal Thoughts: denies suicidal plan (none for hospital); + reports suicidal thoughts Homicidal Thoughts: denies homicidal thoughts Hallucinations: no auditory hallucinations and no visual hallucinations Cognition: remote memory grossly intact and language grossly intact; + recent memory not intact (concentration issues) and + attention not intact Estimated Intelligence: consistent with education level Insight: + limited insight Judgment: + limited judgement Vital Signs (Past 24 Hours) Last Vital Signs Temp 36.9 C 01/24/24 06:47 Pulse 83 01/24/24 06:47 Resp 16 01/24/24 06:47 BP 112/73 01/24/24 06:47 Pulse Ox 98 01/22/24 21:38 O2 Del Method Room Air 01/22/24 21:38 Results & Data ([facility]) Current Inpatient Medications Current Inpatient Medications: Current Inpatient Medications Acetaminophen (Acetaminophen 325 Mg Tab) 650 mg PO Q4H PRN PRN Reason: Headache or Minor Fever Stop: 02/15/24 19:33 Al Hydrox/Mg Hydrox/Simethicone (Aluminum/Magnesium Susp 30 Ml Udc) 30 ml PO Q4H PRN PRN Reason: GI Upset Stop: 02/15/24 19:33 Bismuth Subsalicylate (Bismuth Subsalicylate 262 Mg Chew) 2 tab PO Q30M PRN PRN Reason: Loose Stool/Diarrhea Stop: 02/15/24 19:33 Buspirone HCl (Buspirone 5 Mg Tab) 20 mg PO BID DELIO Stop: 02/15/24 20:59 Last Admin: 01/23/24 21:23 Dose: 20 mg Clonazepam (Clonazepam 1 Mg Tab) 1 mg PO HS PRN PRN Reason: Insomnia Stop: 02/22/24 12:47 Clonidine HCl (Clonidine Hcl 0.1 Mg Tab) 0.1 mg PO HS DELIO Stop: 02/18/24 21:59 Last Admin: 01/23/24 21:23 Dose: 0.1 mg Hydroxyzine HCl (Hydroxyzine Hcl 25 Mg Tab) 50 mg PO HSZ PRN PRN Reason: Insomnia Stop: 02/15/24 19:33 Hydroxyzine HCl (Hydroxyzine Hcl 25 Mg Tab) 25 mg PO Q4H PRN PRN Reason: Anxiety Stop: 02/15/24 19:33 Lamotrigine (Lamotrigine 25 Mg Tab) 150 mg PO HS [facility]; Protocol Stop: 02/15/24 21:59 Last Admin: 01/23/24 21:23 Dose: 150 mg Lamotrigine (Lamotrigine 25 Mg Tab) 50 mg PO QAM [facility]; Protocol Stop: 02/16/24 12:14 Last Admin: 01/23/24 09:35 Dose: 50 mg [place] Carbonate ([place] Carbonate 300 Mg Tab) 150 mg PO BID DELIO Stop: 02/20/24 20:59 Last Admin: 01/23/24 21:24 Dose: 150 mg Lorazepam (Lorazepam 0.5 Mg Tab) 0.5 mg PO DAILY PRN PRN Reason: Anxiety Stop: 02/15/24 19:44 Last Admin: 01/18/24 17:07 Dose: 0.5 mg Lurasidone HCl (Lurasidone Hcl 20 Mg Tab) 40 mg PO DAILYBD DELIO Stop: 02/23/24 17:14 Magnesium Hydroxide (Magnesium Hydroxide Susp 30 Ml Udc) 30 ml PO DAILY PRN PRN Reason: Constipation Stop: 02/15/24 19:33 Ondansetron HCl (Ondansetron 4 Mg Od Tab) 4 mg PO Q6H PRN PRN Reason: Nausea Stop: 02/20/24 10:40 Sodium Chloride (Sodium Chloride 0.65% Na Soln 45 Ml ([place])) 1 - 2 sprays NA PRN PRN PRN Reason: Nasal Dryness/Congestion Stop: 02/15/24 19:33 Venlafaxine HCl (Venlafaxine Hcl Xr 37.5 Mg Capxr) 37.5 mg PO QAM DELIO Stop: 02/23/24 08:59 Vitamin D (Cholecalciferol 25 Mcg (1000 Units) Tab) 25 mcg PO QAM DELIO Stop: 02/18/24 08:59 Last Admin: 01/23/24 09:34 Dose: 25 mcg Mental Health & Subst Abuse Tx Psychiatrist Name of Psychiatrist: Dr. Izquierdo Psychiatrist's Date Of Appointment With Psychiatric Provider: 01/26/24 Time of Appointment with Psychiatrist: 2:40 PM Therapist Name of Therapist: Dr. Betito Beck Therapist's Date of Therapist Appointment: 02/01/24 Time of Therapist Appointment: 4:00 PM Post Discharge Appointments Primary Care Physician Name Of Family Doctor/PCP: Dr. Otero Date of Future Appointment with PCP: every six months-next one June 2024
[2024-01-24] MEDS: LURASIDONE HCL 20 MG TAB PO SCH (17:23)
[2024-01-24] MEDS: clonazePAM 1 MG TAB PO PRN (22:33)
--- NOTE | 2024-01-25 08:49 | Psychiatric Progress Note ---
Date of Service January 25, 2024 Impression / Recommendations Impression DK GARLAND is 58-year-old man with a history of bipolar 1 disorder admitted on 01/16/24 18:56 on a 201 voluntary commitment for suicidal ideation with plan to shoot self with hunting rifle. Presentation consistent with bipolar disorder with major depressive episode. Patient presents mood episodes in late life with no behavioral health concerns in earlier years; late life bipolar is rare and continuing to r/o underlying causes, had outpatient neurology workup in the past after initial inpatient psychiatric admission without evidence for any cognitive changes. A: Ongoing severe depression with tearfulness, anhedonia and prominent hopelessness and ongoing SI. Slept a bit better with Klonopin, had difficulty eating last night. Hold off on adding any additional medication, like mirtazapine, at this time given significant polypharmacy and waiting to see potential benefits from Bonadelle Ranchos and Latuda and he's finding prn benzodiazepines helpful. Overall, I spent a total of 30 minutes with this case including review of chart records, nursing report, review of lab work, direct evaluation of the patient at bedside, counseling the patient, multidisciplinary team meeting, orders, and documentation in the electronic health record. (1) Suicidal ideation: (2) Bipolar disorder with severe depression: (3) Bipolar 1 disorder, depressed: (4) Hopelessness: (5) Elevated liver enzymes: Plan 01/25/2024: Continue current meds and tx plan. 01/24/2024: Continue current meds and tx plan. 01/23/2024: -Start venlafaxine ER 37.5mg qAM -Decrease clonidine to 0.1 mg HS -Move Latuda to 40mg qdinner -Stop ativan at HS prn in favor of Klonopin HS prn for longer duration of action to help with sleep promotion -Continue ativan daily prn 01/22/2024: Continue current medications and tx plan. Will need Bonadelle Ranchos level in 4-6 days. 01/21/2024: Increase lurasidone to 40 mg daily. Stop cariprazine tomorrow morning. Increase lithium to 150 mg twice daily. Zofran ODT as needed started 01/20/24: Start clonidine 0.05 mg every morning. 01/19/24: Bonadelle Ranchos 150mg daily, Clonidine 0.1mg HS. 01/18/24: Continue medications and treatment plan 10/21/24: The patient was admitted to the [facility] ([facility] mental health unit) on q15 min checks (behavioral with suicide precautions) for safety. The patient will participate in group, recreational, and milieu therapies and will be offered additional individual and family sessions as clinically appropriate. -Decrease Cariprazine to 1.5mg daily -Start Luradisone 20mg daily with breakfast -Continue home Lamotrigine 150mg HS -Start Lamotrigine 50mg QAM -Hold home bupropion -Continue home Buspirone 20mg BID -Continue home Lorazepam 1mg HS PRN and 0.5mg daily PRN -Lab work: Vit D, Vit B12, HbA1C, Free/Total/Bioavailable Testosterone Inventory Assets Strengths: family support, fair insight Needs: medication management, improved self esteem Suicide Risk Level Suicide Risk Level: High-Moderate (q15 min suicide checks) (SI and severe depression with prominent hopelessness but feels safe in the hospital, no plan for SI in the hospital, feels able to ask for support if SI changed to plan or intent in the hospital) Risk Factors Assessment Male: Yes : Yes Do You Have Access To A Gun?: No Health Problems: Yes Mental Health Diagnoses: Yes Substance Use Disorders: No Previous Attempt: No Family History of Suicide: No Previous Psychiatric Hospitalization: Yes Hopelessness: Yes Protective Factors Assessment Alevism Beliefs: Yes : Yes Responsible for Young Children: No 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 Chief Complaint "About the same". Review of Systems Sleep Information Total Hours of Sleep: 6.5 Sleep Comments: HS meds Meal Information Percent Meal Consumed - Breakfast: 100 Percent Meal Consumed - Lunch: 50 Percent Meal Consumed - Dinner: 25 Subjective Subjective Patient was seen & assessed and interval progress reviewed with treatment team nursing and social work. Gagging during dinner so unable to eat, did have some relief after prn ativan. Ongoing fears of not getting better. Rated his mood as 1/10 and described as "anxious and scared" last evening. Today reports ongoing low mood. Possible medication side effect of his hands feeling warm this morning but reports this has resolved, ongoing SI. Having some constipation, consents to starting miralax and colace for this. Feels he slept better with the prn Klonopin last night. Physical Exam Psychiatric Orientation: alert and oriented x 3 Apperance: appropriately dressed and appropriately groomed Eye Contact: + fair eye contact Motor Behavior: steady gait and station and no abnormal motor movements Speech: + abnormal rate/rhythm/volume of speech (soft, latent ) Affect: + depressed affect, + flat affect and + tearful affect Mood: + depressed mood and + anxious mood Thought Process: + circumstantial thought process Thought Content: reality based without delusions, + hopelessness and + guilt Suicidal Thoughts: denies suicidal plan (none for hospital, feels he would act if at home); + reports suicidal thoughts Homicidal Thoughts: denies homicidal thoughts Hallucinations: no auditory hallucinations and no visual hallucinations Cognition: remote memory grossly intact and language grossly intact; + recent memory not intact (concentration issues) and + attention not intact Estimated Intelligence: consistent with education level Insight: + limited insight Judgment: + limited judgement Vital Signs (Past 24 Hours) Last Vital Signs Temp 36.9 C 01/25/24 06:44 Pulse 83 01/25/24 06:45 Resp 16 01/25/24 06:44 BP 112/77 01/25/24 06:45 Pulse Ox 98 01/22/24 21:38 O2 Del Method Room Air 01/22/24 21:38 Results & Data ([facility]) Current Inpatient Medications Current Inpatient Medications: Current Inpatient Medications Acetaminophen (Acetaminophen 325 Mg Tab) 650 mg PO Q4H PRN PRN Reason: Headache or Minor Fever Stop: 02/15/24 19:33 Al Hydrox/Mg Hydrox/Simethicone (Aluminum/Magnesium Susp 30 Ml Udc) 30 ml PO Q4H PRN PRN Reason: GI Upset Stop: 02/15/24 19:33 Bismuth Subsalicylate (Bismuth Subsalicylate 262 Mg Chew) 2 tab PO Q30M PRN PRN Reason: Loose Stool/Diarrhea Stop: 02/15/24 19:33 Buspirone HCl (Buspirone 5 Mg Tab) 20 mg PO BID DELIO Stop: 02/15/24 20:59 Last Admin: 01/24/24 21:39 Dose: 20 mg Clonazepam (Clonazepam 1 Mg Tab) 1 mg PO HS PRN PRN Reason: Insomnia Stop: 02/22/24 12:47 Last Admin: 01/24/24 22:33 Dose: 1 mg Clonidine HCl (Clonidine Hcl 0.1 Mg Tab) 0.1 mg PO HS DELIO Stop: 02/18/24 21:59 Last Admin: 01/24/24 21:40 Dose: 0.1 mg Hydroxyzine HCl (Hydroxyzine Hcl 25 Mg Tab) 50 mg PO HSZ PRN PRN Reason: Insomnia Stop: 02/15/24 19:33 Hydroxyzine HCl (Hydroxyzine Hcl 25 Mg Tab) 25 mg PO Q4H PRN PRN Reason: Anxiety Stop: 02/15/24 19:33 Lamotrigine (Lamotrigine 25 Mg Tab) 150 mg PO HS DELIO; Protocol Stop: 02/15/24 21:59 Last Admin: 01/24/24 21:41 Dose: 150 mg Lamotrigine (Lamotrigine 25 Mg Tab) 50 mg PO QAM [facility]; Protocol Stop: 02/16/24 12:14 Last Admin: 01/24/24 08:49 Dose: 50 mg Bon[place]os Carbonate (Bon[place] Carbonate 300 Mg Tab) 150 mg PO BID DELIO Stop: 02/20/24 20:59 Last Admin: 01/24/24 21:40 Dose: 150 mg Lorazepam (Lorazepam 0.5 Mg Tab) 0.5 mg PO DAILY PRN PRN Reason: Anxiety Stop: 02/15/24 19:44 Last Admin: 01/24/24 17:41 Dose: 0.5 mg Lurasidone HCl (Lurasidone Hcl 20 Mg Tab) 40 mg PO DAILYBD DELIO Stop: 02/23/24 17:14 Last Admin: 01/24/24 17:23 Dose: 40 mg Magnesium Hydroxide (Magnesium Hydroxide Susp 30 Ml Udc) 30 ml PO DAILY PRN PRN Reason: Constipation Stop: 02/15/24 19:33 Ondansetron HCl (Ondansetron 4 Mg Od Tab) 4 mg PO Q6H PRN PRN Reason: Nausea Stop: 02/20/24 10:40 Sodium Chloride (Sodium Chloride 0.65% Na Soln 45 Ml ([place])) 1 - 2 sprays NA PRN PRN PRN Reason: Nasal Dryness/Congestion Stop: 02/15/24 19:33 Venlafaxine HCl (Venlafaxine Hcl Xr 37.5 Mg Capxr) 37.5 mg PO QAM DELIO Stop: 02/23/24 08:59 Last Admin: 01/24/24 08:49 Dose: 37.5 mg Vitamin D (Cholecalciferol 25 Mcg (1000 Units) Tab) 25 mcg PO QAM DELIO Stop: 02/18/24 08:59 Last Admin: 01/24/24 08:48 Dose: 25 mcg Mental Health & Subst Abuse Tx Psychiatrist Name of Psychiatrist: Dr. Izquierdo Psychiatrist's Date Of Appointment With Psychiatric Provider: 02/22/24 Time of Appointment with Psychiatrist: 8:20AM Therapist Name of Therapist: Dr. Betito Beck Therapist's Date of Therapist Appointment: 02/23/24 Time of Therapist Appointment: 3PM Post Discharge Appointments Primary Care Physician Name Of Family Doctor/PCP: Dr. Otero Date of Future Appointment with PCP: every six months-next one June 2024
[2024-01-25] MEDS: DOCUSATE SODIUM 100 MG CAP PO SCH (14:50)
[2024-01-25] MEDS: POLYETHYLENE (MIRALAX) 17 GM PACK PO SCH (14:50)
--- NOTE | 2024-01-26 08:55 | Psychiatric Progress Note ---
Date of Service January 26, 2024 Impression / Recommendations Impression DK GARLAND is 58-year-old man with a history of bipolar 1 disorder admitted on 01/16/24 18:56 on a 201 voluntary commitment for suicidal ideation with plan to shoot self with hunting rifle. Presentation consistent with bipolar disorder with major depressive episode. Patient presents mood episodes in late life with no behavioral health concerns in earlier years; late life bipolar is rare and continuing to r/o underlying causes, had outpatient neurology workup in the past after initial inpatient psychiatric admission without evidence for any cognitive changes. A: Ongoing severe depression, reports increased fatigue today, could be a result of Fleming-Neon reaching steady state vs grogginess from Klonopin. Fleming-Neon level in the morning. Reviewed his outpt Genes[facility] testing, normal metabolism reported for most SSRI/SNRIs including Effexor XR. He consents to ongoing dose titration. Overall, I spent a total of 28 minutes with this case including review of chart records, nursing report, review of lab work, direct evaluation of the patient at bedside, counseling the patient, multidisciplinary team meeting, orders, and documentation in the electronic health record. (1) Suicidal ideation: (2) Bipolar disorder with severe depression: (3) Bipolar 1 disorder, depressed: (4) Hopelessness: (5) Elevated liver enzymes: Plan 01/26/2024: Increase Effexor XR to 75mg qAM tomorrow. Li level tomorrow AM. Add senna prn in addition to miralax and colace for constipation. 01/25/2024: Continue current meds and tx plan. 01/24/2024: Continue current meds and tx plan. 01/23/2024: -Start venlafaxine ER 37.5mg qAM -Decrease clonidine to 0.1 mg HS -Move Latuda to 40mg qdinner -Stop ativan at HS prn in favor of Klonopin HS prn for longer duration of action to help with sleep promotion -Continue ativan daily prn 01/22/2024: Continue current medications and tx plan. Will need Fleming-Neon level in 4-6 days. 01/21/2024: Increase lurasidone to 40 mg daily. Stop cariprazine tomorrow morning. Increase lithium to 150 mg twice daily. Zofran ODT as needed started 01/20/24: Start clonidine 0.05 mg every morning. 01/19/24: Fleming-Neon 150mg daily, Clonidine 0.1mg HS. 01/18/24: Continue medications and treatment plan 01/17/24: The patient was admitted to the [facility] ([facility] mental health unit) on q15 min checks (behavioral with suicide precautions) for safety. The patient will participate in group, recreational, and milieu therapies and will be offered additional individual and family sessions as clinically appropriate. -Decrease Cariprazine to 1.5mg daily -Start Luradisone 20mg daily with breakfast -Continue home Lamotrigine 150mg HS -Start Lamotrigine 50mg QAM -Hold home bupropion -Continue home Buspirone 20mg BID -Continue home Lorazepam 1mg HS PRN and 0.5mg daily PRN -Lab work: Vit D, Vit B12, HbA1C, Free/Total/Bioavailable Testosterone Inventory Assets Strengths: family support, fair insight Needs: medication management, improved self esteem Suicide Risk Level Suicide Risk Level: High-Moderate (q15 min suicide checks) (SI and severe depression with prominent hopelessness but feels safe in the hospital, no plan for SI in the hospital, feels able to ask for support if SI changed to plan or intent in the hospital) Risk Factors Assessment Male: Yes : Yes Do You Have Access To A Gun?: No Health Problems: Yes Mental Health Diagnoses: Yes Substance Use Disorders: No Previous Attempt: No Family History of Suicide: No Previous Psychiatric Hospitalization: Yes Hopelessness: Yes Protective Factors Assessment Uatsdin Beliefs: Yes : Yes Responsible for Young Children: No 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 Chief Complaint "ok right now, pretty sleepy today". Review of Systems Sleep Information Total Hours of Sleep: 6.5 Sleep Comments: HS meds Meal Information Percent Meal Consumed - Breakfast: 80 Percent Meal Consumed - Lunch: 100 Percent Meal Consumed - Dinner: 80 Subjective Subjective Patient was seen & assessed and interval progress reviewed with treatment team nursing and social work. Flat affect, seemed to have a difficult day yesterday. His visited last evening and they walked in the halls together. Mood rated as a "3" yesterday evening. Today reports feeling "ok" when distracted from his thoughts as we met after he was doing rec therapy group. He continues to have SI. He slept well but feels tired today. Ongoing constipation. Physical Exam Psychiatric Orientation: alert and oriented x 3 Apperance: appropriately dressed and appropriately groomed Eye Contact: + fair eye contact Motor Behavior: steady gait and station and + psychomotor retardation (walks slowly) Speech: + abnormal rate/rhythm/volume of speech (soft, latent ) Affect: + depressed affect and + flat affect Mood: + depressed mood and + anxious mood Thought Process: + circumstantial thought process Thought Content: reality based without delusions, + hopelessness and + guilt Suicidal Thoughts: denies suicidal plan (none for hospital, feels he would act if at home); + reports suicidal thoughts Homicidal Thoughts: denies homicidal thoughts Hallucinations: no auditory hallucinations and no visual hallucinations Cognition: recent memory grossly intact, remote memory grossly intact, attention grossly intact and language grossly intact Estimated Intelligence: consistent with education level Insight: + limited insight Judgment: + limited judgement Vital Signs (Past 24 Hours) Last Vital Signs Temp 36.6 C 01/26/24 05:58 Pulse 90 01/26/24 05:59 Resp 16 01/26/24 05:58 BP 110/75 01/26/24 05:59 Pulse Ox 98 01/22/24 21:38 O2 Del Method Room Air 01/22/24 21:38 Results & Data ([facility]) Current Inpatient Medications Current Inpatient Medications: Current Inpatient Medications Acetaminophen (Acetaminophen 325 Mg Tab) 650 mg PO Q4H PRN PRN Reason: Headache or Minor Fever Stop: 02/15/24 19:33 Al Hydrox/Mg Hydrox/Simethicone (Aluminum/Magnesium Susp 30 Ml Udc) 30 ml PO Q4H PRN PRN Reason: GI Upset Stop: 02/15/24 19:33 Bismuth Subsalicylate (Bismuth Subsalicylate 262 Mg Chew) 2 tab PO Q30M PRN PRN Reason: Loose Stool/Diarrhea Stop: 02/15/24 19:33 Buspirone HCl (Buspirone 5 Mg Tab) 20 mg PO BID [facility] Stop: 02/15/24 20:59 Last Admin: 01/25/24 22:12 Dose: 20 mg Clonazepam (Clonazepam 1 Mg Tab) 1 mg PO HS PRN PRN Reason: Insomnia Stop: 02/22/24 12:47 Last Admin: 01/25/24 22:22 Dose: 1 mg Clonidine HCl (Clonidine Hcl 0.1 Mg Tab) 0.1 mg PO HS [facility] Stop: 02/18/24 21:59 Last Admin: 01/25/24 22:14 Dose: 0.1 mg Docusate Sodium (Docusate Sodium 100 Mg Cap) 100 mg PO BID DELIO Stop: 02/24/24 12:29 Last Admin: 01/25/24 22:13 Dose: 100 mg Hydroxyzine HCl (Hydroxyzine Hcl 25 Mg Tab) 50 mg PO HSZ PRN PRN Reason: Insomnia Stop: 02/15/24 19:33 Hydroxyzine HCl (Hydroxyzine Hcl 25 Mg Tab) 25 mg PO Q4H PRN PRN Reason: Anxiety Stop: 02/15/24 19:33 Lamotrigine (Lamotrigine 25 Mg Tab) 150 mg PO HS [facility]; Protocol Stop: 02/15/24 21:59 Last Admin: 01/25/24 22:14 Dose: 150 mg Lamotrigine (Lamotrigine 25 Mg Tab) [facility] [place] [place] Protocol Stop: 02/16/24 12:14 Last Admin: 01/25/24 09:05 Dose: 50 mg Fleming-Neon Carbonate (Fleming-Neon Carbonate 300 Mg Tab) 150 mg PO BID [facility] Stop: 02/20/24 20:59 Last Admin: 01/25/24 22:13 Dose: 150 mg Lorazepam (Lorazepam 0.5 Mg Tab) 0.5 mg PO DAILY PRN PRN Reason: Anxiety Stop: 02/15/24 19:44 Last Admin: 01/24/24 17:41 Dose: 0.5 mg Lurasidone HCl (Lurasidone Hcl 20 Mg Tab) 40 mg PO DAILYBD [facility] Stop: 02/23/24 17:14 Last Admin: 01/25/24 17:38 Dose: 40 mg Magnesium Hydroxide (Magnesium Hydroxide Susp 30 Ml Udc) 30 ml PO DAILY PRN PRN Reason: Constipation Stop: 02/15/24 19:33 Ondansetron HCl (Ondansetron 4 Mg Od Tab) 4 mg PO Q6H PRN PRN Reason: Nausea Stop: 02/20/24 10:40 Polyethylene Glycol (Polyethylene (Miralax) 17 Gm Pack) 17 gm PO DAILY DELIO Stop: 02/24/24 12:29 Last Admin: 01/25/24 14:50 Dose: 17 gm Sodium Chloride (Sodium Chloride 0.65% Na Soln 45 Ml ([place])) 1 - 2 sprays NA PRN PRN PRN Reason: Nasal Dryness/Congestion Stop: 02/15/24 19:33 Venlafaxine HCl (Venlafaxine Hcl Xr 37.5 Mg Capxr) 37.5 mg PO QAM DELIO Stop: 02/23/24 08:59 Last Admin: 01/25/24 09:05 Dose: 37.5 mg Vitamin D (Cholecalciferol 25 Mcg (1000 Units) Tab) 25 mcg PO QAM DELIO Stop: 02/18/24 08:59 Last Admin: 01/25/24 09:04 Dose: 25 mcg Mental Health & Subst Abuse Tx Psychiatrist Name of Psychiatrist: Dr. Izquierdo Psychiatrist's Date Of Appointment With Psychiatric Provider: 02/22/24 Time of Appointment with Psychiatrist: 8:20AM Therapist Name of Therapist: Dr. Betito Beck Therapist's Date of Therapist Appointment: 02/23/24 Time of Therapist Appointment: 3PM Post Discharge Appointments Primary Care Physician Name Of Family Doctor/PCP: Dr. Otero Date of Future Appointment with PCP: every six months-next one June 2024
[2024-01-26] MEDS: MAGNESIUM HYDROXIDE SUSP 30 ML UDC PO PRN (22:12)
[2024-01-27] MEDS: VENLAFAXINE HCL XR 75 MG CAPXR PO SCH (08:47)
[2024-01-27] MEDS ORDERED: SENNA 8.6 MG TAB PO PRN (08:49)
--- NOTE | 2024-01-27 08:50 | Psychiatric Progress Note ---
Date of Service January 27, 2024 Impression / Recommendations Impression DK GARLAND is 58-year-old man with a history of bipolar 1 disorder admitted on 01/16/24 18:56 on a 201 voluntary commitment for suicidal ideation with plan to shoot self with hunting rifle. Presentation consistent with bipolar disorder with major depressive episode. Patient presents mood episodes in late life with no behavioral health concerns in earlier years; late life bipolar is rare and continuing to r/o underlying causes, had outpatient neurology workup in the past after initial inpatient psychiatric admission without evidence for any cognitive changes. A: Ongoing severe depression, seems to have some lessening of anxiety but ongoing SI and fatigue. Sleep is improving even without needing Klonopin prn last night. Reviewed [place] level, low as anticipated, he consents to further dose titration, will continue do this gradually given past side effects to O[place]a. Will discontinue HS clonidine given unclear benefit and daytime fatigue and effort to reduce medication burden as Ocosta and Effexor XR are titrated. Overall, I spent a total of 45 minutes with this case including review of chart records, nursing report, review of lab work, direct evaluation of the patient at bedside, counseling the patient, multidisciplinary team meeting, orders, helping him trim his nails, and documentation in the electronic health record. (1) Suicidal ideation: (2) Bipolar disorder with severe depression: (3) Bipolar 1 disorder, depressed: (4) Hopelessness: (5) Elevated liver enzymes: Plan 01/27/2024: Discontinue clonidine. Increase [place] to 150mg qAM and 300mg HS. 01/26/2024: Increase Effexor XR to 75mg qAM tomorrow. Li level tomorrow AM. Add senna prn in addition to miralax and colace for constipation. 01/25/2024: Continue current meds and tx plan. 01/24/2024: Continue current meds and tx plan. 01/23/2024: -Start venlafaxine ER 37.5mg qAM -Decrease clonidine to 0.1 mg HS -Move Latuda to 40mg qdinner -Stop ativan at HS prn in favor of Klonopin HS prn for longer duration of action to help with sleep promotion -Continue ativan daily prn 01/22/2024: Continue current medications and tx plan. Will need [place] level in 4-6 days. 01/21/2024: Increase lurasidone to 40 mg daily. Stop cariprazine tomorrow morning. Increase lithium to 150 mg twice daily. Zofran ODT as needed started 01/20/24: Start clonidine 0.05 mg every morning. 01/19/24: O[place]a 150mg daily, Clonidine 0.1mg HS. 01/18/24: Continue medications and treatment plan 01/17/24: The patient was admitted to the [facility] ([facility]) on q15 min checks (behavioral with suicide precautions) for safety. The patient will participate in group, recreational, and milieu therapies and will be offered additional individual and family sessions as clinically appropriate. -Decrease Cariprazine to 1.5mg daily -Start Luradisone 20mg daily with breakfast -Continue home Lamotrigine 150mg HS -Start Lamotrigine 50mg QAM -Hold home bupropion -Continue home Buspirone 20mg BID -Continue home Lorazepam 1mg HS PRN and 0.5mg daily PRN -Lab work: Vit D, Vit B12, HbA1C, Free/Total/Bioavailable Testosterone Inventory Assets Strengths: family support, fair insight Needs: medication management, improved self esteem Suicide Risk Level Suicide Risk Level: High-Moderate (q15 min suicide checks) (SI and severe depression with prominent hopelessness but feels safe in the hospital, no plan for SI in the hospital, feels able to ask for support if SI changed to plan or intent in the hospital) Risk Factors Assessment Male: Yes : Yes Do You Have Access To A Gun?: No Health Problems: Yes Mental Health Diagnoses: Yes Substance Use Disorders: No Previous Attempt: No Family History of Suicide: No Previous Psychiatric Hospitalization: Yes Hopelessness: Yes Protective Factors Assessment Denominational Beliefs: Yes : Yes Responsible for Young Children: No 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 Chief Complaint "Sleeping is the one time I feel good". Review of Systems Sleep Information Total Hours of Sleep: 7.30 Sleep Comments: [facility] Meal Information Percent Meal Consumed - Breakfast: 80 Percent Meal Consumed - Lunch: 100 Percent Meal Consumed - Dinner: 80 Subjective Subjective Patient was seen & assessed and interval progress reviewed with treatment team nursing and social work. Ongoing hopelessness, feels he won't be able to get better. Didn't utilize any prns but slept 7.5 hours. Today still having some sleepiness during the day even though he slept really well. Feels while asleep is the only time he gets relief from his depression and suicidal thoughts. He isn't sure if any of the medication are helping. No side effects from higher dose of Effexor this morning except "sometimes I feel a little quivery" but he doesn't think this is due to the medication. Agreeable to increasing O[place]a dose. Physical Exam Psychiatric Orientation: alert and oriented x 3 Apperance: appropriately dressed and appropriately groomed Eye Contact: + fair eye contact Motor Behavior: steady gait and station and + psychomotor retardation (walks slowly) Speech: + abnormal rate/rhythm/volume of speech (soft, latent ) Affect: + depressed affect and + flat affect Mood: + depressed mood and + anxious mood Thought Process: + circumstantial thought process Thought Content: reality based without delusions, + hopelessness and + guilt Suicidal Thoughts: denies suicidal plan (none for hospital, feels he would act if at home); + reports suicidal thoughts Homicidal Thoughts: denies homicidal thoughts Hallucinations: no auditory hallucinations and no visual hallucinations Cognition: recent memory grossly intact, remote memory grossly intact, attention grossly intact and language grossly intact Estimated Intelligence: consistent with education level Insight: + limited insight Judgment: + limited judgement Vital Signs (Past 24 Hours) Last Vital Signs Temp 36.3 C L 01/27/24 06:00 Pulse 85 01/27/24 06:00 Resp 16 01/27/24 06:00 BP 115/73 01/27/24 06:00 Pulse Ox 98 01/22/24 21:38 O2 Del Method Room Air 01/22/24 21:38 Results & Data ([facility]) Laboratory Results Laboratory Results - last 24 hr 01/27/24 08:04 [place]a Pending Current Inpatient Medications Current Inpatient Medications: Current Inpatient Medications Acetaminophen (Acetaminophen 325 Mg Tab) 650 mg PO Q4H PRN PRN Reason: Headache or Minor Fever Stop: 02/15/24 19:33 Al Hydrox/Mg Hydrox/Simethicone (Aluminum/Magnesium Susp 30 Ml Udc) 30 ml PO Q4H PRN PRN Reason: GI Upset Stop: 02/15/24 19:33 Bismuth Subsalicylate (Bismuth Subsalicylate 262 Mg Chew) 2 tab PO Q30M PRN PRN Reason: Loose Stool/Diarrhea Stop: 02/15/24 19:33 Buspirone HCl (Buspirone 5 Mg Tab) 20 mg PO BID DELIO Stop: 02/15/24 20:59 Last Admin: 01/26/24 21:52 Dose: 20 mg Clonazepam (Clonazepam 1 Mg Tab) 1 mg PO HS PRN PRN Reason: Insomnia Stop: 02/22/24 12:47 Last Admin: 01/25/24 22:22 Dose: 1 mg Clonidine HCl (Clonidine Hcl 0.1 Mg Tab) 0.1 mg PO HS DELIO Stop: 02/18/24 21:59 Last Admin: 01/26/24 21:53 Dose: 0.1 mg Docusate Sodium (Docusate Sodium 100 Mg Cap) 100 mg PO BID DELIO Stop: 02/24/24 12:29 Last Admin: 01/26/24 21:54 Dose: 100 mg Hydroxyzine HCl (Hydroxyzine Hcl 25 Mg Tab) 50 mg PO HSZ PRN PRN Reason: Insomnia Stop: 02/15/24 19:33 Hydroxyzine HCl (Hydroxyzine Hcl 25 Mg Tab) 25 mg PO Q4H PRN PRN Reason: Anxiety Stop: 02/15/24 19:33 Lamotrigine (Lamotrigine 25 Mg Tab) 150 mg PO HS DELIO; Protocol Stop: 02/15/24 21:59 Last Admin: 01/26/24 21:51 Dose: 150 mg Lamotrigine (Lamotrigine 25 Mg Tab) 50 mg PO QAM DELIO; Protocol Stop: 02/16/24 12:14 Last Admin: 01/26/24 09:08 Dose: 50 mg Ocosta Carbonate (Ocosta Carbonate 300 Mg Tab) 150 mg PO BID DELIO Stop: 02/20/24 20:59 Last Admin: 01/26/24 21:52 Dose: 150 mg Lorazepam (Lorazepam 0.5 Mg Tab) 0.5 mg PO DAILY PRN PRN Reason: Anxiety Stop: 02/15/24 19:44 Last Admin: 01/24/24 17:41 Dose: 0.5 mg Lurasidone HCl (Lurasidone Hcl 20 Mg Tab) 40 mg PO DAILYBD DELIO Stop: 02/23/24 17:14 Last Admin: 01/26/24 17:41 Dose: 40 mg Magnesium Hydroxide (Magnesium Hydroxide Susp 30 Ml Udc) 30 ml PO DAILY PRN PRN Reason: Constipation Stop: 02/15/24 19:33 Last Admin: 01/26/24 22:12 Dose: 30 ml Ondansetron HCl (Ondansetron 4 Mg Od Tab) 4 mg PO Q6H PRN PRN Reason: Nausea Stop: 02/20/24 10:40 Polyethylene Glycol (Polyethylene (Miralax) 17 Gm Pack) 17 gm PO DAILY DELIO Stop: 02/24/24 12:29 Last Admin: 01/26/24 09:11 Dose: 17 gm Sodium Chloride (Sodium Chloride 0.65% Na Soln 45 Ml ([place])) 1 - 2 sprays NA PRN PRN PRN Reason: Nasal Dryness/Congestion Stop: 02/15/24 19:33 Venlafaxine HCl (Venlafaxine Hcl Xr 75 Mg Capxr) 75 mg PO QAM DELIO Stop: 02/26/24 08:59 Vitamin D (Cholecalciferol 25 Mcg (1000 Units) Tab) 25 mcg PO QAM DELIO Stop: 02/18/24 08:59 Last Admin: 01/26/24 09:08 Dose: 25 mcg Mental Health & Subst Abuse Tx Psychiatrist Name of Psychiatrist: Dr. Izquierdo Psychiatrist's Date Of Appointment With Psychiatric Provider: 02/22/24 Time of Appointment with Psychiatrist: 8:20AM Therapist Name of Therapist: Dr. Betito Beck Therapist's Date of Therapist Appointment: 02/23/24 Time of Therapist Appointment: 3PM Post Discharge Appointments Primary Care Physician Name Of Family Doctor/PCP: Dr. Otero Date of Future Appointment with PCP: every six months-next one June 2024
[2024-01-27] MEDS: LITHIUM CARBONATE 300 MG TAB PO SCH (21:46)
[2024-01-28] MEDS: LITHIUM CARBONATE 300 MG TAB PO SCH (08:42)
--- NOTE | 2024-01-28 08:51 | Psychiatric Progress Note ---
Date of Service January 28, 2024 Impression / Recommendations Impression DK GARLAND is 58-year-old man with a history of bipolar 1 disorder admitted on 01/16/24 18:56 on a 201 voluntary commitment for suicidal ideation with plan to shoot self with hunting rifle. Presentation consistent with bipolar disorder with major depressive episode. Patient presents mood episodes in late life with no behavioral health concerns in earlier years; late life bipolar is rare and continuing to r/o underlying causes, had outpatient neurology workup in the past after initial inpatient psychiatric admission without evidence for any cognitive changes. A: Ongoing severe depression, hopelessness,SI and fatigue (slightly less today). Spoke with his on the phone, she reported he was tired during her visit yesterday and seems less anxious but also more sedated/flat. She remains very concerned about his safety if he were to leave the hospital, doesn't feel he'd be able to function at home. Tolerating increase of [place] so far. Overall, I spent a total of 65 minutes with this case including review of chart records, nursing report, review of lab work, direct evaluation of the patient at bedside, counseling the patient, multidisciplinary team meeting, orders, documentation in the electronic health record, phone call with his for collateral and completion of disability and FMLA paperwork. (1) Suicidal ideation: (2) Bipolar disorder with severe depression: (3) Bipolar 1 disorder, depressed: (4) Hopelessness: (5) Elevated liver enzymes: Plan 01/28/2024: Continue current medications. May be able to increase Effexor XR aga in tomorrow. 01/27/2024: Discontinue clonidine. Increase [place] to 150mg qAM and 300mg HS. 01/26/2024: Increase Effexor XR to 75mg qAM tomorrow. Li level tomorrow AM. Add senna prn in addition to miralax and colace for constipation. 01/25/2024: Continue current meds and tx plan. 01/24/2024: Continue current meds and tx plan. 01/23/2024: -Start venlafaxine ER 37.5mg qAM -Decrease clonidine to 0.1 mg HS -Move Latuda to 40mg qdinner -Stop ativan at HS prn in favor of Klonopin HS prn for longer duration of action to help with sleep promotion -Continue ativan daily prn 01/22/2024: Continue current medications and tx plan. Will need [place] level in 4-6 days. 01/21/2024: Increase lurasidone to 40 mg daily. Stop cariprazine tomorrow morning. Increase lithium to 150 mg twice daily. Zofran ODT as needed started 01/20/24: Start clonidine 0.05 mg every morning. 01/19/24: [place] 150mg daily, Clonidine 0.1mg HS. 01/18/24: Continue medications and treatment plan 01/17/24: The patient was admitted to the [facility]) on q15 min checks (behavioral with suicide precautions) for safety. The patient will participate in group, recreational, and milieu therapies and will be offered additional individual and family sessions as clinically appropriate. -Decrease Cariprazine to 1.5mg daily -Start Luradisone 20mg daily with breakfast -Continue home Lamotrigine 150mg HS -Start Lamotrigine 50mg QAM -Hold home bupropion -Continue home Buspirone 20mg BID -Continue home Lorazepam 1mg HS PRN and 0.5mg daily PRN -Lab work: Vit D, Vit B12, HbA1C, Free/Total/Bioavailable Testosterone Inventory Assets Strengths: family support, fair insight Needs: medication management, improved self esteem Suicide Risk Level Suicide Risk Level: High-Moderate (q15 min suicide checks) (SI and severe depression with prominent hopelessness but feels safe in the hospital, no plan for SI in the hospital, feels able to ask for support if SI changed to plan or intent in the hospital) Risk Factors Assessment Male: Yes : Yes Do You Have Access To A Gun?: No Health Problems: Yes Mental Health Diagnoses: Yes Substance Use Disorders: No Previous Attempt: No Family History of Suicide: No Previous Psychiatric Hospitalization: Yes Hopelessness: Yes Protective Factors Assessment Yazidism Beliefs: Yes : Yes Responsible for Young Children: No 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 Chief Complaint "Ok I guess". Review of Systems Sleep Information Total Hours of Sleep: 6.5 Sleep Comments: meds Meal Information Percent Meal Consumed - Breakfast: 80 Percent Meal Consumed - Lunch: 100 Percent Meal Consumed - Dinner: 50 Subjective Subjective Patient was seen & assessed and interval progress reviewed with treatment team nursing and social work. Attending groups. His visited and brought him a [employer] book that he's been trying to look at. Rated his mood last evening as "apprehensive". His brought in FMLA paperwork. Today reports feeling "ok" but appears very flat and depressed. Tearful briefly in discussing his hopelessness. Has been trying to read a magazine his brought him last evening and has been able to recall information from this and concentrate. Feels a bit better when distracted in groups from his depressive thoughts. Seems less anxious but he's unsure if this is the case. Slept ok last night, woke at 2am and he thinks it took about an hour to fall back asleep, he prefers to only use the Klonopin if he struggles to fall asleep. No new side effects from increased [place]. Feels tired today but less tired than yesterday. Physical Exam Psychiatric Orientation: alert and oriented x 3 Apperance: appropriately dressed and appropriately groomed Eye Contact: + fair eye contact Motor Behavior: steady gait and station and + psychomotor retardation (walks slowly) Speech: + abnormal rate/rhythm/volume of speech (soft, latent ) Affect: + depressed affect and + flat affect Mood: + depressed mood and + anxious mood Thought Process: + circumstantial thought process Thought Content: reality based without delusions, + hopelessness and + guilt Suicidal Thoughts: denies suicidal plan (none for hospital, feels he would act if at home); + reports suicidal thoughts Homicidal Thoughts: denies homicidal thoughts Hallucinations: no auditory hallucinations and no visual hallucinations Cognition: recent memory grossly intact, remote memory grossly intact, attention grossly intact and language grossly intact Estimated Intelligence: consistent with education level Insight: + limited insight Judgment: + limited judgement Vital Signs (Past 24 Hours) Last Vital Signs Temp 36.9 C 01/28/24 06:41 Pulse 87 01/28/24 06:41 Resp 16 01/28/24 06:41 BP 117/75 01/28/24 06:41 Pulse Ox 98 01/22/24 21:38 O2 Del Method Room Air 01/22/24 21:38 Results & Data ([facility]) Laboratory Results Laboratory Results - last 24 hr 01/27/24 08:04 [place] 0.2 L Current Inpatient Medications Current Inpatient Medications: Current Inpatient Medications Acetaminophen (Acetaminophen 325 Mg Tab) 650 mg PO Q4H PRN PRN Reason: Headache or Minor Fever Stop: 02/15/24 19:33 Al Hydrox/Mg Hydrox/Simethicone (Aluminum/Magnesium Susp 30 Ml Udc) 30 ml PO Q4H PRN PRN Reason: GI Upset Stop: 02/15/24 19:33 Bismuth Subsalicylate (Bismuth Subsalicylate 262 Mg Chew) 2 tab PO Q30M PRN PRN Reason: Loose Stool/Diarrhea Stop: 02/15/24 19:33 Buspirone HCl (Buspirone 5 Mg Tab) 20 mg PO BID DELIO Stop: 02/15/24 20:59 Last Admin: 01/28/24 08:41 Dose: 20 mg Clonazepam (Clonazepam 1 Mg Tab) 1 mg PO HS PRN PRN Reason: Insomnia Stop: 02/22/24 12:47 Last Admin: 01/25/24 22:22 Dose: 1 mg Docusate Sodium (Docusate Sodium 100 Mg Cap) 100 mg PO BID DELIO Stop: 02/24/24 12:29 Last Admin: 01/28/24 08:42 Dose: 100 mg Hydroxyzine HCl (Hydroxyzine Hcl 25 Mg Tab) 50 mg PO HSZ PRN PRN Reason: Insomnia Stop: 02/15/24 19:33 Hydroxyzine HCl (Hydroxyzine Hcl 25 Mg Tab) 25 mg PO Q4H PRN PRN Reason: Anxiety Stop: 02/15/24 19:33 Lamotrigine (Lamotrigine 25 Mg Tab) 150 mg PO HS DELIO; Protocol Stop: 02/15/24 21:59 Last Admin: 01/27/24 21:45 Dose: 150 mg Lamotrigine (Lamotrigine 25 Mg Tab) 50 mg PO QAM DELIO; Protocol Stop: 02/16/24 12:14 Last Admin: 01/28/24 08:41 Dose: 50 mg [place] Carbonate ([place] Carbonate 300 Mg Tab) 150 mg PO QAM DELIO Stop: 02/27/24 08:59 Last Admin: 01/28/24 08:42 Dose: 150 mg [place] Carbonate ([place] Carbonate 300 Mg Tab) 300 mg PO HS DELIO Stop: 02/26/24 21:59 Last Admin: 01/27/24 21:46 Dose: 300 mg Lorazepam (Lorazepam 0.5 Mg Tab) 0.5 mg PO DAILY PRN PRN Reason: Anxiety Stop: 02/15/24 19:44 Last Admin: 01/24/24 17:41 Dose: 0.5 mg Lurasidone HCl (Lurasidone Hcl 20 Mg Tab) 40 mg PO DAILYBD DELIO Stop: 02/23/24 17:14 Last Admin: 01/27/24 17:24 Dose: 40 mg Magnesium Hydroxide (Magnesium Hydroxide Susp 30 Ml Udc) 30 ml PO DAILY PRN PRN Reason: Constipation Stop: 02/15/24 19:33 Last Admin: 01/26/24 22:12 Dose: 30 ml Ondansetron HCl (Ondansetron 4 Mg Od Tab) 4 mg PO Q6H PRN PRN Reason: Nausea Stop: 02/20/24 10:40 Polyethylene Glycol (Polyethylene (Miralax) 17 Gm Pack) 17 gm PO DAILY DELIO Stop: 02/24/24 12:29 Last Admin: 01/28/24 08:41 Dose: 17 gm Sennosides (Senna 8.6 Mg Tab) 8.6 mg PO BID PRN PRN Reason: constipation Stop: 02/26/24 08:48 Sodium Chloride (Sodium Chloride 0.65% Na Soln 45 Ml ([place])) 1 - 2 sprays NA PRN PRN PRN Reason: Nasal Dryness/Congestion Stop: 02/15/24 19:33 Venlafaxine HCl (Venlafaxine Hcl Xr 75 Mg Capxr) 75 mg PO QAM DELIO Stop: 02/26/24 08:59 Last Admin: 01/28/24 08:42 Dose: 75 mg Vitamin D (Cholecalciferol 25 Mcg (1000 Units) Tab) 25 mcg PO QAM DELIO Stop: 02/18/24 08:59 Last Admin: 01/28/24 08:41 Dose: 25 mcg Mental Health & Subst Abuse Tx Psychiatrist Name of Psychiatrist: Dr. Izquierdo Psychiatrist's Date Of Appointment With Psychiatric Provider: 02/22/24 Time of Appointment with Psychiatrist: 8:20AM Therapist Name of Therapist: Dr. Betito Beck Therapist's Date of Therapist Appointment: 02/23/24 Time of Therapist Appointment: 3PM Post Discharge Appointments Primary Care Physician Name Of Family Doctor/PCP: Dr. Otero Date of Future Appointment with PCP: every six months-next one June 2024
--- NOTE | 2024-01-29 14:19 | Psychiatric Progress Note ---
Date of Service January 29, 2024 Impression / Recommendations Impression DK GARLAND is 58-year-old man with a history of bipolar 1 disorder admitted on 01/16/24 18:56 on a 201 voluntary commitment for suicidal ideation with plan to shoot self with hunting rifle. Presentation consistent with bipolar disorder with major depressive episode. Patient presents mood episodes in late life with no behavioral health concerns in earlier years; late life bipolar is rare and continuing to r/o underlying causes, had outpatient neurology workup in the past after initial inpatient psychiatric admission without evidence for any cognitive changes. A: Patient continues to be depressed with a negative thought pattern and passive suicidal ideation. Slightly improved affect from initial presentation. Concern for morning sedation with clonazepam given long half-life and will switch to lorazepam. Has been tolerating venlafaxine well and we will plan to increase dose today. Increase Colace given ongoing constipation. Overall, I spent a total of 35 minutes with this case including review of chart records, nursing report, review of lab work, direct evaluation of the patient at bedside, counseling the patient, multidisciplinary team meeting, orders, documentation in the electronic health record. (1) Suicidal ideation: (2) Bipolar disorder with severe depression: (3) Bipolar 1 disorder, depressed: (4) Hopelessness: (5) Elevated liver enzymes: Plan 01/29/2024: Discontinue clonazepam, start lorazepam 2 mg at bedtime. Increase venlafaxine extended release 202.5 mg daily. Increase Colace to 200 mg twice daily. 01/28/2024: Continue current medications. May be able to increase Effexor XR again tomorrow. 01/27/2024: Discontinue clonidine. Increase [place] to 150mg qAM and 300mg HS. 01/26/2024: Increase Effexor XR to 75mg qAM tomorrow. Li level tomorrow AM. Add senna prn in addition to miralax and colace for constipation. 01/25/2024: Continue current meds and tx plan. 01/24/2024: Continue current meds and tx plan. 01/23/2024: -Start venlafaxine ER 37.5mg qAM -Decrease clonidine to 0.1 mg HS -Move Latuda to 40mg qdinner -Stop ativan at HS prn in favor of Klonopin HS prn for longer duration of action to help with sleep promotion -Continue ativan daily prn 01/22/2024: Continue current medications and tx plan. Will need [place] level in 4-6 days. 01/21/2024: Increase lurasidone to 40 mg daily. Stop cariprazine tomorrow morning. Increase lithium to 150 mg twice daily. Zofran ODT as needed started 01/20/24: Start clonidine 0.05 mg every morning. 01/19/24: [place] 150mg daily, Clonidine 0.1mg HS. 01/18/24: Continue medications and treatment plan 01/17/24: The patient was admitted to the [facility] ([facility] unit) on q15 min checks (behavioral with suicide precautions) for safety. The patient will participate in group, recreational, and milieu therapies and will be offered additional individual and family sessions as clinically appropriate. -Decrease Cariprazine to 1.5mg daily -Start Luradisone 20mg daily with breakfast -Continue home Lamotrigine 150mg HS -Start Lamotrigine 50mg QAM -Hold home bupropion -Continue home Buspirone 20mg BID -Continue home Lorazepam 1mg HS PRN and 0.5mg daily PRN -Lab work: Vit D, Vit B12, HbA1C, Free/Total/Bioavailable Testosterone Inventory Assets Strengths: family support, fair insight Needs: medication management, improved self esteem Suicide Risk Level Suicide Risk Level: High-Moderate (q15 min suicide checks) (SI and severe depression with prominent hopelessness but feels safe in the hospital, no plan for SI in the hospital, feels able to ask for support if SI changed to plan or intent in the hospital) Risk Factors Assessment Male: Yes : Yes Do You Have Access To A Gun?: No Health Problems: Yes Mental Health Diagnoses: Yes Substance Use Disorders: No Previous Attempt: No Family History of Suicide: No Previous Psychiatric Hospitalization: Yes Hopelessness: Yes Protective Factors Assessment Jainism Beliefs: Yes : Yes Responsible for Young Children: No 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 Chief Complaint "Negative thoughts" Review of Systems Sleep Information Total Hours of Sleep: 6.75 Sleep Comments: meds Meal Information Percent Meal Consumed - Breakfast: 100 Percent Meal Consumed - Lunch: 100 Percent Meal Consumed - Dinner: 80 Subjective Subjective Patient was seen & assessed and interval progress reviewed with treatment team nursing and social work Patient reports feeling less tearful. Continues to have negative thought pattern and reports distractions have been helpful. Sleeping better however complains of grogginess in the morning. Complains of hard stools however able to pass movement. Denies headache, palpitations, heart racing. Feels safe in surroundings in the hospital but does not feel safe at home. Complains of continued passive suicidal ideation. Limited hope for the future. is concerned about his mental wellbeing. Physical Exam Mental Examination Appearance: Well Groomed Eye Contact: Maintains Eye Contact Motor Behavior: Unremarkable Speech: Soft Mood: Calm, Anxious and Sad Affect: Constricted Thought Process: Intact, Linear and Racing Thought Content: Intact Hallucinations: None Insight: Fair Judgement: Fair Vital Signs (Past 24 Hours) Last Vital Signs Temp 36.7 C 01/29/24 06:38 Pulse 92 H 01/29/24 06:39 Resp 16 01/29/24 06:38 BP 126/77 01/29/24 06:39 Pulse Ox 98 01/22/24 21:38 O2 Del Method Room Air 01/22/24 21:38 Results & Data ([facility]) Current Inpatient Medications Current Inpatient Medications: Current Inpatient Medications Acetaminophen (Acetaminophen 325 Mg Tab) 650 mg PO Q4H PRN PRN Reason: Headache or Minor Fever Stop: 02/15/24 19:33 Al Hydrox/Mg Hydrox/Simethicone (Aluminum/Magnesium Susp 30 Ml Udc) 30 ml PO Q4H PRN PRN Reason: GI Upset Stop: 02/15/24 19:33 Bismuth Subsalicylate (Bismuth Subsalicylate 262 Mg Chew) 2 tab PO Q30M PRN PRN Reason: Loose Stool/Diarrhea Stop: 02/15/24 19:33 Buspirone HCl (Buspirone 5 Mg Tab) 20 mg PO BID DELIO Stop: 02/15/24 20:59 Last Admin: 01/29/24 10:13 Dose: 20 mg Docusate Sodium (Docusate Sodium 100 Mg Cap) 200 mg PO BID DELIO Stop: 02/28/24 20:59 Hydroxyzine HCl (Hydroxyzine Hcl 25 Mg Tab) 50 mg PO HSZ PRN PRN Reason: Insomnia Stop: 02/15/24 19:33 Hydroxyzine HCl (Hydroxyzine Hcl 25 Mg Tab) 25 mg PO Q4H PRN PRN Reason: Anxiety Stop: 02/15/24 19:33 Lamotrigine (Lamotrigine 25 Mg Tab) 150 mg PO HS DELIO; Protocol Stop: 02/15/24 21:59 Last Admin: 01/28/24 21:32 Dose: 150 mg Lamotrigine (Lamotrigine 25 Mg Tab) 50 mg PO QAM DELIO; Protocol Stop: 02/16/24 12:14 Last Admin: 01/29/24 10:14 Dose: 50 mg [place] Carbonate ([place] Carbonate 300 Mg Tab) 150 mg PO QAM DELIO Stop: 02/27/24 08:59 Last Admin: 01/29/24 10:09 Dose: 150 mg [place] Carbonate ([place] Carbonate 300 Mg Tab) 300 mg PO HS DELIO Stop: 02/26/24 21:59 Last Admin: 01/28/24 21:33 Dose: 300 mg Lorazepam (Lorazepam 0.5 Mg Tab) 0.5 mg PO DAILY PRN PRN Reason: Anxiety Stop: 02/15/24 19:44 Last Admin: 01/24/24 17:41 Dose: 0.5 mg Lorazepam (Lorazepam 1 Mg Tab) 2 mg PO HS DELIO Stop: 02/28/24 21:59 Lurasidone HCl (Lurasidone Hcl 20 Mg Tab) 40 mg PO DAILYBD DELIO Stop: 02/23/24 17:14 Last Admin: 01/28/24 17:39 Dose: 40 mg Magnesium Hydroxide (Magnesium Hydroxide Susp 30 Ml Udc) 30 ml PO DAILY PRN PRN Reason: Constipation Stop: 02/15/24 19:33 Last Admin: 01/26/24 22:12 Dose: 30 ml Ondansetron HCl (Ondansetron 4 Mg Od Tab) 4 mg PO Q6H PRN PRN Reason: Nausea Stop: 02/20/24 10:40 Polyethylene Glycol (Polyethylene (Miralax) 17 Gm Pack) 17 gm PO DAILY DELIO Stop: 02/24/24 12:29 Last Admin: 01/29/24 10:20 Dose: 17 gm Sennosides (Senna 8.6 Mg Tab) 8.6 mg PO BID PRN PRN Reason: constipation Stop: 02/26/24 08:48 Sodium Chloride (Sodium Chloride 0.65% Na Soln 45 Ml ([place])) 1 - 2 sprays NA PRN PRN PRN Reason: Nasal Dryness/Congestion Stop: 02/15/24 19:33 Venlafaxine HCl (Venlafaxine Hcl Xr 37.5 Mg Capxr) 112.5 mg PO QAM DELIO Stop: 02/29/24 08:59 Vitamin D (Cholecalciferol 25 Mcg (1000 Units) Tab) 25 mcg PO QAM DELIO Stop: 02/18/24 08:59 Last Admin: 01/29/24 10:13 Dose: 25 mcg Mental Health & Subst Abuse Tx Psychiatrist Name of Psychiatrist: Dr. Izquierdo Psychiatrist's Date Of Appointment With Psychiatric Provider: 02/22/24 Time of Appointment with Psychiatrist: 8:20AM Therapist Name of Therapist: Dr. Betito Beck Therapist's Date of Therapist Appointment: 02/23/24 Time of Therapist Appointment: 3PM Post Discharge Appointments Primary Care Physician Name Of Family Doctor/PCP: Dr. Otero Date of Future Appointment with PCP: every six months-next one June 2024
[2024-01-29] MEDS: DOCUSATE SODIUM 100 MG CAP PO SCH (21:39)
[2024-01-29] MEDS: LORazepam 1 MG TAB PO SCH (21:40)
[2024-01-30] MEDS: VENLAFAXINE HCL XR 37.5 MG CAPXR PO SCH (08:36)
[2024-01-30] MEDS ORDERED: POLYETHYLENE (MIRALAX) 17 GM PACK PO PRN (09:37)
--- NOTE | 2024-01-30 15:18 | Psychiatric Progress Note ---
Date of Service January 30, 2024 Impression / Recommendations Impression DK GARLAND is 58-year-old man with a history of bipolar 1 disorder admitted on 01/16/24 18:56 on a 201 voluntary commitment for suicidal ideation with plan to shoot self with hunting rifle. Presentation consistent with bipolar disorder with major depressive episode. Patient presents mood episodes in late life with no behavioral health concerns in earlier years; late life bipolar is rare and continuing to r/o underlying causes, had outpatient neurology workup in the past after initial inpatient psychiatric admission without evidence for any cognitive changes. A: Patient reports improved night's sleep with lorazepam and will continue. Constipation resolved. Patient continues to feel depressed and hopeless. Awaiting effective antidepressant medication. Patient encouraged to get regular exercise and provided handouts. Overall, I spent a total of 35 minutes with this case including review of chart records, nursing report, review of lab work, direct evaluation of the patient at bedside, counseling the patient, multidisciplinary team meeting, orders, documentation in the electronic health record. (1) Suicidal ideation: (2) Bipolar disorder with severe depression: (3) Bipolar 1 disorder, depressed: (4) Hopelessness: (5) Elevated liver enzymes: Plan 01/30/2024: Continue medications and treatment plan. [place] level in 2 days. 01/29/2024: Discontinue clonazepam, start lorazepam 2 mg at bedtime. Increase venlafaxine extended release 202.5 mg daily. Increase Colace to 200 mg twice daily. 01/28/2024: Continue current medications. May be able to increase Effexor XR again tomorrow. 01/27/2024: Discontinue clonidine. Increase [place] to 150mg qAM and 300mg HS. 01/26/2024: Increase Effexor XR to 75mg qAM tomorrow. Li level tomorrow AM. Add senna prn in addition to miralax and colace for constipation. 01/25/2024: Continue current meds and tx plan. 01/24/2024: Continue current meds and tx plan. 01/23/2024: -Start venlafaxine ER 37.5mg qAM -Decrease clonidine to 0.1 mg HS -Move Latuda to 40mg qdinner -Stop ativan at HS prn in favor of Klonopin HS prn for longer duration of action to help with sleep promotion -Continue ativan daily prn 01/22/2024: Continue current medications and tx plan. Will need [place] level in 4-6 days. 01/21/2024: Increase lurasidone to 40 mg daily. Stop cariprazine tomorrow morning. Increase lithium to 150 mg twice daily. Zofran ODT as needed started 01/20/24: Start clonidine 0.05 mg every morning. 01/19/24: [place] 150mg daily, Clonidine 0.1mg HS. 01/18/24: Continue medications and treatment plan 01/17/24: The patient was admitted to the [facility] ([facility] mental health unit) on q15 min checks (behavioral with suicide precautions) for safety. The patient will participate in group, recreational, and milieu therapies and will be offered additional individual and family sessions as clinically appropriate. -Decrease Cariprazine to 1.5mg daily -Start Luradisone 20mg daily with breakfast -Continue home Lamotrigine 150mg HS -Start Lamotrigine 50mg QAM -Hold home bupropion -Continue home Buspirone 20mg BID -Continue home Lorazepam 1mg HS PRN and 0.5mg daily PRN -Lab work: Vit D, Vit B12, HbA1C, Free/Total/Bioavailable Testosterone Inventory Assets Strengths: family support, fair insight Needs: medication management, improved self esteem Suicide Risk Level Suicide Risk Level: High-Moderate (q15 min suicide checks) (SI and severe depression with prominent hopelessness but feels safe in the hospital, no plan for SI in the hospital, feels able to ask for support if SI changed to plan or intent in the hospital) Risk Factors Assessment Male: Yes : Yes Do You Have Access To A Gun?: No Health Problems: Yes Mental Health Diagnoses: Yes Substance Use Disorders: No Previous Attempt: No Family History of Suicide: No Previous Psychiatric Hospitalization: Yes Hopelessness: Yes Protective Factors Assessment Orthodox Beliefs: Yes : Yes Responsible for Young Children: No 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 Chief Complaint "Better morning" Review of Systems Sleep Information Total Hours of Sleep: 7.5 Sleep Comments: meds Meal Information Percent Meal Consumed - Breakfast: 60 Percent Meal Consumed - Lunch: 80 Percent Meal Consumed - Dinner: 90 Subjective Subjective Patient was seen & assessed and interval progress reviewed with treatment team nursing and social work Slept 7.5 hours overnight. Nursing reports patient continues to have a flat affect. Has been attending groups. Patient reports having a better morning and slept well. Reports less a.m. sedation. Denies having any sleep disturbances last night. Reports good bowel movement. Is tolerating Effexor well. Denies having any physical anxiety symptoms today. Complains of poor concentration and difficulty paying attention during groups. Reports being more emotionally blunted after starting lithium. Reports continued SI and hopelessness. Physical Exam Mental Examination Appearance: Well Groomed Eye Contact: Maintains Eye Contact Motor Behavior: Unremarkable Speech: Soft Mood: Calm, Anxious and Sad Affect: Constricted Thought Process: Intact, Linear and Racing Thought Content: Intact Hallucinations: None Insight: Fair Judgement: Fair Vital Signs (Past 24 Hours) Last Vital Signs Temp 36.8 C 01/30/24 06:39 Pulse 86 01/30/24 06:40 Resp 16 01/30/24 06:39 BP 115/75 01/30/24 06:40 Pulse Ox 98 01/22/24 21:38 O2 Del Method Room Air 01/22/24 21:38 Results & Data ([facility]) Current Inpatient Medications Current Inpatient Medications: Current Inpatient Medications Acetaminophen (Acetaminophen 325 Mg Tab) 650 mg PO Q4H PRN PRN Reason: Headache or Minor Fever Stop: 02/15/24 19:33 Al Hydrox/Mg Hydrox/Simethicone (Aluminum/Magnesium Susp 30 Ml Udc) 30 ml PO Q4H PRN PRN Reason: GI Upset Stop: 02/15/24 19:33 Bismuth Subsalicylate (Bismuth Subsalicylate 262 Mg Chew) 2 tab PO Q30M PRN PRN Reason: Loose Stool/Diarrhea Stop: 02/15/24 19:33 Buspirone HCl (Buspirone 5 Mg Tab) 20 mg PO BID DELIO Stop: 02/15/24 20:59 Last Admin: 01/30/24 08:35 Dose: 20 mg Docusate Sodium (Docusate Sodium 100 Mg Cap) 200 mg PO BID DELIO Stop: 02/28/24 20:59 Last Admin: 01/30/24 08:35 Dose: 200 mg Hydroxyzine HCl (Hydroxyzine Hcl 25 Mg Tab) 50 mg PO HSZ PRN PRN Reason: Insomnia Stop: 02/15/24 19:33 Hydroxyzine HCl (Hydroxyzine Hcl 25 Mg Tab) 25 mg PO Q4H PRN PRN Reason: Anxiety Stop: 02/15/24 19:33 Lamotrigine (Lamotrigine 25 Mg Tab) 150 mg PO HS DELIO; Protocol Stop: 02/15/24 21:59 Last Admin: 01/29/24 21:40 Dose: 150 mg Lamotrigine (Lamotrigine 25 Mg Tab) 50 mg PO QAM DELIO; Protocol Stop: 02/16/24 12:14 Last Admin: 01/30/24 08:34 Dose: 50 mg [place] Carbonate ([place] Carbonate 300 Mg Tab) 150 mg PO QAM DELIO Stop: 02/27/24 08:59 Last Admin: 01/30/24 08:34 Dose: 150 mg [place] Carbonate ([place] Carbonate 300 Mg Tab) 300 mg PO HS DELIO Stop: 02/26/24 21:59 Last Admin: 01/29/24 21:37 Dose: 300 mg Lorazepam (Lorazepam 0.5 Mg Tab) 0.5 mg PO DAILY PRN PRN Reason: Anxiety Stop: 02/15/24 19:44 Last Admin: 01/24/24 17:41 Dose: 0.5 mg Lorazepam (Lorazepam 1 Mg Tab) 2 mg PO HS DELIO Stop: 02/28/24 21:59 Last Admin: 01/29/24 21:40 Dose: 2 mg Lurasidone HCl (Lurasidone Hcl 20 Mg Tab) 40 mg PO DAILYBD DELIO Stop: 02/23/24 17:14 Last Admin: 01/29/24 17:32 Dose: 40 mg Magnesium Hydroxide (Magnesium Hydroxide Susp 30 Ml Udc) 30 ml PO DAILY PRN PRN Reason: Constipation Stop: 02/15/24 19:33 Last Admin: 01/26/24 22:12 Dose: 30 ml Ondansetron HCl (Ondansetron 4 Mg Od Tab) 4 mg PO Q6H PRN PRN Reason: Nausea Stop: 02/20/24 10:40 Polyethylene Glycol (Polyethylene (Miralax) 17 Gm Pack) 17 gm PO DAILY PRN PRN Reason: constipation Stop: 02/24/24 12:29 Sodium Chloride (Sodium Chloride 0.65% Na Soln 45 Ml ([place])) 1 - 2 sprays NA PRN PRN PRN Reason: Nasal Dryness/Congestion Stop: 02/15/24 19:33 Venlafaxine HCl (Venlafaxine Hcl Xr 37.5 Mg Capxr) 112.5 mg PO QAM DELIO Stop: 02/29/24 08:59 Last Admin: 01/30/24 08:36 Dose: 112.5 mg Vitamin D (Cholecalciferol 25 Mcg (1000 Units) Tab) 25 mcg PO QAM DELIO Stop: 02/18/24 08:59 Last Admin: 01/30/24 08:35 Dose: 25 mcg Mental Health & Subst Abuse Tx Psychiatrist Name of Psychiatrist: Dr. Izquierdo Psychiatrist's Date Of Appointment With Psychiatric Provider: 02/22/24 Time of Appointment with Psychiatrist: 8:20AM Therapist Name of Therapist: Dr. Betito Beck Therapist's Date of Therapist Appointment: 02/23/24 Time of Therapist Appointment: 3PM Post Discharge Appointments Primary Care Physician Name Of Family Doctor/PCP: Dr. Otero Date of Future Appointment with PCP: every six months-next one June 2024
--- NOTE | 2024-01-31 15:37 | Psychiatric Progress Note ---
Date of Service January 31, 2024 Impression / Recommendations Impression DK GARLAND is 58-year-old man with a history of bipolar 1 disorder admitted on 01/16/24 18:56 on a 201 voluntary commitment for suicidal ideation with plan to shoot self with hunting rifle. Presentation consistent with bipolar disorder with major depressive episode. Patient presents mood episodes in late life with no behavioral health concerns in earlier years; late life bipolar is rare and continuing to r/o underlying causes, had outpatient neurology workup in the past after initial inpatient psychiatric admission without evidence for any cognitive changes. A: Patient continues feel depressed and hopeless. Unable to contract for safety if discharged. Given excess sedation from lithium we will schedule entire dose at bedtime. Plan to draw a lithium level tomorrow evening. Overall, I spent a total of 35 minutes with this case including review of chart records, nursing report, review of lab work, direct evaluation of the patient at bedside, counseling the patient, multidisciplinary team meeting, orders, documentation in the electronic health record. (1) Suicidal ideation: (2) Bipolar disorder with severe depression: (3) Hopelessness: (4) Elevated liver enzymes: Plan 01/31/2024: [place] to 450 mg at bedtime (discontinue a.m. dose). [place] level to be drawn tomorrow evening prior to nightly dose. 01/30/2024: Continue medications and treatment plan. [place] level in 2 days. 01/29/2024: Discontinue clonazepam, start lorazepam 2 mg at bedtime. Increase venlafaxine extended release 202.5 mg daily. Increase Colace to 200 mg twice daily. 01/28/2024: Continue current medications. May be able to increase Effexor XR again tomorrow. 01/27/2024: Discontinue clonidine. Increase [place] to 150mg qAM and 300mg HS. 01/26/2024: Increase Effexor XR to 75mg qAM tomorrow. Li level tomorrow AM. Add senna prn in addition to miralax and colace for constipation. 01/25/2024: Continue current meds and tx plan. 01/24/2024: Continue current meds and tx plan. 01/23/2024: -Start venlafaxine ER 37.5mg qAM -Decrease clonidine to 0.1 mg HS -Move Latuda to 40mg qdinner -Stop ativan at HS prn in favor of Klonopin HS prn for longer duration of action to help with sleep promotion -Continue ativan daily prn 01/22/2024: Continue current medications and tx plan. Will need [place] level in 4-6 days. 01/21/2024: Increase lurasidone to 40 mg daily. Stop cariprazine tomorrow morning. Increase lithium to 150 mg twice daily. Zofran ODT as needed started 01/20/24: Start clonidine 0.05 mg every morning. 01/19/24: [place] 150mg daily, Clonidine 0.1mg HS. 01/18/24: Continue medications and treatment plan 01/17/24: The patient was admitted to the [facility] ([facility]) on q15 min checks (behavioral with suicide precautions) for safety. The patient will participate in group, recreational, and milieu therapies and will be offered additional individual and family sessions as clinically appropriate. -Decrease Cariprazine to 1.5mg daily -Start Luradisone 20mg daily with breakfast -Continue home Lamotrigine 150mg HS -Start Lamotrigine 50mg QAM -Hold home bupropion -Continue home Buspirone 20mg BID -Continue home Lorazepam 1mg HS PRN and 0.5mg daily PRN -Lab work: Vit D, Vit B12, HbA1C, Free/Total/Bioavailable Testosterone Inventory Assets Strengths: family support, fair insight Needs: medication management, improved self esteem Suicide Risk Level Suicide Risk Level: High-Moderate (q15 min suicide checks) (SI and severe depression with prominent hopelessness but feels safe in the hospital, no plan for SI in the hospital, feels able to ask for support if SI changed to plan or intent in the hospital) Risk Factors Assessment Male: Yes : Yes Do You Have Access To A Gun?: No Health Problems: Yes Mental Health Diagnoses: Yes Substance Use Disorders: No Previous Attempt: No Family History of Suicide: No Previous Psychiatric Hospitalization: Yes Hopelessness: Yes Protective Factors Assessment Shinto Beliefs: Yes : Yes Responsible for Young Children: No 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 Chief Complaint "Okay" Review of Systems Sleep Information Total Hours of Sleep: 7 Sleep Comments: meds Meal Information Percent Meal Consumed - Breakfast: 100 Percent Meal Consumed - Lunch: 100 Percent Meal Consumed - Dinner: 90 Subjective Subjective Patient was seen & assessed and interval progress reviewed with treatment team nursing and social work Patient reports sleeping well. Denies a.m. sedation. Continues to complain of hopelessness and suicidal ideation. Presents with a blunted and constricted affect with limited reactivity. Reports future worries of him not getting better, being able to work, being able to take care of responsibilities at home and with family. Reports regular bowel movements and denies constipation. Reports excess sedation on lithium and having difficulty staying awake off and "nodding off". We discussed ECT and feels that it is "drastic" and was educated about benefits and risks. Physical Exam Mental Examination Appearance: Well Groomed Eye Contact: Maintains Eye Contact Motor Behavior: Unremarkable Speech: Soft Mood: Calm, Anxious and Sad Affect: Constricted Thought Process: Intact, Linear and Racing Thought Content: Intact Hallucinations: None Insight: Fair Judgement: Fair Vital Signs (Past 24 Hours) Last Vital Signs Temp 36.8 C 01/31/24 06:34 Pulse 82 01/31/24 06:35 Resp 16 01/31/24 06:34 BP 110/72 01/31/24 06:35 Pulse Ox 98 01/22/24 21:38 O2 Del Method Room Air 01/22/24 21:38 Results & Data ([facility]) Current Inpatient Medications Current Inpatient Medications: Current Inpatient Medications Acetaminophen (Acetaminophen 325 Mg Tab) 650 mg PO Q4H PRN PRN Reason: Headache or Minor Fever Stop: 02/15/24 19:33 Al Hydrox/Mg Hydrox/Simethicone (Aluminum/Magnesium Susp 30 Ml Udc) 30 ml PO Q4H PRN PRN Reason: GI Upset Stop: 02/15/24 19:33 Bismuth Subsalicylate (Bismuth Subsalicylate 262 Mg Chew) 2 tab PO Q30M PRN PRN Reason: Loose Stool/Diarrhea Stop: 02/15/24 19:33 Buspirone HCl (Buspirone 5 Mg Tab) 20 mg PO BID [facility] Stop: 02/15/24 20:59 Last Admin: 01/31/24 08:47 Dose: 20 mg Docusate Sodium (Docusate Sodium 100 Mg Cap) 200 mg PO BID [facility] Stop: 02/28/24 20:59 Last Admin: 01/31/24 08:48 Dose: 200 mg Hydroxyzine HCl (Hydroxyzine Hcl 25 Mg Tab) 50 mg PO HSZ PRN PRN Reason: Insomnia Stop: 02/15/24 19:33 Hydroxyzine HCl (Hydroxyzine Hcl 25 Mg Tab) 25 mg PO Q4H PRN PRN Reason: Anxiety Stop: 02/15/24 19:33 Lamotrigine (Lamotrigine 25 Mg Tab) 150 mg PO HS [facility]; Protocol Stop: 02/15/24 21:59 Last Admin: 01/30/24 21:38 Dose: 150 mg Lamotrigine (Lamotrigine 25 Mg Tab) 50 mg PO [facility]; Protocol Stop: 02/16/24 12:14 Last Admin: 01/31/24 08:49 Dose: 50 mg [place] Carbonate (Lyon Carbonate 300 Mg Tab) 450 mg PO [facility] Stop: 03/01/24 21:59 Lorazepam (Lorazepam 0.5 Mg Tab) 0.5 mg PO DAILY PRN PRN Reason: Anxiety Stop: 02/15/24 19:44 Last Admin: 01/24/24 17:41 Dose: 0.5 mg Lorazepam (Lorazepam 1 Mg Tab) 2 mg PO HS [facility] Stop: 02/28/24 21:59 Last Admin: 01/30/24 21:39 Dose: 2 mg Lurasidone HCl (Lurasidone Hcl 20 Mg Tab) 40 mg PO DAILYBD [facility] Stop: 02/23/24 17:14 Last Admin: 01/30/24 17:14 Dose: 40 mg Magnesium Hydroxide (Magnesium Hydroxide Susp 30 Ml Udc) 30 ml PO DAILY PRN PRN Reason: Constipation Stop: 02/15/24 19:33 Last Admin: 01/26/24 22:12 Dose: 30 ml Ondansetron HCl (Ondansetron 4 Mg Od Tab) 4 mg PO Q6H PRN PRN Reason: Nausea Stop: 02/20/24 10:40 Polyethylene Glycol (Polyethylene (Miralax) 17 Gm Pack) 17 gm PO DAILY PRN PRN Reason: constipation Stop: 02/24/24 12:29 Sodium Chloride (Sodium Chloride 0.65% Na Soln 45 Ml ([place])) 1 - 2 sprays NA PRN PRN PRN Reason: Nasal Dryness/Congestion Stop: 02/15/24 19:33 Venlafaxine HCl (Venlafaxine Hcl Xr 37.5 Mg Capxr) 112.5 mg PO QAM [facility] Stop: 02/29/24 08:59 Last Admin: 01/31/24 08:51 Dose: 112.5 mg Vitamin D (Cholecalciferol 25 Mcg (1000 Units) Tab) 25 mcg PO QAM [facility] Stop: 02/18/24 08:59 Last Admin: 01/31/24 08:48 Dose: 25 mcg Mental Health & Subst Abuse Tx Psychiatrist Name of Psychiatrist: Dr. Izquierdo Psychiatrist's Date Of Appointment With Psychiatric Provider: 02/22/24 Time of Appointment with Psychiatrist: 8:20AM Therapist Name of Therapist: Dr. Betito Beck Therapist's Date of Therapist Appointment: 02/23/24 Time of Therapist Appointment: 3PM Post Discharge Appointments Primary Care Physician Name Of Family Doctor/PCP: Dr. Otero Date of Future Appointment with PCP: every six months-next one June 2024
[2024-01-31] MEDS: LITHIUM CARBONATE 300 MG TAB PO SCH (20:58)
--- NOTE | 2024-02-01 14:22 | Psychiatric Progress Note ---
Date of Service February 01, 2024 Impression / Recommendations Impression DK GARLAND is 58-year-old man with a history of bipolar 1 disorder admitted on 01/16/24 18:56 on a 201 voluntary commitment for suicidal ideation with plan to shoot self with hunting rifle. Presentation consistent with bipolar disorder with major depressive episode. Patient presents mood episodes in late life with no behavioral health concerns in earlier years; late life bipolar is rare and continuing to r/o underlying causes, had outpatient neurology workup in the past after initial inpatient psychiatric admission without evidence for any cognitive changes. A: Patient continues to feel hopeless and depressed. Presenting objective signs of low energy and motivation. Cites less sedation with at bedtime dosing of lithium and will continue to monitor. Plan for lithium level tonight before at bedtime dose. Overall, I spent a total of 35 minutes with this case including review of chart records, nursing report, review of lab work, direct evaluation of the patient at bedside, counseling the patient, multidisciplinary team meeting, orders, documentation in the electronic health record. (1) Suicidal ideation: (2) Bipolar disorder with severe depression: (3) Hopelessness: (4) Elevated liver enzymes: Plan 02/01/2024: [place] level this evening. Continue medications and treatment plan. 01/31/2024: [place] to 450 mg at bedtime (discontinue a.m. dose). [place] level to be drawn tomorrow evening prior to nightly dose. 01/30/2024: Continue medications and treatment plan. [place] level in 2 days. 01/29/2024: Discontinue clonazepam, start lorazepam 2 mg at bedtime. Increase venlafaxine extended release 202.5 mg daily. Increase Colace to 200 mg twice daily. 01/28/2024: Continue current medications. May be able to increase Effexor XR a gain tomorrow. 01/27/2024: Discontinue clonidine. Increase [place] to 150mg qAM and 300mg HS. 01/26/2024: Increase Effexor XR to 75mg qAM tomorrow. Li level tomorrow AM. Add senna prn in addition to miralax and colace for constipation. 01/25/2024: Continue current meds and tx plan. 01/24/2024: Continue current meds and tx plan. 01/23/2024: -Start venlafaxine ER 37.5mg qAM -Decrease clonidine to 0.1 mg HS -Move Latuda to 40mg qdinner -Stop ativan at HS prn in favor of Klonopin HS prn for longer duration of action to help with sleep promotion -Continue ativan daily prn 01/22/2024: Continue current medications and tx plan. Will need [place] level in 4-6 days. 01/21/2024: Increase lurasidone to 40 mg daily. Stop cariprazine tomorrow morning. Increase lithium to 150 mg twice daily. Zofran ODT as needed started 01/20/24: Start clonidine 0.05 mg every morning. 01/19/24: [place] 150mg daily, Clonidine 0.1mg HS. 01/18/24: Continue medications and treatment plan 01/17/24: The patient was admitted to the [facility] ([facility] unit) on q15 min checks (behavioral with suicide precautions) for safety. The patient will participate in group, recreational, and milieu therapies and will be offered additional individual and family sessions as clinically appropriate. -Decrease Cariprazine to 1.5mg daily -Start Luradisone 20mg daily with breakfast -Continue home Lamotrigine 150mg HS -Start Lamotrigine 50mg QAM -Hold home bupropion -Continue home Buspirone 20mg BID -Continue home Lorazepam 1mg HS PRN and 0.5mg daily PRN -Lab work: Vit D, Vit B12, HbA1C, Free/Total/Bioavailable Testosterone Inventory Assets Strengths: family support, fair insight Needs: medication management, improved self esteem Suicide Risk Level Suicide Risk Level: High-Moderate (q15 min suicide checks) (SI and severe depression with prominent hopelessness but feels safe in the hospital, no plan for SI in the hospital, feels able to ask for support if SI changed to plan or intent in the hospital) Risk Factors Assessment Male: Yes : Yes Do You Have Access To A Gun?: No Health Problems: Yes Mental Health Diagnoses: Yes Substance Use Disorders: No Previous Attempt: No Family History of Suicide: No Previous Psychiatric Hospitalization: Yes Hopelessness: Yes Protective Factors Assessment Yazidi Beliefs: Yes : Yes Responsible for Young Children: No 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 Chief Complaint "Less tired" Review of Systems Sleep Information Total Hours of Sleep: 8 Sleep Comments: HS Ativan Meal Information Percent Meal Consumed - Breakfast: 100 Percent Meal Consumed - Lunch: 100 Percent Meal Consumed - Dinner: 100 Subjective Subjective Patient was seen & assessed and interval progress reviewed with treatment team nursing and social work Nursing reports patient slept 8 hours. Denies feeling tearful or having physical symptoms of anxiety. Says he has some hope but has been mostly hopeless. Complains of intermittent SI. Reports worries that he will not be able to function in the future. Patient is seen moving very slowly through the hallways and appears withdrawn. Says he has poor motivation and is unable to continue tasks after he starts it. We discussed different treatment options. Physical Exam Mental Examination Appearance: Well Groomed Eye Contact: Maintains Eye Contact Motor Behavior: Unremarkable Speech: Soft Mood: Calm, Anxious and Sad Affect: Constricted Thought Process: Intact, Linear and Racing Thought Content: Intact Hallucinations: None Insight: Fair Judgement: Fair Vital Signs (Past 24 Hours) Last Vital Signs Temp 36.6 C 02/01/24 06:46 Pulse 89 02/01/24 06:47 Resp 16 02/01/24 06:46 BP 120/77 02/01/24 06:47 Pulse Ox 98 01/22/24 21:38 O2 Del Method Room Air 01/22/24 21:38 Results & Data ([facility]) Current Inpatient Medications Current Inpatient Medications: Current Inpatient Medications Acetaminophen (Acetaminophen 325 Mg Tab) 650 mg PO Q4H PRN PRN Reason: Headache or Minor Fever Stop: 02/15/24 19:33 Al Hydrox/Mg Hydrox/Simethicone (Aluminum/Magnesium Susp 30 Ml Udc) 30 ml PO Q4H PRN PRN Reason: GI Upset Stop: 02/15/24 19:33 Bismuth Subsalicylate (Bismuth Subsalicylate 262 Mg Chew) 2 tab PO Q30M PRN PRN Reason: Loose Stool/Diarrhea Stop: 02/15/24 19:33 Buspirone HCl (Buspirone 5 Mg Tab) 20 mg PO BID [facility] Stop: 02/15/24 20:59 Last Admin: 02/01/24 09:06 Dose: 20 mg Docusate Sodium (Docusate Sodium 100 Mg Cap) 200 mg PO BID [facility] Stop: 02/28/24 20:59 Last Admin: 02/01/24 09:07 Dose: 200 mg Hydroxyzine HCl (Hydroxyzine Hcl 25 Mg Tab) 50 mg PO HSZ PRN PRN Reason: Insomnia Stop: 02/15/24 19:33 Hydroxyzine HCl (Hydroxyzine Hcl 25 Mg Tab) 25 mg PO Q4H PRN PRN Reason: Anxiety Stop: 02/15/24 19:33 Lamotrigine (Lamotrigine 25 Mg Tab) 150 mg PO HS [facility]; Protocol Stop: 02/15/24 21:59 Last Admin: 01/31/24 20:57 Dose: 150 mg Lamotrigine (Lamotrigine 25 Mg Tab) 50 mg PO [facility]; Protocol Stop: 02/16/24 12:14 Last Admin: 02/01/24 09:07 Dose: 50 mg [place] Carbonate ([place] Carbonate 300 Mg Tab) 450 mg PO HS [facility] Stop: 03/01/24 21:59 Last Admin: 01/31/24 20:58 Dose: 450 mg Lorazepam (Lorazepam 0.5 Mg Tab) 0.5 mg PO DAILY PRN PRN Reason: Anxiety Stop: 02/15/24 19:44 Last Admin: 01/24/24 17:41 Dose: 0.5 mg Lorazepam (Lorazepam 1 Mg Tab) 2 mg PO HS [facility] Stop: 02/28/24 21:59 Last Admin: 01/31/24 20:59 Dose: 2 mg Lurasidone HCl (Lurasidone Hcl 20 Mg Tab) 40 mg PO DAILYBD [facility] Stop: 02/23/24 17:14 Last Admin: 01/31/24 17:17 Dose: 40 mg Magnesium Hydroxide (Magnesium Hydroxide Susp 30 Ml Udc) 30 ml PO DAILY PRN PRN Reason: Constipation Stop: 02/15/24 19:33 Last Admin: 01/26/24 22:12 Dose: 30 ml Ondansetron HCl (Ondansetron 4 Mg Od Tab) 4 mg PO Q6H PRN PRN Reason: Nausea Stop: 02/20/24 10:40 Polyethylene Glycol (Polyethylene (Miralax) 17 Gm Pack) 17 gm PO DAILY PRN PRN Reason: constipation Stop: 02/24/24 12:29 Sodium Chloride (Sodium Chloride 0.65% Na Soln 45 Ml ([place])) 1 - 2 sprays NA PRN PRN PRN Reason: Nasal Dryness/Congestion Stop: 02/15/24 19:33 Venlafaxine HCl (Venlafaxine Hcl Xr 37.5 Mg Capxr) 112.5 mg PO QAM DELIO Stop: 02/29/24 08:59 Last Admin: 02/01/24 09:07 Dose: 112.5 mg Vitamin D (Cholecalciferol 25 Mcg (1000 Units) Tab) 25 mcg PO QAM [facility]IO Stop: 02/18/24 08:59 Last Admin: 02/01/24 09:06 Dose: 25 mcg Mental Health & Subst Abuse Tx Psychiatrist Name of Psychiatrist: Dr. Izquierdo Psychiatrist's Date Of Appointment With Psychiatric Provider: 02/22/24 Time of Appointment with Psychiatrist: 8:20AM Therapist Name of Therapist: Dr. Betito Beck Therapist's Date of Therapist Appointment: 02/23/24 Time of Therapist Appointment: 3PM Post Discharge Appointments Primary Care Physician Name Of Family Doctor/PCP: Dr. Otero Date of Future Appointment with PCP: every six months-next one June 2024
--- NOTE | 2024-02-02 14:58 | Psychiatric Progress Note ---
Date of Service February 02, 2024 Impression / Recommendations Impression DK GARLAND is 58-year-old man with a history of bipolar 1 disorder admitted on 01/16/24 18:56 on a 201 voluntary commitment for suicidal ideation with plan to shoot self with hunting rifle. Presentation consistent with bipolar disorder with major depressive episode. Patient presents mood episodes in late life with no behavioral health concerns in earlier years; late life bipolar is rare and continuing to r/o underlying causes, had outpatient neurology workup in the past after initial inpatient psychiatric admission without evidence for any cognitive changes. A: Patient continues to present a depressed affect with hopelessness. Appears slightly more reactive today. [place] level resulted at 0.3 and subtherapeutic. Likely experiencing sedation side effect from lithium and we will plan to decrease nightly dose. We will lower nightly dose of Ativan to see if he can tolerate it with stable sleep. Discussed TMS and ECT today's treatment options. Overall, I spent a total of 35 minutes with this case including review of chart records, nursing report, review of lab work, direct evaluation of the patient at bedside, counseling the patient, multidisciplinary team meeting, orders, documentation in the electronic health record. (1) Suicidal ideation: (2) Bipolar disorder with severe depression: (3) Hopelessness: (4) Elevated liver enzymes: Plan 02/02/2024: Decrease lithium to 300 mg at bedtime. Decrease lorazepam to 1.5 mg at bedtime. 02/01/2024: [place] level this evening. Continue medications and treatment plan. 01/31/2024: [place] to 450 mg at bedtime (discontinue a.m. dose). [place] level to be drawn tomorrow evening prior to nightly dose. 01/30/2024: Continue medications and treatment plan. [place] level in 2 days. 01/29/2024: Discontinue clonazepam, start lorazepam 2 mg at bedtime. Increase venlafaxine extended release 112.5 mg daily. Increase Colace to 200 mg twice daily. 01/28/2024: Continue current medications. May be able to increase Effexor XR again tomorrow. 01/27/2024: Discontinue clonidine. Increase [place] to 150mg qAM and 300mg HS. 01/26/2024: Increase Effexor XR to 75mg qAM tomorrow. Li level tomorrow AM. Add senna prn in addition to miralax and colace for constipation. 01/25/2024: Continue current meds and tx plan. 01/24/2024: Continue current meds and tx plan. 01/23/2024: -Start venlafaxine ER 37.5mg qAM -Decrease clonidine to 0.1 mg HS -Move Latuda to 40mg qdinner -Stop ativan at HS prn in favor of Klonopin HS prn for longer duration of action to help with sleep promotion -Continue ativan daily prn 01/22/2024: Continue current medications and tx plan. Will need [place] level in 4-6 days. 01/21/2024: Increase lurasidone to 40 mg daily. Stop cariprazine tomorrow morning. Increase lithium to 150 mg twice daily. Zofran ODT as needed started 01/20/24: Start clonidine 0.05 mg every morning. 01/19/24: [place] 150mg daily, Clonidine 0.1mg HS. 01/18/24: Continue medications and treatment plan 01/17/24: The patient was admitted to the [facility] ([facility] mental health unit) on q15 min checks (behavioral with suicide precautions) for safety. The patient will participate in group, recreational, and milieu therapies and will be offered additional individual and family sessions as clinically appropriate. -Decrease Cariprazine to 1.5mg daily -Start Luradisone 20mg daily with breakfast -Continue home Lamotrigine 150mg HS -Start Lamotrigine 50mg QAM -Hold home bupropion -Continue home Buspirone 20mg BID -Continue home Lorazepam 1mg HS PRN and 0.5mg daily PRN -Lab work: Vit D, Vit B12, HbA1C, Free/Total/Bioavailable Testosterone Inventory Assets Strengths: family support, fair insight Needs: medication management, improved self esteem Suicide Risk Level Suicide Risk Level: High-Moderate (q15 min suicide checks) (SI and severe depression with prominent hopelessness but feels safe in the hospital, no plan for SI in the hospital, feels able to ask for support if SI changed to plan or intent in the hospital) Risk Factors Assessment Male: Yes : Yes Do You Have Access To A Gun?: No Health Problems: Yes Mental Health Diagnoses: Yes Substance Use Disorders: No Previous Attempt: No Family History of Suicide: No Previous Psychiatric Hospitalization: Yes Hopelessness: Yes Protective Factors Assessment Shinto Beliefs: Yes : Yes Responsible for Young Children: No 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 Chief Complaint "Tired" Review of Systems Sleep Information Total Hours of Sleep: 6.25 Sleep Comments: HS Ativan Meal Information Percent Meal Consumed - Breakfast: 100 Percent Meal Consumed - Lunch: 100 Percent Meal Consumed - Dinner: 100 Subjective Subjective Patient was seen & assessed and interval progress reviewed with treatment team nursing and social work Patient slept 6.25 hours. Has been eating and attending groups. He reports sleeping well. Continues to lack motivation and has difficulty completing tasks. Presents a constricted affect. Met with yesterday and she has noticed excess sedation with him. He denies any episodes of tearfulness. Continues to hopeless with intermittent SI. Physical Exam Mental Examination Appearance: Well Groomed Eye Contact: Maintains Eye Contact Motor Behavior: Unremarkable Speech: Soft Mood: Calm, Anxious and Sad Affect: Constricted Thought Process: Intact, Linear and Racing Thought Content: Intact Hallucinations: None Insight: Fair Judgement: Fair Vital Signs (Past 24 Hours) Last Vital Signs Temp 36.9 C 02/02/24 06:38 Pulse 91 H 02/02/24 06:38 Resp 16 02/02/24 06:38 BP 118/76 02/02/24 06:38 Pulse Ox 98 01/22/24 21:38 O2 Del Method Room Air 01/22/24 21:38 Results & Data ([facility]) Laboratory Results Laboratory Results - last 24 hr 02/01/24 16:48 [place] 0.3 L Current Inpatient Medications Current Inpatient Medications: Current Inpatient Medications Acetaminophen (Acetaminophen 325 Mg Tab) 650 mg PO Q4H PRN PRN Reason: Headache or Minor Fever Stop: 02/15/24 19:33 Al Hydrox/Mg Hydrox/Simethicone (Aluminum/Magnesium Susp 30 Ml Udc) 30 ml PO Q4 H PRN PRN Reason: GI Upset Stop: 02/15/24 19:33 Bismuth Subsalicylate (Bismuth Subsalicylate 262 Mg Chew) 2 tab PO Q30M PRN PRN Reason: Loose Stool/Diarrhea Stop: 02/15/24 19:33 Buspirone HCl (Buspirone 5 Mg Tab) 20 mg PO BID DELIO Stop: 02/15/24 20:59 Last Admin: 02/02/24 08:39 Dose: 20 mg Docusate Sodium (Docusate Sodium 100 Mg Cap) 200 mg PO BID DELIO Stop: 02/28/24 20:59 Last Admin: 02/02/24 08:39 Dose: 200 mg Hydroxyzine HCl (Hydroxyzine Hcl 25 Mg Tab) 50 mg PO HSZ PRN PRN Reason: Insomnia Stop: 02/15/24 19:33 Hydroxyzine HCl (Hydroxyzine Hcl 25 Mg Tab) 25 mg PO Q4H PRN PRN Reason: Anxiety Stop: 02/15/24 19:33 Lamotrigine (Lamotrigine 25 Mg Tab) 150 mg PO HS [facility]; Protocol Stop: 02/15/24 21:59 Last Admin: 02/01/24 21:26 Dose: 150 mg Lamotrigine (Lamotrigine 25 Mg Tab) [facility] [place]; Protocol Stop: 02/16/24 12:14 Last Admin: 02/02/24 08:38 Dose: 50 mg [place] Carbonate ([place] Carbonate 300 Mg Tab) 300 mg PO HS [facility] Stop: 03/03/24 21:59 Lorazepam (Lorazepam 0.5 Mg Tab) 0.5 mg PO DAILY PRN PRN Reason: Anxiety Stop: 02/15/24 19:44 Last Admin: 01/24/24 17:41 Dose: 0.5 mg Lorazepam (Lorazepam 0.5 Mg Tab) 1.5 mg PO HS [facility] Stop: 03/03/24 21:59 Lurasidone HCl (Lurasidone Hcl 20 Mg Tab) 40 mg PO DAILYBD [facility] Stop: 02/23/24 17:14 Last Admin: 02/01/24 17:43 Dose: 40 mg Magnesium Hydroxide (Magnesium Hydroxide Susp 30 Ml Udc) 30 ml PO DAILY PRN PRN Reason: Constipation Stop: 02/15/24 19:33 Last Admin: 01/26/24 22:12 Dose: 30 ml Ondansetron HCl (Ondansetron 4 Mg Od Tab) 4 mg PO Q6H PRN PRN Reason: Nausea Stop: 02/20/24 10:40 Polyethylene Glycol (Polyethylene (Miralax) 17 Gm Pack) 17 gm PO DAILY PRN PRN Reason: constipation Stop: 02/24/24 12:29 Sodium Chloride (Sodium Chloride 0.65% Na Soln 45 Ml ([place])) 1 - 2 sprays NA PRN PRN PRN Reason: Nasal Dryness/Congestion Stop: 02/15/24 19:33 Venlafaxine HCl (Venlafaxine Hcl Xr 37.5 Mg Capxr) 112.5 mg PO QAM DELIO Stop: 02/29/24 08:59 Last Admin: 02/02/24 08:40 Dose: 112.5 mg Vitamin D (Cholecalciferol 25 Mcg (1000 Units) Tab) 25 mcg PO QAM DELIO Stop: 02/18/24 08:59 Last Admin: 02/02/24 08:39 Dose: 25 mcg Mental Health & Subst Abuse Tx Psychiatrist Name of Psychiatrist: Dr. Izquierdo Psychiatrist's Date Of Appointment With Psychiatric Provider: 02/22/24 Time of Appointment with Psychiatrist: 8:20AM Therapist Name of Therapist: Dr. Betito Beck Therapist's Date of Therapist Appointment: 02/23/24 Time of Therapist Appointment: 3PM Post Discharge Appointments Primary Care Physician Name Of Family Doctor/PCP: Dr. Otero Date of Future Appointment with PCP: every six months-next one June 2024
[2024-02-02] MEDS: LORazepam 0.5 MG TAB PO SCH (21:22)
[2024-02-02] MEDS: LITHIUM CARBONATE 300 MG TAB PO SCH (21:22)
--- NOTE | 2024-02-03 16:12 | Psychiatric Progress Note ---
Date of Service February 03, 2024 Impression / Recommendations Impression DK GARLAND is 58-year-old man with a history of bipolar 1 disorder admitted on 01/16/24 18:56 on a 201 voluntary commitment for suicidal ideation with plan to shoot self with hunting rifle. Presentation consistent with bipolar disorder with major depressive episode. Patient presents mood episodes in late life with no behavioral health concerns in earlier years; late life bipolar is rare and continuing to r/o underlying causes, had outpatient neurology workup in the past after initial inpatient psychiatric admission without evidence for any cognitive changes. A: Patient continues to present a depressed and hopeless affect. Reports decrease sedation on lower dose of lithium and will plan to continue. Recommended to patient to consider other treatment options such as TMS or ECT while awaiting antidepressant effect. Agreeable to increase in Effexor dose; will monitor increase in pulse. Plan for liver function test tomorrow to assess for improvement. Overall, I spent a total of 65 minutes with this case including review of chart records, nursing report, review of lab work, direct evaluation of the patient at bedside, counseling the patient, multidisciplinary team meeting, orders, documentation in the electronic health record. (1) Passive suicidal ideations: (2) Hopelessness: (3) Bipolar disorder with severe depression: (4) Elevated liver enzymes: Plan 02/03/2024: Increase Effexor XR to 150 mg daily. Liver function test tomorrow morning. 02/02/2024: Decrease lithium to 300 mg at bedtime. Decrease lorazepam to 1.5 mg at bedtime. 02/01/2024: [place] level this evening. Continue medications and treatment plan. 01/31/2024: [place] to 450 mg at bedtime (discontinue a.m. dose). [place] level to be drawn tomorrow evening prior to nightly dose. 01/30/2024: Continue medications and treatment plan. [place] level in 2 days. 01/29/2024: Discontinue clonazepam, start lorazepam 2 mg at bedtime. Increase venlafaxine extended release 112.5 mg daily. Increase Colace to 200 mg twice daily. 01/28/2024: Continue current medications. May be able to increase Effexor XR again tomorrow. 01/27/2024: Discontinue clonidine. Increase [place] to 150mg qAM and 300mg HS. 01/26/2024: Increase Effexor XR to 75mg qAM tomorrow. Li level tomorrow AM. Add senna prn in addition to miralax and colace for constipation. 01/25/2024: Continue current meds and tx plan. 01/24/2024: Continue current meds and tx plan. 01/23/2024: -Start venlafaxine ER 37.5mg qAM -Decrease clonidine to 0.1 mg HS -Move Latuda to 40mg qdinner -Stop ativan at HS prn in favor of Klonopin HS prn for longer duration of action to help with sleep promotion -Continue ativan daily prn 01/22/2024: Continue current medications and tx plan. Will need [place] level in 4-6 days. 01/21/2024: Increase lurasidone to 40 mg daily. Stop cariprazine tomorrow morning. Increase lithium to 150 mg twice daily. Zofran ODT as needed started 01/20/24: Start clonidine 0.05 mg every morning. 01/19/24: [place] 150mg daily, Clonidine 0.1mg HS. 01/18/24: Continue medications and treatment plan 01/17/24: The patient was admitted to the [facility] ([facility] mental health unit) on q15 min checks (behavioral with suicide precautions) for safety. The patient will participate in group, recreational, and milieu therapies and will be offered additional individual and family sessions as clinically appropriate. -Decrease Cariprazine to 1.5mg daily -Start Luradisone 20mg daily with breakfast -Continue home Lamotrigine 150mg HS -Start Lamotrigine 50mg QAM -Hold home bupropion -Continue home Buspirone 20mg BID -Continue home Lorazepam 1mg HS PRN and 0.5mg daily PRN -Lab work: Vit D, Vit B12, HbA1C, Free/Total/Bioavailable Testosterone Inventory Assets Strengths: family support, fair insight Needs: medication management, improved self esteem Suicide Risk Level Suicide Risk Level: High-Moderate (q15 min suicide checks) (SI and severe depression with prominent hopelessness but feels safe in the hospital, no plan for SI in the hospital, feels able to ask for support if SI changed to plan or intent in the hospital) Risk Factors Assessment Male: Yes : Yes Do You Have Access To A Gun?: No Health Problems: Yes Mental Health Diagnoses: Yes Substance Use Disorders: No Previous Attempt: No Family History of Suicide: No Previous Psychiatric Hospitalization: Yes Hopelessness: Yes Protective Factors Assessment Moravian Beliefs: Yes : Yes Responsible for Young Children: No 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 Chief Complaint "Less sleepy" Review of Systems Sleep Information Total Hours of Sleep: 7.25 Sleep Comments: HS Ativan Meal Information Percent Meal Consumed - Breakfast: 100 Percent Meal Consumed - Lunch: 75 Percent Meal Consumed - Dinner: 100 Subjective Subjective Patient was seen & assessed and interval progress reviewed with treatment team nursing and social work Patient slept 7.25 hours. Reports a disrupted sleep. Mood is rated at 3.5 out of 10. Patient complains of low mood and hopelessness. Feels that he will never improve and becomes tearful. Slowed motor activity. Complains that he can show emotion. Called pt CARLY GARLAND (35 minutes): Pt is extremely depressed. Feels heavily sedated. Unsure of next steps. Never really recovered over course of two years. Discussed medications and treatment options at length. Physical Exam Mental Examination Appearance: Well Groomed Eye Contact: Maintains Eye Contact Motor Behavior: Unremarkable Speech: Soft Mood: Calm, Anxious and Sad Affect: Constricted Thought Process: Intact, Linear and Racing Thought Content: Intact Hallucinations: None Insight: Fair Judgement: Fair Vital Signs (Past 24 Hours) Last Vital Signs Temp 36.9 C 02/03/24 06:41 Pulse 85 02/03/24 06:41 Resp 16 02/03/24 06:41 BP 125/77 02/03/24 06:41 Pulse Ox 98 01/22/24 21:38 O2 Del Method Room Air 01/22/24 21:38 Results & Data (U) Current Inpatient Medications Current Inpatient Medications: Current Inpatient Medications Acetaminophen (Acetaminophen 325 Mg Tab) 650 mg PO Q4H PRN PRN Reason: Headache or Minor Fever Stop: 02/15/24 19:33 Al Hydrox/Mg Hydrox/Simethicone (Aluminum/Magnesium Susp 30 Ml Udc) 30 ml PO Q4H PRN PRN Reason: GI Upset Stop: 02/15/24 19:33 Bismuth Subsalicylate (Bismuth Subsalicylate 262 Mg Chew) 2 tab PO Q30M PRN PRN Reason: Loose Stool/Diarrhea Stop: 02/15/24 19:33 Buspirone HCl (Buspirone 5 Mg Tab) 20 mg PO BID DELIO Stop: 02/15/24 20:59 Last Admin: 02/03/24 10:02 Dose: 20 mg Docusate Sodium (Docusate Sodium 100 Mg Cap) 200 mg PO BID DELIO Stop: 02/28/24 20:59 Last Admin: 02/03/24 09:59 Dose: 200 mg Hydroxyzine HCl (Hydroxyzine Hcl 25 Mg Tab) 50 mg PO HSZ PRN PRN Reason: Insomnia Stop: 02/15/24 19:33 Hydroxyzine HCl (Hydroxyzine Hcl 25 Mg Tab) 25 mg PO Q4H PRN PRN Reason: Anxiety Stop: 02/15/24 19:33 Lamotrigine (Lamotrigine 25 Mg Tab) 150 mg PO HS [facility]; Protocol Stop: 02/15/24 21:59 Last Admin: 02/02/24 21:21 Dose: 150 mg Lamotrigine (Lamotrigine 25 Mg Tab) 50 mg PO QAM [facility]; Protocol Stop: 02/16/24 12:14 Last Admin: 02/03/24 10:03 Dose: 50 mg [place] Carbonate ([place] Carbonate 300 Mg Tab) 300 mg PO HS DELIO Stop: 03/03/24 21:59 Last Admin: 02/02/24 21:22 Dose: 300 mg Lorazepam (Lorazepam 0.5 Mg Tab) 0.5 mg PO DAILY PRN PRN Reason: Anxiety Stop: 02/15/24 19:44 Last Admin: 01/24/24 17:41 Dose: 0.5 mg Lorazepam (Lorazepam 0.5 Mg Tab) 1.5 mg PO HS DELIO Stop: 03/03/24 21:59 Last Admin: 02/02/24 21:22 Dose: 1.5 mg Lurasidone HCl (Lurasidone Hcl 20 Mg Tab) 40 mg PO DAILYBD DELIO Stop: 02/23/24 17:14 Last Admin: 02/02/24 17:08 Dose: 40 mg Magnesium Hydroxide (Magnesium Hydroxide Susp 30 Ml Udc) 30 ml PO DAILY PRN PRN Reason: Constipation Stop: 02/15/24 19:33 Last Admin: 01/26/24 22:12 Dose: 30 ml Ondansetron HCl (Ondansetron 4 Mg Od Tab) 4 mg PO Q6H PRN PRN Reason: Nausea Stop: 02/20/24 10:40 Polyethylene Glycol (Polyethylene (Miralax) 17 Gm Pack) 17 gm PO DAILY PRN PRN Reason: constipation Stop: 02/24/24 12:29 Sodium Chloride (Sodium Chloride 0.65% Na Soln 45 Ml ([place])) 1 - 2 sprays NA PRN PRN PRN Reason: Nasal Dryness/Congestion Stop: 02/15/24 19:33 Venlafaxine HCl (Venlafaxine Hcl Xr 150 Mg Capxr) 150 mg PO QAM DELIO Stop: 03/05/24 08:59 Vitamin D (Cholecalciferol 25 Mcg (1000 Units) Tab) 25 mcg PO QAM DELIO Stop: 02/18/24 08:59 Last Admin: 02/03/24 10:03 Dose: 25 mcg Mental Health & Subst Abuse Tx Psychiatrist Name of Psychiatrist: Dr. Izquierdo Psychiatrist's Date Of Appointment With Psychiatric Provider: 02/22/24 Time of Appointment with Psychiatrist: 8:20AM Therapist Name of Therapist: Dr. Betito Beck Therapist's Date of Therapist Appointment: 02/23/24 Time of Therapist Appointment: 3PM Post Discharge Appointments Primary Care Physician Name Of Family Doctor/PCP: Dr. Otero Date of Future Appointment with PCP: every six months-next one June 2024
[2024-02-04 08:10] LABS: Albumin Level 4.1 gm/dl (3.4-5.0); Bilirubin Direct 0.1 mg/dl (0-0.2); Bilirubin,Total 0.3 mg/dl (0.2-1.0); Total Protein 6.5 gm/dl (6.0-8.3)
[2024-02-04] MEDS: VENLAFAXINE HCL XR 150 MG CAPXR PO SCH (08:50)
--- NOTE | 2024-02-04 14:26 | Psychiatric Progress Note ---
Date of Service February 04, 2024 Impression / Recommendations Impression DK GARLAND is 58-year-old man with a history of bipolar 1 disorder admitted on 01/16/24 18:56 on a 201 voluntary commitment for suicidal ideation with plan to shoot self with hunting rifle. Presentation consistent with bipolar disorder with major depressive episode. Patient presents mood episodes in late life with no behavioral health concerns in earlier years; late life bipolar is rare and continuing to r/o underlying causes, had outpatient neurology workup in the past after initial inpatient psychiatric admission without evidence for any cognitive changes. A: Patient continues to present a depressed and hopeless affect. Appears less sedated with decrease in [place]. Tolerating increase in Effexor dose. Liver enzymes reviewed: AST 68 and trended up, ALT 149 and trended up. Overall, I spent a total of 30 minutes with this case including review of chart records, nursing report, review of lab work, direct evaluation of the patient at bedside, counseling the patient, multidisciplinary team meeting, orders, documentation in the electronic health record. (1) Passive suicidal ideations: (2) Hopelessness: (3) Bipolar disorder with severe depression: (4) Elevated liver enzymes: Plan 02/04/2024: Continue medications and treatment plan 02/03/2024: Increase Effexor XR to 150 mg daily. Liver function test tomorrow morning. 02/02/2024: Decrease lithium to 300 mg at bedtime. Decrease lorazepam to 1.5 mg at bedtime. 02/01/2024: [place] level this evening. Continue medications and treatment plan. 01/31/2024: [place] to 450 mg at bedtime (discontinue a.m. dose). [place] level to be drawn tomorrow evening prior to nightly dose. 01/30/2024: Continue medications and treatment plan. [place] level in 2 days. 01/29/2024: Discontinue clonazepam, start lorazepam 2 mg at bedtime. Increase venlafaxine extended release 112.5 mg daily. Increase Colace to 200 mg twice daily. 01/28/2024: Continue current medications. May be able to increase Effexor XR again tomorrow. 01/27/2024: Discontinue clonidine. Increase [place] to 150mg qAM and 300mg HS. 01/26/2024: Increase Effexor XR to 75mg qAM tomorrow. Li level tomorrow AM. Add senna prn in addition to miralax and colace for constipation. 01/25/2024: Continue current meds and tx plan. 01/24/2024: Continue current meds and tx plan. 01/23/2024: -Start venlafaxine ER 37.5mg qAM -Decrease clonidine to 0.1 mg HS -Move Latuda to 40mg qdinner -Stop ativan at HS prn in favor of Klonopin HS prn for longer duration of action to help with sleep promotion -Continue ativan daily prn 01/22/2024: Continue current medications and tx plan. Will need [place] level in 4-6 days. 01/21/2024: Increase lurasidone to 40 mg daily. Stop cariprazine tomorrow morning. Increase lithium to 150 mg twice daily. Zofran ODT as needed started 01/20/24: Start clonidine 0.05 mg every morning. 01/19/24: [place] 150mg daily, Clonidine 0.1mg HS. 01/18/24: Continue medications and treatment plan 01/17/24: The patient was admitted to the [facility] ([facility] mental health unit) on q15 min checks (behavioral with suicide precautions) for safety. The patient will participate in group, recreational, and milieu therapies and will be offered additional individual and family sessions as clinically appropriate. -Decrease Cariprazine to 1.5mg daily -Start Luradisone 20mg daily with breakfast -Continue home Lamotrigine 150mg HS -Start Lamotrigine 50mg QAM -Hold home bupropion -Continue home Buspirone 20mg BID -Continue home Lorazepam 1mg HS PRN and 0.5mg daily PRN -Lab work: Vit D, Vit B12, HbA1C, Free/Total/Bioavailable Testosterone Inventory Assets Strengths: family support, fair insight Needs: medication management, improved self esteem Suicide Risk Level Suicide Risk Level: High-Moderate (q15 min suicide checks) (SI and severe depression with prominent hopelessness but feels safe in the hospital, no plan for SI in the hospital, feels able to ask for support if SI changed to plan or intent in the hospital) Risk Factors Assessment Male: Yes : Yes Do You Have Access To A Gun?: No Health Problems: Yes Mental Health Diagnoses: Yes Substance Use Disorders: No Previous Attempt: No Family History of Suicide: No Previous Psychiatric Hospitalization: Yes Hopelessness: Yes Protective Factors Assessment Scientology Beliefs: Yes : Yes Responsible for Young Children: No 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 Chief Complaint "Depressed" Review of Systems Sleep Information Total Hours of Sleep: 6.5 Sleep Comments: HS Ativan Meal Information Percent Meal Consumed - Breakfast: 100 Percent Meal Consumed - Lunch: 60 Percent Meal Consumed - Dinner: 90 Subjective Subjective Patient was seen & assessed and interval progress reviewed with treatment team nursing and social work Patient presents flat affect with limited reactivity. Complains of intermittent suicidal ideation with passive in nature. Slept 6.5 hours with 1 disruption; was able to go back to sleep. He demonstrates slowed movements walking to his room. He denies any associated palpitations or increase in heart rate. He reports having some hope. Denies feelings of worthlessness. We discussed a potential plan moving forward. Does not notice a significant increase in sedation from lithium 150 to 300mg. Physical Exam Mental Examination Appearance: Well Groomed Eye Contact: Maintains Eye Contact Motor Behavior: Unremarkable Speech: Soft Mood: Calm, Anxious and Sad Affect: Constricted Thought Process: Intact, Linear and Racing Thought Content: Intact Hallucinations: None Insight: Fair Judgement: Fair Vital Signs (Past 24 Hours) Last Vital Signs Temp 36.7 C 02/04/24 06:46 Pulse 86 02/04/24 06:47 Resp 16 02/04/24 06:46 BP 127/81 02/04/24 06:47 Pulse Ox 98 01/22/24 21:38 O2 Del Method Room Air 01/22/24 21:38 Results & Data ([facility]) Laboratory Results Laboratory Results - last 24 hr 02/04/24 07:14 Total Bilirubin 0.3 Direct Bilirubin 0.1 AST 68 H ALT 149 H Alkaline Phosphatase 85 Total Protein 6.5 Albumin 4.1 Current Inpatient Medications Current Inpatient Medications: Current Inpatient Medications Acetaminophen (Acetaminophen 325 Mg Tab) 650 mg PO Q4H PRN PRN Reason: Headache or Minor Fever Stop: 02/15/24 19:33 Al Hydrox/Mg Hydrox/Simethicone (Aluminum/Magnesium Susp 30 Ml Udc) 30 ml PO Q4H PRN PRN Reason: GI Upset Stop: 02/15/24 19:33 Bismuth Subsalicylate (Bismuth Subsalicylate 262 Mg Chew) 2 tab PO Q30M PRN PRN Reason: Loose Stool/Diarrhea Stop: 02/15/24 19:33 Buspirone HCl (Buspirone 5 Mg Tab) 20 mg PO BID DELIO Stop: 02/15/24 20:59 Last Admin: 02/04/24 08:49 Dose: 20 mg Docusate Sodium (Docusate Sodium 100 Mg Cap) 200 mg PO BID DELIO Stop: 02/28/24 20:59 Last Admin: 02/04/24 08:55 Dose: Not Given Hydroxyzine HCl (Hydroxyzine Hcl 25 Mg Tab) 50 mg PO HSZ PRN PRN Reason: Insomnia Stop: 02/15/24 19:33 Hydroxyzine HCl (Hydroxyzine Hcl 25 Mg Tab) 25 mg PO Q4H PRN PRN Reason: Anxiety Stop: 02/15/24 19:33 Lamotrigine (Lamotrigine 25 Mg Tab) 150 mg PO HS [facility]; Protocol Stop: 02/15/24 21:59 Last Admin: 02/03/24 21:34 Dose: 150 mg Lamotrigine (Lamotrigine 25 Mg Tab) 50 mg PO [facility]; Protocol Stop: 02/16/24 12:14 Last Admin: 02/04/24 08:50 Dose: 50 mg [place] Carbonate ([place] Carbonate 300 Mg Tab) 300 mg PO HS DELIO Stop: 03/03/24 21:59 Last Admin: 02/03/24 21:34 Dose: 300 mg Lorazepam (Lorazepam 0.5 Mg Tab) 0.5 mg PO DAILY PRN PRN Reason: Anxiety Stop: 02/15/24 19:44 Last Admin: 01/24/24 17:41 Dose: 0.5 mg Lorazepam (Lorazepam 0.5 Mg Tab) 1.5 mg PO HS DELIO Stop: 03/03/24 21:59 Last Admin: 02/03/24 21:35 Dose: 1.5 mg Lurasidone HCl (Lurasidone Hcl 20 Mg Tab) 40 mg PO DAILYBD DELIO Stop: 02/23/24 17:14 Last Admin: 02/03/24 17:07 Dose: 40 mg Magnesium Hydroxide (Magnesium Hydroxide Susp 30 Ml Udc) 30 ml PO DAILY PRN PRN Reason: Constipation Stop: 02/15/24 19:33 Last Admin: 01/26/24 22:12 Dose: 30 ml Ondansetron HCl (Ondansetron 4 Mg Od Tab) 4 mg PO Q6H PRN PRN Reason: Nausea Stop: 02/20/24 10:40 Polyethylene Glycol (Polyethylene (Miralax) 17 Gm Pack) 17 gm PO DAILY PRN PRN Reason: constipation Stop: 02/24/24 12:29 Sodium Chloride (Sodium Chloride 0.65% Na Soln 45 Ml ([place])) 1 - 2 sprays NA PRN PRN PRN Reason: Nasal Dryness/Congestion Stop: 02/15/24 19:33 Venlafaxine HCl (Venlafaxine Hcl Xr 150 Mg Capxr) 150 mg PO QAM DELIO Stop: 03/05/24 08:59 Last Admin: 02/04/24 08:50 Dose: 150 mg Vitamin D (Cholecalciferol 25 Mcg (1000 Units) Tab) 25 mcg PO QAM DELIO Stop: 02/18/24 08:59 Last Admin: 02/04/24 08:49 Dose: 25 mcg Mental Health & Subst Abuse Tx Psychiatrist Name of Psychiatrist: Dr. Izquierdo Psychiatrist's Date Of Appointment With Psychiatric Provider: 02/22/24 Time of Appointment with Psychiatrist: 8:20AM Therapist Name of Therapist: Dr. Betito Beck Therapist's Date of Therapist Appointment: 02/23/24 Time of Therapist Appointment: 3PM Post Discharge Appointments Primary Care Physician Name Of Family Doctor/PCP: Dr. Otero Date of Future Appointment with PCP: every six months-next one June 2024
--- NOTE | 2024-02-05 10:00 | Psychiatric Progress Note ---
Date of Service February 05, 2024 Impression / Recommendations Impression DK GARLAND is 58-year-old man with a history of bipolar 1 disorder admitted on 01/16/24 18:56 on a 201 voluntary commitment for suicidal ideation with plan to shoot self with hunting rifle. Presentation consistent with bipolar disorder with major depressive episode. Patient presents mood episodes in late life with no behavioral health concerns in earlier years; late life bipolar is rare and continuing to r/o underlying causes, had outpatient neurology workup in the past after initial inpatient psychiatric admission without evidence for any cognitive changes. A: Ongoing severe depression with hopelessness and SI. Reviewed options for medications, given elevated LFTs and limited benefit to date he consents to taper to discontinuation of lamictal. To date no noticeable benefits from Arab, will taper with goal of Latuda for mood stabilization and option to then consider alternative options for bipolar depression for augmentation with Effexor. Overall, I spent a total of 35 minutes on this case including meeting with the patient, reviewing the chart, nursing report, multidisciplinary team meeting, orders, and documentation. (1) Bipolar disorder with severe depression: (2) Hopelessness: (3) Elevated liver enzymes: Plan 02/05/2024: * Decrease lamictal to 100mg HS * Decrease Arab to 150mg HS 02/04/2024: Continue medications and treatment plan 02/03/2024: Increase Effexor XR to 150 mg daily. Liver function test tomorrow morning. 02/02/2024: Decrease lithium to 300 mg at bedtime. Decrease lorazepam to 1.5 mg at bedtime. 02/01/2024: Arab level this evening. Continue medications and treatment plan. 01/31/2024: Arab to 450 mg at bedtime (discontinue a.m. dose). Arab level to be drawn tomorrow evening prior to nightly dose. 01/30/2024: Continue medications and treatment plan. Arab level in 2 days. 01/29/2024: Discontinue clonazepam, start lorazepam 2 mg at bedtime. Increase venlafaxine extended release 112.5 mg daily. Increase Colace to 200 mg twice daily. 01/28/2024: Continue current medications. May be able to increase Effexor XR again tomorrow. 01/27/2024: Discontinue clonidine. Increase Arab to 150mg qAM and 300mg HS. 01/26/2024: Increase Effexor XR to 75mg qAM tomorrow. Li level tomorrow AM. Add senna prn in addition to miralax and colace for constipation. 01/25/2024: Continue current meds and tx plan. 01/24/2024: Continue current meds and tx plan. 01/23/2024: -Start venlafaxine ER 37.5mg qAM -Decrease clonidine to 0.1 mg HS -Move Latuda to 40mg qdinner -Stop ativan at HS prn in favor of Klonopin HS prn for longer duration of action to help with sleep promotion -Continue ativan daily prn 01/22/2024: Continue current medications and tx plan. Will need Arab level in 4-6 days. 01/21/2024: Increase lurasidone to 40 mg daily. Stop cariprazine tomorrow morning. Increase lithium to 150 mg twice daily. Zofran ODT as needed started 01/20/24: Start clonidine 0.05 mg every morning. 01/19/24: Arab 150mg daily, Clonidine 0.1mg HS. 01/18/24: Continue medications and treatment plan 01/17/24: The patient was admitted to the [facility] ([facility] mental health unit) on q15 min checks (behavioral with suicide precautions) for safety. The patient will participate in group, recreational, and milieu therapies and will be offered additional individual and family sessions as clinically appropriate. -Decrease Cariprazine to 1.5mg daily -Start Luradisone 20mg daily with breakfast -Continue home Lamotrigine 150mg HS -Start Lamotrigine 50mg QAM -Hold home bupropion -Continue home Buspirone 20mg BID -Continue home Lorazepam 1mg HS PRN and 0.5mg daily PRN -Lab work: Vit D, Vit B12, HbA1C, Free/Total/Bioavailable Testosterone Inventory Assets Strengths: family support, fair insight Needs: medication management, improved self esteem Suicide Risk Level Suicide Risk Level: High-Moderate (q15 min suicide checks) (SI and severe depression with prominent hopelessness but feels safe in the hospital, no plan for SI in the hospital, feels able to ask for support if SI changed to plan or intent in the hospital) Risk Factors Assessment Male: Yes : Yes Do You Have Access To A Gun?: No Health Problems: Yes Mental Health Diagnoses: Yes Substance Use Disorders: No Previous Attempt: No Family History of Suicide: No Previous Psychiatric Hospitalization: Yes Hopelessness: Yes Protective Factors Assessment Moravian Beliefs: Yes : Yes Responsible for Young Children: No 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 Chief Complaint "Scared that I'll be a burden and that I can't do it ". Review of Systems Sleep Information Total Hours of Sleep: 6.45 Sleep Comments: HS Ativan Meal Information Percent Meal Consumed - Breakfast: 100 Percent Meal Consumed - Lunch: 60 Percent Meal Consumed - Dinner: 75 Subjective Subjective Patient was seen & assessed and interval progress reviewed with treatment team nursing and social work. Rated his mood "2" and "scared". Today ongoing depression and feels scared about prospect of discharge as worried about being unable to "do it" and feeling "like a burden". Discussed that this could lead to increased thoughts of SI. Ongoing SI. Unsure if medication adjustments have helped at all, still very tired and emotions feel blunted, reflects that he can't laugh but is also crying more. Sleeping ok with ativan. Physical Exam Psychiatric Orientation: alert and oriented x 3 Apperance: appropriately dressed and appropriately groomed Eye Contact: + fair eye contact Motor Behavior: steady gait and station and + psychomotor retardation (walks slowly) Speech: + abnormal rate/rhythm/volume of speech (soft, latent ) Affect: + depressed affect and + flat affect Mood: + depressed mood and + anxious mood Thought Process: + circumstantial thought process Thought Content: reality based without delusions, + hopelessness and + guilt Suicidal Thoughts: denies suicidal plan (none for hospital, feels he would act if at home); + reports suicidal thoughts Homicidal Thoughts: denies homicidal thoughts Hallucinations: no auditory hallucinations and no visual hallucinations Cognition: recent memory grossly intact, remote memory grossly intact, attention grossly intact and language grossly intact Estimated Intelligence: consistent with education level Insight: + limited insight Judgment: + limited judgement Vital Signs (Past 24 Hours) Last Vital Signs Temp 37.0 C 02/05/24 06:42 Pulse 77 02/05/24 06:42 Resp 16 02/05/24 06:42 BP 123/77 02/05/24 06:44 Pulse Ox 96 02/05/24 06:42 O2 Del Method Room Air 02/05/24 06:42 Results & Data ([facility]) Current Inpatient Medications Current Inpatient Medications: Current Inpatient Medications Acetaminophen (Acetaminophen 325 Mg Tab) 650 mg PO Q4H PRN PRN Reason: Headache or Minor Fever Stop: 02/15/24 19:33 Al Hydrox/Mg Hydrox/Simethicone (Aluminum/Magnesium Susp 30 Ml Udc) 30 ml PO Q4H PRN PRN Reason: GI Upset Stop: 02/15/24 19:33 Bismuth Subsalicylate (Bismuth Subsalicylate 262 Mg Chew) 2 tab PO Q30M PRN PRN Reason: Loose Stool/Diarrhea Stop: 02/15/24 19:33 Buspirone HCl (Buspirone 5 Mg Tab) 20 mg PO BID DELIO Stop: 02/15/24 20:59 Last Admin: 02/05/24 09:20 Dose: 20 mg Docusate Sodium (Docusate Sodium 100 Mg Cap) 200 mg PO BID DELIO Stop: 02/28/24 20:59 Last Admin: 02/05/24 09:20 Dose: 200 mg Hydroxyzine HCl (Hydroxyzine Hcl 25 Mg Tab) 50 mg PO HSZ PRN PRN Reason: Insomnia Stop: 02/15/24 19:33 Hydroxyzine HCl (Hydroxyzine Hcl 25 Mg Tab) 25 mg PO Q4H PRN PRN Reason: Anxiety Stop: 02/15/24 19:33 Lamotrigine (Lamotrigine 25 Mg Tab) 150 mg PO HS DELIO; Protocol Stop: 02/15/24 21:59 Last Admin: 02/04/24 21:35 Dose: 150 mg Lamotrigine (Lamotrigine 25 Mg Tab) 50 mg PO QAM DELIO; Protocol Stop: 02/16/24 12:14 Last Admin: 02/05/24 09:21 Dose: 50 mg Arab Carbonate (Arab Carbonate 300 Mg Tab) 300 mg PO HS DELIO Stop: 03/03/24 21:59 Last Admin: 02/04/24 21:36 Dose: 300 mg Lorazepam (Lorazepam 0.5 Mg Tab) 0.5 mg PO DAILY PRN PRN Reason: Anxiety Stop: 02/15/24 19:44 Last Admin: 01/24/24 17:41 Dose: 0.5 mg Lorazepam (Lorazepam 0.5 Mg Tab) 1.5 mg PO HS DELIO Stop: 03/03/24 21:59 Last Admin: 02/04/24 21:33 Dose: 1.5 mg Lurasidone HCl (Lurasidone Hcl 20 Mg Tab) 40 mg PO DAILYBD DELIO Stop: 02/23/24 17:14 Last Admin: 02/04/24 17:27 Dose: 40 mg Magnesium Hydroxide (Magnesium Hydroxide Susp 30 Ml Udc) 30 ml PO DAILY PRN PRN Reason: Constipation Stop: 02/15/24 19:33 Last Admin: 01/26/24 22:12 Dose: 30 ml Ondansetron HCl (Ondansetron 4 Mg Od Tab) 4 mg PO Q6H PRN PRN Reason: Nausea Stop: 02/20/24 10:40 Polyethylene Glycol (Polyethylene (Miralax) 17 Gm Pack) 17 gm PO DAILY PRN PRN Reason: constipation Stop: 02/24/24 12:29 Sodium Chloride (Sodium Chloride 0.65% Na Soln 45 Ml ([place])) 1 - 2 sprays NA PRN PRN PRN Reason: Nasal Dryness/Congestion Stop: 02/15/24 19:33 Venlafaxine HCl (Venlafaxine Hcl Xr 150 Mg Capxr) 150 mg PO QAM DELIO Stop: 03/05/24 08:59 Last Admin: 02/05/24 09:21 Dose: 150 mg Vitamin D (Cholecalciferol 25 Mcg (1000 Units) Tab) 25 mcg PO QAM DELIO Stop: 02/18/24 08:59 Last Admin: 02/05/24 09:21 Dose: 25 mcg Mental Health & Subst Abuse Tx Psychiatrist Name of Psychiatrist: Dr. Izquierdo Psychiatrist's Date Of Appointment With Psychiatric Provider: 02/22/24 Time of Appointment with Psychiatrist: 8:20AM Therapist Name of Therapist: Dr. Betito Beck Therapist's Date of Therapist Appointment: 02/23/24 Time of Therapist Appointment: 3PM Post Discharge Appointments Primary Care Physician Name Of Family Doctor/PCP: Dr. Otero Date of Future Appointment with PCP: every six months-next one June 2024
[2024-02-05] MEDS: lamoTRIgine 100 MG TAB PO SCH (20:50)
[2024-02-05] MEDS: LITHIUM CARBONATE 300 MG TAB PO SCH (20:51)
--- NOTE | 2024-02-06 09:45 | Psychiatric Progress Note ---
Date of Service February 06, 2024 Impression / Recommendations Impression DK GARLAND is 58-year-old man with a history of bipolar 1 disorder admitted on 01/16/24 18:56 on a 201 voluntary commitment for suicidal ideation with plan to shoot self with hunting rifle. Presentation consistent with bipolar disorder with major depressive episode. Patient presents mood episodes in late life with no behavioral health concerns in earlier years; late life bipolar is rare and continuing to r/o underlying causes, had outpatient neurology workup in the past after initial inpatient psychiatric admission without evidence for any cognitive changes. A: Ongoing severe depression with hopelessness, dread and SI. Discussed ACT strategies, CBT and gratitude and mindfulness practices to try related to negative thoughts and hopelessness and fears he won't get better. Reviewed options for medications, he wants to continue with [place] and lamictal taper. Discussed option to trial stimulant tomorrow for treatment resistant bipolar depression especially given prominence of fatigue seems to often set off increased hopelessness and dread. He consents to trial of ritalin IR, reviewed side effects including but not limited to potential for increased anxiety, appetite suppression, cardiac effects, insomnia, stephanie. Overall, I spent a total of 45 minutes on this case including meeting with the patient, reviewing the chart, nursing report, multidisciplinary team meeting, orders, and documentation. (1) Bipolar disorder with severe depression: (2) Hopelessness: (3) Elevated liver enzymes: Plan 02/06/2024: * Discontinue [place] * Start Ritalin IR 5mg qAM 02/05/2024: * Decrease lamictal to 100mg HS * Decrease [place] to 150mg HS 02/04/2024: Continue medications and treatment plan 02/03/2024: Increase Effexor XR to 150 mg daily. Liver function test tomorrow morning. 02/02/2024: Decrease lithium to 300 mg at bedtime. Decrease lorazepam to 1.5 mg at bedtime. 02/01/2024: [place] level this evening. Continue medications and treatment plan. 01/31/2024: [place] to 450 mg at bedtime (discontinue a.m. dose). [place] level to be drawn tomorrow evening prior to nightly dose. 01/30/2024: Continue medications and treatment plan. [place] level in 2 days. 01/29/2024: Discontinue clonazepam, start lorazepam 2 mg at bedtime. Increase venlafaxine extended release 112.5 mg daily. Increase Colace to 200 mg twice daily. 01/28/2024: Continue current medications. May be able to increase Effexor XR again tomorrow. 01/27/2024: Discontinue clonidine. Increase [place] to 150mg qAM and 300mg HS. 01/26/2024: Increase Effexor XR to 75mg qAM tomorrow. Li level tomorrow AM. Add senna prn in addition to miralax and colace for constipation. 01/25/2024: Continue current meds and tx plan. 01/24/2024: Continue current meds and tx plan. 01/23/2024: -Start venlafaxine ER 37.5mg qAM -Decrease clonidine to 0.1 mg HS -Move Latuda to 40mg qdinner -Stop ativan at HS prn in favor of Klonopin HS prn for longer duration of action to help with sleep promotion -Continue ativan daily prn 01/22/2024: Continue current medications and tx plan. Will need [place] level in 4-6 days. 01/21/2024: Increase lurasidone to 40 mg daily. Stop cariprazine tomorrow morning. Increase lithium to 150 mg twice daily. Zofran ODT as needed started 01/20/24: Start clonidine 0.05 mg every morning. 01/19/24: [place] 150mg daily, Clonidine 0.1mg HS. 01/18/24: Continue medications and treatment plan 01/17/24: [facility] unit) on q15 min checks (behavioral with suicide precautions) for safety. The patient will participate in group, recreational, and milieu therapies and will be offered additional individual and family sessions as clinically appropriate. -Decrease Cariprazine to 1.5mg daily -Start Luradisone 20mg daily with breakfast -Continue home Lamotrigine 150mg HS -Start Lamotrigine 50mg QAM -Hold home bupropion -Continue home Buspirone 20mg BID -Continue home Lorazepam 1mg HS PRN and 0.5mg daily PRN -Lab work: Vit D, Vit B12, HbA1C, Free/Total/Bioavailable Testosterone Inventory Assets Strengths: family support, fair insight Needs: medication management, improved self esteem Suicide Risk Level Suicide Risk Level: High-Moderate (q15 min suicide checks) (SI and severe depression with prominent hopelessness but feels safe in the hospital, no plan for SI in the hospital, feels able to ask for support if SI changed to plan or intent in the hospital) Risk Factors Assessment Male: Yes : Yes Do You Have Access To A Gun?: No Health Problems: Yes Mental Health Diagnoses: Yes Substance Use Disorders: No Previous Attempt: No Family History of Suicide: No Previous Psychiatric Hospitalization: Yes Hopelessness: Yes Protective Factors Assessment Worship Beliefs: Yes : Yes Responsible for Young Children: No 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 Chief Complaint "I started out fairly good but regressed". Review of Systems Sleep Information Total Hours of Sleep: 7.45 Sleep Comments: HS meds with Ativan Meal Information Percent Meal Consumed - Breakfast: 100 Percent Meal Consumed - Lunch: 90 Percent Meal Consumed - Dinner: 75 Subjective Subjective Patient was seen & assessed and interval progress reviewed with treatment team nursing and social work. Remains flat and hopeless. Brightens very slightly at times with interaction. Had a visit with his . Reported his mood as "lonely and anxious" last evening. Slept well and woke feeling rested and with some improvement in mood but then started to feel worse as sense of hopelessness set in. Discussed that he doesn't initially wake up with sense of dread but this develops over the day. He'll feel hopeless and then think if this feeling continues that "I have misery or feel like doing something (to attempt suicide)". Feels anxiety is "not as bad" today. Andrews very tired mid morning. Physical Exam Psychiatric Orientation: alert and oriented x 3 Apperance: appropriately dressed and appropriately groomed Eye Contact: + fair eye contact Motor Behavior: steady gait and station and + psychomotor retardation (walks slowly) Speech: + abnormal rate/rhythm/volume of speech (soft, latent ) Affect: + depressed affect and + flat affect Mood: + depressed mood and + anxious mood Thought Process: + circumstantial thought process Thought Content: reality based without delusions, + hopelessness and + guilt Suicidal Thoughts: denies suicidal plan (none for hospital, feels he would act if at home); + reports suicidal thoughts Homicidal Thoughts: denies homicidal thoughts Hallucinations: no auditory hallucinations and no visual hallucinations Cognition: recent memory grossly intact, remote memory grossly intact, attention grossly intact and language grossly intact Estimated Intelligence: consistent with education level Insight: + limited insight Judgment: + limited judgement Vital Signs (Past 24 Hours) Last Vital Signs Temp 36.1 C L 02/06/24 06:50 Pulse 82 02/06/24 06:50 Resp 18 02/06/24 06:50 BP 114/56 L 02/06/24 06:50 Pulse Ox 96 02/06/24 06:50 O2 Del Method Room Air 02/06/24 06:50 Results & Data ([facility] [[email or web address] Current Inpatient Medications Current Inpatient Medications: Current Inpatient Medications Acetaminophen (Acetaminophen 325 Mg Tab) 650 mg PO Q4H PRN PRN Reason: Headache or Minor Fever Stop: 02/15/24 19:33 Al Hydrox/Mg Hydrox/Simethicone (Aluminum/Magnesium Susp 30 Ml Udc) 30 ml PO Q4H PRN PRN Reason: GI Upset Stop: 02/15/24 19:33 Bismuth Subsalicylate (Bismuth Subsalicylate 262 Mg Chew) 2 tab PO Q30M PRN PRN Reason: Loose Stool/Diarrhea Stop: 02/15/24 19:33 Buspirone HCl (Buspirone 5 Mg Tab) 20 mg PO BID [facility] Stop: 02/15/24 20:59 Last Admin: 02/06/24 08:38 Dose: 20 mg Docusate Sodium (Docusate Sodium 100 Mg Cap) 200 mg PO BID DELIO Stop: 02/28/24 20:59 Last Admin: 02/06/24 08:38 Dose: 200 mg Hydroxyzine HCl (Hydroxyzine Hcl 25 Mg Tab) 50 mg PO HSZ PRN PRN Reason: Insomnia Stop: 02/15/24 19:33 Hydroxyzine HCl (Hydroxyzine Hcl 25 Mg Tab) 25 mg PO Q4H PRN PRN Reason: Anxiety Stop: 02/15/24 19:33 Lamotrigine (Lamotrigine 100 Mg Tab) 100 mg PO HS [facility]; Protocol Stop: 03/06/24 21:59 Last Admin: 02/05/24 20:50 Dose: 100 mg [place] Carbonate ([place] Carbonate 300 Mg Tab) 150 mg PO HS DELIO Stop: 03/06/24 21:59 Last Admin: 02/05/24 20:51 Dose: 150 mg Lorazepam (Lorazepam 0.5 Mg Tab) 0.5 mg PO DAILY PRN PRN Reason: Anxiety Stop: 02/15/24 19:44 Last Admin: 01/24/24 17:41 Dose: 0.5 mg Lorazepam (Lorazepam 0.5 Mg Tab) 1.5 mg PO HS [facility] Stop: 03/03/24 21:59 Last Admin: 02/05/24 20:49 Dose: 1.5 mg Lurasidone HCl (Lurasidone Hcl 20 Mg Tab) 40 mg PO DAILYBD [facility]IO Stop: 02/23/24 17:14 Last Admin: 02/05/24 17:44 Dose: 40 mg Magnesium Hydroxide (Magnesium Hydroxide Susp 30 Ml Udc) 30 ml PO DAILY PRN PRN Reason: Constipation Stop: 02/15/24 19:33 Last Admin: 01/26/24 22:12 Dose: 30 ml Ondansetron HCl (Ondansetron 4 Mg Od Tab) 4 mg PO Q6H PRN PRN Reason: Nausea Stop: 02/20/24 10:40 Polyethylene Glycol (Polyethylene (Miralax) 17 Gm Pack) 17 gm PO DAILY PRN PRN Reason: constipation Stop: 02/24/24 12:29 Sodium Chloride (Sodium Chloride 0.65% Na Soln 45 Ml ([place])) 1 - 2 sprays NA PRN PRN PRN Reason: Nasal Dryness/Congestion Stop: 02/15/24 19:33 Venlafaxine HCl (Venlafaxine Hcl Xr 150 Mg Capxr) 150 mg PO QAM [facility] Stop: 03/05/24 08:59 Last Admin: 02/06/24 08:39 Dose: 150 mg Vitamin D (Cholecalciferol 25 Mcg (1000 Units) Tab) 25 mcg PO QAM [facility]IO Stop: 02/18/24 08:59 Last Admin: 02/06/24 08:38 Dose: 25 mcg Mental Health & Subst Abuse Tx Psychiatrist Name of Psychiatrist: Dr. Izquierdo Psychiatrist's Date Of Appointment With Psychiatric Provider: 02/22/24 Time of Appointment with Psychiatrist: 8:20AM Therapist Name of Therapist: Dr. Betito Beck Therapist's Date of Therapist Appointment: 02/23/24 Time of Therapist Appointment: 3PM Post Discharge Appointments Primary Care Physician Name Of Family Doctor/PCP: Dr. Otero Date of Future Appointment with PCP: every six months-next one June 2024
[2024-02-07] MEDS: METHYLPHENIDATE HCL 5 MG TABLET PO SCH (08:42)
--- NOTE | 2024-02-07 08:52 | Psychiatric Progress Note ---
Date of Service February 07, 2024 Impression / Recommendations Impression DK GARLAND is 58-year-old man with a history of bipolar 1 disorder admitted on 01/16/24 18:56 on a 201 voluntary commitment for suicidal ideation with plan to shoot self with hunting rifle. Presentation consistent with bipolar disorder with major depressive episode. Patient presents mood episodes in late life with no behavioral health concerns in earlier years; late life bipolar is rare and continuing to r/o underlying causes, had outpatient neurology workup in the past after initial inpatient psychiatric admission without evidence for any cognitive changes. A: Ongoing severe depression with hopelessness and SI. Affect is slightly more animated during brief moments today. He is agreeable to further titration of Ritalin. Will also plan to continue Effexor titration in coming days. SW exploring options for inpatient ECT services. Continue to discuss CBT and ACT strategies to address negative thoughts. Overall, I spent a total of 50 minutes on this case including meeting with the patient, reviewing the chart, nursing report, multidisciplinary team meeting, orders, and documentation. (1) Bipolar disorder with severe depression: (2) Hopelessness: (3) Elevated liver enzymes: Plan 02/07/2024: * Increase Ritalin IR to 10mg qAM * Decrease lamictal to 50mg HS 02/06/2024: * Discontinue [place] * Start Ritalin IR 5mg qAM 02/05/2024: * Decrease lamictal to 100mg HS * Decrease [place] to 150mg HS 02/04/2024: Continue medications and treatment plan 02/03/2024: Increase Effexor XR to 150 mg daily. Liver function test tomorrow morning. 02/02/2024: Decrease lithium to 300 mg at bedtime. Decrease lorazepam to 1.5 mg at bedtime. 02/01/2024: [place] level this evening. Continue medications and treatment plan. 01/31/2024: [place] to 450 mg at bedtime (discontinue a.m. dose). [place] level to be drawn tomorrow evening prior to nightly dose. 01/30/2024: Continue medications and treatment plan. [place] level in 2 days. 01/29/2024: Discontinue clonazepam, start lorazepam 2 mg at bedtime. Increase venlafaxine extended release 112.5 mg daily. Increase Colace to 200 mg twice daily. 01/28/2024: Continue current medications. May be able to increase Effexor XR again tomorrow. 01/27/2024: Discontinue clonidine. Increase [place] to 150mg qAM and 300mg HS. 01/26/2024: Increase Effexor XR to 75mg qAM tomorrow. Li level tomorrow AM. Add senna prn in addition to miralax and colace for constipation. 01/25/2024: Continue current meds and tx plan. 01/24/2024: Continue current meds and tx plan. 01/23/2024: -Start venlafaxine ER 37.5mg qAM -Decrease clonidine to 0.1 mg HS -Move Latuda to 40mg qdinner -Stop ativan at HS prn in favor of Klonopin HS prn for longer duration of action to help with sleep promotion -Continue ativan daily prn 01/22/2024: Continue current medications and tx plan. Will need [place] level in 4-6 days. 01/21/2024: Increase lurasidone to 40 mg daily. Stop cariprazine tomorrow morning. Increase lithium to 150 mg twice daily. Zofran ODT as needed started 01/20/24: Start clonidine 0.05 mg every morning. 01/19/24: [place] 150mg daily, Clonidine 0.1mg HS. 01/18/24: Continue medications and treatment plan 01/17/24: The patient was admitted to the [facility] ([facility] mental health unit) on q15 min checks (behavioral with suicide precautions) for safety. The patient will participate in group, recreational, and milieu therapies and will be offered additional individual and family sessions as clinically appropriate. -Decrease Cariprazine to 1.5mg daily -Start Luradisone 20mg daily with breakfast -Continue home Lamotrigine 150mg HS -Start Lamotrigine 50mg QAM -Hold home bupropion -Continue home Buspirone 20mg BID -Continue home Lorazepam 1mg HS PRN and 0.5mg daily PRN -Lab work: Vit D, Vit B12, HbA1C, Free/Total/Bioavailable Testosterone Inventory Assets Strengths: family support, fair insight Needs: medication management, improved self esteem Suicide Risk Level Suicide Risk Level: High-Moderate (q15 min suicide checks) (SI and severe depression with prominent hopelessness but feels safe in the hospital, no plan for SI in the hospital, feels able to ask for support if SI changed to plan or intent in the hospital) Risk Factors Assessment Male: Yes : Yes Do You Have Access To A Gun?: No Health Problems: Yes Mental Health Diagnoses: Yes Substance Use Disorders: No Previous Attempt: No Family History of Suicide: No Previous Psychiatric Hospitalization: Yes Hopelessness: Yes Protective Factors Assessment Mandaen Beliefs: Yes : Yes Responsible for Young Children: No 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 Chief Complaint "Is it time to kick me to the curb". Review of Systems Sleep Information Total Hours of Sleep: 7.30 Sleep Comments: HS Medications Meal Information Percent Meal Consumed - Breakfast: 90 Percent Meal Consumed - Lunch: 100 Percent Meal Consumed - Dinner: 100 Subjective Subjective Patient was seen & assessed and interval progress reviewed with treatment team nursing and social work. Visited with his yesterday. Last evening mood was "sad, lonely and bored". Flat affect. Slept 7.5 hours. Today reports his mood is "maybe a little bit better". He denies any side effects from initial trial dose of Ritalin, possible it's helped with fatigue and mood slightly. Still having SI and has been trying to allow hopelessness thoughts to be recognized and then move past. Has found this challenging "hard to put it out of my mind". Reflects on still having SI and that emotions and thoughts connected to this are sense of "weary" and "is it time to kick me to the curb". Woke up a few times last night but able to fall back asleep quickly. Physical Exam Psychiatric Orientation: alert and oriented x 3 Apperance: appropriately dressed and appropriately groomed Eye Contact: + fair eye contact Motor Behavior: steady gait and station and + psychomotor retardation (walks slo wly) Speech: + abnormal rate/rhythm/volume of speech (soft, latent ) Affect: + depressed affect (slightly more animated today) and + flat affect Mood: + depressed mood and + anxious mood Thought Process: + circumstantial thought process Thought Content: reality based without delusions, + hopelessness and + guilt Suicidal Thoughts: denies suicidal plan (none for hospital, feels he would act if at home); + reports suicidal thoughts Homicidal Thoughts: denies homicidal thoughts Hallucinations: no auditory hallucinations and no visual hallucinations Cognition: recent memory grossly intact, remote memory grossly intact, attention grossly intact and language grossly intact Estimated Intelligence: consistent with education level Insight: + limited insight Judgment: + limited judgement Vital Signs (Past 24 Hours) Last Vital Signs Temp 36.1 C L 02/06/24 06:50 Pulse 86 02/07/24 06:55 Resp 18 02/07/24 06:54 BP 119/77 02/07/24 06:55 Pulse Ox 95 02/07/24 06:54 O2 Del Method Room Air 02/07/24 06:54 Results & Data ([facility]) Current Inpatient Medications Current Inpatient Medications: Current Inpatient Medications Acetaminophen (Acetaminophen 325 Mg Tab) 650 mg PO Q4H PRN PRN Reason: Headache or Minor Fever Stop: 02/15/24 19:33 Al Hydrox/Mg Hydrox/Simethicone (Aluminum/Magnesium Susp 30 Ml Udc) 30 ml PO Q4H PRN PRN Reason: GI Upset Stop: 02/15/24 19:33 Bismuth Subsalicylate (Bismuth Subsalicylate 262 Mg Chew) 2 tab PO Q30M PRN PRN Reason: Loose Stool/Diarrhea Stop: 02/15/24 19:33 Buspirone HCl (Buspirone 5 Mg Tab) 20 mg PO BID [facility] Stop: 02/15/24 20:59 Last Admin: 02/07/24 08:39 Dose: 20 mg Docusate Sodium (Docusate Sodium 100 Mg Cap) 200 mg PO BID E[facility] Stop: 02/28/24 20:59 Last Admin: 02/07/24 08:40 Dose: 200 mg Hydroxyzine HCl (Hydroxyzine Hcl 25 Mg Tab) 50 mg PO HSZ PRN PRN Reason: Insomnia Stop: 02/15/24 19:33 Hydroxyzine HCl (Hydroxyzine Hcl 25 Mg Tab) 25 mg PO Q4H PRN PRN Reason: Anxiety Stop: 02/15/24 19:33 Lamotrigine (Lamotrigine 100 Mg Tab) 100 mg PO HS [facility]; Protocol Stop: 03/06/24 21:59 Last Admin: 02/06/24 21:37 Dose: 100 mg Lorazepam (Lorazepam 0.5 Mg Tab) 0.5 mg PO DAILY PRN PRN Reason: Anxiety Stop: 02/15/24 19:44 Last Admin: 01/24/24 17:41 Dose: 0.5 mg Lorazepam (Lorazepam 0.5 Mg Tab) 1.5 mg PO HS [facility] Stop: 03/03/24 21:59 Last Admin: 02/06/24 21:36 Dose: 1.5 mg Lurasidone HCl (Lurasidone Hcl 20 Mg Tab) 40 mg PO DAILYBD [facility] Stop: 02/23/24 17:14 Last Admin: 02/06/24 17:21 Dose: 40 mg Magnesium Hydroxide (Magnesium Hydroxide Susp 30 Ml Udc) 30 ml PO DAILY PRN PRN Reason: Constipation Stop: 02/15/24 19:33 Last Admin: 01/26/24 22:12 Dose: 30 ml Methylphenidate HCl (Methylphenidate Hcl 5 Mg Tablet) 5 mg PO QAM [facility] Stop: 02/21/24 08:59 Last Admin: 02/07/24 08:42 Dose: 5 mg Ondansetron HCl (Ondansetron 4 Mg Od Tab) 4 mg PO Q6H PRN PRN Reason: Nausea Stop: 02/20/24 10:40 Polyethylene Glycol (Polyethylene (Miralax) 17 Gm Pack) 17 gm PO DAILY PRN PRN Reason: constipation Stop: 02/24/24 12:29 Sodium Chloride (Sodium Chloride 0.65% Na Soln 45 Ml ([place])) 1 - 2 sprays NA PRN PRN PRN Reason: Nasal Dryness/Congestion Stop: 02/15/24 19:33 Venlafaxine HCl (Venlafaxine Hcl Xr 150 Mg Capxr) 150 mg PO QAM [facility] Stop: 03/05/24 08:59 Last Admin: 02/07/24 08:42 Dose: 150 mg Vitamin D (Cholecalciferol 25 Mcg (1000 Units) Tab) 25 mcg PO QAM [facility] Stop: 02/18/24 08:59 Last Admin: 02/07/24 08:39 Dose: 25 mcg Mental Health & Subst Abuse Tx Psychiatrist Name of Psychiatrist: Dr. Izquierdo Psychiatrist's Date Of Appointment With Psychiatric Provider: 02/22/24 Time of Appointment with Psychiatrist: 8:20AM Therapist Name of Therapist: Dr. Betito Beck Therapist's Date of Therapist Appointment: 02/23/24 Time of Therapist Appointment: 3PM Post Discharge Appointments Primary Care Physician Name Of Family Doctor/PCP: Dr. Otero Date of Future Appointment with PCP: every six months-next one June 2024
[2024-02-07] MEDS: lamoTRIgine 25 MG TAB PO SCH (21:32)
[2024-02-08] MEDS: METHYLPHENIDATE HCL 10 MG TABLET PO SCH (09:02)
--- NOTE | 2024-02-08 09:02 | Psychiatric Progress Note ---
Date of Service February 08, 2024 Impression / Recommendations Impression DK GARLAND is 58-year-old man with a history of bipolar 1 disorder admitted on 01/16/24 18:56 on a 201 voluntary commitment for suicidal ideation with plan to shoot self with hunting rifle. Presentation consistent with bipolar disorder with major depressive episode. Patient presents mood episodes in late life with no behavioral health concerns in earlier years; late life bipolar is rare and continuing to r/o underlying causes, had outpatient neurology workup in the past after initial inpatient psychiatric admission without evidence for any cognitive changes. A: Ongoing severe depression with hopelessness and SI and tearful today. He is agreeable to titration of Effexor and Ritalin to continue to target severe bipolar depression. Overall, I spent a total of 45 minutes on this case including meeting with the patient, reviewing the chart, nursing report, multidisciplinary team meeting, orders, and documentation. (1) Bipolar disorder with severe depression: (2) Hopelessness: (3) Elevated liver enzymes: Plan 02/08/2024: * Increase Effexor XR to 225mg daily * Increase Ritalin IR to 15mg qAM and 5mg qlunch 02/07/2024: * Increase Ritalin IR to 10mg qAM * Decrease lamictal to 50mg HS 02/06/2024: * Discontinue [place] * Start Ritalin IR 5mg qAM 02/05/2024: * Decrease lamictal to 100mg HS * Decrease [place] to 150mg HS 02/04/2024: Continue medications and treatment plan 02/03/2024: Increase Effexor XR to 150 mg daily. Liver function test tomorrow morning. 02/02/2024: Decrease lithium to 300 mg at bedtime. Decrease lorazepam to 1.5 mg at bedtime. 02/01/2024: [place] level this evening. Continue medications and treatment plan. 01/31/2024: [place] to 450 mg at bedtime (discontinue a.m. dose). [place] level to be drawn tomorrow evening prior to nightly dose. 01/30/2024: Continue medications and treatment plan. [place] level in 2 days. 01/29/2024: Discontinue clonazepam, start lorazepam 2 mg at bedtime. Increase venlafaxine extended release 112.5 mg daily. Increase Colace to 200 mg twice daily. 01/28/2024: Continue current medications. May be able to increase Effexor XR again tomorrow. 01/27/2024: Discontinue clonidine. Increase [place] to 150mg qAM and 300mg HS. 01/26/2024: Increase Effexor XR to 75mg qAM tomorrow. Li level tomorrow AM. Add senna prn in addition to miralax and colace for constipation. 01/25/2024: Continue current meds and tx plan. 01/24/2024: Continue current meds and tx plan. 01/23/2024: -Start venlafaxine ER 37.5mg qAM -Decrease clonidine to 0.1 mg HS -Move Latuda to 40mg qdinner -Stop ativan at HS prn in favor of Klonopin HS prn for longer duration of action to help with sleep promotion -Continue ativan daily prn 01/22/2024: Continue current medications and tx plan. Will need [place] level in 4-6 days. 01/21/2024: Increase lurasidone to 40 mg daily. Stop cariprazine tomorrow morning. Increase lithium to 150 mg twice daily. Zofran ODT as needed started 01/20/24: Start clonidine 0.05 mg every morning. 01/19/24: [place] 150mg daily, Clonidine 0.1mg HS. 01/18/24: Continue medications and treatment plan 01/17/24: The patient was admitted to the [facility] ([facility] mental health unit) on q15 min checks (behavioral with suicide precautions) for safety. The patient will participate in group, recreational, and milieu therapies and will be offered additional individual and family sessions as clinically appropriate. -Decrease Cariprazine to 1.5mg daily -Start Luradisone 20mg daily with breakfast -Continue home Lamotrigine 150mg HS -Start Lamotrigine 50mg QAM -Hold home bupropion -Continue home Buspirone 20mg BID -Continue home Lorazepam 1mg HS PRN and 0.5mg daily PRN -Lab work: Vit D, Vit B12, HbA1C, Free/Total/Bioavailable Testosterone Inventory Assets Strengths: family support, fair insight Needs: medication management, improved self esteem Suicide Risk Level Suicide Risk Level: High-Moderate (q15 min suicide checks) (SI and severe depression with prominent hopelessness but feels safe in the hospital, no plan for SI in the hospital, feels able to ask for support if SI changed to plan or intent in the hospital) Risk Factors Assessment Male: Yes : Yes Do You Have Access To A Gun?: No Health Problems: Yes Mental Health Diagnoses: Yes Substance Use Disorders: No Previous Attempt: No Family History of Suicide: No Previous Psychiatric Hospitalization: Yes Hopelessness: Yes Protective Factors Assessment Anabaptist Beliefs: Yes : Yes Responsible for Young Children: No 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 Chief Complaint "I'm ready to give up". Review of Systems Sleep Information Total Hours of Sleep: 7.5 Sleep Comments: HS Medications Meal Information Percent Meal Consumed - Breakfast: 100 Percent Meal Consumed - Lunch: 100 Percent Meal Consumed - Dinner: 80 Subjective Subjective Patient was seen & assessed and interval progress reviewed with treatment team nursing and social work. Had an overnight awakening but was able to get back to sleep. Last evening mood was "3.5" and "apprehensive". Today ongoing depression. tearful intermittently. Feels his mood is slightly better when he's engaged with peers or distracted as he's been able to read a bit but notes that "I can't stay distracted forever" and tearful reflecting on this. Reflects that he feels "pretty weary" and "ready to give up". Ongoing SI. Denies any plans for hospital setting. He feels like he's not almost falling asleep in groups with Ritalin addition and denies any increase in anxiety but hasn't felt any mood benefits so far. Physical Exam Psychiatric Orientation: alert and oriented x 3 Apperance: appropriately dressed and appropriately groomed Eye Contact: + fair eye contact Motor Behavior: steady gait and station and + psychomotor retardation (walks slowly) Speech: + abnormal rate/rhythm/volume of speech (soft, latent ) Affect: + depressed affect and + tearful affect Mood: + depressed mood Thought Process: + circumstantial thought process Thought Content: reality based without delusions, + hopelessness and + guilt Suicidal Thoughts: denies suicidal plan (none for hospital, feels he would act if at home); + reports suicidal thoughts Homicidal Thoughts: denies homicidal thoughts Hallucinations: no auditory hallucinations and no visual hallucinations Cognition: recent memory grossly intact, remote memory grossly intact, attention grossly intact and language grossly intact Estimated Intelligence: consistent with education level Insight: + limited insight Judgment: + limited judgement Vital Signs (Past 24 Hours) Last Vital Signs Temp 36.8 C 02/08/24 06:51 Pulse 87 02/08/24 06:52 Resp 18 02/08/24 06:51 BP 121/77 02/08/24 06:52 Pulse Ox 95 02/07/24 06:54 O2 Del Method Room Air 02/07/24 06:54 Results & Data ([facility]) Current Inpatient Medications Current Inpatient Medications: Current Inpatient Medications Acetaminophen (Acetaminophen 325 Mg Tab) 650 mg PO Q4H PRN PRN Reason: Headache or Minor Fever Stop: 02/15/24 19:33 Al Hydrox/Mg Hydrox/Simethicone (Aluminum/Magnesium Susp 30 Ml Udc) 30 ml PO Q4H PRN PRN Reason: GI Upset Stop: 02/15/24 19:33 Bismuth Subsalicylate (Bismuth Subsalicylate 262 Mg Chew) 2 tab PO Q30M PRN PRN Reason: Loose Stool/Diarrhea Stop: 02/15/24 19:33 Buspirone HCl (Buspirone 5 Mg Tab) 20 mg PO BID DELIO Stop: 02/15/24 20:59 Last Admin: 02/07/24 21:31 Dose: 20 mg Docusate Sodium (Docusate Sodium 100 Mg Cap) 200 mg PO BID DELIO Stop: 02/28/24 20:59 Last Admin: 02/07/24 21:33 Dose: 200 mg Hydroxyzine HCl (Hydroxyzine Hcl 25 Mg Tab) 50 mg PO HSZ PRN PRN Reason: Insomnia Stop: 02/15/24 19:33 Hydroxyzine HCl (Hydroxyzine Hcl 25 Mg Tab) 25 mg PO Q4H PRN PRN Reason: Anxiety Stop: 02/15/24 19:33 Lamotrigine (Lamotrigine 25 Mg Tab) 50 mg PO HS DELIO; Protocol Stop: 03/08/24 21:59 Last Admin: 02/07/24 21:32 Dose: 50 mg Lorazepam (Lorazepam 0.5 Mg Tab) 0.5 mg PO DAILY PRN PRN Reason: Anxiety Stop: 02/15/24 19:44 Last Admin: 01/24/24 17:41 Dose: 0.5 mg Lorazepam (Lorazepam 0.5 Mg Tab) 1.5 mg PO HS DELIO Stop: 03/03/24 21:59 Last Admin: 02/07/24 21:34 Dose: 1.5 mg Lurasidone HCl (Lurasidone Hcl 20 Mg Tab) 40 mg PO DAILYBD DELIO Stop: 02/23/24 17:14 Last Admin: 02/07/24 17:23 Dose: 40 mg Magnesium Hydroxide (Magnesium Hydroxide Susp 30 Ml Udc) 30 ml PO DAILY PRN PRN Reason: Constipation Stop: 02/15/24 19:33 Last Admin: 01/26/24 22:12 Dose: 30 ml Methylphenidate HCl (Methylphenidate Hcl 10 Mg Tablet) 10 mg PO QAM [facility] Stop: 02/22/24 08:59 Ondansetron HCl (Ondansetron 4 Mg Od Tab) 4 mg PO Q6H PRN PRN Reason: Nausea Stop: 02/20/24 10:40 Polyethylene Glycol (Polyethylene (Miralax) 17 Gm Pack) 17 gm PO DAILY PRN PRN Reason: constipation Stop: 02/24/24 12:29 Sodium Chloride (Sodium Chloride 0.65% Na Soln 45 Ml ([place])) 1 - 2 sprays NA PRN PRN PRN Reason: Nasal Dryness/Congestion Stop: 02/15/24 19:33 Venlafaxine HCl (Venlafaxine Hcl Xr 150 Mg Capxr) 150 mg PO QAM DELIO Stop: 03/05/24 08:59 Last Admin: 02/07/24 08:42 Dose: 150 mg Vitamin D (Cholecalciferol 25 Mcg (1000 Units) Tab) 25 mcg PO QAM DELIO Stop: 02/18/24 08:59 Last Admin: 02/07/24 08:39 Dose: 25 mcg Mental Health & Subst Abuse Tx Psychiatrist Name of Psychiatrist: Dr. Izquierdo Psychiatrist's Date Of Appointment With Psychiatric Provider: 02/22/24 Time of Appointment with Psychiatrist: 8:20AM Therapist Name of Therapist: Dr. Betito Beck Therapist's Date of Therapist Appointment: 02/23/24 Time of Therapist Appointment: 3PM Post Discharge Appointments Primary Care Physician Name Of Family Doctor/PCP: Dr. Otero Date of Future Appointment with PCP: every six months-next one June 2024
--- NOTE | 2024-02-09 09:16 | Psychiatric Progress Note ---
Date of Service February 09, 2024 Impression / Recommendations Impression DK GARLAND is 58-year-old man with a history of bipolar 1 disorder admitted on 01/16/24 18:56 on a 201 voluntary commitment for suicidal ideation with plan to shoot self with hunting rifle. Presentation consistent with bipolar disorder with major depressive episode. Patient presents mood episodes in late life with no behavioral health concerns in earlier years; late life bipolar is rare and continuing to r/o underlying causes, had outpatient neurology workup in the past after initial inpatient psychiatric admission without evidence for any cognitive changes. A: Ongoing severe depression with hopelessness, tearfulness and SI. Tolerating higher dose of Effexor XR so far. He consents to further Ritalin titration in effort to address depression while awaiting response from SNRI. Discussed treatment course, safety planning to secure guns and confirmed all ammunition removed from the home and ECT/TMS options with his for 40 minutes. Discussed treatment course, potential options such as ECT with his outpatient psychiatrist Dr. Izquierdo. Overall, I spent a total of 85 minutes on this case including meeting with the patient, reviewing the chart, nursing report, multidisciplinary team meeting, orders, and documentation and speaking with his for collateral/safety planning and speaking with his outpatient psychiatric provider. (1) Bipolar disorder with severe depression: (2) Hopelessness: (3) Elevated liver enzymes: Plan 02/09/2024: * Increase Ritalin IR to 30mg qAM and 10mg qlunch 02/08/2024: * Increase Effexor XR to 225mg daily * Increase Ritalin IR to 15mg qAM and 5mg qlunch 02/07/2024: * Increase Ritalin IR to 10mg qAM * Decrease lamictal to 50mg HS 02/06/2024: * Discontinue [place] * Start Ritalin IR 5mg qAM 02/05/2024: * Decrease lamictal to 100mg HS * Decrease [place] to 150mg HS 02/04/2024: Continue medications and treatment plan 02/03/2024: Increase Effexor XR to 150 mg daily. Liver function test tomorrow morning. 02/02/2024: Decrease lithium to 300 mg at bedtime. Decrease lorazepam to 1.5 mg at bedtime. 02/01/2024: [place] level this evening. Continue medications and treatment plan. 01/31/2024: [place] to 450 mg at bedtime (discontinue a.m. dose). [place] level to be drawn tomorrow evening prior to nightly dose. 01/30/2024: Continue medications and treatment plan. [place] level in 2 days. 01/29/2024: Discontinue clonazepam, start lorazepam 2 mg at bedtime. Increase venlafaxine extended release 112.5 mg daily. Increase Colace to 200 mg twice daily. 01/28/2024: Continue current medications. May be able to increase Effexor XR again tomorrow. 01/27/2024: Discontinue clonidine. Increase [place] to 150mg qAM and 300mg HS. 01/26/2024: Increase Effexor XR to 75mg qAM tomorrow. Li level tomorrow AM. Add senna prn in addition to miralax and colace for constipation. 01/25/2024: Continue current meds and tx plan. 01/24/2024: Continue current meds and tx plan. 01/23/2024: -Start venlafaxine ER 37.5mg qAM -Decrease clonidine to 0.1 mg HS -Move Latuda to 40mg qdinner -Stop ativan at HS prn in favor of Klonopin HS prn for longer duration of action to help with sleep promotion -Continue ativan daily prn 01/22/2024: Continue current medications and tx plan. Will need [place] level in 4-6 days. 01/21/2024: Increase lurasidone to 40 mg daily. Stop cariprazine tomorrow morning. Increase lithium to 150 mg twice daily. Zofran ODT as needed started 01/20/24: Start clonidine 0.05 mg every morning. 01/19/24: [place] 150mg daily, Clonidine 0.1mg HS. 01/18/24: Continue medications and treatment plan 01/17/24: The patient was admitted to the [facility] ([facility] mental health unit) on q15 min checks (behavioral with suicide precautions) for safety. The patient will participate in group, recreational, and milieu therapies and will be offered additional individual and family sessions as clinically appropriate. -Decrease Cariprazine to 1.5mg daily -Start Luradisone 20mg daily with breakfast -Continue home Lamotrigine 150mg HS -Start Lamotrigine 50mg QAM -Hold home bupropion -Continue home Buspirone 20mg BID -Continue home Lorazepam 1mg HS PRN and 0.5mg daily PRN -Lab work: Vit D, Vit B12, HbA1C, Free/Total/Bioavailable Testosterone Inventory Assets Strengths: family support, fair insight Needs: medication management, improved self esteem Suicide Risk Level Suicide Risk Level: High-Moderate (q15 min suicide checks) (SI and severe depression with prominent hopelessness but feels safe in the hospital, no plan for SI in the hospital, feels able to ask for support if SI changed to plan or intent in the hospital) Risk Factors Assessment Male: Yes : Yes Do You Have Access To A Gun?: No Health Problems: Yes Mental Health Diagnoses: Yes Substance Use Disorders: No Previous Attempt: No Family History of Suicide: No Previous Psychiatric Hospitalization: Yes Hopelessness: Yes Protective Factors Assessment Quaker Beliefs: Yes : Yes Responsible for Young Children: No 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 Chief Complaint "I worry that I won't come back to myself". Review of Systems Sleep Information Total Hours of Sleep: 8 Sleep Comments: HS Medications Meal Information Percent Meal Consumed - Breakfast: 100 Percent Meal Consumed - Lunch: 100 Percent Meal Consumed - Dinner: 75 Subjective Subjective Patient was seen & assessed and interval progress reviewed with treatment team nursing and social work. At times yesterday seemed to have slightly brighter affect, and appeared less sedated. Last evening rated his mood as "mad and sad". Slept well. Ongoing depression, tearful intermittently. Discusses that he now "cry at anything". Notes that he "feels like I'm losing myself". Worries when he talks to his and son "that it will be the last time" as he feels one day he'll lose himself completely as he feels less and less like himself due to the depression. Ongoing SI but denies any plans for the hospital notes "there's no reason to , it's just so hard". Continues to have "morose thoughts". Reviewed CBT and ACT strategies for negative thoughts. He does reflect that today he felt "a little better when busy", still struggles when not distracted. [place] "a little less sleepy" today. No medication side effects. Physical Exam Psychiatric Orientation: alert and oriented x 3 Apperance: appropriately dressed and appropriately groomed Eye Contact: + fair eye contact Motor Behavior: steady gait and station and + psychomotor retardation (walks slowly) Speech: + abnormal rate/rhythm/volume of speech (soft, latent ) Affect: + depressed affect and + tearful affect Mood: + depressed mood Thought Process: + circumstantial thought process Thought Content: reality based without delusions, + hopelessness and + guilt Suicidal Thoughts: denies suicidal plan (none for hospital, feels he would act if at home); + reports suicidal thoughts Homicidal Thoughts: denies homicidal thoughts Hallucinations: no auditory hallucinations and no visual hallucinations Cognition: recent memory grossly intact, remote memory grossly intact, attention grossly intact and language grossly intact Estimated Intelligence: consistent with education level Insight: + limited insight Judgment: + limited judgement Vital Signs (Past 24 Hours) Last Vital Signs Temp 36.9 C 02/09/24 06:48 Pulse 98 H 02/09/24 06:49 Resp 16 02/09/24 06:48 BP 119/74 02/09/24 06:49 Pulse Ox 95 02/07/24 06:54 O2 Del Method Room Air 02/07/24 06:54 Results & Data ([facility]) Current Inpatient Medications Current Inpatient Medications: Current Inpatient Medications Acetaminophen (Acetaminophen 325 Mg Tab) 650 mg PO Q4H PRN PRN Reason: Headache or Minor Fever Stop: 02/15/24 19:33 Al Hydrox/Mg Hydrox/Simethicone (Aluminum/Magnesium Susp 30 Ml Udc) 30 ml PO Q4H PRN PRN Reason: GI Upset Stop: 02/15/24 19:33 Bismuth Subsalicylate (Bismuth Subsalicylate 262 Mg Chew) 2 tab PO Q30M PRN PRN Reason: Loose Stool/Diarrhea Stop: 02/15/24 19:33 Buspirone HCl (Buspirone 5 Mg Tab) 20 mg PO BID DELIO Stop: 02/15/24 20:59 Last Admin: 02/08/24 21:00 Dose: 20 mg Docusate Sodium (Docusate Sodium 100 Mg Cap) 200 mg PO BID DELIO Stop: 02/28/24 20:59 Last Admin: 02/08/24 21:00 Dose: 200 mg Hydroxyzine HCl (Hydroxyzine Hcl 25 Mg Tab) 50 mg PO HSZ PRN PRN Reason: Insomnia Stop: 02/15/24 19:33 Hydroxyzine HCl (Hydroxyzine Hcl 25 Mg Tab) 25 mg PO Q4H PRN PRN Reason: Anxiety Stop: 02/15/24 19:33 Lamotrigine (Lamotrigine 25 Mg Tab) 50 mg PO HS DELIO; Protocol Stop: 03/08/24 21:59 Last Admin: 02/08/24 21:00 Dose: 50 mg Lorazepam (Lorazepam 0.5 Mg Tab) 0.5 mg PO DAILY PRN PRN Reason: Anxiety Stop: 02/15/24 19:44 Last Admin: 01/24/24 17:41 Dose: 0.5 mg Lorazepam (Lorazepam 0.5 Mg Tab) 1.5 mg PO HS DELIO Stop: 03/03/24 21:59 Last Admin: 02/08/24 21:00 Dose: 1.5 mg Lurasidone HCl (Lurasidone Hcl 20 Mg Tab) 40 mg PO DAILYBD DELIO Stop: 02/23/24 17:14 Last Admin: 02/08/24 17:31 Dose: 40 mg Magnesium Hydroxide (Magnesium Hydroxide Susp 30 Ml Udc) 30 ml PO DAILY PRN PRN Reason: Constipation Stop: 02/15/24 19:33 Last Admin: 01/26/24 22:12 Dose: 30 ml Methylphenidate HCl (Methylphenidate Hcl 5 Mg Tablet) 15 mg PO QAM DELIO Stop: 02/23/24 08:59 Methylphenidate HCl (Methylphenidate Hcl 5 Mg Tablet) 5 mg PO DAILYBL DELIO Stop: 02/23/24 11:59 Ondansetron HCl (Ondansetron 4 Mg Od Tab) 4 mg PO Q6H PRN PRN Reason: Nausea Stop: 02/20/24 10:40 Polyethylene Glycol (Polyethylene (Miralax) 17 Gm Pack) 17 gm PO DAILY PRN PRN Reason: constipation Stop: 02/24/24 12:29 Sodium Chloride (Sodium Chloride 0.65% Na Soln 45 Ml ([place])) 1 - 2 sprays NA PRN PRN PRN Reason: Nasal Dryness/Congestion Stop: 02/15/24 19:33 Venlafaxine HCl (Venlafaxine Hcl Xr 75 Mg Capxr) 225 mg PO QAM DELIO Stop: 03/10/24 08:59 Vitamin D (Cholecalciferol 25 Mcg (1000 Units) Tab) 25 mcg PO QAM DELIO Stop: 02/18/24 08:59 Last Admin: 02/08/24 09:02 Dose: 25 mcg Mental Health & Subst Abuse Tx Psychiatrist Name of Psychiatrist: Dr. Izquierdo Psychiatrist's Date Of Appointment With Psychiatric Provider: 02/22/24 Time of Appointment with Psychiatrist: 8:20AM Therapist Name of Therapist: Dr. Betito Beck Therapist's Date of Therapist Appointment: 02/23/24 Time of Therapist Appointment: 3PM Post Discharge Appointments Primary Care Physician Name Of Family Doctor/PCP: Dr. Otero Date of Future Appointment with PCP: every six months-next one June 2024
[2024-02-09] MEDS: VENLAFAXINE HCL XR 75 MG CAPXR PO SCH (09:47)
[2024-02-09] MEDS: METHYLPHENIDATE HCL 5 MG TABLET PO SCH ×2 (09:49→12:28)
--- NOTE | 2024-02-10 08:56 | Psychiatric Progress Note ---
Date of Service February 10, 2024 Impression / Recommendations Impression DK GARLAND is 58-year-old man with a history of bipolar 1 disorder admitted on 01/16/24 18:56 on a 201 voluntary commitment for suicidal ideation with plan to shoot self with hunting rifle. Presentation consistent with bipolar disorder with major depressive episode. Patient presents mood episodes in late life with no behavioral health concerns in earlier years; late life bipolar is rare and continuing to r/o underlying causes, had outpatient neurology workup in the past after initial inpatient psychiatric admission without evidence for any cognitive changes. A: Ongoing severe depression with hopelessness, guilt, worthlessness, helplessness and SI. Some anxiety this afternoon so will not plan further increase of Ritalin for now. Discontinue lamictal. Overall, I spent a total of 45 minutes on this case including meeting with the patient, reviewing the chart, nursing report, multidisciplinary team meeting, orders, and documentation and completing disability paperwork due to his extended hospitalization. (1) Bipolar disorder with severe depression: (2) Hopelessness: (3) Elevated liver enzymes: Plan 02/10/2024: * Discontinue lamictal 02/09/2024: * Increase Ritalin IR to 30mg qAM and 10mg qlunch 02/08/2024: * Increase Effexor XR to 225mg daily * Increase Ritalin IR to 15mg qAM and 5mg qlunch 02/07/2024: * Increase Ritalin IR to 10mg qAM * Decrease lamictal to 50mg HS 02/06/2024: * Discontinue Tovey * Start Ritalin IR 5mg qAM 02/05/2024: * Decrease lamictal to 100mg HS * Decrease Tovey to 150mg HS 02/04/2024: Continue medications and treatment plan 02/03/2024: Increase Effexor XR to 150 mg daily. Liver function test tomorrow morning. 02/02/2024: Decrease lithium to 300 mg at bedtime. Decrease lorazepam to 1.5 mg at bedtime. 02/01/2024: Tovey level this evening. Continue medications and treatment plan. 01/31/2024: Tovey to 450 mg at bedtime (discontinue a.m. dose). Tovey level to be drawn tomorrow evening prior to nightly dose. 01/30/2024: Continue medications and treatment plan. Tovey level in 2 days. 01/29/2024: Discontinue clonazepam, start lorazepam 2 mg at bedtime. Increase venlafaxine extended release 112.5 mg daily. Increase Colace to 200 mg twice daily. 01/28/2024: Continue current medications. May be able to increase Effexor XR again tomorrow. 01/27/2024: Discontinue clonidine. Increase Tovey to 150mg qAM and 300mg HS. 01/26/2024: Increase Effexor XR to 75mg qAM tomorrow. Li level tomorrow AM. Add senna prn in addition to miralax and colace for constipation. 01/25/2024: Continue current meds and tx plan. 01/24/2024: Continue current meds and tx plan. 01/23/2024: -Start venlafaxine ER 37.5mg qAM -Decrease clonidine to 0.1 mg HS -Move Latuda to 40mg qdinner -Stop ativan at HS prn in favor of Klonopin HS prn for longer duration of action to help with sleep promotion -Continue ativan daily prn 01/22/2024: Continue current medications and tx plan. Will need Tovey level in 4-6 days. 01/21/2024: Increase lurasidone to 40 mg daily. Stop cariprazine tomorrow morning. Increase lithium to 150 mg twice daily. Zofran ODT as needed started 01/20/24: Start clonidine 0.05 mg every morning. 01/19/24: Tovey 150mg daily, Clonidine 0.1mg HS. 01/18/24: Continue medications and treatment plan 01/17/24: The patient was admitted to the [facility] ([facility] mental [facility]) on q15 min checks (behavioral with suicide precautions) for safety. The patient will participate in group, recreational, and milieu therapies and will be offered additional individual and family sessions as clinically appropriate. -Decrease Cariprazine to 1.5mg daily -Start Luradisone 20mg daily with breakfast -Continue home Lamotrigine 150mg HS -Start Lamotrigine 50mg QAM -Hold home bupropion -Continue home Buspirone 20mg BID -Continue home Lorazepam 1mg HS PRN and 0.5mg daily PRN -Lab work: Vit D, Vit B12, HbA1C, Free/Total/Bioavailable Testosterone Inventory Assets Strengths: family support, fair insight Needs: medication management, improved self esteem Suicide Risk Level Suicide Risk Level: High-Moderate (q15 min suicide checks) (SI and severe depression with prominent hopelessness but feels safe in the hospital, no plan for SI in the hospital, feels able to ask for support if SI changed to plan or intent in the hospital) Risk Factors Assessment Male: Yes : Yes Do You Have Access To A Gun?: No Health Problems: Yes Mental Health Diagnoses: Yes Substance Use Disorders: No Previous Attempt: No Family History of Suicide: No Previous Psychiatric Hospitalization: Yes Hopelessness: Yes Protective Factors Assessment Yazidism Beliefs: Yes : Yes Responsible for Young Children: No 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 Chief Complaint "confused, down and numb". Review of Systems Sleep Information Total Hours of Sleep: 6.5 Sleep Comments: HS Medications Meal Information Percent Meal Consumed - Breakfast: 80 Percent Meal Consumed - Lunch: 50 Percent Meal Consumed - Dinner: 90 Subjective Subjective Patient was seen & assessed and interval progress reviewed with treatment team nursing and social work. He's thinking more about ECT but wants to see how Effexor XR will work. Attending groups, affect brightened slightly while playing a game with a peer. Last evening felt like he cried so much he felt like he couldn't and wasn't sure if this was a good thing or a bad thing. Reported his mood as "intrigued". Today reports feeling "confused" due to feeling less tearful, he's unsure if this could be due to mood improving or due to another level of his depression where now he cannot feel emotions. Feels "numb and down". Ongoing significant guilt. Worries he is "lazy" because he cannot pull himself out of this depressive episode. Tolerating Ritalin but in the afternoon had some increased anxiety and had to leave group. Completed CAMS and notable for high levels of hopelessness due to "loss of control/treatment not working", high psychological pain due to "feeling of hopelessness", high stress due to "being alone with my thoughts", high self hate due to "that I can't control my feelings", and some agitation due to "I'm drowning in negative thoughts". Physical Exam Psychiatric Orientation: alert and oriented x 3 Apperance: appropriately dressed and appropriately groomed Eye Contact: + fair eye contact Motor Behavior: steady gait and station and + psychomotor retardation (walks slowly) Speech: + abnormal rate/rhythm/volume of speech (soft, latent ) Affect: + depressed affect and + tearful affect Mood: + depressed mood Thought Process: + circumstantial thought process Thought Content: + cognitive distortions, reality based without delusions, + hopelessness, + worthlessness, + guilt and + self deprecation Suicidal Thoughts: denies suicidal plan (none for hospital, feels he would act if at home); + reports suicidal thoughts Homicidal Thoughts: denies homicidal thoughts Hallucinations: no auditory hallucinations and no visual hallucinations Cognition: recent memory grossly intact, remote memory grossly intact, attention grossly intact and language grossly intact Estimated Intelligence: consistent with education level Insight: + limited insight Judgment: + limited judgement Vital Signs (Past 24 Hours) Last Vital Signs Temp 36.4 C L 02/10/24 06:00 Pulse 91 H 02/10/24 06:29 Resp 16 02/10/24 06:00 BP 117/75 02/10/24 06:29 Pulse Ox 95 02/07/24 06:54 O2 Del Method Room Air 02/07/24 06:54 Results & Data ([facility]) Current Inpatient Medications Current Inpatient Medications: Current Inpatient Medications Acetaminophen (Acetaminophen 325 Mg Tab) 650 mg PO Q4H PRN PRN Reason: Headache or Minor Fever Stop: 02/15/24 19:33 Al Hydrox/Mg Hydrox/Simethicone (Aluminum/Magnesium Susp 30 Ml Udc) 30 ml PO Q4H PRN PRN Reason: GI Upset Stop: 02/15/24 19:33 Bismuth Subsalicylate (Bismuth Subsalicylate 262 Mg Chew) 2 tab PO Q30M PRN PRN Reason: Loose Stool/Diarrhea Stop: 02/15/24 19:33 Buspirone HCl (Buspirone 5 Mg Tab) 20 mg PO BID DELIO Stop: 02/15/24 20:59 Last Admin: 02/09/24 21:53 Dose: 20 mg Docusate Sodium (Docusate Sodium 100 Mg Cap) 200 mg PO BID DELIO Stop: 02/28/24 20:59 Last Admin: 02/09/24 21:54 Dose: 200 mg Hydroxyzine HCl (Hydroxyzine Hcl 25 Mg Tab) 50 mg PO HSZ PRN PRN Reason: Insomnia Stop: 02/15/24 19:33 Hydroxyzine HCl (Hydroxyzine Hcl 25 Mg Tab) 25 mg PO Q4H PRN PRN Reason: Anxiety Stop: 02/15/24 19:33 Lamotrigine (Lamotrigine 25 Mg Tab) 50 mg PO HS DELIO; Protocol Stop: 03/08/24 21:59 Last Admin: 02/09/24 21:54 Dose: 50 mg Lorazepam (Lorazepam 0.5 Mg Tab) 0.5 mg PO DAILY PRN PRN Reason: Anxiety Stop: 02/15/24 19:44 Last Admin: 01/24/24 17:41 Dose: 0.5 mg Lorazepam (Lorazepam 0.5 Mg Tab) 1.5 mg PO HS DELIO Stop: 03/03/24 21:59 Last Admin: 02/09/24 21:54 Dose: 1.5 mg Lurasidone HCl (Lurasidone Hcl 20 Mg Tab) 40 mg PO DAILYBD DELIO Stop: 02/23/24 17:14 Last Admin: 02/09/24 17:36 Dose: 40 mg Magnesium Hydroxide (Magnesium Hydroxide Susp 30 Ml Udc) 30 ml PO DAILY PRN PRN Reason: Constipation Stop: 02/15/24 19:33 Last Admin: 01/26/24 22:12 Dose: 30 ml Methylphenidate HCl (Methylphenidate Hcl 10 Mg Tablet) 30 mg PO QAM DELIO Stop: 02/24/24 08:59 Methylphenidate HCl (Methylphenidate Hcl 10 Mg Tablet) 10 mg PO DAILYBL DELIO Stop: 02/24/24 11:59 Ondansetron HCl (Ondansetron 4 Mg Od Tab) 4 mg PO Q6H PRN PRN Reason: Nausea Stop: 02/20/24 10:40 Polyethylene Glycol (Polyethylene (Miralax) 17 Gm Pack) 17 gm PO DAILY PRN PRN Reason: constipation Stop: 02/24/24 12:29 Sodium Chloride (Sodium Chloride 0.65% Na Soln 45 Ml ([place])) 1 - 2 sprays NA PRN PRN PRN Reason: Nasal Dryness/Congestion Stop: 02/15/24 19:33 Venlafaxine HCl (Venlafaxine Hcl Xr 75 Mg Capxr) 225 mg PO QAM DELIO Stop: 03/10/24 08:59 Last Admin: 02/09/24 09:47 Dose: 225 mg Vitamin D (Cholecalciferol 25 Mcg (1000 Units) Tab) 25 mcg PO QAM DELIO Stop: 02/18/24 08:59 Last Admin: 02/09/24 09:47 Dose: 25 mcg Mental Health & Subst Abuse Tx Psychiatrist Name of Psychiatrist: Dr. Izquierdo Psychiatrist's Date Of Appointment With Psychiatric Provider: 02/22/24 Time of Appointment with Psychiatrist: 8:20AM Therapist Name of Therapist: Dr. Betito Beck Therapist's Date of Therapist Appointment: 02/23/24 Time of Therapist Appointment: 3PM Post Discharge Appointments Primary Care Physician Name Of Family Doctor/PCP: Dr. Otero Date of Future Appointment with PCP: every six months-next one June 2024
[2024-02-10] MEDS: METHYLPHENIDATE HCL 10 MG TABLET PO SCH ×2 (09:13→12:47)
[2024-02-10] MEDS: hydrOXYzine HCl 25 MG TAB PO PRN (16:21)
--- NOTE | 2024-02-11 08:42 | Psychiatric Progress Note ---
Date of Service February 11, 2024 Impression / Recommendations Impression DK GARLAND is 58-year-old man with a history of bipolar 1 disorder admitted on 01/16/24 18:56 on a 201 voluntary commitment for suicidal ideation with plan to shoot self with hunting rifle. Presentation consistent with bipolar disorder with major depressive episode. Patient presents mood episodes in late life with no behavioral health concerns in earlier years; late life bipolar is rare and continuing to r/o underlying causes, had outpatient neurology workup in the past after initial inpatient psychiatric admission without evidence for any cognitive changes. A: Ongoing severe depression with hopelessness, guilt, worthlessness, helplessness, feels like a burden and SI. Possible anxiety is the response of some of his severe depression lessening slightly as some anxiety is more typical for his baseline. But also certainly possible from Ritalin so will discontinue this and trial modafinil, reviewed this is off-label use but some studies showing utility for bipolar depression augmentation. He consents to trial of this, reviewed side effects including but not limited to cardiac effects, increased anxiety, theoretical potential for switch into stephanie, insomnia, decreased appetite. Ongoing discussions about ECT. Overall, I spent a total of 40 minutes on this case including meeting with the patient, reviewing the chart, nursing report, multidisciplinary team meeting, orders, and documentation and completing disability paperwork due to his extended hospitalization. (1) Bipolar disorder with severe depression: (2) Hopelessness: (3) Elevated liver enzymes: Plan 02/11/2024: * Discontinue Ritalin * Start modafinil 100mg daily 02/10/2024: * Discontinue lamictal 02/09/2024: * Increase Ritalin IR to 30mg qAM and 10mg qlunch 02/08/2024: * Increase Effexor XR to 225mg daily * Increase Ritalin IR to 15mg qAM and 5mg qlunch 02/07/2024: * Increase Ritalin IR to 10mg qAM * Decrease lamictal to 50mg HS 02/06/2024: * Discontinue Hayden * Start Ritalin IR 5mg qAM 02/05/2024: * Decrease lamictal to 100mg HS * Decrease Hayden to 150mg HS 02/04/2024: Continue medications and treatment plan 02/03/2024: Increase Effexor XR to 150 mg daily. Liver function test tomorrow morning. 02/02/2024: Decrease lithium to 300 mg at bedtime. Decrease lorazepam to 1.5 mg at bedtime. 02/01/2024: Hayden level this evening. Continue medications and treatment plan. 01/31/2024: Hayden to 450 mg at bedtime (discontinue a.m. dose). Hayden level to be drawn tomorrow evening prior to nightly dose. 01/30/2024: Continue medications and treatment plan. Hayden level in 2 days. 01/29/2024: Discontinue clonazepam, start lorazepam 2 mg at bedtime. Increase venlafaxine extended release 112.5 mg daily. Increase Colace to 200 mg twice daily. 01/28/2024: Continue current medications. May be able to increase Effexor XR again tomorrow. 01/27/2024: Discontinue clonidine. Increase Hayden to 150mg qAM and 300mg HS. 01/26/2024: Increase Effexor XR to 75mg qAM tomorrow. Li level tomorrow AM. Add senna prn in addition to miralax and colace for constipation. 01/25/2024: Continue current meds and tx plan. 01/24/2024: Continue current meds and tx plan. 01/23/2024: -Start venlafaxine ER 37.5mg qAM -Decrease clonidine to 0.1 mg HS -Move Latuda to 40mg qdinner -Stop ativan at HS prn in favor of Klonopin HS prn for longer duration of action to help with sleep promotion -Continue ativan daily prn 01/22/2024: Continue current medications and tx plan. Will need Hayden level in 4-6 days. 01/21/2024: Increase lurasidone to 40 mg daily. Stop cariprazine tomorrow morning. Increase lithium to 150 mg twice daily. Zofran ODT as needed started 01/20/24: Start clonidine 0.05 mg every morning. 01/19/24: Hayden 150mg daily, Clonidine 0.1mg HS. 01/18/24: Continue medications and treatment plan 01/17/24: The patient was admitted to the [facility] ([facility] mental health unit) on q15 min checks (behavioral with suicide precautions) for safety. The patient will participate in group, recreational, and milieu therapies and will be offered additional individual and family sessions as clinically appropriate. -Decrease Cariprazine to 1.5mg daily -Start Luradisone 20mg daily with breakfast -Continue home Lamotrigine 150mg HS -Start Lamotrigine 50mg QAM -Hold home bupropion -Continue home Buspirone 20mg BID -Continue home Lorazepam 1mg HS PRN and 0.5mg daily PRN -Lab work: Vit D, Vit B12, HbA1C, Free/Total/Bioavailable Testosterone Inventory Assets Strengths: family support, fair insight Needs: medication management, improved self esteem Suicide Risk Level Suicide Risk Level: High-Moderate (q15 min suicide checks) (SI and severe depression with prominent hopelessness but feels safe in the hospital, no plan for SI in the hospital, feels able to ask for support if SI changed to plan or intent in the hospital) Risk Factors Assessment Male: Yes : Yes Do You Have Access To A Gun?: No Health Problems: Yes Mental Health Diagnoses: Yes Substance Use Disorders: No Previous Attempt: No Family History of Suicide: No Previous Psychiatric Hospitalization: Yes Hopelessness: Yes Protective Factors Assessment Buddhism Beliefs: Yes : Yes Responsible for Young Children: No 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 Chief Complaint "Anxiety is there but manageable". Review of Systems Sleep Information Total Hours of Sleep: 6.30 Sleep Comments: HS Ativan Meal Information Percent Meal Consumed - Breakfast: 100 Percent Meal Consumed - Lunch: 100 Percent Meal Consumed - Dinner: 70 Subjective Subjective Patient was seen & assessed and interval progress reviewed with treatment team nursing and social work. Had prn Vistaril and ativan yesterday afternoon due to racing thoughts. His took the gun locks and will secure the guns. Rated his mood as "2" and anxious. Some anxiety today but he feels this is manageable. Ongoing depression with SI. Contemplating ECT but still "apprehensive" about it. He reflects that maybe he should try it because worst case if he it would be a relief. Worries he's a burden to others and that financially he'll burden his family. Physical Exam Psychiatric Orientation: alert and oriented x 3 Apperance: appropriately dressed and appropriately groomed Eye Contact: + fair eye contact Motor Behavior: steady gait and station and + psychomotor retardation (walks slowly) Speech: + abnormal rate/rhythm/volume of speech (soft, latent ) Affect: + depressed affect and + tearful affect (less today) Mood: + depressed mood Thought Process: + circumstantial thought process Thought Content: + cognitive distortions, reality based without delusions, + hopelessness, + worthlessness, + guilt and + self deprecation Suicidal Thoughts: denies suicidal plan (none for hospital, feels he would act if at home); + reports suicidal thoughts Homicidal Thoughts: denies homicidal thoughts Hallucinations: no auditory hallucinations and no visual hallucinations Cognition: recent memory grossly intact, remote memory grossly intact, attention grossly intact and language grossly intact Estimated Intelligence: consistent with education level Insight: + limited insight Judgment: + limited judgement Vital Signs (Past 24 Hours) Last Vital Signs Temp 36.2 C L 02/11/24 06:00 Pulse 90 02/11/24 06:20 Resp 16 02/11/24 06:00 BP 104/68 02/11/24 06:20 Pulse Ox 95 02/07/24 06:54 O2 Del Method Room Air 02/07/24 06:54 Results & Data ([facility]) Current Inpatient Medications Current Inpatient Medications: Current Inpatient Medications Acetaminophen (Acetaminophen 325 Mg Tab) 650 mg PO Q4H PRN PRN Reason: Headache or Minor Fever Stop: 02/15/24 19:33 Al Hydrox/Mg Hydrox/Simethicone (Aluminum/Magnesium Susp 30 Ml Udc) 30 ml PO Q4H PRN PRN Reason: GI Upset Stop: 02/15/24 19:33 Bismuth Subsalicylate (Bismuth Subsalicylate 262 Mg Chew) 2 tab PO Q30M PRN PRN Reason: Loose Stool/Diarrhea Stop: 02/15/24 19:33 Buspirone HCl (Buspirone 5 Mg Tab) 20 mg PO BID DELIO Stop: 02/15/24 20:59 Last Admin: 02/10/24 21:24 Dose: 20 mg Docusate Sodium (Docusate Sodium 100 Mg Cap) 200 mg PO BID DELIO Stop: 02/28/24 20:59 Last Admin: 02/10/24 21:24 Dose: 200 mg Hydroxyzine HCl (Hydroxyzine Hcl 25 Mg Tab) 50 mg PO HSZ PRN PRN Reason: Insomnia Stop: 02/15/24 19:33 Hydroxyzine HCl (Hydroxyzine Hcl 25 Mg Tab) 25 mg PO Q4H PRN PRN Reason: Anxiety Stop: 02/15/24 19:33 Last Admin: 02/10/24 16:21 Dose: 25 mg Lorazepam (Lorazepam 0.5 Mg Tab) 0.5 mg PO DAILY PRN PRN Reason: Anxiety Stop: 02/15/24 19:44 Last Admin: 02/10/24 17:38 Dose: 0.5 mg Lorazepam (Lorazepam 0.5 Mg Tab) 1.5 mg PO HS DELIO Stop: 03/03/24 21:59 Last Admin: 02/10/24 21:24 Dose: 1.5 mg Lurasidone HCl (Lurasidone Hcl 20 Mg Tab) 40 mg PO DAILYBD DELIO Stop: 02/23/24 17:14 Last Admin: 02/10/24 17:35 Dose: 40 mg Magnesium Hydroxide (Magnesium Hydroxide Susp 30 Ml Udc) 30 ml PO DAILY PRN PRN Reason: Constipation Stop: 02/15/24 19:33 Last Admin: 01/26/24 22:12 Dose: 30 ml Methylphenidate HCl (Methylphenidate Hcl 10 Mg Tablet) 30 mg PO QAM DELIO Stop: 02/25/24 08:59 Methylphenidate HCl (Methylphenidate Hcl 10 Mg Tablet) 10 mg PO DAILYBL DELIO Stop: 02/25/24 11:59 Ondansetron HCl (Ondansetron 4 Mg Od Tab) 4 mg PO Q6H PRN PRN Reason: Nausea Stop: 02/20/24 10:40 Polyethylene Glycol (Polyethylene (Miralax) 17 Gm Pack) 17 gm PO DAILY PRN PRN Reason: constipation Stop: 02/24/24 12:29 Sodium Chloride (Sodium Chloride 0.65% Na Soln 45 Ml ([place])) 1 - 2 sprays NA PRN PRN PRN Reason: Nasal Dryness/Congestion Stop: 11/19/24 19:33 Venlafaxine HCl (Venlafaxine Hcl Xr 75 Mg Capxr) 225 mg PO QAM DELIO Stop: 03/10/24 08:59 Last Admin: 02/10/24 09:12 Dose: 225 mg Vitamin D (Cholecalciferol 25 Mcg (1000 Units) Tab) 25 mcg PO QAM DELIO Stop: 02/18/24 08:59 Last Admin: 02/10/24 09:12 Dose: 25 mcg Mental Health & Subst Abuse Tx Psychiatrist Name of Psychiatrist: Dr. Izquierdo Psychiatrist's Date Of Appointment With Psychiatric Provider: 02/22/24 Time of Appointment with Psychiatrist: 8:20AM Therapist Name of Therapist: Dr. Betito Beck Therapist's Date of Therapist Appointment: 02/23/24 Time of Therapist Appointment: 3PM Post Discharge Appointments Primary Care Physician Name Of Family Doctor/PCP: Dr. Otero Date of Future Appointment with PCP: every six months-next one June 2024
[2024-02-11] MEDS ORDERED: METHYLPHENIDATE HCL 10 MG TABLET PO SCH ×2 (09:00→12:00)
[2024-02-11] MEDS: METHYLPHENIDATE HCL 10 MG TABLET PO SCH ×2 (09:57→12:10)
[2024-02-12] MEDS: modafiniL 100 MG TAB PO SCH (09:34)
--- NOTE | 2024-02-12 14:48 | Psychiatric Progress Note ---
Date of Service February 12, 2024 Impression / Recommendations Impression DK GARLAND is 58-year-old man with a history of bipolar 1 disorder admitted on 01/16/24 18:56 on a 201 voluntary commitment for suicidal ideation with plan to shoot self with hunting rifle. Presentation consistent with bipolar disorder with major depressive episode. Patient presents mood episodes in late life with no behavioral health concerns in earlier years; late life bipolar is rare and continuing to r/o underlying causes, had outpatient neurology workup in the past after initial inpatient psychiatric admission without evidence for any cognitive changes. A: Continued hopelessness, passive suicidal ideation, negative thoughts, crying spells. Appears to be sleeping well with scheduled lorazepam. Currently on trial of modafinil. Addressed patient's concerns about ECT and anesthesia risks and provided handouts. Plan to restart home statin. Overall, I spent a total of 40 minutes with this case including review of chart records, nursing report, review of lab work, direct evaluation of the patient at bedside, counseling the patient, multidisciplinary team meeting, orders, and documentation in the electronic health record. (1) Bipolar disorder with severe depression: (2) Hopelessness: (3) Elevated liver enzymes: Plan 02/12/2024: Restart home rosuvastatin 2.5 mg at bedtime. 02/11/2024: * Discontinue Ritalin * Start modafinil 100mg daily 02/10/2024: * Discontinue lamictal 02/09/2024: * Increase Ritalin IR to 30mg qAM and 10mg qlunch 02/08/2024: * Increase Effexor XR to 225mg daily * Increase Ritalin IR to 15mg qAM and 5mg qlunch 02/07/2024: * Increase Ritalin IR to 10mg qAM * Decrease lamictal to 50mg HS 02/06/2024: * Discontinue Esmond * Start Ritalin IR 5mg qAM 02/05/2024: * Decrease lamictal to 100mg HS * Decrease Esmond to 150mg HS 02/04/2024: Continue medications and treatment plan 02/03/2024: Increase Effexor XR to 150 mg daily. Liver function test tomorrow morning. 02/02/2024: Decrease lithium to 300 mg at bedtime. Decrease lorazepam to 1.5 mg at bedtime. 02/01/2024: Esmond level this evening. Continue medications and treatment plan. 01/31/2024: Esmond to 450 mg at bedtime (discontinue a.m. dose). Esmond level to be drawn tomorrow evening prior to nightly dose. 01/30/2024: Continue medications and treatment plan. Esmond level in 2 days. 01/29/2024: Discontinue clonazepam, start lorazepam 2 mg at bedtime. Increase venlafaxine extended release 112.5 mg daily. Increase Colace to 200 mg twice daily. 01/28/2024: Continue current medications. May be able to increase Effexor XR again tomorrow. 01/27/2024: Discontinue clonidine. Increase Esmond to 150mg qAM and 300mg HS. 01/26/2024: Increase Effexor XR to 75mg qAM tomorrow. Li level tomorrow AM. Add senna prn in addition to miralax and colace for constipation. 01/25/2024: Continue current meds and tx plan. 01/24/2024: Continue current meds and tx plan. 01/23/2024: -Start venlafaxine ER 37.5mg qAM -Decrease clonidine to 0.1 mg HS -Move Latuda to 40mg qdinner -Stop ativan at HS prn in favor of Klonopin HS prn for longer duration of action to help with sleep promotion -Continue ativan daily prn 01/22/2024: Continue current medications and tx plan. Will need Esmond level in 4-6 days. 01/21/2024: Increase lurasidone to 40 mg daily. Stop cariprazine tomorrow morning. Increase lithium to 150 mg twice daily. Zofran ODT as needed started 01/20/24: Start clonidine 0.05 mg every morning. 01/19/24: Esmond 150mg daily, Clonidine 0.1mg HS. 01/18/24: Continue medications and treatment plan 01/17/24: The patient was admitted to the [facility] ([facility] mental health unit) on q15 min checks (behavioral with suicide precautions) for safety. The patient will participate in group, recreational, and milieu therapies and will be offered additional individual and family sessions as clinically appropriate. -Decrease Cariprazine to 1.5mg daily -Start Luradisone 20mg daily with breakfast -Continue home Lamotrigine 150mg HS -Start Lamotrigine 50mg QAM -Hold home bupropion -Continue home Buspirone 20mg BID -Continue home Lorazepam 1mg HS PRN and 0.5mg daily PRN -Lab work: Vit D, Vit B12, HbA1C, Free/Total/Bioavailable Testosterone Inventory Assets Strengths: family support, fair insight Needs: medication management, improved self esteem Suicide Risk Level Suicide Risk Level: High-Moderate (q15 min suicide checks) (SI and severe depression with prominent hopelessness but feels safe in the hospital, no plan for SI in the hospital, feels able to ask for support if SI changed to plan or intent in the hospital) Risk Factors Assessment Male: Yes : Yes Do You Have Access To A Gun?: No Health Problems: Yes Mental Health Diagnoses: Yes Substance Use Disorders: No Previous Attempt: No Family History of Suicide: No Previous Psychiatric Hospitalization: Yes Hopelessness: Yes Protective Factors Assessment Scientologist Beliefs: Yes : Yes Responsible for Young Children: No 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 Chief Complaint "Negative thoughts" Review of Systems Sleep Information Total Hours of Sleep: 7 Sleep Comments: HS Ativan Meal Information Percent Meal Consumed - Breakfast: 100 Percent Meal Consumed - Lunch: 60 Percent Meal Consumed - Dinner: 75 Subjective Subjective Patient was seen & assessed and interval progress reviewed with treatment team nursing and social work Seen walking very slowly. Reports sleeping well with limited disruptions. Continues to have crying spells and "negative thoughts". Feels less sedated after stopping lithium. Did not notice a difference in energy with Ritalin and reports increased anxiety. Today not noticing a difference on modafinil. Has a negative outlook and feels he will not get better. Continued passive SI thoughts. Updated about care plan and addressed fears about anesthesia. Reports he is concerned takes him too long to wake up from anesthetic agents. Physical Exam Mental Examination Appearance: Well Groomed Eye Contact: Maintains Eye Contact Motor Behavior: Unremarkable Speech: Soft Mood: Calm, Anxious and Sad Affect: Constricted Thought Process: Intact, Linear and Racing Thought Content: Intact Hallucinations: None Insight: Fair (to limited) Judgement: Fair (to limited) Vital Signs (Past 24 Hours) Last Vital Signs Temp 36.9 C 02/12/24 06:35 Pulse 88 02/12/24 06:36 Resp 16 02/12/24 06:35 BP 109/71 02/12/24 06:36 Pulse Ox 95 02/07/24 06:54 O2 Del Method Room Air 02/07/24 06:54 Results & Data ([facility]) Current Inpatient Medications Current Inpatient Medications: Current Inpatient Medications Acetaminophen (Acetaminophen 325 Mg Tab) 650 mg PO Q4H PRN PRN Reason: Headache or Minor Fever Stop: 02/15/24 19:33 Al Hydrox/Mg Hydrox/Simethicone (Aluminum/Magnesium Susp 30 Ml Udc) 30 ml PO Q4H PRN PRN Reason: GI Upset Stop: 02/15/24 19:33 Bismuth Subsalicylate (Bismuth Subsalicylate 262 Mg Chew) 2 tab PO Q30M PRN PRN Reason: Loose Stool/Diarrhea Stop: 02/15/24 19:33 Buspirone HCl (Buspirone 5 Mg Tab) 20 mg PO BID DELIO Stop: 02/15/24 20:59 Last Admin: 02/12/24 09:33 Dose: 20 mg Docusate Sodium (Docusate Sodium 100 Mg Cap) 200 mg PO BID DELIO Stop: 02/28/24 20:59 Last Admin: 02/12/24 09:33 Dose: 200 mg Hydroxyzine HCl (Hydroxyzine Hcl 25 Mg Tab) 50 mg PO HSZ PRN PRN Reason: Insomnia Stop: 02/15/24 19:33 Hydroxyzine HCl (Hydroxyzine Hcl 25 Mg Tab) 25 mg PO Q4H PRN PRN Reason: Anxiety Stop: 02/15/24 19:33 Last Admin: 02/10/24 16:21 Dose: 25 mg Lorazepam (Lorazepam 0.5 Mg Tab) 0.5 mg PO DAILY PRN PRN Reason: Anxiety Stop: 02/15/24 19:44 Last Admin: 02/10/24 17:38 Dose: 0.5 mg Lorazepam (Lorazepam 0.5 Mg Tab) 1.5 mg PO HS DELIO Stop: 03/03/24 21:59 Last Admin: 02/11/24 21:40 Dose: 1.5 mg Lurasidone HCl (Lurasidone Hcl 20 Mg Tab) 40 mg PO DAILYBD DELIO Stop: 02/23/24 17:14 Last Admin: 02/11/24 17:18 Dose: 40 mg Magnesium Hydroxide (Magnesium Hydroxide Susp 30 Ml Udc) 30 ml PO DAILY PRN PRN Reason: Constipation Stop: 02/15/24 19:33 Last Admin: 01/26/24 22:12 Dose: 30 ml Modafinil (Modafinil 100 Mg Tab) 100 mg PO QAM DELIO Stop: 03/13/24 08:59 Last Admin: 02/12/24 09:34 Dose: 100 mg Ondansetron HCl (Ondansetron 4 Mg Od Tab) 4 mg PO Q6H PRN PRN Reason: Nausea Stop: 02/20/24 10:40 Polyethylene Glycol (Polyethylene (Miralax) 17 Gm Pack) 17 gm PO DAILY PRN PRN Reason: constipation Stop: 02/24/24 12:29 Rosuvastatin Calcium (Rosuvastatin Calcium 5 Mg Tab) 2.5 mg PO QPM DELIO Stop: 03/13/24 20:59 Sodium Chloride (Sodium Chloride 0.65% Na Soln 45 Ml ([place])) 1 - 2 sprays NA PRN PRN PRN Reason: Nasal Dryness/Congestion Stop: 02/15/24 19:33 Venlafaxine HCl (Venlafaxine Hcl Xr 75 Mg Capxr) 225 mg PO QAM DELIO Stop: 03/10/24 08:59 Last Admin: 02/12/24 09:34 Dose: 225 mg Vitamin D (Cholecalciferol 25 Mcg (1000 Units) Tab) 25 mcg PO QAM DELIO Stop: 02/18/24 08:59 Last Admin: 02/12/24 09:34 Dose: 25 mcg Mental Health & Subst Abuse Tx Psychiatrist Name of Psychiatrist: Dr. Izquierdo Psychiatrist's Date Of Appointment With Psychiatric Provider: 02/22/24 Time of Appointment with Psychiatrist: 8:20AM Therapist Name of Therapist: Dr. Betito Beck Therapist's Date of Therapist Appointment: 02/23/24 Time of Therapist Appointment: 3PM Post Discharge Appointments Primary Care Physician Name Of Family Doctor/PCP: Dr. Otero Date of Future Appointment with PCP: every six months-next one June 2024
[2024-02-12] MEDS: ACETAMINOPHEN 325 MG TAB PO PRN (17:37)
[2024-02-12] MEDS: ROSUVASTATIN CALCIUM 5 MG TAB PO SCH (21:33)
[2024-02-13] MEDS ORDERED: IBUPROFEN 200 MG TAB PO PRN (09:48)
[2024-02-13] MEDS ORDERED: modafiniL 100 MG TAB PO ONE (09:50)
[2024-02-13] MEDS: modafiniL 100 MG TAB PO ONE (12:47)
--- NOTE | 2024-02-13 13:54 | Psychiatric Progress Note ---
Date of Service February 13, 2024 Impression / Recommendations Impression DK GARLAND is 58-year-old man with a history of bipolar 1 disorder admitted on 01/16/24 18:56 on a 201 voluntary commitment for suicidal ideation with plan to shoot self with hunting rifle. Presentation consistent with bipolar disorder with major depressive episode. Patient presents mood episodes in late life with no behavioral health concerns in earlier years; late life bipolar is rare and continuing to r/o underlying causes, had outpatient neurology workup in the past after initial inpatient psychiatric admission without evidence for any cognitive changes. A: Patient presents continued hopelessness, suicidal ideation, negative thought pattern. No change in activity level or energy throughout the day. Engaging in self-care in groups. We will optimize dose of modafinil and assess response. Overall, I spent a total of 30 minutes with this case including review of chart records, nursing report, review of lab work, direct evaluation of the patient at bedside, counseling the patient, multidisciplinary team meeting, orders, and documentation in the electronic health record. (1) Bipolar disorder with severe depression: (2) Hopelessness: (3) Elevated liver enzymes: Plan 02/13/2024: Increase modafinil to 200 mg daily. 02/12/2024: Restart home rosuvastatin 2.5 mg at bedtime. 02/11/2024: * Discontinue Ritalin * Start modafinil 100mg daily 02/10/2024: * Discontinue lamictal 02/09/2024: * Increase Ritalin IR to 30mg qAM and 10mg qlunch 02/08/2024: * Increase Effexor XR to 225mg daily * Increase Ritalin IR to 15mg qAM and 5mg qlunch 02/07/2024: * Increase Ritalin IR to 10mg qAM * Decrease lamictal to 50mg HS 02/06/2024: * Discontinue Warden * Start Ritalin IR 5mg qAM 02/05/2024: * Decrease lamictal to 100mg HS * Decrease Warden to 150mg HS 02/04/2024: Continue medications and treatment plan 02/03/2024: Increase Effexor XR to 150 mg daily. Liver function test tomorrow morning. 02/02/2024: Decrease lithium to 300 mg at bedtime. Decrease lorazepam to 1.5 mg at bedtime. 02/01/2024: Warden level this evening. Continue medications and treatment plan. 01/31/2024: Warden to 450 mg at bedtime (discontinue a.m. dose). Warden level to be drawn tomorrow evening prior to nightly dose. 01/30/2024: Continue medications and treatment plan. Warden level in 2 days. 01/29/2024: Discontinue clonazepam, start lorazepam 2 mg at bedtime. Increase venlafaxine extended release 112.5 mg daily. Increase Colace to 200 mg twice daily. 01/28/2024: Continue current medications. May be able to increase Effexor XR again tomorrow. 01/27/2024: Discontinue clonidine. Increase Warden to 150mg qAM and 300mg HS. 01/26/2024: Increase Effexor XR to 75mg qAM tomorrow. Li level tomorrow AM. Add senna prn in addition to miralax and colace for constipation. 01/25/2024: Continue current meds and tx plan. 01/24/2024: Continue current meds and tx plan. 01/23/2024: -Start venlafaxine ER 37.5mg qAM -Decrease clonidine to 0.1 mg HS -Move Latuda to 40mg qdinner -Stop ativan at HS prn in favor of Klonopin HS prn for longer duration of action to help with sleep promotion -Continue ativan daily prn 01/22/2024: Continue current medications and tx plan. Will need Warden level in 4-6 days. 01/21/2024: Increase lurasidone to 40 mg daily. Stop cariprazine tomorrow morning. Increase lithium to 150 mg twice daily. Zofran ODT as needed started 01/20/24: Start clonidine 0.05 mg every morning. 01/19/24: Warden 150mg daily, Clonidine 0.1mg HS. 01/18/24: Continue medications and treatment plan 01/17/24: The patient was admitted to the [facility] ([facility] mental health unit) on q15 min checks (behavioral with suicide precautions) for safety. The patient will participate in group, recreational, and milieu therapies and will be offered additional individual and family sessions as clinically appropriate. -Decrease Cariprazine to 1.5mg daily -Start Luradisone 20mg daily with breakfast -Continue home Lamotrigine 150mg HS -Start Lamotrigine 50mg QAM -Hold home bupropion -Continue home Buspirone 20mg BID -Continue home Lorazepam 1mg HS PRN and 0.5mg daily PRN -Lab work: Vit D, Vit B12, HbA1C, Free/Total/Bioavailable Testosterone Inventory Assets Strengths: family support, fair insight Needs: medication management, improved self esteem Suicide Risk Level Suicide Risk Level: High-Moderate (q15 min suicide checks) (SI and severe depression with prominent hopelessness but feels safe in the hospital, no plan for SI in the hospital, feels able to ask for support if SI changed to plan or intent in the hospital) Risk Factors Assessment Male: Yes : Yes Do You Have Access To A Gun?: No Health Problems: Yes Mental Health Diagnoses: Yes Substance Use Disorders: No Previous Attempt: No Family History of Suicide: No Previous Psychiatric Hospitalization: Yes Hopelessness: Yes Protective Factors Assessment Shinto Beliefs: Yes : Yes Responsible for Young Children: No 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 Chief Complaint "Depressed" Review of Systems Sleep Information Total Hours of Sleep: 7 Sleep Comments: HS Ativan Meal Information Percent Meal Consumed - Breakfast: 100 Percent Meal Consumed - Lunch: 80 Percent Meal Consumed - Dinner: 75 Subjective Subjective Patient was seen & assessed and interval progress reviewed with treatment team nursing and social work Nursing reports patient slept 7.5 hours. Visited by . Has been clenching his jaw at night and having tooth pain. Patient reports sleeping well. Has been passing the time by watching TV and football games. Reports continued SI and negative thoughts. Feels he will never get better. Asking when he will know if depression gets better. Reassured. Notably slowed movements when walking and getting in and out of the chair. Flat affect. Physical Exam Mental Examination Appearance: Well Groomed Eye Contact: Maintains Eye Contact Motor Behavior: Unremarkable Speech: Soft Mood: Calm, Anxious and Sad Affect: Constricted Thought Process: Intact, Linear and Racing Thought Content: Intact Hallucinations: None Insight: Fair (to limited) Judgement: Fair (to limited) Vital Signs (Past 24 Hours) Last Vital Signs Temp 36.9 C 02/13/24 06:34 Pulse 88 02/13/24 06:35 Resp 16 02/13/24 06:34 BP 125/79 02/13/24 06:35 Pulse Ox 95 02/07/24 06:54 O2 Del Method Room Air 02/07/24 06:54 Results & Data ([facility]) Current Inpatient Medications Current Inpatient Medications: Current Inpatient Medications Al Hydrox/Mg Hydrox/Simethicone (Aluminum/Magnesium Susp 30 Ml Udc) 30 ml PO Q4H PRN PRN Reason: GI Upset Stop: 02/15/24 19:33 Bismuth Subsalicylate (Bismuth Subsalicylate 262 Mg Chew) 2 tab PO Q30M PRN PRN Reason: Loose Stool/Diarrhea Stop: 02/15/24 19:33 Buspirone HCl (Buspirone 5 Mg Tab) 20 mg PO BID DELIO Stop: 02/15/24 20:59 Last Admin: 02/13/24 08:57 Dose: 20 mg Docusate Sodium (Docusate Sodium 100 Mg Cap) 200 mg PO BID DELIO Stop: 02/28/24 20:59 Last Admin: 02/13/24 08:58 Dose: 200 mg Hydroxyzine HCl (Hydroxyzine Hcl 25 Mg Tab) 50 mg PO HSZ PRN PRN Reason: Insomnia Stop: 02/15/24 19:33 Hydroxyzine HCl (Hydroxyzine Hcl 25 Mg Tab) 25 mg PO Q4H PRN PRN Reason: Anxiety Stop: 02/15/24 19:33 Last Admin: 02/10/24 16:21 Dose: 25 mg Ibuprofen (Ibuprofen 200 Mg Tab) 400 mg PO Q6H PRN PRN Reason: Pain or Fever Stop: 03/14/24 09:47 Lorazepam (Lorazepam 0.5 Mg Tab) 0.5 mg PO DAILY PRN PRN Reason: Anxiety Stop: 02/15/24 19:44 Last Admin: 02/10/24 17:38 Dose: 0.5 mg Lorazepam (Lorazepam 0.5 Mg Tab) 1.5 mg PO HS DELIO Stop: 03/03/24 21:59 Last Admin: 02/12/24 21:35 Dose: 1.5 mg Lurasidone HCl (Lurasidone Hcl 20 Mg Tab) 40 mg PO DAILYBD DELIO Stop: 02/23/24 17:14 Last Admin: 02/12/24 17:09 Dose: 40 mg Magnesium Hydroxide (Magnesium Hydroxide Susp 30 Ml Udc) 30 ml PO DAILY PRN PRN Reason: Constipation Stop: 02/15/24 19:33 Last Admin: 01/26/24 22:12 Dose: 30 ml Modafinil (Modafinil 100 Mg Tab) 200 mg PO QAM DELIO Stop: 03/15/24 08:59 Ondansetron HCl (Ondansetron 4 Mg Od Tab) 4 mg PO Q6H PRN PRN Reason: Nausea Stop: 02/20/24 10:40 Polyethylene Glycol (Polyethylene (Miralax) 17 Gm Pack) 17 gm PO DAILY PRN PRN Reason: constipation Stop: 02/24/24 12:29 Rosuvastatin Calcium (Rosuvastatin Calcium 5 Mg Tab) 2.5 mg PO QPM DELIO Stop: 03/13/24 20:59 Last Admin: 02/12/24 21:33 Dose: 2.5 mg Sodium Chloride (Sodium Chloride 0.65% Na Soln 45 Ml ([place])) 1 - 2 sprays NA PRN PRN PRN Reason: Nasal Dryness/Congestion Stop: 02/15/24 19:33 Venlafaxine HCl (Venlafaxine Hcl Xr 75 Mg Capxr) 225 mg PO QAM DELIO Stop: 03/10/24 08:59 Last Admin: 02/13/24 08:59 Dose: 225 mg Vitamin D (Cholecalciferol 25 Mcg (1000 Units) Tab) 25 mcg PO QAM DELIO Stop: 02/18/24 08:59 Last Admin: 02/13/24 08:59 Dose: 25 mcg Mental Health & Subst Abuse Tx Psychiatrist Name of Psychiatrist: Dr. Izquierdo Psychiatrist's Date Of Appointment With Psychiatric Provider: 02/22/24 Time of Appointment with Psychiatrist: 8:20AM Therapist Name of Therapist: Dr. Betito Beck Therapist's Date of Therapist Appointment: 02/23/24 Time of Therapist Appointment: 3PM Post Discharge Appointments Primary Care Physician Name Of Family Doctor/PCP: Dr. Otero Date of Future Appointment with PCP: every six months-next one June 2024
[2024-02-14] MEDS ORDERED: modafiniL 100 MG TAB PO SCH (09:00)
--- NOTE | 2024-02-14 13:31 | Psychiatric Progress Note ---
Date of Service February 14, 2024 Impression / Recommendations Impression DK GARLAND is 58-year-old man with a history of bipolar 1 disorder admitted on 01/16/24 18:56 on a 201 voluntary commitment for suicidal ideation with plan to shoot self with hunting rifle. Presentation consistent with bipolar disorder with major depressive episode. Patient presents mood episodes in late life with no behavioral health concerns in earlier years; late life bipolar is rare and continuing to r/o underlying causes, had outpatient neurology workup in the past after initial inpatient psychiatric admission without evidence for any cognitive changes. A: Patient continues to present depressed affect, remains hopeless, presents suicidal ideation. Did not show an improvement in energy, concentration, mood with modafinil and there is concerns for worsening anxiety so we will discontinue. Patient was counseled about ECT and addressed any concerns. Plan to increase lurasidone dose and start scheduled low-dose lorazepam in the day to combat anxiety and depressed mood. Overall, I spent a total of 30 minutes with this case including review of chart records, nursing report, review of lab work, direct evaluation of the patient at bedside, counseling the patient, multidisciplinary team meeting, orders, and documentation in the electronic health record. (1) Bipolar disorder with severe depression: (2) Hopelessness: (3) Elevated liver enzymes: Plan 02/14/2024: Increase lurasidone to 60 mg at dinner. Start lorazepam 0.25 mg in the morning and afternoon. Discontinue modafinil. 02/13/2024: Increase modafinil to 200 mg daily. 02/12/2024: Restart home rosuvastatin 2.5 mg at bedtime. 02/11/2024: * Discontinue Ritalin * Start modafinil 100mg daily 02/10/2024: * Discontinue lamictal 02/09/2024: * Increase Ritalin IR to 30mg qAM and 10mg qlunch 02/08/2024: * Increase Effexor XR to 225mg daily * Increase Ritalin IR to 15mg qAM and 5mg qlunch 02/07/2024: * Increase Ritalin IR to 10mg qAM * Decrease lamictal to 50mg HS 02/06/2024: * Discontinue [place] * Start Ritalin IR 5mg qAM 02/05/2024: * Decrease lamictal to 100mg HS * Decrease [place] to 150mg HS 02/04/2024: Continue medications and treatment plan 02/03/2024: Increase Effexor XR to 150 mg daily. Liver function test tomorrow morning. 02/02/2024: Decrease lithium to 300 mg at bedtime. Decrease lorazepam to 1.5 mg at bedtime. 02/01/2024: [place] level this evening. Continue medications and treatment plan. 01/31/2024: [place] to 450 mg at bedtime (discontinue a.m. dose). [place] level to be drawn tomorrow evening prior to nightly dose. 01/30/2024: Continue medications and treatment plan. [place] level in 2 days. 01/29/2024: Discontinue clonazepam, start lorazepam 2 mg at bedtime. Increase venlafaxine extended release 112.5 mg daily. Increase Colace to 200 mg twice daily. 01/28/2024: Continue current medications. May be able to increase Effexor XR again tomorrow. 01/27/2024: Discontinue clonidine. Increase [place] to 150mg qAM and 300mg HS. 01/26/2024: Increase Effexor XR to 75mg qAM tomorrow. Li level tomorrow AM. Add senna prn in addition to miralax and colace for constipation. 01/25/2024: Continue current meds and tx plan. 01/24/2024: Continue current meds and tx plan. 01/23/2024: -Start venlafaxine ER 37.5mg qAM -Decrease clonidine to 0.1 mg HS -Move Latuda to 40mg qdinner -Stop ativan at HS prn in favor of Klonopin HS prn for longer duration of action to help with sleep promotion -Continue ativan daily prn 01/22/2024: Continue current medications and tx plan. Will need [place] level in 4-6 days. 01/21/2024: Increase lurasidone to 40 mg daily. Stop cariprazine tomorrow morning. Increase lithium to 150 mg twice daily. Zofran ODT as needed started 01/20/24: Start clonidine 0.05 mg every morning. 01/19/24: [place] 150mg daily, Clonidine 0.1mg HS. 01/18/24: Continue medications and treatment plan 01/17/24: The patient was admitted to the [facility] ([facility]) on q15 min checks (behavioral with suicide precautions) for safety. The patient will participate in group, recreational, and milieu therapies and will be offered additional individual and family sessions as clinically appropriate. -Decrease Cariprazine to 1.5mg daily -Start Luradisone 20mg daily with breakfast -Continue home Lamotrigine 150mg HS -Start Lamotrigine 50mg QAM -Hold home bupropion -Continue home Buspirone 20mg BID -Continue home Lorazepam 1mg HS PRN and 0.5mg daily PRN -Lab work: Vit D, Vit B12, HbA1C, Free/Total/Bioavailable Testosterone Inventory Assets Strengths: family support, fair insight Needs: medication management, improved self esteem Suicide Risk Level Suicide Risk Level: High-Moderate (q15 min suicide checks) (SI and severe depression with prominent hopelessness but feels safe in the hospital, no plan for SI in the hospital, feels able to ask for support if SI changed to plan or intent in the hospital) Risk Factors Assessment Male: Yes : Yes Do You Have Access To A Gun?: No Health Problems: Yes Mental Health Diagnoses: Yes Substance Use Disorders: No Previous Attempt: No Family History of Suicide: No Previous Psychiatric Hospitalization: Yes Hopelessness: Yes Protective Factors Assessment Tenriism Beliefs: Yes : Yes Responsible for Young Children: No 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 Chief Complaint "Feeling dread" Review of Systems Sleep Information Total Hours of Sleep: 7.5 Sleep Comments: HS Ativan Meal Information Percent Meal Consumed - Breakfast: 75 Percent Meal Consumed - Lunch: 90 Percent Meal Consumed - Dinner: 50 Subjective Subjective Patient was seen & assessed and interval progress reviewed with treatment team nursing and social work Overnight rated mood 1.5 out of 10. Received as needed Ativan in the evening and rated it as effective. Patient reports sleeping well and feels rested however once he gets up he lacks motivation. Says that it was difficult to get into the shower today. Did not notice a difference in energy or mood on modafinil. Continues to have negative thoughts and reports "cannot be positive". Okay with referral to outside hospital for ECT. Reports not feeling nauseous in the morning. Complains of poor motivation and difficulty in engaging in activities. Worried that he will get better or that ECT might not work. Physical Exam Mental Examination Appearance: Well Groomed Eye Contact: Maintains Eye Contact Motor Behavior: Unremarkable Speech: Soft Mood: Calm, Anxious and Sad Affect: Constricted, Sad and Withdrawn Thought Process: Intact, Linear and Racing Thought Content: Intact Hallucinations: None Insight: Fair (to limited) Judgement: Fair (to limited) Vital Signs (Past 24 Hours) Last Vital Signs Temp 36.9 C 02/14/24 06:28 Pulse 87 02/14/24 06:29 Resp 16 02/14/24 06:28 BP 122/75 02/14/24 06:29 Pulse Ox 95 02/07/24 06:54 O2 Del Method Room Air 02/07/24 06:54 Results & Data ([facility]) Current Inpatient Medications Current Inpatient Medications: Current Inpatient Medications Al Hydrox/Mg Hydrox/Simethicone (Aluminum/Magnesium Susp 30 Ml Udc) 30 ml PO Q4H PRN PRN Reason: GI Upset Stop: 02/15/24 19:33 Bismuth Subsalicylate (Bismuth Subsalicylate 262 Mg Chew) 2 tab PO Q30M PRN PRN Reason: Loose Stool/Diarrhea Stop: 02/15/24 19:33 Buspirone HCl (Buspirone 5 Mg Tab) 20 mg PO BID DELIO Stop: 02/15/24 20:59 Last Admin: 02/14/24 08:37 Dose: 20 mg Docusate Sodium (Docusate Sodium 100 Mg Cap) 200 mg PO BID DELIO Stop: 02/28/24 20:59 Last Admin: 02/14/24 08:36 Dose: 200 mg Hydroxyzine HCl (Hydroxyzine Hcl 25 Mg Tab) 50 mg PO HSZ PRN PRN Reason: Insomnia Stop: 02/15/24 19:33 Hydroxyzine HCl (Hydroxyzine Hcl 25 Mg Tab) 25 mg PO Q4H PRN PRN Reason: Anxiety Stop: 02/15/24 19:33 Last Admin: 02/10/24 16:21 Dose: 25 mg Ibuprofen (Ibuprofen 200 Mg Tab) 400 mg PO Q6H PRN PRN Reason: Pain or Fever Stop: 03/14/24 09:47 Lorazepam (Lorazepam 0.5 Mg Tab) 1.5 mg PO HS DELIO Stop: 03/03/24 21:59 Last Admin: 02/13/24 21:24 Dose: 1.5 mg Lorazepam (Lorazepam 0.5 Mg Tab) 0.25 mg PO DAILY@1000,1400 DELIO Stop: 03/15/24 13:59 Lurasidone HCl (Lurasidone Hcl 20 Mg Tab) 60 mg PO DAILYBD DELIO Stop: 03/15/24 17:14 Magnesium Hydroxide (Magnesium Hydroxide Susp 30 Ml Udc) 30 ml PO DAILY PRN PRN Reason: Constipation Stop: 02/15/24 19:33 Last Admin: 01/26/24 22:12 Dose: 30 ml Ondansetron HCl (Ondansetron 4 Mg Od Tab) 4 mg PO Q6H PRN PRN Reason: Nausea Stop: 02/20/24 10:40 Polyethylene Glycol (Polyethylene (Miralax) 17 Gm Pack) 17 gm PO DAILY PRN PRN Reason: constipation Stop: 02/24/24 12:29 Rosuvastatin Calcium (Rosuvastatin Calcium 5 Mg Tab) 2.5 mg PO QPM DELIO Stop: 03/13/24 20:59 Last Admin: 02/13/24 21:25 Dose: 2.5 mg Sodium Chloride (Sodium Chloride 0.65% Na Soln 45 Ml ([place])) 1 - 2 sprays NA PRN PRN PRN Reason: Nasal Dryness/Congestion Stop: 02/15/24 19:33 Venlafaxine HCl (Venlafaxine Hcl Xr 75 Mg Capxr) 225 mg PO QAM DELIO Stop: 03/10/24 08:59 Last Admin: 02/14/24 08:37 Dose: 225 mg Vitamin D (Cholecalciferol 25 Mcg (1000 Units) Tab) 25 mcg PO QAM DELIO Stop: 02/18/24 08:59 Last Admin: 02/14/24 08:37 Dose: 25 mcg Mental Health & Subst Abuse Tx Psychiatrist Name of Psychiatrist: Dr. Izquierdo Psychiatrist's Date Of Appointment With Psychiatric Provider: 02/22/24 Time of Appointment with Psychiatrist: 8:20AM Therapist Name of Therapist: Dr. Betito Beck Therapist's Date of Therapist Appointment: 02/23/24 Time of Therapist Appointment: 3PM Post Discharge Appointments Primary Care Physician Name Of Family Doctor/PCP: Dr. Otero Date of Future Appointment with PCP: every six months-next one June 2024
[2024-02-14] MEDS: LORazepam 0.5 MG TAB PO SCH (14:09)
[2024-02-14 16:14] LABS: BUN Creatinine Ratio 14.4 (10-20); Calcium 9.2 mg/dl (8.6-10.3); Creatinine Clr Calc Pharmacy 83.6 ml/min; Potassium 3.9 mmol/L (3.5-5.1)
[2024-02-14 16:18] LABS: Basophils # (auto) 0.03 K/uL (0.00-0.20); Basophils % (auto) 0.5 %; Eosinophils # (auto) 0.04 K/uL (0.00-0.50); Eosinophils % (auto) 0.6 %; Hematocrit (blood only) 36.9 % (42.0-52.0); Hemoglobin 13.2 g/dl (14.0-18.0); Immature Granulocytes # (auto) 0.02 K/uL (0.01-0.20); Immature Granulocytes % (auto) 0.3 %; Lymphocytes # (auto) 1.78 K/uL (1.20-3.40); Lymphocytes % (auto) 28.3 %; Mean Corpuscular Hemoglobin 32.7 pg (25.0-34.0); Mean Corpuscular Hgb Conc 35.8 g/dL (32.0-36.0); Mean Corpuscular Volume 91.3 fL (80.0-100.0); Mean Platelet Volume 8.5 fL (9.4-12.4); Monocytes # (auto) 0.46 K/uL (0.11-0.59); Monocytes % (auto) 7.3 %; Neutrophils # (auto) 3.96 K/uL (1.40-6.50); Platelet Count 191 K/uL (130-400); RDW Coefficient of Variation 11.7 % (11.5-14.5); Red Blood Count 4.04 M/uL (4.70-6.10); White Blood Count 6.29 K/ul (4.8-10.8)
[2024-02-14 16:48] LABS: Amphetamines+Metham, Urine Neg (Neg); Barbiturates, Urine Neg (Neg); Benzodiazepine, Urine Neg (Neg); Cocaine, Urine Neg (Neg); Fentanyl, Urine Neg (Neg); MDMA (Ecstacy), Urine Neg (Neg); Marijuana, Urine Neg (Neg); Methadone, Urine Neg (Neg); Opiate, Urine Neg (Neg); Phencyclidine, Urine Neg (Neg)
[2024-02-14] MEDS: LURASIDONE HCL 20 MG TAB PO SCH (17:45)
--- NOTE | 2024-02-14 22:05 | Electrocardiogram Report ---
Test Reason : Blood Pressure : */* mmHG Vent. Rate : 73 BPM Atrial Rate : 73 BPM P-R Int : 150 ms QRS Dur : 88 ms QT Int : 356 ms P-R-T Axes : 47 60 16 degrees QTcB Int : 392 ms Normal sinus rhythm Nonspecific ST abnormality Abnormal ECG When compared with ECG of 13-Feb-2022 02:21, No significant change was found Confirmed by Chepe Fang ([id number]) on 02/14/2024 10:05:15 PM Referred By: REFERRED SELF Confirmed By: Chepe aFng
--- NOTE | 2024-02-15 10:50 | Psychiatric Progress Note ---
Date of Service February 15, 2024 Impression / Recommendations Impression DK GARLAND is 58-year-old man with a history of bipolar 1 disorder admitted on 01/16/24 18:56 on a 201 voluntary commitment for suicidal ideation with plan to shoot self with hunting rifle. Presentation consistent with bipolar disorder with major depressive episode. Patient presents mood episodes in late life with no behavioral health concerns in earlier years; late life bipolar is rare and continuing to r/o underlying causes, had outpatient neurology workup in the past after initial inpatient psychiatric admission without evidence for any cognitive changes. A: Patient continues to feel hopeless, presents a depressed affect with crying spells, and endorses intermittent SI. No significant weight loss since admission maintaining weight at 77.3 kg. UDS, BMP, CMP, EKG, MOCA completed for referral to outside hospital for ECT and unremarkable. Perfect score on MOCA. Overall, I spent a total of 30 minutes with this case including review of chart records, nursing report, review of lab work, direct evaluation of the patient at bedside, counseling the patient, multidisciplinary team meeting, orders, and documentation in the electronic health record. (1) Bipolar disorder with severe depression: (2) Hopelessness: (3) Elevated liver enzymes: Plan 02/15/2024: Continue medications and treatment plan. 02/14/2024: Increase lurasidone to 60 mg at dinner. Start lorazepam 0.25 mg in the morning and afternoon. Discontinue modafinil. 02/13/2024: Increase modafinil to 200 mg daily. 02/12/2024: Restart home rosuvastatin 2.5 mg at bedtime. 02/11/2024: * Discontinue Ritalin * Start modafinil 100mg daily 02/10/2024: * Discontinue lamictal 02/09/2024: * Increase Ritalin IR to 30mg qAM and 10mg qlunch 02/08/2024: * Increase Effexor XR to 225mg daily * Increase Ritalin IR to 15mg qAM and 5mg qlunch 02/07/2024: * Increase Ritalin IR to 10mg qAM * Decrease lamictal to 50mg HS 02/06/2024: * Discontinue [place] * Start Ritalin IR 5mg qAM 02/05/2024: * Decrease lamictal to 100mg HS * Decrease [place] to 150mg HS 02/04/2024: Continue medications and treatment plan 02/03/2024: Increase Effexor XR to 150 mg daily. Liver function test tomorrow morning. 02/02/2024: Decrease lithium to 300 mg at bedtime. Decrease lorazepam to 1.5 mg at bedtime. 02/01/2024: [place] level this evening. Continue medications and treatment plan. 01/31/2024: [place] to 450 mg at bedtime (discontinue a.m. dose). [place] level to be drawn tomorrow evening prior to nightly dose. 01/30/2024: Continue medications and treatment plan. [place] level in 2 days. 01/29/2024: Discontinue clonazepam, start lorazepam 2 mg at bedtime. Increase venlafaxine extended release 112.5 mg daily. Increase Colace to 200 mg twice daily. 01/28/2024: Continue current medications. May be able to increase Effexor XR again tomorrow. 01/27/2024: Discontinue clonidine. Increase [place] to 150mg qAM and 300mg HS. 01/26/2024: Increase Effexor XR to 75mg qAM tomorrow. Li level tomorrow AM. Add senna prn in addition to miralax and colace for constipation. 01/25/2024: Continue current meds and tx plan. 01/24/2024: Continue current meds and tx plan. 01/23/2024: -Start venlafaxine ER 37.5mg qAM -Decrease clonidine to 0.1 mg HS -Move Latuda to 40mg qdinner -Stop ativan at HS prn in favor of Klonopin HS prn for longer duration of action to help with sleep promotion -Continue ativan daily prn 01/22/2024: Continue current medications and tx plan. Will need [place] level in 4-6 days. 01/21/2024: Increase lurasidone to 40 mg daily. Stop cariprazine tomorrow morning. Increase lithium to 150 mg twice daily. Zofran ODT as needed started 01/20/24: Start clonidine 0.05 mg every morning. 01/19/24: [place] 150mg daily, Clonidine 0.1mg HS. 01/18/24: Continue medications and treatment plan 01/17/24: The patient was admitted to the [facility] on q15 min checks (behavioral with suicide precautions) for safety. The patient will participate in group, recreational, and milieu therapies and will be offered additional individual and family sessions as clinically appropriate. -Decrease Cariprazine to 1.5mg daily -Start Luradisone 20mg daily with breakfast -Continue home Lamotrigine 150mg HS -Start Lamotrigine 50mg QAM -Hold home bupropion -Continue home Buspirone 20mg BID -Continue home Lorazepam 1mg HS PRN and 0.5mg daily PRN -Lab work: Vit D, Vit B12, HbA1C, Free/Total/Bioavailable Testosterone Inventory Assets Strengths: family support, fair insight Needs: medication management, improved self esteem Suicide Risk Level Suicide Risk Level: High-Moderate (q15 min suicide checks) (SI and severe depression with prominent hopelessness but feels safe in the hospital, no plan for SI in the hospital, feels able to ask for support if SI changed to plan or intent in the hospital) Risk Factors Assessment Male: Yes : Yes Do You Have Access To A Gun?: No Health Problems: Yes Mental Health Diagnoses: Yes Substance Use Disorders: No Previous Attempt: No Family History of Suicide: No Previous Psychiatric Hospitalization: Yes Hopelessness: Yes Protective Factors Assessment Jainism Beliefs: Yes : Yes Responsible for Young Children: No 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 Chief Complaint "Depressed" Review of Systems Sleep Information Total Hours of Sleep: 6.30 Sleep Comments: HS Buspar and Ativan Meal Information Percent Meal Consumed - Breakfast: 100 Percent Meal Consumed - Lunch: 90 Percent Meal Consumed - Dinner: 30 Subjective Subjective Patient was seen & assessed and interval progress reviewed with treatment team nursing and social work Patient ate 30% dinner. Rated mood 1 out of 10 and feeling nervous. BP slightly high today with systolic 10-20 points higher than normal. Patient is tearful on interview and is sad that one of his peers is leaving. Reports jaw clenching has improved. Noted to have slowed movement getting into his room. Updated about lab work. Complains of ruminating anxiety and difficulty with distracting himself. Feels hopeless and complains of intermittent SI. Endorses poor self-esteem. Says that it is hard for him to get up in the morning. Physical Exam Mental Examination Appearance: Well Groomed Eye Contact: Maintains Eye Contact Motor Behavior: Unremarkable Speech: Soft Mood: Calm, Anxious and Sad Affect: Constricted, Sad and Withdrawn Thought Process: Intact, Linear and Racing Thought Content: Intact Hallucinations: None Insight: Fair (to limited) Judgement: Fair (to limited) Vital Signs (Past 24 Hours) Last Vital Signs Temp 36.9 C 02/15/24 06:37 Pulse 99 H 02/15/24 06:37 Resp 16 02/15/24 06:37 BP 145/82 H 02/15/24 06:37 Pulse Ox 95 02/07/24 06:54 O2 Del Method Room Air 02/07/24 06:54 Results & Data ([facility]) Laboratory Results Laboratory Results - last 24 hr 02/14/24 02/14/24 02/14/24 15:47 16:00 16:05 WBC 6.29 RBC 4.04 L Hgb 13.2 L Hct 36.9 L MCV 91.3 MCH 32.7 MCHC 35.8 RDW Std Deviation 39.0 RDW Coeff of [place] 11.7 Plt Count 191 MPV 8.5 L Immature Gran % (Auto) 0.3 Neut % (Auto) 63.0 Lymph % (Auto) 28.3 [place] % (Auto) 7.3 Eos % (Auto) 0.6 Baso % (Auto) 0.5 Neut # (Auto) 3.96 Lymph # (Auto) 1.78 [place] # (Auto) 0.46 Eos # (Auto) 0.04 Baso # (Auto) 0.03 Immature Gran # (Auto) 0.02 Sodium 137 Potassium 3.9 Chloride 101 Carbon Dioxide 30 Anion Gap 6 BUN 14 Creatinine 0.97 Est Cr Clr Drug Dosing 83.6 eGFR 89.37 BUN/Creatinine Ratio 14.4 Glucose 101 H Calcium 9.2 Urine Opiates Screen Neg Ur Methadone, Qual Neg Urine Fentanyl Screen Neg Urine Barbiturates Neg Ur Phencyclidine (PCP) Neg U Amphetamin/Meth Scrn Neg MDMA (Ecstasy) Screen Neg U Benzodiazepines Scrn Neg Ur Cocaine Metabolite Neg U Marijuana (THC) Screen Neg SARS-CoV-2, RNA, NAAT NEGATIVE Current Inpatient Medications Current Inpatient Medications: Current Inpatient Medications Al Hydrox/Mg Hydrox/Simethicone (Aluminum/Magnesium Susp 30 Ml Udc) 30 ml PO Q4H PRN PRN Reason: GI Upset Stop: 02/15/24 19:33 Bismuth Subsalicylate (Bismuth Subsalicylate 262 Mg Chew) 2 tab PO Q30M PRN PRN Reason: Loose Stool/Diarrhea Stop: 02/15/24 19:33 Buspirone HCl (Buspirone 5 Mg Tab) 20 mg PO BID DELIO Stop: 02/15/24 20:59 Last Admin: 02/15/24 09:05 Dose: 20 mg Docusate Sodium (Docusate Sodium 100 Mg Cap) 200 mg PO BID DELIO Stop: 02/28/24 20:59 Last Admin: 02/15/24 09:06 Dose: 200 mg Hydroxyzine HCl (Hydroxyzine Hcl 25 Mg Tab) 50 mg PO HSZ PRN PRN Reason: Insomnia Stop: 02/15/24 19:33 Hydroxyzine HCl (Hydroxyzine Hcl 25 Mg Tab) 25 mg PO Q4H PRN PRN Reason: Anxiety Stop: 02/15/24 19:33 Last Admin: 02/10/24 16:21 Dose: 25 mg Ibuprofen (Ibuprofen 200 Mg Tab) 400 mg PO Q6H PRN PRN Reason: Pain or Fever Stop: 03/14/24 09:47 Lorazepam (Lorazepam 0.5 Mg Tab) 1.5 mg PO HS DELIO Stop: 03/03/24 21:59 Last Admin: 02/14/24 21:25 Dose: 1.5 mg Lorazepam (Lorazepam 0.5 Mg Tab) 0.25 mg PO DAILY@1000,1400 DELIO Stop: 03/15/24 13:59 Last Admin: 02/15/24 10:37 Dose: 0.25 mg Lurasidone HCl (Lurasidone Hcl 20 Mg Tab) 60 mg PO DAILYBD DELIO Stop: 03/15/24 17:14 Last Admin: 02/14/24 17:45 Dose: 60 mg Magnesium Hydroxide (Magnesium Hydroxide Susp 30 Ml Udc) 30 ml PO DAILY PRN PRN Reason: Constipation Stop: 02/15/24 19:33 Last Admin: 01/26/24 22:12 Dose: 30 ml Ondansetron HCl (Ondansetron 4 Mg Od Tab) 4 mg PO Q6H PRN PRN Reason: Nausea Stop: 02/20/24 10:40 Polyethylene Glycol (Polyethylene (Miralax) 17 Gm Pack) 17 gm PO DAILY PRN PRN Reason: constipation Stop: 02/24/24 12:29 Rosuvastatin Calcium (Rosuvastatin Calcium 5 Mg Tab) 2.5 mg PO QPM DELIO Stop: 03/13/24 20:59 Last Admin: 02/14/24 21:25 Dose: 2.5 mg Sodium Chloride (Sodium Chloride 0.65% Na Soln 45 Ml ([place])) 1 - 2 sprays NA PRN PRN PRN Reason: Nasal Dryness/Congestion Stop: 02/15/24 19:33 Venlafaxine HCl (Venlafaxine Hcl Xr 75 Mg Capxr) 225 mg PO QAM DELIO Stop: 03/10/24 08:59 Last Admin: 02/15/24 09:06 Dose: 225 mg Vitamin D (Cholecalciferol 25 Mcg (1000 Units) Tab) 25 mcg PO QAM DELIO Stop: 02/18/24 08:59 Last Admin: 02/15/24 09:05 Dose: 25 mcg Mental Health & Subst Abuse Tx Psychiatrist Name of Psychiatrist: Dr. Izquierdo Psychiatrist's Date Of Appointment With Psychiatric Provider: 02/22/24 Time of Appointment with Psychiatrist: 8:20AM Therapist Name of Therapist: Dr. Betito Beck Therapist's Date of Therapist Appointment: 02/23/24 Time of Therapist Appointment: 3PM Post Discharge Appointments Primary Care Physician Name Of Family Doctor/PCP: Dr. Otero Date of Future Appointment with PCP: every six months-next one June 2024
[2024-02-15] MEDS ORDERED: hydrOXYzine HCl 25 MG TAB PO PRN ×2 (20:31)
[2024-02-15] MEDS ORDERED: ALUMINUM/MAGNESIUM SUSP 30 ML UDC PO PRN (20:31)
[2024-02-15] MEDS ORDERED: BISMUTH SUBSALICYLATE 262 MG CHEW PO PRN (20:31)
[2024-02-15] MEDS ORDERED: ACETAMINOPHEN 325 MG TAB PO PRN (20:31)
[2024-02-15] MEDS ORDERED: SODIUM CHLORIDE 0.65% NA SOLN 45 ML (OCEAN) PRN (20:31)
[2024-02-15] MEDS ORDERED: MAGNESIUM HYDROXIDE SUSP 30 ML UDC PO PRN (20:31)
[2024-02-16] MEDS ORDERED: POLYETHYLENE (MIRALAX) 17 GM PACK PO PRN (09:21)
[2024-02-16] MEDS ORDERED: ONDANSETRON 4 MG OD TAB PO PRN (09:21)
[2024-02-16] MEDS: LORazepam 0.5 MG TAB PO SCH ×2 (10:13→21:12)
--- NOTE | 2024-02-16 13:56 | Psychiatric Progress Note ---
Date of Service February 16, 2024 Impression / Recommendations Impression DK GARLAND is 58-year-old man with a history of bipolar 1 disorder admitted on 01/16/24 18:56 on a 201 voluntary commitment for suicidal ideation with plan to shoot self with hunting rifle. Presentation consistent with bipolar disorder with major depressive episode. Patient presents mood episodes in late life with no behavioral health concerns in earlier years; late life bipolar is rare and continuing to r/o underlying causes, had outpatient neurology workup in the past after initial inpatient psychiatric admission without evidence for any cognitive changes. A: Patient continues to present a depressed affect with limited reactivity, continued hopelessness and suicidal ideation, and is unable to contract for safety if discharged at this time. He presents recent wishes. Worsening depression with decrease in sleep maintenance, appetite, motivation, energy. Increased crying spells. No notable improvement seen with venlafaxine XR and lurasidone and awaiting response. Patient is a good candidate for ECT given treatment resistance, severity of depression, suicidal ideation, escalation of symptoms. Overall, I spent a total of 30 minutes with this case including review of chart records, nursing report, review of lab work, direct evaluation of the patient at bedside, counseling the patient, multidisciplinary team meeting, orders, and documentation in the electronic health record. (1) Bipolar disorder with severe depression: (2) Hopelessness: (3) Elevated liver enzymes: Plan 02/16/2024: Continue medications and treatment plan. 02/15/2024: Continue medications and treatment plan. 02/14/2024: Increase lurasidone to 60 mg at dinner. Start lorazepam 0.25 mg in the morning and afternoon. Discontinue modafinil. 02/13/2024: Increase modafinil to 200 mg daily. 02/12/2024: Restart home rosuvastatin 2.5 mg at bedtime. 02/11/2024: * Discontinue Ritalin * Start modafinil 100mg daily 02/10/2024: * Discontinue lamictal 02/09/2024: * Increase Ritalin IR to 30mg qAM and 10mg qlunch 02/08/2024: * Increase Effexor XR to 225mg daily * Increase Ritalin IR to 15mg qAM and 5mg qlunch 02/07/2024: * Increase Ritalin IR to 10mg qAM * Decrease lamictal to 50mg HS 02/06/2024: * Discontinue [place] * Start Ritalin IR 5mg qAM 02/05/2024: * Decrease lamictal to 100mg HS * Decrease [place] to 150mg HS 02/04/2024: Continue medications and treatment plan 02/03/2024: Increase Effexor XR to 150 mg daily. Liver function test tomorrow morning. 02/02/2024: Decrease lithium to 300 mg at bedtime. Decrease lorazepam to 1.5 mg at bedtime. 02/01/2024: [place] level this evening. Continue medications and treatment plan. 01/31/2024: [place] to 450 mg at bedtime (discontinue a.m. dose). [place] level to be drawn tomorrow evening prior to nightly dose. 01/30/2024: Continue medications and treatment plan. [place] level in 2 days. 01/29/2024: Discontinue clonazepam, start lorazepam 2 mg at bedtime. Increase venlafaxine extended release 112.5 mg daily. Increase Colace to 200 mg twice daily. 01/28/2024: Continue current medications. May be able to increase Effexor XR again tomorrow. 01/27/2024: Discontinue clonidine. Increase [place] to 150mg qAM and 300mg HS. 01/26/2024: Increase Effexor XR to 75mg qAM tomorrow. Li level tomorrow AM. Add senna prn in addition to miralax and colace for constipation. 01/25/2024: Continue current meds and tx plan. 01/24/2024: Continue current meds and tx plan. 01/23/2024: -Start venlafaxine ER 37.5mg qAM -Decrease clonidine to 0.1 mg HS -Move Latuda to 40mg qdinner -Stop ativan at HS prn in favor of Klonopin HS prn for longer duration of action to help with sleep promotion -Continue ativan daily prn 01/22/2024: Continue current medications and tx plan. Will need [place] level in 4-6 days. 01/21/2024: Increase lurasidone to 40 mg daily. Stop cariprazine tomorrow morning. Increase lithium to 150 mg twice daily. Zofran ODT as needed started 01/20/24: Start clonidine 0.05 mg every morning. 01/19/24: [place] 150mg daily, Clonidine 0.1mg HS. 01/18/24: Continue medications and treatment plan 01/17/24: The patient was admitted to the [facility] ([facility] mental health unit) on q15 min checks (behavioral with suicide precautions) for safety. The patient will participate in group, recreational, and milieu therapies and will be offered additional individual and family sessions as clinically appropriate. -Decrease Cariprazine to 1.5mg daily -Start Luradisone 20mg daily with breakfast -Continue home Lamotrigine 150mg HS -Start Lamotrigine 50mg QAM -Hold home bupropion -Continue home Buspirone 20mg BID -Continue home Lorazepam 1mg HS PRN and 0.5mg daily PRN -Lab work: Vit D, Vit B12, HbA1C, Free/Total/Bioavailable Testosterone Inventory Assets Strengths: family support, fair insight Needs: medication management, improved self esteem Suicide Risk Level Suicide Risk Level: High-Moderate (q15 min suicide checks) (SI and severe depression with prominent hopelessness but feels safe in the hospital, no plan for SI in the hospital, feels able to ask for support if SI changed to plan or intent in the hospital) Risk Factors Assessment Male: Yes : Yes Do You Have Access To A Gun?: No Health Problems: Yes Mental Health Diagnoses: Yes Substance Use Disorders: No Previous Attempt: No Family History of Suicide: No Previous Psychiatric Hospitalization: Yes Hopelessness: Yes Protective Factors Assessment Voodoo Beliefs: Yes : Yes Responsible for Young Children: No 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 Chief Complaint "Feel the same, depressed" Review of Systems Sleep Information Total Hours of Sleep: 7.5 Sleep Comments: HS Buspar and Ativan Meal Information Percent Meal Consumed - Breakfast: 100 Percent Meal Consumed - Lunch: 100 Percent Meal Consumed - Dinner: 60 Subjective Subjective Patient was seen & assessed and interval progress reviewed with treatment team nursing and social work Overnight visited. Patient has been tearful. He reported suicidal ideation and wished that he were over coming to the hospital. He reports continued low mood, lack of hope, suicidal ideation. Feels that he will never get better. Reports lack of appetite and motivation. Does not feel safe at home in his current state. Reports Ativan during the day slightly helpful. He was updated about current plan for transfer to making ECT and addressed his concerns Physical Exam Mental Examination Appearance: Well Groomed Eye Contact: Maintains Eye Contact Motor Behavior: Unremarkable Speech: Soft Mood: Calm, Anxious and Sad Affect: Constricted, Sad and Withdrawn Thought Process: Intact, Linear and Racing Thought Content: Intact Hallucinations: None Insight: Fair (to limited) Judgement: Fair (to limited) Vital Signs (Past 24 Hours) Last Vital Signs Temp 36.8 C 02/16/24 06:35 Pulse 92 H 02/16/24 06:36 Resp 16 02/16/24 06:35 BP 126/80 02/16/24 06:36 Pulse Ox 95 02/07/24 06:54 O2 Del Method Room Air 02/07/24 06:54 Results & Data ([facility]) Current Inpatient Medications Current Inpatient Medications: Current Inpatient Medications Acetaminophen (Acetaminophen 325 Mg Tab) 650 mg PO Q4H PRN PRN Reason: Headache or Minor Fever Stop: 03/16/24 20:30 Al Hydrox/Mg Hydrox/Simethicone (Aluminum/Magnesium Susp 30 Ml Udc) 30 ml PO Q4H PRN PRN Reason: GI Upset Stop: 03/16/24 20:30 Bismuth Subsalicylate (Bismuth Subsalicylate 262 Mg Chew) 2 tab PO Q30M PRN PRN Reason: Loose Stool/Diarrhea Stop: 03/16/24 20:30 Docusate Sodium (Docusate Sodium 100 Mg Cap) 200 mg PO BID DELIO Stop: 02/28/24 20:59 Last Admin: 02/16/24 08:21 Dose: 200 mg Hydroxyzine HCl (Hydroxyzine Hcl 25 Mg Tab) 50 mg PO HSZ PRN PRN Reason: Insomnia Stop: 03/16/24 20:30 Hydroxyzine HCl (Hydroxyzine Hcl 25 Mg Tab) 25 mg PO Q4H PRN PRN Reason: Anxiety Stop: 03/16/24 20:30 Ibuprofen (Ibuprofen 200 Mg Tab) 400 mg PO Q6H PRN PRN Reason: Pain or Fever Stop: 03/14/24 09:47 Lorazepam (Lorazepam 0.5 Mg Tab) 0.5 mg PO DAILY@1000,1400 DELIO Stop: 03/17/24 09:59 Last Admin: 02/16/24 10:13 Dose: 0.5 mg Lorazepam (Lorazepam 0.5 Mg Tab) 1.5 mg PO HS DELIO Stop: 03/17/24 09:19 Lurasidone HCl (Lurasidone Hcl 20 Mg Tab) 60 mg PO DAILYBD DELIO Stop: 03/15/24 17:14 Last Admin: 02/15/24 17:55 Dose: 60 mg Magnesium Hydroxide (Magnesium Hydroxide Susp 30 Ml Udc) 30 ml PO DAILY PRN PRN Reason: Constipation Stop: 03/16/24 20:30 Ondansetron HCl (Ondansetron 4 Mg Od Tab) 4 mg PO Q6H PRN PRN Reason: Nausea Stop: 03/17/24 09:19 Polyethylene Glycol (Polyethylene (Miralax) 17 Gm Pack) 17 gm PO DAILY PRN PRN Reason: constipation Stop: 03/17/24 09:19 Rosuvastatin Calcium (Rosuvastatin Calcium 5 Mg Tab) 2.5 mg PO QPM DELIO Stop: 03/13/24 20:59 Last Admin: 02/15/24 21:48 Dose: 2.5 mg Sodium Chloride (Sodium Chloride 0.65% Na Soln 45 Ml ([place])) 1 - 2 sprays NA PRN PRN PRN Reason: Nasal Dryness/Congestion Stop: 03/16/24 20:30 Venlafaxine HCl (Venlafaxine Hcl Xr 75 Mg Capxr) 225 mg PO QAM DELIO Stop: 03/18/24 08:59 Vitamin D (Cholecalciferol 25 Mcg (1000 Units) Tab) 25 mcg PO QAM DELIO Stop: 02/18/24 08:59 Last Admin: 02/16/24 08:21 Dose: 25 mcg Mental Health & Subst Abuse Tx Psychiatrist Name of Psychiatrist: Dr. Izquierdo Psychiatrist's Date Of Appointment With Psychiatric Provider: 02/22/24 Time of Appointment with Psychiatrist: 8:20AM Therapist Name of Therapist: Dr. Betito Beck Therapist's Date of Therapist Appointment: 02/23/24 Time of Therapist Appointment: 3PM Post Discharge Appointments Primary Care Physician Name Of Family Doctor/PCP: Dr. Otero Date of Future Appointment with PCP: every six months-next one June 2024
[2024-02-17] MEDS: VENLAFAXINE HCL XR 75 MG CAPXR PO SCH (09:18)
--- NOTE | 2024-02-17 14:33 | Psychiatric Progress Note ---
Date of Service February 17, 2024 Impression / Recommendations Impression DK GARLAND is 58-year-old man with a history of bipolar 1 disorder admitted on 01/16/24 18:56 on a 201 voluntary commitment for suicidal ideation with plan to shoot self with hunting rifle. Presentation consistent with bipolar disorder with major depressive episode. Patient presents mood episodes in late life with no behavioral health concerns in earlier years; late life bipolar is rare and continuing to r/o underlying causes, had outpatient neurology workup in the past after initial inpatient psychiatric admission without evidence for any cognitive changes. A: Patient continues to present a depressed affect with limited reactivity, continued hopelessness and suicidal ideation, and is unable to contract for safety if discharged at this time. He presents recent wishes. Worsening depression with decrease in sleep maintenance, appetite, motivation, energy. Increased crying spells. Self care declining. No notable improvement seen with venlafaxine XR and lurasidone and awaiting response. Patient is a good candidate for ECT given treatment resistance despite many medication trials, severity of depression, suicidal ideation, escalation of symptoms. Overall, I spent a total of 30 minutes with this case including review of chart records, nursing report, review of lab work, direct evaluation of the patient at bedside, counseling the patient, multidisciplinary team meeting, orders, and documentation in the electronic health record. (1) Bipolar disorder with severe depression: (2) Hopelessness: (3) Elevated liver enzymes: Plan 02/17/2024: Continue medications and treatment plan 02/16/2024: Continue medications and treatment plan. 02/15/2024: Continue medications and treatment plan. 02/14/2024: Increase lurasidone to 60 mg at dinner. Start lorazepam 0.25 mg in the morning and afternoon. Discontinue modafinil. 02/13/2024: Increase modafinil to 200 mg daily. 02/12/2024: Restart home rosuvastatin 2.5 mg at bedtime. 02/11/2024: * Discontinue Ritalin * Start modafinil 100mg daily 02/10/2024: * Discontinue lamictal 02/09/2024: * Increase Ritalin IR to 30mg qAM and 10mg qlunch 02/08/2024: * Increase Effexor XR to 225mg daily * Increase Ritalin IR to 15mg qAM and 5mg qlunch 02/07/2024: * Increase Ritalin IR to 10mg qAM * Decrease lamictal to 50mg HS 02/06/2024: * Discontinue [place] * Start Ritalin IR 5mg qAM 02/05/2024: * Decrease lamictal to 100mg HS * Decrease [place] to 150mg HS 02/04/2024: Continue medications and treatment plan 02/03/2024: Increase Effexor XR to 150 mg daily. Liver function test tomorrow morning. 02/02/2024: Decrease lithium to 300 mg at bedtime. Decrease lorazepam to 1.5 mg at bedtime. 02/01/2024: [place] level this evening. Continue medications and treatment plan. 01/31/2024: [place] to 450 mg at bedtime (discontinue a.m. dose). [place] level to be drawn tomorrow evening prior to nightly dose. 01/30/2024: Continue medications and treatment plan. [place] level in 2 days. 01/29/2024: Discontinue clonazepam, start lorazepam 2 mg at bedtime. Increase venlafaxine extended release 112.5 mg daily. Increase Colace to 200 mg twice daily. 01/28/2024: Continue current medications. May be able to increase Effexor XR again tomorrow. 01/27/2024: Discontinue clonidine. Increase [place] to 150mg qAM and 300mg HS. 01/26/2024: Increase Effexor XR to 75mg qAM tomorrow. Li level tomorrow AM. Add senna prn in addition to miralax and colace for constipation. 01/25/2024: Continue current meds and tx plan. 01/24/2024: Continue current meds and tx plan. 01/23/2024: -Start venlafaxine ER 37.5mg qAM -Decrease clonidine to 0.1 mg HS -Move Latuda to 40mg qdinner -Stop ativan at HS prn in favor of Klonopin HS prn for longer duration of action to help with sleep promotion -Continue ativan daily prn 01/22/2024: Continue current medications and tx plan. Will need [place] level in 4-6 days. 01/21/2024: Increase lurasidone to 40 mg daily. Stop cariprazine tomorrow morning. Increase lithium to 150 mg twice daily. Zofran ODT as needed started 01/20/24: Start clonidine 0.05 mg every morning. 01/19/24: [place] 150mg daily, Clonidine 0.1mg HS. 01/18/24: Continue medications and treatment plan 01/17/24: The patient was admitted to the [facility] ([facility] health unit) on q15 min checks (behavioral with suicide precautions) for safety. The patient will participate in group, recreational, and milieu therapies and will be offered additional individual and family sessions as clinically appropriate. -Decrease Cariprazine to 1.5mg daily -Start Luradisone 20mg daily with breakfast -Continue home Lamotrigine 150mg HS -Start Lamotrigine 50mg QAM -Hold home bupropion -Continue home Buspirone 20mg BID -Continue home Lorazepam 1mg HS PRN and 0.5mg daily PRN -Lab work: Vit D, Vit B12, HbA1C, Free/Total/Bioavailable Testosterone Inventory Assets Strengths: family support, fair insight Needs: medication management, improved self esteem Suicide Risk Level Suicide Risk Level: High-Moderate (q15 min suicide checks) (SI and severe depression with prominent hopelessness but feels safe in the hospital, no plan for SI in the hospital, feels able to ask for support if SI changed to plan or intent in the hospital) Risk Factors Assessment Male: Yes : Yes Do You Have Access To A Gun?: No Health Problems: Yes Mental Health Diagnoses: Yes Substance Use Disorders: No Previous Attempt: No Family History of Suicide: No Previous Psychiatric Hospitalization: Yes Hopelessness: Yes Protective Factors Assessment Samaritan Beliefs: Yes : Yes Responsible for Young Children: No 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 Chief Complaint "Depressed" Review of Systems Sleep Information Total Hours of Sleep: 7.5 Sleep Comments: HS Buspar and Ativan Meal Information Percent Meal Consumed - Breakfast: 60 Percent Meal Consumed - Lunch: 100 Percent Meal Consumed - Dinner: 80 Subjective Subjective Patient was seen & assessed and interval progress reviewed with treatment team nursing and social work Patient complains of suicidal ideation and feeling hopeless. He presents a depressed affect with limited reactivity. He reports Ativan is slightly helpful "little bit better". Reports being hopeless worried he will not get better. Says that anxiety has been worse over this past week and he has lost motivation to even get out of bed. Does not have an appetite. Physical Exam Mental Examination Appearance: Disheveled (lowery, poor self care) Eye Contact: Maintains Eye Contact Motor Behavior: Unremarkable Speech: Soft Mood: Calm, Anxious and Sad Affect: Constricted, Sad and Withdrawn Thought Process: Intact, Linear and Racing Thought Content: Intact Hallucinations: None Insight: Fair (to limited) Judgement: Fair (to limited) Vital Signs (Past 24 Hours) Last Vital Signs Temp 36.9 C 02/17/24 06:40 Pulse 79 02/17/24 06:40 Resp 16 02/17/24 06:40 BP 135/79 02/17/24 06:40 Pulse Ox 95 02/07/24 06:54 O2 Del Method Room Air 02/07/24 06:54 Results & Data ([facility]) Current Inpatient Medications Current Inpatient Medications: Current Inpatient Medications Acetaminophen (Acetaminophen 325 Mg Tab) 650 mg PO Q4H PRN PRN Reason: Headache or Minor Fever Stop: 03/16/24 20:30 Al Hydrox/Mg Hydrox/Simethicone (Aluminum/Magnesium Susp 30 Ml Udc) 30 ml PO Q4H PRN PRN Reason: GI Upset Stop: 03/16/24 20:30 Bismuth Subsalicylate (Bismuth Subsalicylate 262 Mg Chew) 2 tab PO Q30M PRN PRN Reason: Loose Stool/Diarrhea Stop: 03/16/24 20:30 Docusate Sodium (Docusate Sodium 100 Mg Cap) 200 mg PO BID DELIO Stop: 02/28/24 20:59 Last Admin: 02/17/24 09:17 Dose: 200 mg Hydroxyzine HCl (Hydroxyzine Hcl 25 Mg Tab) 50 mg PO HSZ PRN PRN Reason: Insomnia Stop: 03/16/24 20:30 Hydroxyzine HCl (Hydroxyzine Hcl 25 Mg Tab) 25 mg PO Q4H PRN PRN Reason: Anxiety Stop: 03/16/24 20:30 Ibuprofen (Ibuprofen 200 Mg Tab) 400 mg PO Q6H PRN PRN Reason: Pain or Fever Stop: 03/14/24 09:47 Lorazepam (Lorazepam 0.5 Mg Tab) 0.5 mg PO DAILY@1000,1400 DELIO Stop: 03/17/24 09:59 Last Admin: 02/17/24 09:21 Dose: 0.5 mg Lorazepam (Lorazepam 0.5 Mg Tab) 1.5 mg PO HS DELIO Stop: 03/17/24 09:19 Last Admin: 02/16/24 21:12 Dose: 1.5 mg Lurasidone HCl (Lurasidone Hcl 20 Mg Tab) 60 mg PO DAILYBD DELIO Stop: 03/15/24 17:14 Last Admin: 02/16/24 17:29 Dose: 60 mg Magnesium Hydroxide (Magnesium Hydroxide Susp 30 Ml Udc) 30 ml PO DAILY PRN PRN Reason: Constipation Stop: 03/16/24 20:30 Ondansetron HCl (Ondansetron 4 Mg Od Tab) 4 mg PO Q6H PRN PRN Reason: Nausea Stop: 03/17/24 09:19 Polyethylene Glycol (Polyethylene (Miralax) 17 Gm Pack) 17 gm PO DAILY PRN PRN Reason: constipation Stop: 03/17/24 09:19 Rosuvastatin Calcium (Rosuvastatin Calcium 5 Mg Tab) 2.5 mg PO QPM DELIO Stop: 03/13/24 20:59 Last Admin: 02/16/24 21:11 Dose: 2.5 mg Sodium Chloride (Sodium Chloride 0.65% Na Soln 45 Ml ([place])) 1 - 2 sprays NA PRN PRN PRN Reason: Nasal Dryness/Congestion Stop: 03/16/24 20:30 Venlafaxine HCl (Venlafaxine Hcl Xr 75 Mg Capxr) 225 mg PO QAM DELIO Stop: 03/18/24 08:59 Last Admin: 02/17/24 09:18 Dose: 225 mg Vitamin D (Cholecalciferol 25 Mcg (1000 Units) Tab) 25 mcg PO QAM DELIO Stop: 02/18/24 08:59 Last Admin: 02/17/24 09:17 Dose: 25 mcg Mental Health & Subst Abuse Tx Psychiatrist Name of Psychiatrist: Dr. Izquierdo Psychiatrist's Date Of Appointment With Psychiatric Provider: 02/22/24 Time of Appointment with Psychiatrist: 8:20AM Therapist Name of Therapist: Dr. Betito Beck Therapist's Date of Therapist Appointment: 02/23/24 Time of Therapist Appointment: 3PM Post Discharge Appointments Primary Care Physician Name Of Family Doctor/PCP: Dr. Otero Date of Future Appointment with PCP: every six months-next one June 2024
--- NOTE | 2024-02-18 14:03 | Psychiatric Progress Note ---
Date of Service February 18, 2024 Impression / Recommendations Impression DK GARLAND is 58-year-old man with a history of bipolar 1 disorder admitted on 01/16/24 18:56 on a 201 voluntary commitment for suicidal ideation with plan to shoot self with hunting rifle. Presentation consistent with bipolar disorder with major depressive episode. Patient presents mood episodes in late life with no behavioral health concerns in earlier years; late life bipolar is rare and continuing to r/o underlying causes, had outpatient neurology workup in the past after initial inpatient psychiatric admission without evidence for any cognitive changes. A: Patient continues to present a depressed affect with limited reactivity, continued hopelessness and suicidal ideation, and is unable to contract for safety if discharged at this time. He presents recent wishes. Worsening depression with decrease in sleep maintenance, appetite, motivation, energy. Increased crying spells. Self care declining. No notable improvement seen with venlafaxine XR and lurasidone and awaiting response. Patient is a good candidate for ECT given treatment resistance despite many medication trials, severity of depression, suicidal ideation, escalation of symptoms. Overall, I spent a total of 20 minutes with this case including review of chart records, nursing report, review of lab work, direct evaluation of the patient at bedside, counseling the patient, multidisciplinary team meeting, orders, and documentation in the electronic health record. (1) Bipolar disorder with severe depression: (2) Hopelessness: (3) Elevated liver enzymes: Plan 02/18/2024: Continue medications and treatment plan 02/17/2024: Continue medications and treatment plan 02/16/2024: Continue medications and treatment plan. 02/15/2024: Continue medications and treatment plan. 02/14/2024: Increase lurasidone to 60 mg at dinner. Start lorazepam 0.25 mg in the morning and afternoon. Discontinue modafinil. 02/13/2024: Increase modafinil to 200 mg daily. 02/12/2024: Restart home rosuvastatin 2.5 mg at bedtime. 02/11/2024: * Discontinue Ritalin * Start modafinil 100mg daily 02/10/2024: * Discontinue lamictal 02/09/2024: * Increase Ritalin IR to 30mg qAM and 10mg qlunch 02/08/2024: * Increase Effexor XR to 225mg daily * Increase Ritalin IR to 15mg qAM and 5mg qlunch 02/07/2024: * Increase Ritalin IR to 10mg qAM * Decrease lamictal to 50mg HS 02/06/2024: * Discontinue Luck * Start Ritalin IR 5mg qAM 02/05/2024: * Decrease lamictal to 100mg HS * Decrease Luck to 150mg HS 02/04/2024: Continue medications and treatment plan 02/03/2024: Increase Effexor XR to 150 mg daily. Liver function test tomorrow morning. 02/02/2024: Decrease lithium to 300 mg at bedtime. Decrease lorazepam to 1.5 mg at bedtime. 02/01/2024: Luck level this evening. Continue medications and treatment plan. 01/31/2024: Luck to 450 mg at bedtime (discontinue a.m. dose). Luck level to be drawn tomorrow evening prior to nightly dose. 01/30/2024: Continue medications and treatment plan. Luck level in 2 days. 01/29/2024: Discontinue clonazepam, start lorazepam 2 mg at bedtime. Increase venlafaxine extended release 112.5 mg daily. Increase Colace to 200 mg twice daily. 01/28/2024: Continue current medications. May be able to increase Effexor XR again tomorrow. 01/27/2024: Discontinue clonidine. Increase Luck to 150mg qAM and 300mg HS. 01/26/2024: Increase Effexor XR to 75mg qAM tomorrow. Li level tomorrow AM. Add senna prn in addition to miralax and colace for constipation. 01/25/2024: Continue current meds and tx plan. 01/24/2024: Continue current meds and tx plan. 01/23/2024: -Start venlafaxine ER 37.5mg qAM -Decrease clonidine to 0.1 mg HS -Move Latuda to 40mg qdinner -Stop ativan at HS prn in favor of Klonopin HS prn for longer duration of action to help with sleep promotion -Continue ativan daily prn 01/22/2024: Continue current medications and tx plan. Will need Luck level in 4-6 days. 01/21/2024: Increase lurasidone to 40 mg daily. Stop cariprazine tomorrow morning. Increase lithium to 150 mg twice daily. Zofran ODT as needed started 01/20/24: Start clonidine 0.05 mg every morning. 01/19/24: Luck 150mg daily, Clonidine 0.1mg HS. 01/18/24: Continue medications and treatment plan 01/17/24: The patient was admitted to the [facility] ([facility]) on q15 min checks (behavioral with suicide precautions) for safety. The patient will participate in group, recreational, and milieu therapies and will be offered additional individual and family sessions as clinically appropriate. -Decrease Cariprazine to 1.5mg daily -Start Luradisone 20mg daily with breakfast -Continue home Lamotrigine 150mg HS -Start Lamotrigine 50mg QAM -Hold home bupropion -Continue home Buspirone 20mg BID -Continue home Lorazepam 1mg HS PRN and 0.5mg daily PRN -Lab work: Vit D, Vit B12, HbA1C, Free/Total/Bioavailable Testosterone Inventory Assets Strengths: family support, fair insight Needs: medication management, improved self esteem Suicide Risk Level Suicide Risk Level: High-Moderate (q15 min suicide checks) (SI and severe depression with prominent hopelessness but feels safe in the hospital, no plan for SI in the hospital, feels able to ask for support if SI changed to plan or intent in the hospital) Risk Factors Assessment Male: Yes : Yes Do You Have Access To A Gun?: No Health Problems: Yes Mental Health Diagnoses: Yes Substance Use Disorders: No Previous Attempt: No Family History of Suicide: No Previous Psychiatric Hospitalization: Yes Hopelessness: Yes Protective Factors Assessment Mu-Ism Beliefs: Yes : Yes Responsible for Young Children: No 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 Chief Complaint "The same" Review of Systems Sleep Information Total Hours of Sleep: 7 Sleep Comments: HS Buspar and Ativan Meal Information Percent Meal Consumed - Breakfast: 100 Percent Meal Consumed - Lunch: 100 Percent Meal Consumed - Dinner: 70 Subjective Subjective Patient was seen & assessed and interval progress reviewed with treatment team nursing and social work Patient presents a depressed affect with limited reactivity. Complains of suicidal ideation and hopelessness. Fear of the unknown about whether he will be able to get ECT. Reports sleep was broken overnight. Says that he feels Ativan helps slightly during the day. Continues to feel "weary" Physical Exam Mental Examination Appearance: Disheveled (lowery, poor self care) Eye Contact: Maintains Eye Contact Motor Behavior: Unremarkable Speech: Soft Mood: Calm, Anxious and Sad Affect: Constricted, Sad and Withdrawn Thought Process: Intact, Linear and Racing Thought Content: Intact Hallucinations: None Insight: Fair (to limited) Judgement: Fair (to limited) Vital Signs (Past 24 Hours) Last Vital Signs Temp 36.7 C 02/18/24 06:31 Pulse 93 H 02/18/24 06:31 Resp 16 02/18/24 06:31 BP 119/77 02/18/24 06:31 Pulse Ox 95 02/07/24 06:54 O2 Del Method Room Air 02/07/24 06:54 Results & Data ([facility]) Current Inpatient Medications Current Inpatient Medications: Current Inpatient Medications Acetaminophen (Acetaminophen 325 Mg Tab) 650 mg PO Q4H PRN PRN Reason: Headache or Minor Fever Stop: 03/16/24 20:30 Al Hydrox/Mg Hydrox/Simethicone (Aluminum/Magnesium Susp 30 Ml Udc) 30 ml PO Q4H PRN PRN Reason: GI Upset Stop: 03/16/24 20:30 Bismuth Subsalicylate (Bismuth Subsalicylate 262 Mg Chew) 2 tab PO Q30M PRN PRN Reason: Loose Stool/Diarrhea Stop: 03/16/24 20:30 Docusate Sodium (Docusate Sodium 100 Mg Cap) 200 mg PO BID DELIO Stop: 02/28/24 20:59 Last Admin: 02/18/24 08:25 Dose: 200 mg Hydroxyzine HCl (Hydroxyzine Hcl 25 Mg Tab) 50 mg PO HSZ PRN PRN Reason: Insomnia Stop: 03/16/24 20:30 Hydroxyzine HCl (Hydroxyzine Hcl 25 Mg Tab) 25 mg PO Q4H PRN PRN Reason: Anxiety Stop: 03/16/24 20:30 Ibuprofen (Ibuprofen 200 Mg Tab) 400 mg PO Q6H PRN PRN Reason: Pain or Fever Stop: 03/14/24 09:47 Lorazepam (Lorazepam 0.5 Mg Tab) 0.5 mg PO DAILY@1000,1400 DELIO Stop: 03/17/24 09:59 Last Admin: 02/18/24 10:31 Dose: 0.5 mg Lorazepam (Lorazepam 0.5 Mg Tab) 1.5 mg PO HS DELIO Stop: 03/17/24 09:19 Last Admin: 02/17/24 21:24 Dose: 1.5 mg Lurasidone HCl (Lurasidone Hcl 20 Mg Tab) 60 mg PO DAILYBD DELIO Stop: 03/15/24 17:14 Last Admin: 02/17/24 17:37 Dose: 60 mg Magnesium Hydroxide (Magnesium Hydroxide Susp 30 Ml Udc) 30 ml PO DAILY PRN PRN Reason: Constipation Stop: 03/16/24 20:30 Ondansetron HCl (Ondansetron 4 Mg Od Tab) 4 mg PO Q6H PRN PRN Reason: Nausea Stop: 03/17/24 09:19 Polyethylene Glycol (Polyethylene (Miralax) 17 Gm Pack) 17 gm PO DAILY PRN PRN Reason: constipation Stop: 03/17/24 09:19 Rosuvastatin Calcium (Rosuvastatin Calcium 5 Mg Tab) 2.5 mg PO QPM DELIO Stop: 03/13/24 20:59 Last Admin: 02/17/24 21:23 Dose: 2.5 mg Sodium Chloride (Sodium Chloride 0.65% Na Soln 45 Ml ([place])) 1 - 2 sprays NA PRN PRN PRN Reason: Nasal Dryness/Congestion Stop: 03/16/24 20:30 Venlafaxine HCl (Venlafaxine Hcl Xr 75 Mg Capxr) 225 mg PO QAM DELIO Stop: 03/18/24 08:59 Last Admin: 02/18/24 08:25 Dose: 225 mg Mental Health & Subst Abuse Tx Psychiatrist Name of Psychiatrist: Dr. Izquierdo Psychiatrist's Date Of Appointment With Psychiatric Provider: 03/28/2024 Time of Appointment with Psychiatrist: 8:20AM Therapist Name of Therapist: Dr. Betito Beck Therapist's Date of Therapist Appointment: 03/14 Time of Therapist Appointment: 9AM Post Discharge Appointments Primary Care Physician Name Of Family Doctor/PCP: Dr. Otero Date of Future Appointment with PCP: every six months-next one June 2024
--- NOTE | 2024-02-19 09:10 | Psychiatric Progress Note ---
Date of Service February 19, 2024 Impression / Recommendations Impression DK GARLAND is 58-year-old man with a history of bipolar 1 disorder admitted on 01/16/24 18:56 on a 201 voluntary commitment for suicidal ideation with plan to shoot self with hunting rifle. Presentation consistent with bipolar disorder with major depressive episode. Patient presents mood episodes in late life with no behavioral health concerns in earlier years; late life bipolar is rare and continuing to r/o underlying causes, had outpatient neurology workup in the past after initial inpatient psychiatric admission without evidence for any cognitive changes. A: Ongoing severe depression, increasing hopelessness as time goes on as he feels like anything can help him. He remains willing for ECT which is the recommended treatment at this time due to multiple prior medications trials without benefit (Depakote, Roseto, lamictal, multiple antipsychotics- olanzapine, Seroquel, Vraylar, Abilify, risperidone, citalopram, Wellbutrin, Ritalin, modafinil). Will start mirtazapine for additional depression benefits and to help with appetite. He consents to this, reviewed side effects including but not limited to: sedation, weight gain. [facility], awaiting review by physician. Overall, I spent a total of 45 minutes on this case including meeting with the patient, reviewing the chart, nursing report, multidisciplinary team meeting, orders, and documentation. (1) Bipolar disorder with severe depression: (2) Hopelessness: (3) Elevated liver enzymes: (4) Suicidal ideations: Plan 02/19/2024: Start mirtazapine 15mg HS 02/18/2024: Continue medications and treatment plan 02/17/2024: Continue medications and treatment plan 02/16/2024: Continue medications and treatment plan. 02/15/2024: Continue medications and treatment plan. 02/14/2024: Increase lurasidone to 60 mg at dinner. Start lorazepam 0.25 mg in the morning and afternoon. Discontinue modafinil. 02/13/2024: Increase modafinil to 200 mg daily. 02/12/2024: Restart home rosuvastatin 2.5 mg at bedtime. 02/11/2024: * Discontinue Ritalin * Start modafinil 100mg daily 02/10/2024: * Discontinue lamictal 02/09/2024: * Increase Ritalin IR to 30mg qAM and 10mg qlunch 02/08/2024: * Increase Effexor XR to 225mg daily * Increase Ritalin IR to 15mg qAM and 5mg qlunch 02/07/2024: * Increase Ritalin IR to 10mg qAM * Decrease lamictal to 50mg HS 02/06/2024: * Discontinue Roseto * Start Ritalin IR 5mg qAM 02/05/2024: * Decrease lamictal to 100mg HS * Decrease Roseto to 150mg HS 02/04/2024: Continue medications and treatment plan 02/03/2024: Increase Effexor XR to 150 mg daily. Liver function test tomorrow morning. 02/02/2024: Decrease lithium to 300 mg at bedtime. Decrease lorazepam to 1.5 mg at bedtime. 02/01/2024: Roseto level this evening. Continue medications and treatment plan. 01/31/2024: Roseto to 450 mg at bedtime (discontinue a.m. dose). Roseto level to be drawn tomorrow evening prior to nightly dose. 01/30/2024: Continue medications and treatment plan. Roseto level in 2 days. 01/29/2024: Discontinue clonazepam, start lorazepam 2 mg at bedtime. Increase venlafaxine extended release 112.5 mg daily. Increase Colace to 200 mg twice daily. 01/28/2024: Continue current medications. May be able to increase Effexor XR again tomorrow. 01/27/2024: Discontinue clonidine. Increase Roseto to 150mg qAM and 300mg HS. 01/26/2024: Increase Effexor XR to 75mg qAM tomorrow. Li level tomorrow AM. Add senna prn in addition to miralax and colace for constipation. 01/25/2024: Continue current meds and tx plan. 01/24/2024: Continue current meds and tx plan. 01/23/2024: -Start venlafaxine ER 37.5mg qAM -Decrease clonidine to 0.1 mg HS -Move Latuda to 40mg qdinner -Stop ativan at HS prn in favor of Klonopin HS prn for longer duration of action to help with sleep promotion -Continue ativan daily prn 01/22/2024: Continue current medications and tx plan. Will need Roseto level in 4-6 days. 01/21/2024: Increase lurasidone to 40 mg daily. Stop cariprazine tomorrow morning. Increase lithium to 150 mg twice daily. Zofran ODT as needed started 01/20/24: Start clonidine 0.05 mg every morning. 01/19/24: Roseto 150mg daily, Clonidine 0.1mg HS. 01/18/24: Continue medications and treatment plan 01/17/24: The patient was admitted to the [facility] on q15 min checks (behavioral with suicide precautions) for safety. The patient will participate in group, recreational, and milieu therapies and will be offered additional individual and family sessions as clinically appropriate. -Decrease Cariprazine to 1.5mg daily -Start Luradisone 20mg daily with breakfast -Continue home Lamotrigine 150mg HS -Start Lamotrigine 50mg QAM -Hold home bupropion -Continue home Buspirone 20mg BID -Continue home Lorazepam 1mg HS PRN and 0.5mg daily PRN -Lab work: Vit D, Vit B12, HbA1C, Free/Total/Bioavailable Testosterone Inventory Assets Strengths: family support, fair insight Needs: medication management, improved self esteem Suicide Risk Level Suicide Risk Level: High-Moderate (q15 min suicide checks) (SI and severe depression with prominent hopelessness but feels safe in the hospital, no plan for SI in the hospital, feels able to ask for support if SI changed to plan or intent in the hospital) Risk Factors Assessment Male: Yes : Yes Do You Have Access To A Gun?: No Health Problems: Yes Mental Health Diagnoses: Yes Substance Use Disorders: No Previous Attempt: No Family History of Suicide: No Previous Psychiatric Hospitalization: Yes Hopelessness: Yes Protective Factors Assessment Adventism Beliefs: Yes : Yes Responsible for Young Children: No 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 Chief Complaint "I feel like a non-person". Review of Systems Sleep Information Total Hours of Sleep: 7.30 Sleep Comments: HS Ativan Meal Information Percent Meal Consumed - Breakfast: 100 Percent Meal Consumed - Lunch: 100 Percent Meal Consumed - Dinner: 75 Subjective Subjective Patient was seen & assessed and interval progress reviewed with treatment team nursing and social work. Presents as very depressed, withdrawn, and very low energy. More delayed in his responses. Today reports increasing hopelessness and worthlessness. Feels he is losing his sense of self. Notes that he feels like he's "given up" and continues to struggle with concentration (had to send his home with his books, can only read some magazines), "tougher" to shower (but is trying to force himself every morning), and decreasing appetite. He thinks the additional lorazepam during the day is "maybe" helping a little bit. Remains willing for ECT. Physical Exam Psychiatric Orientation: alert and oriented x 3 Apperance: appropriately dressed and appropriately groomed Eye Contact: + poor eye contact Motor Behavior: steady gait and station and + psychomotor retardation (walks slowly) Speech: + abnormal rate/rhythm/volume of speech (soft, latent ) Affect: + depressed affect and + flat affect Mood: + depressed mood Thought Process: + thought blocking and + circumstantial thought process Thought Content: + cognitive distortions, reality based without delusions, + hopelessness, + worthlessness and + guilt Suicidal Thoughts: denies suicidal plan (none for hospital, feels he would act if at home); + reports suicidal thoughts Homicidal Thoughts: denies homicidal thoughts Hallucinations: no auditory hallucinations and no visual hallucinations Cognition: recent memory grossly intact, remote memory grossly intact, attention grossly intact and language grossly intact Estimated Intelligence: consistent with education level Insight: + limited insight Judgment: + limited judgement Vital Signs (Past 24 Hours) Last Vital Signs Temp 36.9 C 02/19/24 06:53 Pulse 84 02/19/24 06:53 Resp 16 02/19/24 06:53 BP 114/75 02/19/24 06:54 Pulse Ox 95 02/19/24 06:53 O2 Del Method Room Air 02/19/24 06:53 Results & Data ([facility]) Current Inpatient Medications Current Inpatient Medications: Current Inpatient Medications Acetaminophen (Acetaminophen 325 Mg Tab) 650 mg PO Q4H PRN PRN Reason: Headache or Minor Fever Stop: 03/16/24 20:30 Al Hydrox/Mg Hydrox/Simethicone (Aluminum/Magnesium Susp 30 Ml Udc) 30 ml PO Q4H PRN PRN Reason: GI Upset Stop: 03/16/24 20:30 Bismuth Subsalicylate (Bismuth Subsalicylate 262 Mg Chew) 2 tab PO Q30M PRN PRN Reason: Loose Stool/Diarrhea Stop: 03/16/24 20:30 Docusate Sodium (Docusate Sodium 100 Mg Cap) 200 mg PO BID DELIO Stop: 02/28/24 20:59 Last Admin: 02/19/24 09:05 Dose: 200 mg Hydroxyzine HCl (Hydroxyzine Hcl 25 Mg Tab) 50 mg PO HSZ PRN PRN Reason: Insomnia Stop: 03/16/24 20:30 Hydroxyzine HCl (Hydroxyzine Hcl 25 Mg Tab) 25 mg PO Q4H PRN PRN Reason: Anxiety Stop: 03/16/24 20:30 Ibuprofen (Ibuprofen 200 Mg Tab) 400 mg PO Q6H PRN PRN Reason: Pain or Fever Stop: 03/14/24 09:47 Lorazepam (Lorazepam 0.5 Mg Tab) 0.5 mg PO DAILY@1000,1400 DELIO Stop: 03/17/24 09:59 Last Admin: 02/18/24 15:09 Dose: 0.5 mg Lorazepam (Lorazepam 0.5 Mg Tab) 1.5 mg PO HS DELIO Stop: 03/17/24 09:19 Last Admin: 02/18/24 21:29 Dose: 1.5 mg Lurasidone HCl (Lurasidone Hcl 20 Mg Tab) 60 mg PO DAILYBD DELIO Stop: 03/15/24 17:14 Last Admin: 02/18/24 17:20 Dose: 60 mg Magnesium Hydroxide (Magnesium Hydroxide Susp 30 Ml Udc) 30 ml PO DAILY PRN PRN Reason: Constipation Stop: 03/16/24 20:30 Ondansetron HCl (Ondansetron 4 Mg Od Tab) 4 mg PO Q6H PRN PRN Reason: Nausea Stop: 03/17/24 09:19 Polyethylene Glycol (Polyethylene (Miralax) 17 Gm Pack) 17 gm PO DAILY PRN PRN Reason: constipation Stop: 03/17/24 09:19 Rosuvastatin Calcium (Rosuvastatin Calcium 5 Mg Tab) 2.5 mg PO QPM DELIO Stop: 03/13/24 20:59 Last Admin: 02/18/24 21:31 Dose: 2.5 mg Sodium Chloride (Sodium Chloride 0.65% Na Soln 45 Ml ([place])) 1 - 2 sprays NA PRN PRN PRN Reason: Nasal Dryness/Congestion Stop: 03/16/24 20:30 Venlafaxine HCl (Venlafaxine Hcl Xr 75 Mg Capxr) 225 mg PO QAM DELIO Stop: 03/18/24 08:59 Last Admin: 02/19/24 09:05 Dose: 225 mg Mental Health & Subst Abuse Tx Psychiatrist Name of Psychiatrist: Dr. Izquierdo Psychiatrist's Date Of Appointment With Psychiatric Provider: 03/28/2024 Time of Appointment with Psychiatrist: 8:20AM Therapist Name of Therapist: Dr. Betito Beck Therapist's Date of Therapist Appointment: 03/14 Time of Therapist Appointment: 9AM Post Discharge Appointments Primary Care Physician Name Of Family Doctor/PCP: Dr. Otero Date of Future Appointment with PCP: every six months-next one June 2024
[2024-02-19] MEDS: MIRTAZAPINE TAB 15 MG TAB PO SCH (21:05)
--- NOTE | 2024-02-20 08:54 | Psychiatric Progress Note ---
Date of Service February 20, 2024 Impression / Recommendations Impression DK GARLAND is 58-year-old man with a history of bipolar 1 disorder admitted on 01/16/24 18:56 on a 201 voluntary commitment for suicidal ideation with plan to shoot self with hunting rifle. Presentation consistent with bipolar disorder with major depressive episode. Patient presents mood episodes in late life with no behavioral health concerns in earlier years; late life bipolar is rare and continuing to r/o underlying causes, had outpatient neurology workup in the past after initial inpatient psychiatric admission without evidence for any cognitive changes. A: Ongoing severe depression, hopelessness, anxiety with SI. He remains willing for ECT which is the recommended treatment at this time due to multiple prior medications trials without benefit (Depakote, Ruth, lamictal, multiple antipsychotics-olanzapine, Seroquel, Vraylar, Abilify, risperidone, citalopram, Wellbutrin, Ritalin, modafinil). Tolerating initial dose of mirtazapine, unclear if causing some sedation/fogginess today. ECT referral placed to [facility] [place], awaiting review by physician. Overall, I spent a total of 40 minutes on this case including meeting with the patient, reviewing the chart, nursing report, multidisciplinary team meeting, orders, and documentation. (1) Bipolar disorder with severe depression: (2) Hopelessness: (3) Elevated liver enzymes: (4) Suicidal ideations: Plan 02/20/2024: Continue current medications and tx plan. Will check in re: ECT update for timeline with [facility] tomorrow morning. 02/19/2024: Start mirtazapine 15mg HS 02/18/2024: Continue medications and treatment plan 02/17/2024: Continue medications and treatment plan 02/16/2024: Continue medications and treatment plan. 02/15/2024: Continue medications and treatment plan. 02/14/2024: Increase lurasidone to 60 mg at dinner. Start lorazepam 0.25 mg in the morning and afternoon. Discontinue modafinil. 02/13/2024: Increase modafinil to 200 mg daily. 02/12/2024: Restart home rosuvastatin 2.5 mg at bedtime. 02/11/2024: * Discontinue Ritalin * Start modafinil 100mg daily 02/10/2024: * Discontinue lamictal 02/09/2024: * Increase Ritalin IR to 30mg qAM and 10mg qlunch 02/08/2024: * Increase Effexor XR to 225mg daily * Increase Ritalin IR to 15mg qAM and 5mg qlunch 02/07/2024: * Increase Ritalin IR to 10mg qAM * Decrease lamictal to 50mg HS 02/06/2024: * Discontinue Ruth * Start Ritalin IR 5mg qAM 02/05/2024: * Decrease lamictal to 100mg HS * Decrease Ruth to 150mg HS 02/04/2024: Continue medications and treatment plan 02/03/2024: Increase Effexor XR to 150 mg daily. Liver function test tomorrow morning. 02/02/2024: Decrease lithium to 300 mg at bedtime. Decrease lorazepam to 1.5 mg at bedtime. 02/01/2024: Ruth level this evening. Continue medications and treatment plan. 01/31/2024: Ruth to 450 mg at bedtime (discontinue a.m. dose). Ruth level to be drawn tomorrow evening prior to nightly dose. 01/30/2024: Continue medications and treatment plan. Ruth level in 2 days. 01/29/2024: Discontinue clonazepam, start lorazepam 2 mg at bedtime. Increase venlafaxine extended release 112.5 mg daily. Increase Colace to 200 mg twice daily. 01/28/2024: Continue current medications. May be able to increase Effexor XR again tomorrow. 01/27/2024: Discontinue clonidine. Increase Ruth to 150mg qAM and 300mg HS. 01/26/2024: Increase Effexor XR to 75mg qAM tomorrow. Li level tomorrow AM. Add senna prn in addition to miralax and colace for constipation. 01/25/2024: Continue current meds and tx plan. 01/24/2024: Continue current meds and tx plan. 01/23/2024: -Start venlafaxine ER 37.5mg qAM -Decrease clonidine to 0.1 mg HS -Move Latuda to 40mg qdinner -Stop ativan at HS prn in favor of Klonopin HS prn for longer duration of action to help with sleep promotion -Continue ativan daily prn 01/22/2024: Continue current medications and tx plan. Will need Ruth level in 4-6 days. 01/21/2024: Increase lurasidone to 40 mg daily. Stop cariprazine tomorrow morning. Increase lithium to 150 mg twice daily. Zofran ODT as needed started 01/20/24: Start clonidine 0.05 mg every morning. 01/19/24: Ruth 150mg daily, Clonidine 0.1mg HS. 01/18/24: Continue medications and treatment plan 01/17/24: The patient was admitted to the [facility] ([facility] mental health unit) on q15 min checks (behavioral with suicide precautions) for safety. The patient will participate in group, recreational, and milieu therapies and will be offered additional individual and family sessions as clinically appropriate. -Decrease Cariprazine to 1.5mg daily -Start Luradisone 20mg daily with breakfast -Continue home Lamotrigine 150mg HS -Start Lamotrigine 50mg QAM -Hold home bupropion -Continue home Buspirone 20mg BID -Continue home Lorazepam 1mg HS PRN and 0.5mg daily PRN -Lab work: Vit D, Vit B12, HbA1C, Free/Total/Bioavailable Testosterone Inventory Assets Strengths: family support, fair insight Needs: medication management, improved self esteem Suicide Risk Level Suicide Risk Level: High-Moderate (q15 min suicide checks) (SI and severe depression with prominent hopelessness but feels safe in the hospital, no plan for SI in the hospital, feels able to ask for support if SI changed to plan or intent in the hospital) Risk Factors Assessment Male: Yes : Yes Do You Have Access To A Gun?: No Health Problems: Yes Mental Health Diagnoses: Yes Substance Use Disorders: No Previous Attempt: No Family History of Suicide: No Previous Psychiatric Hospitalization: Yes Hopelessness: Yes Protective Factors Assessment Adventism Beliefs: Yes : Yes Responsible for Young Children: No 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 Chief Complaint "I'm grasping at what my emotion is, I don't seem able to find it". Review of Systems Sleep Information Total Hours of Sleep: 7.45 Sleep Comments: HS [place] and [place] Meal Information Percent Meal Consumed - Breakfast: 100 Percent Meal Consumed - Lunch: 70 Percent Meal Consumed - Dinner: 70 Subjective Subjective Patient was seen & assessed and interval progress reviewed with treatment team nursing and social work. More isolative to his room last evening. Visited with his . Today reports feeling "uncertain" and "odd". Continues to find he "worries all the time". Ongoing SI. Feels a little tired today but attributes this to lying back in bed this morning before moving around more. Feels he slept well with the mirtazapine. Physical Exam Psychiatric Orientation: alert and oriented x 3 Apperance: appropriately dressed and appropriately groomed Eye Contact: + poor eye contact Motor Behavior: steady gait and station and + psychomotor retardation (walks slowly) Speech: + abnormal rate/rhythm/volume of speech (soft, latent ) Affect: + depressed affect and + flat affect Mood: + depressed mood and + anxious mood Thought Process: + thought blocking and + circumstantial thought process Thought Content: + cognitive distortions, reality based without delusions, + hopelessness, + worthlessness and + guilt Suicidal Thoughts: denies suicidal plan (none for hospital, feels he would act if at home); + reports suicidal thoughts Homicidal Thoughts: denies homicidal thoughts Hallucinations: no auditory hallucinations and no visual hallucinations Cognition: recent memory grossly intact, remote memory grossly intact, attention grossly intact and language grossly intact Estimated Intelligence: consistent with education level Insight: + limited insight Judgment: + limited judgement Vital Signs (Past 24 Hours) Last Vital Signs Temp 36.6 C 02/20/24 06:51 Pulse 78 02/20/24 06:51 Resp 16 02/20/24 06:51 BP 126/74 02/20/24 06:51 Pulse Ox 95 02/20/24 06:51 O2 Del Method Room Air 02/20/24 06:51 Results & Data (U) Current Inpatient Medications Current Inpatient Medications: Current Inpatient Medications Acetaminophen (Acetaminophen 325 Mg Tab) 650 mg PO Q4H PRN PRN Reason: Headache or Minor Fever Stop: 03/16/24 20:30 Al Hydrox/Mg Hydrox/Simethicone (Aluminum/Magnesium Susp 30 Ml Udc) 30 ml PO Q4H PRN PRN Reason: GI Upset Stop: 03/16/24 20:30 Bismuth Subsalicylate (Bismuth Subsalicylate 262 Mg Chew) 2 tab PO Q30M PRN PRN Reason: Loose Stool/Diarrhea Stop: 03/16/24 20:30 Docusate Sodium (Docusate Sodium 100 Mg Cap) 200 mg PO BID DELIO Stop: 02/28/24 20:59 Last Admin: 02/19/24 21:05 Dose: 200 mg Hydroxyzine HCl (Hydroxyzine Hcl 25 Mg Tab) 50 mg PO HSZ PRN PRN Reason: Insomnia Stop: 03/16/24 20:30 Hydroxyzine HCl (Hydroxyzine Hcl 25 Mg Tab) 25 mg PO Q4H PRN PRN Reason: Anxiety Stop: 03/16/24 20:30 Ibuprofen (Ibuprofen 200 Mg Tab) 400 mg PO Q6H PRN PRN Reason: Pain or Fever Stop: 03/14/24 09:47 Lorazepam (Lorazepam 0.5 Mg Tab) 0.5 mg PO DAILY@1000,1400 DELIO Stop: 03/17/24 09:59 Last Admin: 02/19/24 15:00 Dose: 0.5 mg Lorazepam (Lorazepam 0.5 Mg Tab) 1.5 mg PO HS DELIO Stop: 03/17/24 09:19 Last Admin: 02/19/24 21:05 Dose: 1.5 mg Lurasidone HCl (Lurasidone Hcl 20 Mg Tab) 60 mg PO DAILYBD DELIO Stop: 03/15/24 17:14 Last Admin: 02/19/24 17:39 Dose: 60 mg Magnesium Hydroxide (Magnesium Hydroxide Susp 30 Ml Udc) 30 ml PO DAILY PRN PRN Reason: Constipation Stop: 03/16/24 20:30 Mirtazapine (Mirtazapine Tab 15 Mg Tab) 15 mg PO HS DELIO Stop: 03/20/24 21:59 Last Admin: 02/19/24 21:05 Dose: 15 mg Ondansetron HCl (Ondansetron 4 Mg Od Tab) 4 mg PO Q6H PRN PRN Reason: Nausea Stop: 03/17/24 09:19 Polyethylene Glycol (Polyethylene (Miralax) 17 Gm Pack) 17 gm PO DAILY DELIO Stop: 03/21/24 08:59 Rosuvastatin Calcium (Rosuvastatin Calcium 5 Mg Tab) 2.5 mg PO QPM DELIO Stop: 03/13/24 20:59 Last Admin: 02/19/24 21:05 Dose: 2.5 mg Sodium Chloride (Sodium Chloride 0.65% Na Soln 45 Ml ([place])) 1 - 2 sprays NA PRN PRN PRN Reason: Nasal Dryness/Congestion Stop: 03/16/24 20:30 Venlafaxine HCl (Venlafaxine Hcl Xr 75 Mg Capxr) 225 mg PO QAM DELIO Stop: 03/18/24 08:59 Last Admin: 02/19/24 09:05 Dose: 225 mg Mental Health & Subst Abuse Tx Psychiatrist Name of Psychiatrist: Dr. Izquierdo Psychiatrist's Date Of Appointment With Psychiatric Provider: 03/28/2024 Time of Appointment with Psychiatrist: 8:20AM Therapist Name of Therapist: Dr. Betito Beck Therapist's Date of Therapist Appointment: 03/14 Time of Therapist Appointment: 9AM Post Discharge Appointments Primary Care Physician Name Of Family Doctor/PCP: Dr. Otero Date of Future Appointment with PCP: every six months-next one June 2024
[2024-02-20] MEDS: POLYETHYLENE (MIRALAX) 17 GM PACK PO SCH (09:17)
--- NOTE | 2024-02-21 08:43 | Psychiatric Progress Note ---
Date of Service February 21, 2024 Impression / Recommendations Impression DK GARLAND is 58-year-old man with a history of bipolar 1 disorder admitted on 01/16/24 18:56 on a 201 voluntary commitment for suicidal ideation with plan to shoot self with hunting rifle. Presentation consistent with bipolar disorder with major depressive episode. Patient presents mood episodes in late life with no behavioral health concerns in earlier years; late life bipolar is rare and continuing to r/o underlying causes, had outpatient neurology workup in the past after initial inpatient psychiatric admission without evidence for any cognitive changes. A: Ongoing severe depression, hopelessness, anxiety with SI. He remains willing for ECT which is the recommended treatment at this time due to multiple prior medications trials without benefit (Depakote, Twining, lamictal, multiple antipsychotics-olanzapine, Seroquel, Vraylar, Abilify, risperidone, citalopram, Wellbutrin, Ritalin, modafinil). ECT referral placed to [facility], awaiting review by physician. Peer to peer completed with insurance. Start senna due to constipation despite Miralax and colace for multiple days. Overall, I spent a total of 35 minutes on this case including meeting with the patient, reviewing the chart, nursing report, multidisciplinary team meeting, orders, and documentation. (1) Bipolar disorder with severe depression: (2) Hopelessness: (3) Elevated liver enzymes: (4) Suicidal ideations: Plan 02/21/2024: Start senna. Awaiting review of ECT appropriateness by [facility] tomorrow. 02/20/2024: Continue current medications and tx plan. Will check in re: ECT update for timeline with [facility] tomorrow morning. 02/19/2024: Start mirtazapine 15mg HS 02/18/2024: Continue medications and treatment plan 02/17/2024: Continue medications and treatment plan 02/16/2024: Continue medications and treatment plan. 02/15/2024: Continue medications and treatment plan. 02/14/2024: Increase lurasidone to 60 mg at dinner. Start lorazepam 0.25 mg in the morning and afternoon. Discontinue modafinil. 02/13/2024: Increase modafinil to 200 mg daily. 02/12/2024: Restart home rosuvastatin 2.5 mg at bedtime. 02/11/2024: * Discontinue Ritalin * Start modafinil 100mg daily 02/10/2024: * Discontinue lamictal 02/09/2024: * Increase Ritalin IR to 30mg qAM and 10mg qlunch 02/08/2024: * Increase Effexor XR to 225mg daily * Increase Ritalin IR to 15mg qAM and 5mg qlunch 02/07/2024: * Increase Ritalin IR to 10mg qAM * Decrease lamictal to 50mg HS 02/06/2024: * Discontinue Twining * Start Ritalin IR 5mg qAM 02/05/2024: * Decrease lamictal to 100mg HS * Decrease Twining to 150mg HS 02/04/2024: Continue medications and treatment plan 02/03/2024: Increase Effexor XR to 150 mg daily. Liver function test tomorrow morning. 02/02/2024: Decrease lithium to 300 mg at bedtime. Decrease lorazepam to 1.5 mg at bedtime. 02/01/2024: Twining level this evening. Continue medications and treatment plan. 01/31/2024: Twining to 450 mg at bedtime (discontinue a.m. dose). Twining level to be drawn tomorrow evening prior to nightly dose. 01/30/2024: Continue medications and treatment plan. Twining level in 2 days. 01/29/2024: Discontinue clonazepam, start lorazepam 2 mg at bedtime. Increase venlafaxine extended release 112.5 mg daily. Increase Colace to 200 mg twice daily. 01/28/2024: Continue current medications. May be able to increase Effexor XR again tomorrow. 01/27/2024: Discontinue clonidine. Increase Twining to 150mg qAM and 300mg HS. 01/26/2024: Increase Effexor XR to 75mg qAM tomorrow. Li level tomorrow AM. Add senna prn in addition to miralax and colace for constipation. 01/25/2024: Continue current meds and tx plan. 01/24/2024: Continue current meds and tx plan. 01/23/2024: -Start venlafaxine ER 37.5mg qAM -Decrease clonidine to 0.1 mg HS -Move Latuda to 40mg qdinner -Stop ativan at HS prn in favor of Klonopin HS prn for longer duration of action to help with sleep promotion -Continue ativan daily prn 01/22/2024: Continue current medications and tx plan. Will need Twining level in 4-6 days. 01/21/2024: Increase lurasidone to 40 mg daily. Stop cariprazine tomorrow morning. Increase lithium to 150 mg twice daily. Zofran ODT as needed started 01/20/24: Start clonidine 0.05 mg every morning. 01/19/24: Twining 150mg daily, Clonidine 0.1mg HS. 01/18/24: Continue medications and treatment plan 01/17/24: The patient was admitted to the [facility] ([facility] mental health unit) on q15 min checks (behavioral with suicide precautions) for safety. The patient will participate in group, recreational, and milieu therapies and will be offered additional individual and family sessions as clinically appropriate. -Decrease Cariprazine to 1.5mg daily -Start Luradisone 20mg daily with breakfast -Continue home Lamotrigine 150mg HS -Start Lamotrigine 50mg QAM -Hold home bupropion -Continue home Buspirone 20mg BID -Continue home Lorazepam 1mg HS PRN and 0.5mg daily PRN -Lab work: Vit D, Vit B12, HbA1C, Free/Total/Bioavailable Testosterone Inventory Assets Strengths: family support, fair insight Needs: medication management, improved self esteem Suicide Risk Level Suicide Risk Level: High-Moderate (q15 min suicide checks) (SI and severe depression with prominent hopelessness but feels safe in the hospital, no plan for SI in the hospital, feels able to ask for support if SI changed to plan or intent in the hospital) Risk Factors Assessment Male: Yes : Yes Do You Have Access To A Gun?: No Health Problems: Yes Mental Health Diagnoses: Yes Substance Use Disorders: No Previous Attempt: No Family History of Suicide: No Previous Psychiatric Hospitalization: Yes Hopelessness: Yes Protective Factors Assessment Rastafari Beliefs: Yes : Yes Responsible for Young Children: No 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 Chief Complaint "Ok, it's hard to rate my mood". Review of Systems Sleep Information Total Hours of Sleep: 6.30 Sleep Comments: HS Ativan and Remeron Meal Information Percent Meal Consumed - Breakfast: 100 Percent Meal Consumed - Lunch: 100 Percent Meal Consumed - Dinner: 100 Subjective Subjective Patient was seen & assessed and interval progress reviewed with treatment team nursing and social work. Flat affect, reported mood as "2.5" and "confused" last evening. His visited yesterday. Today reports feeling "ok", continues to struggle to attend to ADLs, he feels this is getting harder. Ongoing SI. Sleep was "fine". No medication side effects. Continuing to await ECT review. Physical Exam Psychiatric Orientation: alert and oriented x 3 Apperance: appropriately dressed and appropriately groomed Eye Contact: + poor eye contact Motor Behavior: steady gait and station and + psychomotor retardation (walks slowly) Speech: + abnormal rate/rhythm/volume of speech (soft, latent ) Affect: + depressed affect and + flat affect Mood: + depressed mood and + anxious mood Thought Process: + thought blocking and + circumstantial thought process Thought Content: + cognitive distortions, reality based without delusions, + hopelessness, + worthlessness and + guilt Suicidal Thoughts: denies suicidal plan (none for hospital, feels he would act if at home); + reports suicidal thoughts Homicidal Thoughts: denies homicidal thoughts Hallucinations: no auditory hallucinations and no visual hallucinations Cognition: recent memory grossly intact, remote memory grossly intact, attention grossly intact and language grossly intact Estimated Intelligence: consistent with education level Insight: + limited insight Judgment: + limited judgement Vital Signs (Past 24 Hours) Last Vital Signs Temp 36.6 C 02/21/24 06:55 Pulse 88 02/21/24 06:55 Resp 16 02/21/24 06:55 BP 124/75 02/21/24 06:55 Pulse Ox 95 02/21/24 06:55 O2 Del Method Room Air 02/21/24 06:55 Results & Data ([facility]) Current Inpatient Medications Current Inpatient Medications: Current Inpatient Medications Acetaminophen (Acetaminophen 325 Mg Tab) 650 mg PO Q4H PRN PRN Reason: Headache or Minor Fever Stop: 03/16/24 20:30 Al Hydrox/Mg Hydrox/Simethicone (Aluminum/Magnesium Susp 30 Ml Udc) 30 ml PO Q4H PRN PRN Reason: GI Upset Stop: 03/16/24 20:30 Bismuth Subsalicylate (Bismuth Subsalicylate 262 Mg Chew) 2 tab PO Q30M PRN PRN Reason: Loose Stool/Diarrhea Stop: 03/16/24 20:30 Docusate Sodium (Docusate Sodium 100 Mg Cap) 200 mg PO BID DELIO Stop: 02/28/24 20:59 Last Admin: 02/21/24 08:30 Dose: 200 mg Hydroxyzine HCl (Hydroxyzine Hcl 25 Mg Tab) 50 mg PO HSZ PRN PRN Reason: Insomnia Stop: 03/16/24 20:30 Hydroxyzine HCl (Hydroxyzine Hcl 25 Mg Tab) 25 mg PO Q4H PRN PRN Reason: Anxiety Stop: 03/16/24 20:30 Ibuprofen (Ibuprofen 200 Mg Tab) 400 mg PO Q6H PRN PRN Reason: Pain or Fever Stop: 03/14/24 09:47 Lorazepam (Lorazepam 0.5 Mg Tab) 0.5 mg PO DAILY@1000,1400 DELIO Stop: 03/17/24 09:59 Last Admin: 02/20/24 14:28 Dose: 0.5 mg Lorazepam (Lorazepam 0.5 Mg Tab) 1.5 mg PO HS DELIO Stop: 03/17/24 09:19 Last Admin: 02/20/24 20:58 Dose: 1.5 mg Lurasidone HCl (Lurasidone Hcl 20 Mg Tab) 60 mg PO DAILYBD DELIO Stop: 03/15/24 17:14 Last Admin: 02/20/24 17:33 Dose: 60 mg Magnesium Hydroxide (Magnesium Hydroxide Susp 30 Ml Udc) 30 ml PO DAILY PRN PRN Reason: Constipation Stop: 03/16/24 20:30 Mirtazapine (Mirtazapine Tab 15 Mg Tab) 15 mg PO HS DELIO Stop: 03/20/24 21:59 Last Admin: 02/20/24 20:58 Dose: 15 mg Ondansetron HCl (Ondansetron 4 Mg Od Tab) 4 mg PO Q6H PRN PRN Reason: Nausea Stop: 03/17/24 09:19 Polyethylene Glycol (Polyethylene (Miralax) 17 Gm Pack) 17 gm PO DAILY DELIO Stop: 03/21/24 08:59 Last Admin: 02/21/24 08:30 Dose: 17 gm Rosuvastatin Calcium (Rosuvastatin Calcium 5 Mg Tab) 2.5 mg PO QPM DELIO Stop: 03/13/24 20:59 Last Admin: 02/20/24 20:57 Dose: 2.5 mg Sodium Chloride (Sodium Chloride 0.65% Na Soln 45 Ml ([place])) 1 - 2 sprays NA PRN PRN PRN Reason: Nasal Dryness/Congestion Stop: 03/16/24 20:30 Venlafaxine HCl (Venlafaxine Hcl Xr 75 Mg Capxr) 225 mg PO QAM DELIO Stop: 03/18/24 08:59 Last Admin: 02/21/24 08:30 Dose: 225 mg Mental Health & Subst Abuse Tx Psychiatrist Name of Psychiatrist: Dr. Izquierdo Psychiatrist's Date Of Appointment With Psychiatric Provider: 03/28/2024 Time of Appointment with Psychiatrist: 8:20AM Therapist Name of Therapist: Dr. Betito Beck Therapist's Date of Therapist Appointment: 03/14 Time of Therapist Appointment: 9AM Post Discharge Appointments Primary Care Physician Name Of Family Doctor/PCP: Dr. Otero Date of Future Appointment with PCP: every six months-next one June 2024
[2024-02-21] MEDS: SENNA 8.6 MG TAB PO SCH (21:03)
--- NOTE | 2024-02-22 08:25 | Psychiatric Progress Note ---
Date of Service February 22, 2024 Impression / Recommendations Impression DK GARLAND is 58-year-old man with a history of bipolar 1 disorder admitted on 01/16/24 18:56 on a 201 voluntary commitment for suicidal ideation with plan to shoot self with hunting rifle. Presentation consistent with bipolar disorder with major depressive episode. Patient presents mood episodes in late life with no behavioral health concerns in earlier years; late life bipolar is rare and continuing to r/o underlying causes, had outpatient neurology workup in the past after initial inpatient psychiatric admission without evidence for any cognitive changes. A: Ongoing severe depression, hopelessness, worthlessness, anxiety with SI. He remains willing for ECT which is the recommended treatment at this time due to multiple prior medications trials without benefit (Depakote, V[place], lamictal, multiple antipsychotics-olanzapine, Seroquel, Vraylar, Abilify, risperidone, citalopram, Wellbutrin, Ritalin, modafinil). ECT referral placed to [facility], awaiting review by physician. Reducing daytime lorazepam given addition of mirtazapine and goal of lessening seizure threshold to allow for more effective ECT treatments if accepted for this. Overall, I spent a total of 20 minutes on this case including meeting with the patient, reviewing the chart, nursing report, multidisciplinary team meeting, orders, and documentation. (1) Bipolar disorder with severe depression: (2) Hopelessness: (3) Elevated liver enzymes: (4) Suicidal ideations: Plan 02/22/2024: Decrease lorazepam to 0.25mg qAM and qafternoon. Continue HS dose for now. Awaiting ECT referral to be reviewed. 02/21/2024: Start senna. Awaiting review of ECT appropriateness by [facility] tomorrow. 02/20/2024: Continue current medications and tx plan. Will check in re: ECT update for timeline with [facility] tomorrow morning. 02/19/2024: Start mirtazapine 15mg HS 02/18/2024: Continue medications and treatment plan 02/17/2024: Continue medications and treatment plan 02/16/2024: Continue medications and treatment plan. 02/15/2024: Continue medications and treatment plan. 02/14/2024: Increase lurasidone to 60 mg at dinner. Start lorazepam 0.25 mg in the morning and afternoon. Discontinue modafinil. 02/13/2024: Increase modafinil to 200 mg daily. 02/12/2024: Restart home rosuvastatin 2.5 mg at bedtime. 02/11/2024: * Discontinue Ritalin * Start modafinil 100mg daily 02/10/2024: * Discontinue lamictal 02/09/2024: * Increase Ritalin IR to 30mg qAM and 10mg qlunch 02/08/2024: * Increase Effexor XR to 225mg daily * Increase Ritalin IR to 15mg qAM and 5mg qlunch 02/07/2024: * Increase Ritalin IR to 10mg qAM * Decrease lamictal to 50mg HS 02/06/2024: * Discontinue [place] * Start Ritalin IR 5mg qAM 02/05/2024: * Decrease lamictal to 100mg HS * Decrease [place] to 150mg HS 02/04/2024: Continue medications and treatment plan 02/03/2024: Increase Effexor XR to 150 mg daily. Liver function test tomorrow morning. 02/02/2024: Decrease lithium to 300 mg at bedtime. Decrease lorazepam to 1.5 mg at bedtime. 02/01/2024: [place] level this evening. Continue medications and treatment plan. 01/31/2024: V[place]ale to 450 mg at bedtime (discontinue a.m. dose). [place] level to be drawn tomorrow evening prior to nightly dose. 01/30/2024: Continue medications and treatment plan. V[place] level in 2 days. 01/29/2024: Discontinue clonazepam, start lorazepam 2 mg at bedtime. Increase venlafaxine extended release 112.5 mg daily. Increase Colace to 200 mg twice daily. 01/28/2024: Continue current medications. May be able to increase Effexor XR again tomorrow. 01/27/2024: Discontinue clonidine. Increase [place] to 150mg qAM and 300mg HS. 01/26/2024: Increase Effexor XR to 75mg qAM tomorrow. Li level tomorrow AM. Add senna prn in addition to miralax and colace for constipation. 01/25/2024: Continue current meds and tx plan. 01/24/2024: Continue current meds and tx plan. 01/23/2024: -Start venlafaxine ER 37.5mg qAM -Decrease clonidine to 0.1 mg HS -Move Latuda to 40mg qdinner -Stop ativan at HS prn in favor of Klonopin HS prn for longer duration of action to help with sleep promotion -Continue ativan daily prn 01/22/2024: Continue current medications and tx plan. Will need [place] level in 4-6 days. 01/21/2024: Increase lurasidone to 40 mg daily. Stop cariprazine tomorrow morning. Increase lithium to 150 mg twice daily. Zofran ODT as needed started 01/20/24: Start clonidine 0.05 mg every morning. 01/19/24: V[place] 150mg daily, Clonidine 0.1mg HS. 01/18/24: Continue medications and treatment plan 01/17/24: The patient was admitted to the [facility] ([facility]) on q15 min checks (behavioral with suicide precautions) for safety. The patient will participate in group, recreational, and milieu therapies and will be offered additional individual and family sessions as clinically appropriate. -Decrease Cariprazine to 1.5mg daily -Start Luradisone 20mg daily with breakfast -Continue home Lamotrigine 150mg HS -Start Lamotrigine 50mg QAM -Hold home bupropion -Continue home Buspirone 20mg BID -Continue home Lorazepam 1mg HS PRN and 0.5mg daily PRN -Lab work: Vit D, Vit B12, HbA1C, Free/Total/Bioavailable Testosterone Inventory Assets Strengths: family support, fair insight Needs: medication management, improved self esteem Suicide Risk Level Suicide Risk Level: High-Moderate (q15 min suicide checks) (SI and severe depression with prominent hopelessness but feels safe in the hospital, no plan for SI in the hospital, feels able to ask for support if SI changed to plan or intent in the hospital) Risk Factors Assessment Male: Yes : Yes Do You Have Access To A Gun?: No Health Problems: Yes Mental Health Diagnoses: Yes Substance Use Disorders: No Previous Attempt: No Family History of Suicide: No Previous Psychiatric Hospitalization: Yes Hopelessness: Yes Protective Factors Assessment Shinto Beliefs: Yes : Yes Responsible for Young Children: No 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 Chief Complaint "I don't think I can do life, I can barely do what I'm doing now". Review of Systems Sleep Information Total Hours of Sleep: 6 Sleep Comments: HS Ativan and Remeron Meal Information Percent Meal Consumed - Breakfast: 100 Percent Meal Consumed - Lunch: 100 Percent Meal Consumed - Dinner: 80 Subjective Subjective Patient was seen & assessed and interval progress reviewed with treatment team nursing and social work. Attending groups. Went outside yesterday with staff gi bo extended length of stay. Last evening mood rated as "2.5 and numb". Reports continuing to feel "worthless" and like a "burden". Thinks he might be feeling "a little less weepy and tearful" but still feels very depressed and worries this is as good as he'll get and doesn't think he can live this way. Remains willing for ECT. Agreeable to trying to reduce daytime benzo dose slightly in anticipation of goal of upcoming ECT. Physical Exam Psychiatric Orientation: alert and oriented x 3 Apperance: appropriately dressed and appropriately groomed Eye Contact: + fair eye contact Motor Behavior: steady gait and station and + psychomotor retardation (walks slowly) Speech: + abnormal rate/rhythm/volume of speech (soft, latent ) Affect: + depressed affect and + flat affect Mood: + depressed mood and + anxious mood Thought Process: + thought blocking and + circumstantial thought process Thought Content: + cognitive distortions, reality based without delusions, + hopelessness, + worthlessness and + guilt Suicidal Thoughts: denies suicidal plan (none for hospital, feels he would act if at home); + reports suicidal thoughts Homicidal Thoughts: denies homicidal thoughts Hallucinations: no auditory hallucinations and no visual hallucinations Cognition: recent memory grossly intact, remote memory grossly intact, attention grossly intact and language grossly intact Estimated Intelligence: consistent with education level Insight: + limited insight Judgment: + limited judgement Vital Signs (Past 24 Hours) Last Vital Signs Temp 36.6 C 02/21/24 06:55 Pulse 66 02/22/24 06:48 Resp 18 02/22/24 06:48 BP 122/76 02/22/24 06:48 Pulse Ox 96 02/22/24 06:48 O2 Del Method Room Air 02/22/24 06:48 Results & Data ([facility]) Current Inpatient Medications Current Inpatient Medications: Current Inpatient Medications Acetaminophen (Acetaminophen 325 Mg Tab) 650 mg PO Q4H PRN PRN Reason: Headache or Minor Fever Stop: 03/16/24 20:30 Al Hydrox/Mg Hydrox/Simethicone (Aluminum/Magnesium Susp 30 Ml Udc) 30 ml PO Q4H PRN PRN Reason: GI Upset Stop: 03/16/24 20:30 Bismuth Subsalicylate (Bismuth Subsalicylate 262 Mg Chew) 2 tab PO Q30M PRN PRN Reason: Loose Stool/Diarrhea Stop: 03/16/24 20:30 Docusate Sodium (Docusate Sodium 100 Mg Cap) 200 mg PO BID DELIO Stop: 02/28/24 20:59 Last Admin: 02/21/24 21:02 Dose: 200 mg Hydroxyzine HCl (Hydroxyzine Hcl 25 Mg Tab) 50 mg PO HSZ PRN PRN Reason: Insomnia Stop: 03/16/24 20:30 Hydroxyzine HCl (Hydroxyzine Hcl 25 Mg Tab) 25 mg PO Q4H PRN PRN Reason: Anxiety Stop: 03/16/24 20:30 Ibuprofen (Ibuprofen 200 Mg Tab) 400 mg PO Q6H PRN PRN Reason: Pain or Fever Stop: 03/14/24 09:47 Lorazepam (Lorazepam 0.5 Mg Tab) 0.5 mg PO DAILY@1000,1400 DELIO Stop: 03/17/24 09:59 Last Admin: 02/21/24 14:04 Dose: 0.5 mg Lorazepam (Lorazepam 0.5 Mg Tab) 1.5 mg PO HS DELIO Stop: 03/17/24 09:19 Last Admin: 02/21/24 21:02 Dose: 1.5 mg Lurasidone HCl (Lurasidone Hcl 20 Mg Tab) 60 mg PO DAILYBD DELIO Stop: 03/15/24 17:14 Last Admin: 02/21/24 17:25 Dose: 60 mg Magnesium Hydroxide (Magnesium Hydroxide Susp 30 Ml Udc) 30 ml PO DAILY PRN PRN Reason: Constipation Stop: 03/16/24 20:30 Mirtazapine (Mirtazapine Tab 15 Mg Tab) 15 mg PO HS DELIO Stop: 03/20/24 21:59 Last Admin: 02/21/24 21:03 Dose: 15 mg Ondansetron HCl (Ondansetron 4 Mg Od Tab) 4 mg PO Q6H PRN PRN Reason: Nausea Stop: 03/17/24 09:19 Polyethylene Glycol (Polyethylene (Miralax) 17 Gm Pack) 17 gm PO DAILY DELIO Stop: 03/21/24 08:59 Last Admin: 02/21/24 08:30 Dose: 17 gm Rosuvastatin Calcium (Rosuvastatin Calcium 5 Mg Tab) 2.5 mg PO QPM DELIO Stop: 03/13/24 20:59 Last Admin: 02/21/24 21:03 Dose: 2.5 mg Sennosides (Senna 8.6 Mg Tab) 8.6 mg PO BID DELIO Stop: 03/22/24 20:59 Last Admin: 02/21/24 21:03 Dose: 8.6 mg Sodium Chloride (Sodium Chloride 0.65% Na Soln 45 Ml ([place])) 1 - 2 sprays NA PRN PRN PRN Reason: Nasal Dryness/Congestion Stop: 03/16/24 20:30 Venlafaxine HCl (Venlafaxine Hcl Xr 75 Mg Capxr) 225 mg PO QAM DELIO Stop: 03/18/24 08:59 Last Admin: 02/21/24 08:30 Dose: 225 mg Mental Health & Subst Abuse Tx Psychiatrist Name of Psychiatrist: Dr. Izquierdo Psychiatrist's Date Of Appointment With Psychiatric Provider: 03/28/2024 Time of Appointment with Psychiatrist: 8:20AM Therapist Name of Therapist: Dr. Betito Beck Therapist's Date of Therapist Appointment: 03/14 Time of Therapist Appointment: 9AM Post Discharge Appointments Primary Care Physician Name Of Family Doctor/PCP: Dr. Otero Date of Future Appointment with PCP: every six months-next one June 2024
[2024-02-22] MEDS: LORazepam 0.5 MG TAB PO SCH (14:29)
[2024-02-23 06:39] VITALS: RESP 16
--- NOTE | 2024-02-23 08:25 | Psychiatric Progress Note ---
Date of Service February 23, 2024 Impression / Recommendations Impression DK GARLAND is 58-year-old man with a history of bipolar 1 disorder admitted on 01/16/24 18:56 on a 201 voluntary commitment for suicidal ideation with plan to shoot self with hunting rifle. Presentation consistent with bipolar disorder with major depressive episode. Patient presents mood episodes in late life with no behavioral health concerns in earlier years; late life bipolar is rare and continuing to r/o underlying causes, had outpatient neurology workup in the past after initial inpatient psychiatric admission without evidence for any cognitive changes. A: Ongoing severe depression, hopelessness, worthlessness, anxiety with SI. ECT remains the necessary and most appropriate treatment given his severe bipolar depression and history of multiple prior medication trials without improvement. Will continue to taper lorazepam given goal for upcoming acceptance to facility that can begin ECT and goal to allow treatment to be as effective as possible. Hospitalist provider also saw Dk for medical evaluation for medical clearance for ECT. Previous cardiac testing (EKG), labwork and MOCA assessment all are also reassuring for ECT being appropriate and safe. Overall, I spent a total of 30 minutes on this case including meeting with the patient, reviewing the chart, nursing report, multidisciplinary team meeting, orders, and documentation. (1) Bipolar disorder with severe depression: (2) Hopelessness: (3) Elevated liver enzymes: (4) Suicidal ideations: Plan 02/23/2024: Decrease lorazepam to 1mg HS. Ongoing referral process for transfer for inpatient ECT. 02/22/2024: Decrease lorazepam to 0.25mg qAM and qafternoon. Continue HS dose for now. Awaiting ECT referral to be reviewed. 02/21/2024: Start senna. Awaiting review of ECT appropriateness by [facility] tomorrow. 02/20/2024: Continue current medications and tx plan. Will check in re: ECT update for timeline with [facility] tomorrow morning. 02/19/2024: Start mirtazapine 15mg HS 02/18/2024: Continue medications and treatment plan 02/17/2024: Continue medications and treatment plan 02/16/2024: Continue medications and treatment plan. 02/15/2024: Continue medications and treatment plan. 02/14/2024: Increase lurasidone to 60 mg at dinner. Start lorazepam 0.25 mg in the morning and afternoon. Discontinue modafinil. 02/13/2024: Increase modafinil to 200 mg daily. 02/12/2024: Restart home rosuvastatin 2.5 mg at bedtime. 02/11/2024: * Discontinue Ritalin * Start modafinil 100mg daily 02/10/2024: * Discontinue lamictal 02/09/2024: * Increase Ritalin IR to 30mg qAM and 10mg qlunch 02/08/2024: * Increase Effexor XR to 225mg daily * Increase Ritalin IR to 15mg qAM and 5mg qlunch 02/07/2024: * Increase Ritalin IR to 10mg qAM * Decrease lamictal to 50mg HS 02/06/2024: * Discontinue Orestes * Start Ritalin IR 5mg qAM 02/05/2024: * Decrease lamictal to 100mg HS * Decrease Orestes to 150mg HS 02/04/2024: Continue medications and treatment plan 02/03/2024: Increase Effexor XR to 150 mg daily. Liver function test tomorrow morning. 02/02/2024: Decrease lithium to 300 mg at bedtime. Decrease lorazepam to 1.5 mg at bedtime. 02/01/2024: Orestes level this evening. Continue medications and treatment plan. 01/31/2024: Orestes to 450 mg at bedtime (discontinue a.m. dose). Orestes level to be drawn tomorrow evening prior to nightly dose. 01/30/2024: Continue medications and treatment plan. Orestes level in 2 days. 01/29/2024: Discontinue clonazepam, start lorazepam 2 mg at bedtime. Increase venlafaxine extended release 112.5 mg daily. Increase Colace to 200 mg twice daily. 01/28/2024: Continue current medications. May be able to increase Effexor XR again tomorrow. 01/27/2024: Discontinue clonidine. Increase Orestes to 150mg qAM and 300mg HS. 01/26/2024: Increase Effexor XR to 75mg qAM tomorrow. Li level tomorrow AM. Add senna prn in addition to miralax and colace for constipation. 01/25/2024: Continue current meds and tx plan. 01/24/2024: Continue current meds and tx plan. 01/23/2024: -Start venlafaxine ER 37.5mg qAM -Decrease clonidine to 0.1 mg HS -Move Latuda to 40mg qdinner -Stop ativan at HS prn in favor of Klonopin HS prn for longer duration of action to help with sleep promotion -Continue ativan daily prn 01/22/2024: Continue current medications and tx plan. Will need Orestes level in 4-6 days. 01/21/2024: Increase lurasidone to 40 mg daily. Stop cariprazine tomorrow morning. Increase lithium to 150 mg twice daily. Zofran ODT as needed started 01/20/24: Start clonidine 0.05 mg every morning. 01/19/24: Orestes 150mg daily, Clonidine 0.1mg HS. 01/18/24: Continue medications and treatment plan 01/17/24: The patient was admitted to the [facility] ([facility]) on q15 min checks (behavioral with suicide precautions) for safety. The patient will participate in group, recreational, and milieu therapies and will be offered additional individual and family sessions as clinically appropriate. -Decrease Cariprazine to 1.5mg daily -Start Luradisone 20mg daily with breakfast -Continue home Lamotrigine 150mg HS -Start Lamotrigine 50mg QAM -Hold home bupropion -Continue home Buspirone 20mg BID -Continue home Lorazepam 1mg HS PRN and 0.5mg daily PRN -Lab work: Vit D, Vit B12, HbA1C, Free/Total/Bioavailable Testosterone Inventory Assets Strengths: family support, fair insight Needs: medication management, improved self esteem Suicide Risk Level Suicide Risk Level: High-Moderate (q15 min suicide checks) (SI and severe depression with prominent hopelessness but feels safe in the hospital, no plan for SI in the hospital, feels able to ask for support if SI changed to plan or intent in the hospital) Risk Factors Assessment Male: Yes : Yes Do You Have Access To A Gun?: No Health Problems: Yes Mental Health Diagnoses: Yes Substance Use Disorders: No Previous Attempt: No Family History of Suicide: No Previous Psychiatric Hospitalization: Yes Hopelessness: Yes Protective Factors Assessment Mormon Beliefs: Yes : Yes Responsible for Young Children: No 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 Chief Complaint "Feeling pretty defeated". Review of Systems Sleep Information Total Hours of Sleep: 5.25 Sleep Comments: HS Ativan and Remeron Meal Information Percent Meal Consumed - Breakfast: 100 Percent Meal Consumed - Lunch: 80 Percent Meal Consumed - Dinner: 40 Subjective Subjective Patient was seen & assessed and interval progress reviewed with treatment team nursing and social work. Rated his mood as "2" and "disappointed". Ongoing depressed mood. Went outside briefly, notes he feels deconditioned from extended inpatient stay. Had a small bowel movement but still dealing with some constipation, consents to ongoing use of senna/colace combination. He's unsure if anxiety worsened with decreased ativan dosing given increased hopelessness due to extended wait for facility that can offer inpatient ECT. Physical Exam Psychiatric Orientation: alert and oriented x 3 Apperance: appropriately dressed and appropriately groomed Eye Contact: + fair eye contact Motor Behavior: steady gait and station and + psychomotor retardation (walks slowly) Speech: + abnormal rate/rhythm/volume of speech (soft, latent ) Affect: + depressed affect and + flat affect Mood: + depressed mood and + anxious mood Thought Process: goal directed thought process and + concrete thought process Thought Content: + cognitive distortions, reality based without delusions, + hopelessness, + worthlessness and + guilt Suicidal Thoughts: denies suicidal plan (none for hospital, feels he would act if at home); + reports suicidal thoughts Homicidal Thoughts: denies homicidal thoughts Hallucinations: no auditory hallucinations and no visual hallucinations Cognition: recent memory grossly intact, remote memory grossly intact, attention grossly intact and language grossly intact Estimated Intelligence: consistent with education level Insight: + limited insight Judgment: + limited judgement Vital Signs (Past 24 Hours) Last Vital Signs Temp 36.6 C 02/21/24 06:55 Pulse 89 02/23/24 06:36 Resp 16 02/23/24 06:36 BP 125/78 02/23/24 06:36 Pulse Ox 96 02/23/24 06:36 O2 Del Method Room Air 02/23/24 06:36 Results & Data ([facility]) Current Inpatient Medications Current Inpatient Medications: Current Inpatient Medications Acetaminophen (Acetaminophen 325 Mg Tab) 650 mg PO Q4H PRN PRN Reason: Headache or Minor Fever Stop: 03/16/24 20:30 Al Hydrox/Mg Hydrox/Simethicone (Aluminum/Magnesium Susp 30 Ml Udc) 30 ml PO Q4H PRN PRN Reason: GI Upset Stop: 03/16/24 20:30 Bismuth Subsalicylate (Bismuth Subsalicylate 262 Mg Chew) 2 tab PO Q30M PRN PRN Reason: Loose Stool/Diarrhea Stop: 03/16/24 20:30 Docusate Sodium (Docusate Sodium 100 Mg Cap) 200 mg PO BID DELIO Stop: 02/28/24 20:59 Last Admin: 02/22/24 21:29 Dose: 200 mg Hydroxyzine HCl (Hydroxyzine Hcl 25 Mg Tab) 50 mg PO HSZ PRN PRN Reason: Insomnia Stop: 03/16/24 20:30 Hydroxyzine HCl (Hydroxyzine Hcl 25 Mg Tab) 25 mg PO Q4H PRN PRN Reason: Anxiety Stop: 03/16/24 20:30 Ibuprofen (Ibuprofen 200 Mg Tab) 400 mg PO Q6H PRN PRN Reason: Pain or Fever Stop: 03/14/24 09:47 Lorazepam (Lorazepam 0.5 Mg Tab) 1.5 mg PO HS DELIO Stop: 03/17/24 09:19 Last Admin: 02/22/24 21:31 Dose: 1.5 mg Lorazepam (Lorazepam 0.5 Mg Tab) 0.25 mg PO DAILY@1000,1400 DELIO Stop: 03/23/24 13:59 Last Admin: 02/22/24 14:29 Dose: 0.25 mg Lurasidone HCl (Lurasidone Hcl 20 Mg Tab) 60 mg PO DAILYBD DELIO Stop: 03/15/24 17:14 Last Admin: 02/22/24 17:36 Dose: 60 mg Magnesium Hydroxide (Magnesium Hydroxide Susp 30 Ml Udc) 30 ml PO DAILY PRN PRN Reason: Constipation Stop: 03/16/24 20:30 Mirtazapine (Mirtazapine Tab 15 Mg Tab) 15 mg PO HS DELIO Stop: 03/20/24 21:59 Last Admin: 02/22/24 21:31 Dose: 15 mg Ondansetron HCl (Ondansetron 4 Mg Od Tab) 4 mg PO Q6H PRN PRN Reason: Nausea Stop: 03/17/24 09:19 Polyethylene Glycol (Polyethylene (Miralax) 17 Gm Pack) 17 gm PO DAILY DELIO Stop: 03/21/24 08:59 Last Admin: 02/22/24 08:47 Dose: 17 gm Rosuvastatin Calcium (Rosuvastatin Calcium 5 Mg Tab) 2.5 mg PO QPM DELIO Stop: 03/13/24 20:59 Last Admin: 02/22/24 21:29 Dose: 2.5 mg Sennosides (Senna 8.6 Mg Tab) 8.6 mg PO BID DELIO Stop: 03/22/24 20:59 Last Admin: 02/22/24 21:31 Dose: 8.6 mg Sodium Chloride (Sodium Chloride 0.65% Na Soln 45 Ml ([place])) 1 - 2 sprays NA PRN PRN PRN Reason: Nasal Dryness/Congestion Stop: 03/16/24 20:30 Venlafaxine HCl (Venlafaxine Hcl Xr 75 Mg Capxr) 225 mg PO QAM DELIO Stop: 03/18/24 08:59 Last Admin: 02/22/24 08:48 Dose: 225 mg Mental Health & Subst Abuse Tx Psychiatrist Name of Psychiatrist: Dr. Izquierdo Psychiatrist's Date Of Appointment With Psychiatric Provider: 03/28/2024 Time of Appointment with Psychiatrist: 8:20AM Therapist Name of Therapist: Dr. Betito Beck Therapist's Date of Therapist Appointment: 03/14 Time of Therapist Appointment: 9AM Post Discharge Appointments Primary Care Physician Name Of Family Doctor/PCP: Dr. Otero Date of Future Appointment with PCP: every six months-next one June 2024
[2024-02-23 11:23] LABS: Albumin Globulin Ratio 1.6 (0.9-2); Albumin Level 4.7 gm/dl (3.4-5.0); BUN Creatinine Ratio 15.1 (10-20); Bilirubin,Total 0.6 mg/dl (0.2-1.0); Calcium 10.1 mg/dl (8.6-10.3); Creatinine Clr Calc Pharmacy 87.2 ml/min; Globulin 2.9 gm/dl (2.5-4.0); Potassium 4.5 mmol/L (3.5-5.1); Total Protein 7.6 gm/dl (6.0-8.3)
[2024-02-23 11:34] LABS: Basophils # (auto) 0.03 K/uL (0.00-0.20); Basophils % (auto) 0.3 %; Eosinophils # (auto) 0.04 K/uL (0.00-0.50); Eosinophils % (auto) 0.4 %; Hematocrit (blood only) 42.2 % (42.0-52.0); Hemoglobin 14.8 g/dl (14.0-18.0); Immature Granulocytes # (auto) 0.03 K/uL (0.01-0.20); Immature Granulocytes % (auto) 0.3 %; Lymphocytes # (auto) 2.49 K/uL (1.20-3.40); Lymphocytes % (auto) 27.5 %; Mean Corpuscular Hemoglobin 31.7 pg (25.0-34.0); Mean Corpuscular Hgb Conc 35.1 g/dL (32.0-36.0); Mean Corpuscular Volume 90.4 fL (80.0-100.0); Mean Platelet Volume 8.6 fL (9.4-12.4); Monocytes # (auto) 0.79 K/uL (0.11-0.59); Monocytes % (auto) 8.7 %; Neutrophils # (auto) 5.69 K/uL (1.40-6.50); Neutrophils % (auto) 62.8 %; Platelet Count 226 K/uL (130-400); RDW Coefficient of Variation 11.8 % (11.5-14.5); RDW Standard Deviation 38.6 fL (36.4-46.3); Red Blood Count 4.67 M/uL (4.70-6.10); White Blood Count 9.07 K/ul (4.8-10.8)
[2024-02-23 11:37] LABS: Prothrombin Time 10.6 Seconds (9.0-12.0)
[2024-02-23] MEDS: DOCUSATE SODIUM/SENNA 50/8.6MG TAB PO SCH (11:42)
--- NOTE | 2024-02-23 12:11 | Hospitalist Consultation ---
Date of Consultation February 23, 2024 Assessment & Plan (1) Medical clearance for psychiatric admission: No need for further medical workup Stable for transfer for psychiatric care at this time (2) Elevated liver enzymes: New since July this year. Started increasing mildly in November. Plt and INR and within normal limits Improved after stopping lamotrigine 02/08 Rosuvastatin restarted 02/11 - given low dose and labs have improved; plan on continuing this currently Given improvement no need for further workup at this time for medical clearance, can be checked monthly as outpatient or on psychiatric marcos if ongoing hospitalization for resolution off lamotrigine Plan Thank you for this consult. We will sign off at this time. Please contact the bonderite operator hospitalist for any further questions or concerns or review of the patient. History of Present Illness Reason for Consultation: Medical clearance for transfer Attending Physician: Surekha Byers MD History of Present Illness Oracio Harrell is a 58 year old male presently hospitalized for severe depression and bipolar disorder with suicidal ideation. Medicine have been consulted for medical clearance for transfer for potential ECT. He denies any respiratory , gastrointestinal or urinary symptoms. No fever or chills. No chest pain, shortness of breath on exertion. Only significant abnormal lab has been elevated LFTS suspected due to Lamictal which was discontinued on 02/08 although labs h ave not been repeated since then. He denies any RUQ abdominal pain. Allergies Allergy/AdvReac Type Severity Reaction Status Date / Time citalopram [From Celexa] AdvReac Unknown Unknown Verified 01/16/24 17:41 SNRIs AdvReac Unknown Uncoded 01/16/24 17:41 SSRIs AdvReac Unknown Uncoded 01/16/24 17:41 Home Medications Medication Instructions Recorded Confirmed Type rosuvastatin 5 mg tablet 2.5 mg PO QPM 03/01/22 01/16/24 History buspirone 30 mg tablet 20 mg PO BID 06/01/23 01/16/24 History multivitamin (Multiple Vitamins 1 tab PO 4XWK 06/01/23 01/16/24 History tablet) bupropion HCl 100 mg tablet,12 hr 100 mg PO QAM 01/16/24 01/16/24 History sustained-release (Wellbutrin SR) cariprazine 3 mg capsule (Vraylar) 3 mg PO QAM 01/16/24 01/16/24 History cholecalciferol (vitamin D3) 50 2,000 unit PO 4XWK 01/16/24 01/16/24 History mcg (2,000 unit) capsule (Vitamin D3) lamotrigine 150 mg tablet 150 mg PO HS 01/16/24 01/16/24 History (Lamictal) lorazepam 0.5 mg tablet (Ativan) 0.5 mg PO TID PRN Anxiety 01/16/24 01/16/24 History vitamin B complex (Vitamins B 1 cap PO 3XWK 01/16/24 01/16/24 History Complex capsule) Patient History Medical History (Updated 02/23/24 @ 12:08 by Alejandro Arias MD) Bipolar I disorder with mixed features Lab test negative for COVID-19 virus Anxiety TSH elevation Hillary Encephalopathy Altered mental status Hx of hemorrhoids Hx of shigellosis Sinusitis Family History Other Family history non-contributory Social History Smoking Status: Never smoker Hx Alcohol Use: No Hx Substance Use: No Preferred Language: Irish Communication Ability: Effective 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 current occupational status: employed Feels Safe at Home: Yes Gender Identity: Male Assistive Devices: Glasses Review of Systems Review of Systems: All systems reviewed & are unremarkable except as noted in HPI & below Physical Exam Constitutional: WD/WN, vitals as above Eyes: + anicteric sclerae; normal pupil size ENMT: external ear and nose normal, oropharynx normal Respiratory: normal respiratory effort, lungs clear to auscultation Cardiovascular: RRR, no murmur, no edema Gastrointestinal (Abdomen): normal bowel sounds, soft, nontender, no hepatosplenomegaly Skin: no rashes, warm and dry Neurologic: moves all extremities and awake; not confused Psychiatric: Orientation: alert and oriented x 3 Results & Data Results & Data Vital Signs (Past 12 Hours) Vital Signs Pulse Resp BP Pulse Ox O2 Del Method 02/23/24 06:36 89 16 125/78 96 Room Air Laboratory Results Abnormal lab results 02/23/24 Range/Units 10:43 RBC 4.67 L (4.70-6.10) M/uL MPV 8.6 L (9.4-12.4) fL Lane # (Auto) 0.79 H (0.11-0.59) K/uL Anion Gap 12 H (3-11) AST 49 H (13-39) U/L ALT 113 H (7-52) U/L ECG Rate (beats per minute): 82 Rhythm: normal sinus Findings: no acute ischemic change Comparison ECG Date: from (February 24, 2024) Change: no significant change PG Care Time/CCT Total # of Minutes Spent Total Time Spent with Patient: Total time spent is greater than 50% in coordination of care (as documented) at patient's floor/unit and/or counseling patient: Coding Level of Care Code 96476 IN/OBS CONSULT LVL 4,60M Diagnoses Medical clearance for psychiatric admission Z00.8 Elevated liver enzymes R74.8
--- NOTE | 2024-02-23 16:55 | Electrocardiogram Report ---
Test Reason : Blood Pressure : */* mmHG Vent. Rate : 82 BPM Atrial Rate : 82 BPM P-R Int : 152 ms QRS Dur : 86 ms QT Int : 354 ms P-R-T Axes : 59 51 9 degrees QTcB Int : 413 ms Normal sinus rhythm Normal ECG When compared with ECG of 14-Feb-2024 14:23, No significant change was found Confirmed by Ran Christianson ([id number]) on 02/23/2024 4:54:47 PM Referred By: REFERRED SELF Confirmed By: Ran Christianson
[2024-02-23] MEDS: LORazepam 1 MG TAB PO SCH (21:04)
[2024-02-24] MEDS: MULTIVITAMIN CHEWABLE TAB PO SCH (08:50)
--- NOTE | 2024-02-24 11:07 | Psychiatric Progress Note ---
Date of Service February 24, 2024 Impression / Recommendations Impression ORACIO GARLAND is 58-year-old man with a history of bipolar 1 disorder admitted on 01/16/24 18:56 on a 201 voluntary commitment for suicidal ideation with plan to shoot self with hunting rifle. Presentation consistent with bipolar disorder with major depressive episode. Patient presents mood episodes in late life with no behavioral health concerns in earlier years; late life bipolar is rare and continuing to r/o underlying causes, had outpatient neurology workup in the past after initial inpatient psychiatric admission without evidence for any cognitive changes. A: Ongoing severe depression, hopelessness, anxiety with SI. ECT remains the necessary and most appropriate treatment given his severe bipolar depression and history of multiple prior medication trials without improvement. Will continue to taper lorazepam given goal for upcoming acceptance to facility that can begin ECT and goal to allow treatment to be as effective as possible. Hospitalist provider also saw Oracio for medical evaluation for medical clearance for ECT and feels he is medically stable for this. Previous cardiac testing (EKG), labwork and MOCA assessment ( on 02/15/2024) all are also reassuring for ECT being appropriate and safe. Overall, I spent a total of 35 minutes on this case including meeting with the patient, reviewing the chart, nursing report, multidisciplinary team meeting, orders, and documentation. (1) Bipolar disorder with severe depression: (2) Hopelessness: (3) Elevated liver enzymes: (4) Suicidal ideations: Plan 02/24/2024: Continue current treatment, ongoing referral process for ECT inpatient transfer options. 02/23/2024: Decrease lorazepam to 1mg HS. Ongoing referral process for transfer for inpatient ECT. 02/22/2024: Decrease lorazepam to 0.25mg qAM and qafternoon. Continue HS dose for now. Awaiting ECT referral to be reviewed. 02/21/2024: Start senna. Awaiting review of ECT appropriateness by [facility] tomorrow. 02/20/2024: Continue current medications and tx plan. Will check in re: ECT update for timeline with [facility] tomorrow morning. 02/19/2024: Start mirtazapine 15mg HS 02/18/2024: Continue medications and treatment plan 02/17/2024: Continue medications and treatment plan 02/16/2024: Continue medications and treatment plan. 02/15/2024: Continue medications and treatment plan. 02/14/2024: Increase lurasidone to 60 mg at dinner. Start lorazepam 0.25 mg in the morning and afternoon. Discontinue modafinil. 02/13/2024: Increase modafinil to 200 mg daily. 02/12/2024: Restart home rosuvastatin 2.5 mg at bedtime. 02/11/2024: * Discontinue Ritalin * Start modafinil 100mg daily 02/10/2024: * Discontinue lamictal 02/09/2024: * Increase Ritalin IR to 30mg qAM and 10mg qlunch 02/08/2024: * Increase Effexor XR to 225mg daily * Increase Ritalin IR to 15mg qAM and 5mg qlunch 02/07/2024: * Increase Ritalin IR to 10mg qAM * Decrease lamictal to 50mg HS 02/06/2024: * Discontinue [place] * Start Ritalin IR 5mg qAM 02/05/2024: * Decrease lamictal to 100mg HS * Decrease [place] to 150mg HS 02/04/2024: Continue medications and treatment plan 02/03/2024: Increase Effexor XR to 150 mg daily. Liver function test tomorrow morning. 02/02/2024: Decrease lithium to 300 mg at bedtime. Decrease lorazepam to 1.5 mg at bedtime. 02/01/2024: [place] level this evening. Continue medications and treatment plan. 01/31/2024: [place] to 450 mg at bedtime (discontinue a.m. dose). [place] level to be drawn tomorrow evening prior to nightly dose. 01/30/2024: Continue medications and treatment plan. [place] level in 2 days. 01/29/2024: Discontinue clonazepam, start lorazepam 2 mg at bedtime. Increase venlafaxine extended release 112.5 mg daily. Increase Colace to 200 mg twice daily. 01/28/2024: Continue current medications. May be able to increase Effexor XR again tomorrow. 01/27/2024: Discontinue clonidine. Increase [place] to 150mg qAM and 300mg HS. 01/26/2024: Increase Effexor XR to 75mg qAM tomorrow. Li level tomorrow AM. Add senna prn in addition to miralax and colace for constipation. 01/25/2024: Continue current meds and tx plan. 01/24/2024: Continue current meds and tx plan. 01/23/2024: -Start venlafaxine ER 37.5mg qAM -Decrease clonidine to 0.1 mg HS -Move Latuda to 40mg qdinner -Stop ativan at HS prn in favor of Klonopin HS prn for longer duration of action to help with sleep promotion -Continue ativan daily prn 01/22/2024: Continue current medications and tx plan. Will need [place] level in 4-6 days. 01/21/2024: Increase lurasidone to 40 mg daily. Stop cariprazine tomorrow morning. Increase lithium to 150 mg twice daily. Zofran ODT as needed started 01/20/24: Start clonidine 0.05 mg every morning. 01/19/24: [place] 150mg daily, Clonidine 0.1mg HS. 01/18/24: Continue medications and treatment plan 01/17/24: The patient was admitted to the [facility] ([facility] mental health unit) on q15 min checks (behavioral with suicide precautions) for safety. The patient will participate in group, recreational, and milieu therapies and will be offered additional individual and family sessions as clinically appropriate. -Decrease Cariprazine to 1.5mg daily -Start Luradisone 20mg daily with breakfast -Continue home Lamotrigine 150mg HS -Start Lamotrigine 50mg QAM -Hold home bupropion -Continue home Buspirone 20mg BID -Continue home Lorazepam 1mg HS PRN and 0.5mg daily PRN -Lab work: Vit D, Vit B12, HbA1C, Free/Total/Bioavailable Testosterone Inventory Assets Strengths: family support, fair insight Needs: medication management, improved self esteem Suicide Risk Level Suicide Risk Level: High-Moderate (q15 min suicide checks) (SI and severe depression with prominent hopelessness but feels safe in the hospital, no plan for SI in the hospital, feels able to ask for support if SI changed to plan or intent in the hospital) Risk Factors Assessment Male: Yes : Yes Do You Have Access To A Gun?: No Health Problems: Yes Mental Health Diagnoses: Yes Substance Use Disorders: No Previous Attempt: No Family History of Suicide: No Previous Psychiatric Hospitalization: Yes Hopelessness: Yes Protective Factors Assessment Mormonism Beliefs: Yes : Yes Responsible for Young Children: No 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 Chief Complaint "I can't even tell how I feel". Review of Systems Sleep Information Total Hours of Sleep: 8 Sleep Comments: KRISTY Ferrara and Kale Meal Information Percent Meal Consumed - Breakfast: 100 Percent Meal Consumed - Lunch: 100 Percent Meal Consumed - Dinner: 100 Subjective Subjective Patient was seen & assessed and interval progress reviewed with nursing. Reported mood last evening as "2.5" and "stuck". Slept well overnight. Today reflects on ongoing depression but also some anxiety about wondering if he's starting to possibly feel a tiny bit better and if that means he should proceed with ECT. Discussed this and he continues to desire ECT. Feels anxious about transition but also wants to feel better and is hopeful ECT can achieve this. Plans to see his family today. Tearful at times, anxious. Physical Exam Psychiatric Orientation: alert and oriented x 3 Apperance: appropriately dressed and appropriately groomed Eye Contact: + fair eye contact Motor Behavior: steady gait and station, no abnormal motor movements and + psychomotor retardation (walks slowly) Speech: + abnormal rate/rhythm/volume of speech (soft, latent ) Affect: + depressed affect and + tearful affect Mood: + depressed mood and + anxious mood Thought Process: goal directed thought process and + concrete thought process Thought Content: + cognitive distortions, reality based without delusions, + hopelessness, + worthlessness and + guilt Suicidal Thoughts: denies suicidal plan (none for hospital, feels he would act if at home); + reports suicidal thoughts Homicidal Thoughts: denies homicidal thoughts Hallucinations: no auditory hallucinations and no visual hallucinations Cognition: recent memory grossly intact, remote memory grossly intact, attention grossly intact and language grossly intact Estimated Intelligence: consistent with education level Insight: + fair insight Judgment: + fair judgement Vital Signs (Past 24 Hours) Last Vital Signs Temp 36.9 C 02/24/24 06:38 Pulse 98 H 02/24/24 06:39 Resp 16 02/24/24 06:38 BP 151/89 H 02/24/24 06:39 Pulse Ox 96 02/23/24 06:36 O2 Del Method Room Air 02/23/24 06:36 Results & Data ([facility]) Laboratory Results Laboratory Results - last 24 hr 02/23/24 10:43 WBC 9.07 RBC 4.67 L Hgb 14.8 Hct 42.2 MCV 90.4 MCH 31.7 MCHC 35.1 RDW Std Deviation 38.6 RDW Coeff of Toño 11.8 Plt Count 226 MPV 8.6 L Immature Gran % (Auto) 0.3 Neut % (Auto) 62.8 Lymph % (Auto) 27.5 [place] % (Auto) 8.7 Eos % (Auto) 0.4 Baso % (Auto) 0.3 Neut # (Auto) 5.69 Lymph # (Auto) 2.49 [place] # (Auto) 0.79 H Eos # (Auto) 0.04 Baso # (Auto) 0.03 Immature Gran # (Auto) 0.03 PT 10.6 INR 1.0 Sodium 142 Potassium 4.5 Chloride 104 Carbon Dioxide 26 Anion Gap 12 H BUN 14 Creatinine 0.93 Est Cr Clr Drug Dosing 87.2 eGFR 94.00 BUN/Creatinine Ratio 15.1 Glucose 92 Calcium 10.1 Total Bilirubin 0.6 AST 49 H ALT 113 H Alkaline Phosphatase 95 Total Protein 7.6 Albumin 4.7 Globulin 2.9 Albumin/Globulin Ratio 1.6 Current Inpatient Medications Current Inpatient Medications: Current Inpatient Medications Acetaminophen (Acetaminophen 325 Mg Tab) 650 mg PO Q4H PRN PRN Reason: Headache or Minor Fever Stop: 03/16/24 20:30 Al Hydrox/Mg Hydrox/Simethicone (Aluminum/Magnesium Susp 30 Ml Udc) 30 ml PO Q4H PRN PRN Reason: GI Upset Stop: 03/16/24 20:30 Bismuth Subsalicylate (Bismuth Subsalicylate 262 Mg Chew) 2 tab PO Q30M PRN PRN Reason: Loose Stool/Diarrhea Stop: 03/16/24 20:30 Hydroxyzine HCl (Hydroxyzine Hcl 25 Mg Tab) 50 mg PO HSZ PRN PRN Reason: Insomnia Stop: 03/16/24 20:30 Hydroxyzine HCl (Hydroxyzine Hcl 25 Mg Tab) 25 mg PO Q4H PRN PRN Reason: Anxiety Stop: 03/16/24 20:30 Ibuprofen (Ibuprofen 200 Mg Tab) 400 mg PO Q6H PRN PRN Reason: Pain or Fever Stop: 03/14/24 09:47 Lorazepam (Lorazepam 0.5 Mg Tab) 0.25 mg PO DAILY@1000,1400 DELIO Stop: 03/23/24 13:59 Last Admin: 02/24/24 10:03 Dose: 0.25 mg Lorazepam (Lorazepam 1 Mg Tab) 1 mg PO HS DELIO Stop: 03/24/24 21:59 Last Admin: 02/23/24 21:04 Dose: 1 mg Lurasidone HCl (Lurasidone Hcl 20 Mg Tab) 60 mg PO DAILYBD DELIO Stop: 03/15/24 17:14 Last Admin: 02/23/24 17:26 Dose: 60 mg Magnesium Hydroxide (Magnesium Hydroxide Susp 30 Ml Udc) 30 ml PO DAILY PRN PRN Reason: Constipation Stop: 03/16/24 20:30 Mirtazapine (Mirtazapine Tab 15 Mg Tab) 15 mg PO HS DELIO Stop: 03/20/24 21:59 Last Admin: 02/23/24 21:04 Dose: 15 mg Multivitamins/Folic Acid/Vitamin C (Multivitamin Chewable Tab) 1 tab PO QAM DELIO Stop: 03/25/24 08:59 Last Admin: 02/24/24 08:50 Dose: 1 tab Ondansetron HCl (Ondansetron 4 Mg Od Tab) 4 mg PO Q6H PRN PRN Reason: Nausea Stop: 03/17/24 09:19 Polyethylene Glycol (Polyethylene (Miralax) 17 Gm Pack) 17 gm PO DAILY DELIO Stop: 03/21/24 08:59 Last Admin: 02/24/24 08:50 Dose: 17 gm Rosuvastatin Calcium (Rosuvastatin Calcium 5 Mg Tab) 2.5 mg PO QPM DELIO Stop: 03/13/24 20:59 Last Admin: 02/23/24 21:04 Dose: 2.5 mg Senna/Docusate Sodium (Docusate Sodium/Senna 50/8.6mg Tab) 1 tab PO BID DELIO Stop: 03/24/24 10:14 Last Admin: 02/24/24 08:50 Dose: 1 tab Sodium Chloride (Sodium Chloride 0.65% Na Soln 45 Ml ([place]rockett)) 1 - 2 sprays NA PRN PRN PRN Reason: Nasal Dryness/Congestion Stop: 03/16/24 20:30 Venlafaxine HCl (Venlafaxine Hcl Xr 75 Mg Capxr) 225 mg PO QAM DELIO Stop: 03/18/24 08:59 Last Admin: 02/24/24 08:50 Dose: 225 mg Mental Health & Subst Abuse Tx Psychiatrist Name of Psychiatrist: Dr. Izquierdo Psychiatrist's Date Of Appointment With Psychiatric Provider: 03/28/2024 Time of Appointment with Psychiatrist: 8:20AM Therapist Name of Therapist: Dr. Betito Beck Therapist's Date of Therapist Appointment: 03/14 Time of Therapist Appointment: 9AM Post Discharge Appointments Primary Care Physician Name Of Family Doctor/PCP: Dr. Otero Date of Future Appointment with PCP: every six months-next one June 2024
--- NOTE | 2024-02-25 09:05 | Psychiatric Progress Note ---
Date of Service February 25, 2024 Impression / Recommendations Impression DK GARLAND is 58-year-old man with a history of bipolar 1 disorder admitted on 01/16/24 18:56 on a 201 voluntary commitment for suicidal ideation with plan to shoot self with hunting rifle. Presentation consistent with bipolar disorder with major depressive episode. Patient presents mood episodes in late life with no behavioral health concerns in earlier years; late life bipolar is rare and continuing to r/o underlying causes, had outpatient neurology workup in the past after initial inpatient psychiatric admission without evidence for any cognitive changes. A: Ongoing severe depression, hopelessness, anxiety with SI. Accepted for ECT pending insurance authorization at [facility]. He signed new 201 for PPI with goal of treatment with ECT. Tolerating ativan taper, will reduce dose further tonight pending plan for upcoming ECT. ECT remains the necessary and most appropriate treatment given his severe bipolar depression and history of multiple prior medication trials without improvement. Hospitalist provider also saw Dk for medical evaluation for medical clearance for ECT and feels he is medically stable for this. Previous cardiac testing (EKG), labwork and MOCA assessment ( on 02/15/2024) all are also reassuring for ECT being appropriate and safe. Overall, I spent a total of 45 minutes on this case including meeting with the patient, reviewing the chart, nursing report, multidisciplinary team meeting, orders, and documentation. (1) Bipolar disorder with severe depression: (2) Hopelessness: (3) Elevated liver enzymes: (4) Suicidal ideations: Plan 02/25/2024: Decrease lorazepam to 0.5mg HS. Working on transfer for ECT once insurance authorization confirmed. 02/24/2024: Continue current treatment, ongoing referral process for ECT inpatient transfer options. 02/23/2024: Decrease lorazepam to 1mg HS. Ongoing referral process for transfer for inpatient ECT. 02/22/2024: Decrease lorazepam to 0.25mg qAM and qafternoon. Continue HS dose for now. Awaiting ECT referral to be reviewed. 02/21/2024: Start senna. Awaiting review of ECT appropriateness by [facility] tomorrow. 02/20/2024: Continue current medications and tx plan. Will check in re: ECT update for timeline with [facility] tomorrow morning. 02/19/2024: Start mirtazapine 15mg HS 02/18/2024: Continue medications and treatment plan 02/17/2024: Continue medications and treatment plan 02/16/2024: Continue medications and treatment plan. 02/15/2024: Continue medications and treatment plan. 02/14/2024: Increase lurasidone to 60 mg at dinner. Start lorazepam 0.25 mg in the morning and afternoon. Discontinue modafinil. 02/13/2024: Increase modafinil to 200 mg daily. 02/12/2024: Restart home rosuvastatin 2.5 mg at bedtime. 02/11/2024: * Discontinue Ritalin * Start modafinil 100mg daily 02/10/2024: * Discontinue lamictal 02/09/2024: * Increase Ritalin IR to 30mg qAM and 10mg qlunch 02/08/2024: * Increase Effexor XR to 225mg daily * Increase Ritalin IR to 15mg qAM and 5mg qlunch 02/07/2024: * Increase Ritalin IR to 10mg qAM * Decrease lamictal to 50mg HS 02/06/2024: * Discontinue [place] * Start Ritalin IR 5mg qAM 02/05/2024: * Decrease lamictal to 100mg HS * Decrease [place] to 150mg HS 02/04/2024: Continue medications and treatment plan 02/03/2024: Increase Effexor XR to 150 mg daily. Liver function test tomorrow morning. 02/02/2024: Decrease lithium to 300 mg at bedtime. Decrease lorazepam to 1.5 mg at bedtime. 02/01/2024: [place] level this evening. Continue medications and treatment plan. 01/31/2024: [place] to 450 mg at bedtime (discontinue a.m. dose). [place] level to be drawn tomorrow evening prior to nightly dose. 01/30/2024: Continue medications and treatment plan. [place] level in 2 days. 01/29/2024: Discontinue clonazepam, start lorazepam 2 mg at bedtime. Increase venlafaxine extended release 112.5 mg daily. Increase Colace to 200 mg twice daily. 01/28/2024: Continue current medications. May be able to increase Effexor XR again tomorrow. 01/27/2024: Discontinue clonidine. Increase [place] to 150mg qAM and 300mg HS. 01/26/2024: Increase Effexor XR to 75mg qAM tomorrow. Li level tomorrow AM. Add senna prn in addition to miralax and colace for constipation. 01/25/2024: Continue current meds and tx plan. 01/24/2024: Continue current meds and tx plan. 01/23/2024: -Start venlafaxine ER 37.5mg qAM -Decrease clonidine to 0.1 mg HS -Move Latuda to 40mg qdinner -Stop ativan at HS prn in favor of Klonopin HS prn for longer duration of action to help with sleep promotion -Continue ativan daily prn 01/22/2024: Continue current medications and tx plan. Will need [place] level in 4-6 days. 01/21/2024: Increase lurasidone to 40 mg daily. Stop cariprazine tomorrow morning. Increase lithium to 150 mg twice daily. Zofran ODT as needed started 01/20/24: Start clonidine 0.05 mg every morning. 01/19/24: [place] 150mg daily, Clonidine 0.1mg HS. 01/18/24: Continue medications and treatment plan 01/17/24: The patient was admitted to the [facility] ([facility]) on q15 min checks (behavioral with suicide precautions) for safety. The patient will participate in group, recreational, and milieu therapies and will be offered additional individual and family sessions as clinically appropriate. -Decrease Cariprazine to 1.5mg daily -Start Luradisone 20mg daily with breakfast -Continue home Lamotrigine 150mg HS -Start Lamotrigine 50mg QAM -Hold home bupropion -Continue home Buspirone 20mg BID -Continue home Lorazepam 1mg HS PRN and 0.5mg daily PRN -Lab work: Vit D, Vit B12, HbA1C, Free/Total/Bioavailable Testosterone Inventory Assets Strengths: family support, fair insight Needs: medication management, improved self esteem Suicide Risk Level Suicide Risk Level: High-Moderate (q15 min suicide checks) (SI and severe depression with prominent hopelessness but feels safe in the hospital, no plan for SI in the hospital, feels able to ask for support if SI changed to plan or intent in the hospital) Risk Factors Assessment Male: Yes : Yes Do You Have Access To A Gun?: No Health Problems: Yes Mental Health Diagnoses: Yes Substance Use Disorders: No Previous Attempt: No Family History of Suicide: No Previous Psychiatric Hospitalization: Yes Hopelessness: Yes Protective Factors Assessment Moravian Beliefs: Yes : Yes Responsible for Young Children: No Employed: Yes ([employer]) Stable Relationships: Yes Supportive Family: Yes Good Rapport with Provider: Yes Absence of Any Risk Factors Above: No Interval History Identifying Information DK GARLAND is 58-year-old M who currently lives with , employed as [employer] , has a history of bipolar 1 disorder, and was BIB and admitted on 01/16/24 18:56 on a 201 voluntary commitment for suicidal ideation with plan to shoot self with hunting rifle. Chief Complaint "I'm scared I make everything worse". Review of Systems Sleep Information Total Hours of Sleep: 8 Sleep Comments: HS Ativan and Remeron Meal Information Percent Meal Consumed - Breakfast: 100 Percent Meal Consumed - Lunch: 60 Percent Meal Consumed - Dinner: 90 Subjective Subjective Patient was seen & assessed and interval progress reviewed with nursing. Attended groups, rated mood as "2.5, up and down and scrambled". His and son visited yesterday. Ongoing depression and anxiety. Reviewed acceptance pending insurance to PPI for ECT treatment. He's hopeful about potential for ECT but also feels guilt that his will have a long distance to drive and that he'll be a burden. Worries about change and uncertainty of how ECT and the new inpatient facility will be. Sleeping well even with ativan taper, he's agreeable to ongoing taper. Physical Exam Psychiatric Orientation: alert and oriented x 3 Apperance: appropriately dressed and appropriately groomed Eye Contact: + fair eye contact Motor Behavior: steady gait and station, no abnormal motor movements and + psychomotor retardation (walks slowly) Speech: + abnormal rate/rhythm/volume of speech (soft, latent ) Affect: + depressed affect and + anxious affect Mood: + depressed mood and + anxious mood Thought Process: goal directed thought process and + concrete thought process Thought Content: + cognitive distortions, reality based without delusions, + hopelessness, + worthlessness and + guilt Suicidal Thoughts: denies suicidal plan (none for hospital, feels he would act if at home); + reports suicidal thoughts Homicidal Thoughts: denies homicidal thoughts Hallucinations: no auditory hallucinations and no visual hallucinations Cognition: recent memory grossly intact, remote memory grossly intact, attention grossly intact and language grossly intact Estimated Intelligence: consistent with education level Insight: + fair insight Judgment: + fair judgement Vital Signs (Past 24 Hours) Last Vital Signs Temp 36.8 C 02/25/24 06:00 Pulse 98 H 02/25/24 06:46 Resp 16 02/25/24 06:46 BP 133/79 02/25/24 06:46 Pulse Ox 95 02/25/24 06:00 O2 Del Method Room Air 02/25/24 06:00 Results & Data ([facility]) Current Inpatient Medications Current Inpatient Medications: Current Inpatient Medications Acetaminophen (Acetaminophen 325 Mg Tab) 650 mg PO Q4H PRN PRN Reason: Headache or Minor Fever Stop: 03/16/24 20:30 Al Hydrox/Mg Hydrox/Simethicone (Aluminum/Magnesium Susp 30 Ml Udc) 30 ml PO Q4H PRN PRN Reason: GI Upset Stop: 03/16/24 20:30 Bismuth Subsalicylate (Bismuth Subsalicylate 262 Mg Chew) 2 tab PO Q30M PRN PRN Reason: Loose Stool/Diarrhea Stop: 03/16/24 20:30 Hydroxyzine HCl (Hydroxyzine Hcl 25 Mg Tab) 50 mg PO HSZ PRN PRN Reason: Insomnia Stop: 03/16/24 20:30 Hydroxyzine HCl (Hydroxyzine Hcl 25 Mg Tab) 25 mg PO Q4H PRN PRN Reason: Anxiety Stop: 03/16/24 20:30 Ibuprofen (Ibuprofen 200 Mg Tab) 400 mg PO Q6H PRN PRN Reason: Pain or Fever Stop: 03/14/24 09:47 Lorazepam (Lorazepam 0.5 Mg Tab) 0.25 mg PO DAILY@1000,1400 DELIO Stop: 03/23/24 13:59 Last Admin: 02/24/24 14:20 Dose: 0.25 mg Lorazepam (Lorazepam 1 Mg Tab) 1 mg PO HS DELIO Stop: 03/24/24 21:59 Last Admin: 02/24/24 21:06 Dose: 1 mg Lurasidone HCl (Lurasidone Hcl 20 Mg Tab) 60 mg PO DAILYBD DELIO Stop: 03/15/24 17:14 Last Admin: 02/24/24 17:32 Dose: 60 mg Magnesium Hydroxide (Magnesium Hydroxide Susp 30 Ml Udc) 30 ml PO DAILY PRN PRN Reason: Constipation Stop: 03/16/24 20:30 Mirtazapine (Mirtazapine Tab 15 Mg Tab) 15 mg PO HS DELIO Stop: 03/20/24 21:59 Last Admin: 02/24/24 21:06 Dose: 15 mg Multivitamins/Folic Acid/Vitamin C (Multivitamin Chewable Tab) 1 tab PO QAM DELIO Stop: 03/25/24 08:59 Last Admin: 02/25/24 08:49 Dose: 1 tab Ondansetron HCl (Ondansetron 4 Mg Od Tab) 4 mg PO Q6H PRN PRN Reason: Nausea Stop: 03/17/24 09:19 Polyethylene Glycol (Polyethylene (Miralax) 17 Gm Pack) 17 gm PO DAILY DELIO Stop: 03/21/24 08:59 Last Admin: 02/25/24 08:49 Dose: 17 gm Rosuvastatin Calcium (Rosuvastatin Calcium 5 Mg Tab) 2.5 mg PO QPM DELIO Stop: 03/13/24 20:59 Last Admin: 02/24/24 21:04 Dose: 2.5 mg Senna/Docusate Sodium (Docusate Sodium/Senna 50/8.6mg Tab) 1 tab PO BID DELIO Stop: 03/24/24 10:14 Last Admin: 02/25/24 08:49 Dose: 1 tab Sodium Chloride (Sodium Chloride 0.65% Na Soln 45 Ml ([place])) 1 - 2 sprays NA PRN PRN PRN Reason: Nasal Dryness/Congestion Stop: 03/16/24 20:30 Venlafaxine HCl (Venlafaxine Hcl Xr 75 Mg Capxr) 225 mg PO QAM DELIO Stop: 03/18/24 08:59 Last Admin: 02/25/24 08:49 Dose: 225 mg Mental Health & Subst Abuse Tx Psychiatrist Name of Psychiatrist: Dr. Izquierdo Psychiatrist's Date Of Appointment With Psychiatric Provider: 03/28/2024 Time of Appointment with Psychiatrist: 8:20AM Therapist Name of Therapist: Dr. Betito Beck Therapist's Date of Therapist Appointment: 03/14 Time of Therapist Appointment: 9AM Post Discharge Appointments Primary Care Physician Name Of Family Doctor/PCP: Dr. Otero Date of Future Appointment with PCP: every six months-next one June 2024
--- NOTE | 2024-02-25 13:35 | Discharge Summary ---
Date of Service February 25, 2024 History of Present Illness the patient reports worsening depression over the past few months but notable decline over the past 4 to 5 days. Complains of hopelessness, daily crying spells, poor appetite, trouble staying asleep, fearful thoughts, anxious ruminations about the future. Complains of catastrophic and self-critical thinking. Feels guilty and responsible for her current situation. Previously enjoyed playing board games and photography however derives less interest from that now. reviewed medication history at length with the patient and reports recent medications of cariprazine and lamotrigine. Reports initial improvement with initiation of cariprazine however when dose was increased no notable improvement. Reports mental health problems began in 2021 after of father and patient became depressed. Initial trigger to get help was that he was fa lling asleep on his way home from work. He was started on Celexa and then presented in an agitated and manic state requiring hospitalization. He has poor recall of memories from that time. Reports past Hospital sleep study and did not meet criteria for obstructive sleep apnea or narcolepsy. Reports history of "melancholy" and being a worrier since childhood however did not require mental health treatment until recently. Denies having distressing dreams or hypervigilance symptoms. Reports growing up in [facility]. Had both parents and were supportive. Denies physical, sexual, emotional abuse. Completed a bachelor's of science in [employer]. Chart review: 02/13/2022atient presented agitated delirium and stephanie secondary to Celexa and was started on olanzapine 2.5 mg twice daily. Was subsequently hospitalized in inpatient behavioral health on 02/22/2022 and diagnosed with bipolar 1 disorder mixed episode and discharged with olanzapine 20 mg at bedtime. Hospitalized in 06/06/2022 for depression and was started on Abilify 5 mg daily and Depakote 500 mg 3 times daily. Depakote level of 109 and therapeutic 2-1/2 weeks later. Patient provided timeline of psychiatric medications and were reviewed with patient. Past psychiatric medications: Citalopram (treatment emergent stephanie), bupropion (only used for 2 days and currently held in hospital), cariprazine (initially helpful and increased to 3 mg with no notable improvement in symptoms), olanzapine (helpful for depression symptoms however patient did not tolerate due to sedation), aripiprazole (initially helpful however patient did not tolerate due to excess sedation), divalproex (initially helpful once titrated however patient did not tolerate due to excess sedation), lithium (increased to 150 mg twice daily and then decrease to 150 mg daily, was not tolerated due to patient feeling like a "zombie"), lamotrigine (some improvement, continuing titration), buspirone (currently prescribed, no notable improvement), lorazepam (uses 1 mg at night as needed and 0.5 mg daily as needed and assist with sleep and anxiety). has not tried lurasidone for bipolar depression. Social history: Third psychiatric admission. Works at [employer]. Outpatient psychiatry at some point health with Dr. Muller. Has a 26-year-old son who lives separately. Lives with . Mother passed in 2006. Father passed in 2021. No access to firearms. . Lives with . reports is supportive. Mother passed in 2006. Father passed in 2021. No access to firearms. Physical Exam Vital Signs (Past 24 Hours) Last Vital Signs Temp 36.8 C 02/25/24 06:00 Pulse 98 H 02/25/24 06:46 Resp 16 02/25/24 06:46 BP 133/79 02/25/24 06:46 Pulse Ox 95 02/25/24 06:00 O2 Del Method Room Air 02/25/24 06:00 Principal Diagnosis Bipolar Affective Disorder, severe depressive episode Psychiatric Data See daily stay summary. In short, safety was maintained and the patient was cooperative with care. Medication changes included discontinuation of prior to admission lamictal due to concern this was contributing to elevated LFTs (have been downtrending since it was discontinued), discontinuation of Vraylar due to ineffectiveness and titration of Latuda for mood stabilization, and initiation of Effexor XR 225mg daily and mirtazapine 15mg HS po for bipolar depression and ongoing use of lorazepam for anxiety with goal of taper to discontinuation as depression symptoms lessen and to allow for effective ECT. Given multiple prior medication trials and with limited benefit over the last two years and current most severe episode of bipolar depression decision was made to pursue inpatient ECT. He was accepted to [facility] for ongoing inpatient psychiatric treatment with goal of initiating ECT for bipolar depression. A safety plan was completed prior to discharge. Day of Discharge Assessment Today Oracio voices readiness for discharge to [facility] to start process for ECT. Orientation: alert and oriented x 3 Apperance: appropriately dressed and appropriately groomed Eye Contact: + fair eye contact Motor Behavior: steady gait and station, no abnormal motor movements and + psychomotor retardation (walks slowly) Speech: + abnormal rate/rhythm/volume of speech (soft, latent at times) Affect: + depressed affect and + anxious affect Mood: + depressed mood and + anxious mood Thought Process: goal directed thought process and + concrete thought process Thought Content: + cognitive distortions, reality based without delusions, + hopelessness, + worthlessness and + guilt Suicidal Thoughts: denies suicidal plan (none for hospital, feels he would act if at home); + reports suicidal thoughts Homicidal Thoughts: denies homicidal thoughts Hallucinations: no auditory hallucinations and no visual hallucinations Cognition: recent memory grossly intact, remote memory grossly intact, attention grossly intact and language grossly intact Estimated Intelligence: consistent with education level Insight: + fair insight Judgment: + fair judgement Suicide risk assessment: Acute risk is high given ongoing severe depression with hopelessness and SI. Chronic risk is moderate to high given some non-modifiable risk factors: psychiatric co-morbid diagnoses, prior psychiatric hospitalizations, mood disorder but also with protective factors including employed, good social support, sense of responsibility to family and social supports, outpatient care in place, positive coping skills, positive problem solving, willingness to engage with treatment and self-observation. At this time ECT for further treatment for severe depression is deemed the most likely means of modifying his acute and chronic risk of self-harm and achieving symptom improvement. Discharge physical exam: See admission H&P, MSE per above and day of discharge summary. Transition of Care Transition Of Care Record: was reviewed with the patient Advance Directives Advance Directives Information Provided: Yes Advance Directives on File: No Living Will: No Power of Line Production Cook: Yes ("legal POA") Power of Line Production Cook Name: Suzi Harrell Advance Directives Reason:: Declines as Mental Health Visit. Suicide Risk Level Suicide Risk Level Comments: Acute risk is high, see assessment above. He will transported via secure transport to [facility]. 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 Relationships: Yes Supportive Family: Yes Good Rapport with Provider: Yes Absence of Any Risk Factors Above: No Discharge Data Consultations 02/23/24 10:24 Consult Hospitalist Routine Lab Results 01/16/24 01/16/24 01/18/24 15:49 15:50 06:54 WBC 7.26 RBC 4.87 Hgb 15.6 Hct 44.0 MCV 90.3 MCH 32.0 MCHC 35.5 RDW Std Deviation 38.5 RDW Coeff of Toño 11.7 Plt Count 220 MPV 8.3 L Immature Gran % (Auto) 0.3 Neut % (Auto) 66.2 Lymph % (Auto) 27.0 [place] % (Auto) 5.5 Eos % (Auto) 0.6 Baso % (Auto) 0.4 Neut # (Auto) 4.81 Lymph # (Auto) 1.96 [place] # (Auto) 0.40 Eos # (Auto) 0.04 Baso # (Auto) 0.03 Immature Gran # (Auto) 0.02 PT INR Sodium 141 Potassium 3.4 L Chloride 102 Carbon Dioxide 32 Anion Gap 7 BUN 13 Creatinine 0.98 Est Cr Clr Drug Dosing 82.8 eGFR 88.28 BUN/Creatinine Ratio 13.3 Glucose 94 Estimat Average Glucose 100 Hemoglobin A1c 5.1 Calcium 10.2 Total Bilirubin 0.6 Direct Bilirubin AST 45 H ALT 120 H Alkaline Phosphatase 115 H Total Protein 8.7 H Albumin 5.6 H 4.3 Globulin 3.1 Albumin/Globulin Ratio 1.8 Vitamin B12 425 25-OH Vitamin D Total 32.9 TSH 4.225 Total Testosterone 533 Bioavail Testosterone 141.6 Bioav Free Testosterone 71.9 Sex Hormone Bind Glob 34 Urine Color Yellow Urine Appearance Clear Urine pH 6.0 Ur Specific [place] 1.023 Urine Protein Negative Urine Glucose (UA) Negative Urine Ketones Trace H Urine Blood Negative Urine Nitrite Negative Urine Bilirubin Negative Urine Urobilinogen Negative Ur Leukocyte Esterase Negative Salicylates < 3.0 L Urine Opiates Screen Neg Ur Methadone, Qual Neg Urine Fentanyl Screen Neg Acetaminophen < 3 L Urine Barbiturates Neg Lamotrigine 10.1 Ur Phencyclidine (PCP) Neg U Amphetamin/Meth Scrn Neg Urine MDEA negative MDMA (Ecstasy) Screen Pos H MDMA negative Urine MDMA negative U Benzodiazepines Scrn Neg [place] Ur Cocaine Metabolite Neg U Marijuana (THC) Screen Neg Ethyl Alcohol mg/dL < 10.0 SARS-CoV-2, RNA, NAAT NEGATIVE 01/27/24 02/01/24 02/04/24 08:04 16:48 07:14 WBC RBC Hgb Hct MCV MCH MCHC RDW Std Deviation RDW Coeff of Toño Plt Count MPV Immature Gran % (Auto) Neut % (Auto) Lymph % (Auto) [place] % (Auto) Eos % (Auto) Baso % (Auto) Neut # (Auto) Lymph # (Auto) [place] # (Auto) Eos # (Auto) Baso # (Auto) Immature Gran # (Auto) PT INR Sodium Potassium Chloride Carbon Dioxide Anion Gap BUN Creatinine Est Cr Clr Drug Dosing eGFR BUN/Creatinine Ratio Glucose Estimat Average Glucose Hemoglobin A1c Calcium Total Bilirubin 0.3 Direct Bilirubin 0.1 AST 68 H ALT 149 H Alkaline Phosphatase 85 Total Protein 6.5 Albumin 4.1 Globulin Albumin/Globulin Ratio Vitamin B12 25-OH Vitamin D Total TSH Total Testosterone Bioavail Testosterone Bioav Free Testosterone Sex Hormone Bind Glob Urine Color Urine Appearance Urine pH Ur Specific [place] Urine Protein Urine Glucose (UA) Urine Ketones Urine Blood Urine Nitrite Urine Bilirubin Urine Urobilinogen Ur Leukocyte Esterase Salicylates Urine Opiates Screen Ur Methadone, Qual Urine Fentanyl Screen Acetaminophen Urine Barbiturates Lamotrigine Ur Phencyclidine (PCP) U Amphetamin/Meth Scrn Urine MDEA MDMA (Ecstasy) Screen MDMA Urine MDMA U Benzodiazepines Scrn [place] 0.2 L 0.3 L Ur Cocaine Metabolite U Marijuana (THC) Screen Ethyl Alcohol mg/dL SARS-CoV-2, RNA, NAAT 02/14/24 02/14/24 02/14/24 15:47 16:00 16:05 WBC 6.29 RBC 4.04 L Hgb 13.2 L Hct 36.9 L MCV 91.3 MCH 32.7 MCHC 35.8 RDW Std Deviation 39.0 RDW Coeff of Toño 11.7 Plt Count 191 MPV 8.5 L Immature Gran % (Auto) 0.3 Neut % (Auto) 63.0 Lymph % (Auto) 28.3 [place] % (Auto) 7.3 Eos % (Auto) 0.6 Baso % (Auto) 0.5 Neut # (Auto) 3.96 Lymph # (Auto) 1.78 [place] # (Auto) 0.46 Eos # (Auto) 0.04 Baso # (Auto) 0.03 Immature Gran # (Auto) 0.02 PT INR Sodium 137 Potassium 3.9 Chloride 101 Carbon Dioxide 30 Anion Gap 6 BUN 14 Creatinine 0.97 Est Cr Clr Drug Dosing 83.6 eGFR 89.37 BUN/Creatinine Ratio 14.4 Glucose 101 H Estimat Average Glucose Hemoglobin A1c Calcium 9.2 Total Bilirubin Direct Bilirubin AST ALT Alkaline Phosphatase Total Protein Albumin Globulin Albumin/Globulin Ratio Vitamin B12 25-OH Vitamin D Total TSH Total Testosterone Bioavail Testosterone Bioav Free Testosterone Sex Hormone Bind Glob Urine Color Urine Appearance Urine pH Ur Specific [place] Urine Protein Urine Glucose (UA) Urine Ketones Urine Blood Urine Nitrite Urine Bilirubin Urine Urobilinogen Ur Leukocyte Esterase Salicylates Urine Opiates Screen Neg Ur Methadone, Qual Neg Urine Fentanyl Screen Neg Acetaminophen Urine Barbiturates Neg Lamotrigine Ur Phencyclidine (PCP) Neg U Amphetamin/Meth Scrn Neg Urine MDEA MDMA (Ecstasy) Screen Neg MDMA Urine MDMA U Benzodiazepines Scrn Neg [place] Ur Cocaine Metabolite Neg U Marijuana (THC) Screen Neg Ethyl Alcohol mg/dL SARS-CoV-2, RNA, NAAT NEGATIVE 02/23/24 10:43 WBC 9.07 RBC 4.67 L Hgb 14.8 Hct 42.2 MCV 90.4 MCH 31.7 MCHC 35.1 RDW Std Deviation 38.6 RDW Coeff of Toño 11.8 Plt Count 226 MPV 8.6 L Immature Gran % (Auto) 0.3 Neut % (Auto) 62.8 Lymph % (Auto) 27.5 [place] % (Auto) 8.7 Eos % (Auto) 0.4 Baso % (Auto) 0.3 Neut # (Auto) 5.69 Lymph # (Auto) 2.49 [place] # (Auto) 0.79 H Eos # (Auto) 0.04 Baso # (Auto) 0.03 Immature Gran # (Auto) 0.03 PT 10.6 INR 1.0 Sodium 142 Potassium 4.5 Chloride 104 Carbon Dioxide 26 Anion Gap 12 H BUN 14 Creatinine 0.93 Est Cr Clr Drug Dosing 87.2 eGFR 94.00 BUN/Creatinine Ratio 15.1 Glucose 92 Estimat Average Glucose Hemoglobin A1c Calcium 10.1 Total Bilirubin 0.6 Direct Bilirubin AST 49 H ALT 113 H Alkaline Phosphatase 95 Total Protein 7.6 Albumin 4.7 Globulin 2.9 Albumin/Globulin Ratio 1.6 Vitamin B12 25-OH Vitamin D Total TSH Total Testosterone Bioavail Testosterone Bioav Free Testosterone Sex Hormone Bind Glob Urine Color Urine Appearance Urine pH Ur Specific [place] Urine Protein Urine Glucose (UA) Urine Ketones Urine Blood Urine Nitrite Urine Bilirubin Urine Urobilinogen Ur Leukocyte Esterase Salicylates Urine Opiates Screen Ur Methadone, Qual Urine Fentanyl Screen Acetaminophen Urine Barbiturates Lamotrigine Ur Phencyclidine (PCP) U Amphetamin/Meth Scrn Urine MDEA MDMA (Ecstasy) Screen MDMA Urine MDMA U Benzodiazepines Scrn [place] Ur Cocaine Metabolite U Marijuana (THC) Screen Ethyl Alcohol mg/dL SARS-CoV-2, RNA, NAAT Hospital Course (1) Bipolar disorder with severe depression: (2) Hopelessness: (3) Elevated liver enzymes: (4) Suicidal ideations: Plan 02/25/2024: Decrease lorazepam to 0.5mg HS. Transfer to [facility] with plan to likely start ECT. 02/24/2024: Continue current treatment, ongoing referral process for ECT inpatient transfer options. 02/23/2024: Decrease lorazepam to 1mg HS. Ongoing referral process for transfer for inpatient ECT. 02/22/2024: Decrease lorazepam to 0.25mg qAM and qafternoon. Continue HS dose for now. Awaiting ECT referral to be reviewed. 02/21/2024: Start senna. Awaiting review of ECT appropriateness by [facility] tomorrow. 02/20/2024: Continue current medications and tx plan. Will check in re: ECT update for timeline with [facility] tomorrow morning. 02/19/2024: Start mirtazapine 15mg HS 02/18/2024: Continue medications and treatment plan 02/17/2024: Continue medications and treatment plan 02/16/2024: Continue medications and treatment plan. 02/15/2024: Continue medications and treatment plan. 02/14/2024: Increase lurasidone to 60 mg at dinner. Start lorazepam 0.25 mg in the morning and afternoon. Discontinue modafinil. 02/13/2024: Increase modafinil to 200 mg daily. 02/12/2024: Restart home rosuvastatin 2.5 mg at bedtime. 02/11/2024: * Discontinue Ritalin * Start modafinil 100mg daily 02/10/2024: * Discontinue lamictal 02/09/2024: * Increase Ritalin IR to 30mg qAM and 10mg qlunch 02/08/2024: * Increase Effexor XR to 225mg daily * Increase Ritalin IR to 15mg qAM and 5mg qlunch 02/07/2024: * Increase Ritalin IR to 10mg qAM * Decrease lamictal to 50mg HS 02/06/2024: * Discontinue [place] * Start Ritalin IR 5mg qAM 02/05/2024: * Decrease lamictal to 100mg HS * Decrease [place] to 150mg HS 02/04/2024: Continue medications and treatment plan 02/03/2024: Increase Effexor XR to 150 mg daily. Liver function test tomorrow morning. 02/02/2024: Decrease lithium to 300 mg at bedtime. Decrease lorazepam to 1.5 mg at bedtime. 02/01/2024: [place] level this evening. Continue medications and treatment plan. 01/31/2024: [place] to 450 mg at bedtime (discontinue a.m. dose). [place] level to be drawn tomorrow evening prior to nightly dose. 01/30/2024: Continue medications and treatment plan. [place] level in 2 days. 01/29/2024: Discontinue clonazepam, start lorazepam 2 mg at bedtime. Increase venlafaxine extended release 112.5 mg daily. Increase Colace to 200 mg twice daily. 01/28/2024: Continue current medications. May be able to increase Effexor XR again tomorrow. 01/27/2024: Discontinue clonidine. Increase [place] to 150mg qAM and 300mg HS. 01/26/2024: Increase Effexor XR to 75mg qAM tomorrow. Li level tomorrow AM. Add senna prn in addition to miralax and colace for constipation. 01/25/2024: Continue current meds and tx plan. 01/24/2024: Continue current meds and tx plan. 01/23/2024: -Start venlafaxine ER 37.5mg qAM -Decrease clonidine to 0.1 mg HS -Move Latuda to 40mg qdinner -Stop ativan at HS prn in favor of Klonopin HS prn for longer duration of action to help with sleep promotion -Continue ativan daily prn 01/22/2024: Continue current medications and tx plan. Will need [place] level in 4-6 days. 01/21/2024: Increase lurasidone to 40 mg daily. Stop cariprazine tomorrow morning. Increase lithium to 150 mg twice daily. Zofran ODT as needed started 01/20/24: Start clonidine 0.05 mg every morning. 01/19/24: [place] 150mg daily, Clonidine 0.1mg HS. 01/18/24: Continue medications and treatment plan 01/17/24: The patient was admitted to the [facility] ([facility] mental health unit) on q15 min checks (behavioral with suicide precautions) for safety. The patient will participate in group, recreational, and milieu therapies and will be offered additional individual and family sessions as clinically appropriate. -Decrease Cariprazine to 1.5mg daily -Start Luradisone 20mg daily with breakfast -Continue home Lamotrigine 150mg HS -Start Lamotrigine 50mg QAM -Hold home bupropion -Continue home Buspirone 20mg BID -Continue home Lorazepam 1mg HS PRN and 0.5mg daily PRN -Lab work: Vit D, Vit B12, HbA1C, Free/Total/Bioavailable Testosterone Mental Health & Subst Abuse Tx Psychiatrist Name of Psychiatrist: Dr. Izquierdo Psychiatrist's Date Of Appointment With Psychiatric Provider: 03/28/2024 Time of Appointment with Psychiatrist: 8:20AM Therapist Name of Therapist: Dr. Betito Beck Therapist's Date of Therapist Appointment: 03/14 Time of Therapist Appointment: 9AM Post Discharge Appointments Primary Care Physician Name Of Family Doctor/PCP: Dr. Otero Date of Future Appointment with PCP: every six months-next one June 2024 Discharge Plan Discharge Items Patient Disposition: Transfer Behavioral Health Fac Reason For Visit: SUICIDAL IDEATION Discharge Diagnosis: Bipolar Affective Disorder, severe depressive episode Activity: Resume your previous activity Non-emergency contact: Primary Care Provider, Psychiatrist and Therapist Call non-emergency contact if: you have any medication questions and your symptoms worsen Follow-up/Referrals: Craig Otero [Primary Care Provider] - Diet: Regular Addtl Attending Provider Instructions: You will be transferring to [facility] for further inpatient psychiatric treatment with goal of starting ECT for your severe bipolar depression. WHO TO CALL AND WHEN: Medical Emergencies: For questions or emergencies related to your hospital stay, please contact the Inpatient Behavioral Health Unit at [phone]. A psychiatric arnp is on-call 19/10 for the Behavioral Health Unit for emergencies At any time you feel your situation is an emergency, you may also call 911 immediately. Pending Studies at Discharge: No Stand-Alone Forms: [facility] Medications and DC Order Prescriptions: New lorazepam 0.5 mg Tablet 0.25 mg PO DAILY@1000,1400 Qty: 1 0RF lorazepam 0.5 mg Tablet 0.5 mg PO HS Qty: 1 0RF lurasidone 20 mg Tablet 60 mg PO DAILYBD Qty: 1 0RF venlafaxine 75 mg Capsule,Extended Release 24hr 225 mg PO QAM Qty: 1 0RF polyethylene glycol 3350 [Miralax] 17 gram Powder In Packet 17 g PO DAILY Qty: 1 0RF mirtazapine 15 mg Tablet 15 mg PO HS Qty: 1 0RF Flintstones Complete (iron) Tablet,Chewable 1 tab PO QAM Qty: 1 0RF Continued rosuvastatin 5 mg tablet 2.5 mg PO QPM Discontinued buspirone 30 mg tablet 20 mg PO BID multivitamin [Multiple Vitamins] Tablet 1 tab PO 4XWK Rx Instructions: Takes Mon, Wed, Fri, Sat lamotrigine [Lamictal] 150 mg tablet 150 mg PO HS bupropion HCl [Wellbutrin SR] 100 mg tablet sustained-release 12 hr 100 mg PO QAM lorazepam [Ativan] 0.5 mg Tablet 0.5 mg PO TID PRN (Reason: Anxiety) Rx Instructions: Allowed to take 1.5 mg per day in total vitamin B complex [Vitamins B Complex] Capsule 1 cap PO 3XWK Rx Instructions: Tues, Thurs, Sun Vraylar 3 mg capsule 3 mg PO QAM cholecalciferol (vitamin D3) [Vitamin D3] 50 mcg (2,000 unit) Capsule 2,000 unit PO 4XWK Rx Instructions: Takes Mon, Wed, Fri, Sat Discharge Orders: Discharge Order (Routine); Ordered 02/25/24 Ordered By: Surekha Byers Admission Data Admit Date/Time: 01/16/24 18:56 Attending Provider: Surekha Byers Admit Provider: Joaquin Angeles Primary Care Provider: Craig Otero Other Providers: Alejandro Arias Coding Level of Care Code 12362 D/C day mgmt 30 min or < Diagnoses Bipolar disorder with severe depression F31.4 Hopelessness R45.89 Elevated liver enzymes R74.8 Suicidal ideations R45.851
[2024-02-25] MEDS: LORazepam 0.5 MG TAB PO STA (16:04)
[2024-02-25] MEDS: LORazepam 0.5 MG TAB ONE (16:38)
[2024-02-25] MEDS: LORazepam 0.5 MG TAB PO SCH (21:42)
[2024-02-25 21:45] VITALS: BP 133/83; PULSE 88; TEMP 98.4; O2SAT 94
== END 2024-02-25 21:50 | DRG 885 ==
LOC: ED 15:25 → SUATTDRO 18:56 → 3S 18:56
DX: R45.851 Suicidal ideations; Z02.2 Encounter for examination for admission to residential institution; R74.8 Abnormal levels of other serum enzymes; F41.9 Anxiety disorder, unspecified; F31.60 Bipolar disorder, current episode mixed, unspecified; Z88.8 Allergy status to other drugs, medicaments and biological substances; F31.4 Bipolar disorder, current episode depressed, severe, without psychotic features; Z79.899 Other long term (current) drug therapy; K59.00 Constipation, unspecified